=== PATIENT | male | born 1970 | race Caucasian/White ===

== ENCOUNTER 2022-07-03 14:36 | Outpatient (CLI) | payer OTHER, SELFPAY ==
[2022-07-03 17:42] LABS: Albumin* 4.4 g/dL (3.3-5.0)
[2022-07-03 17:45] LABS: Alanine Aminotransferase* 26 U/L (4-50); Alkaline Phosphatase* 97 U/L (40-150); Aspartate Amino Transferase* 29 U/L (12-35); Bilirubin Direct* 0.1 mg/dL (0.0-0.5); Bilirubin Total* 0.6 mg/dL (0.1-1.5); Total Protein* 7.4 g/dL (6.0-8.3)
== END 2022-07-03 14:37 | disposition home or self-care (01) ==
PROVIDERS: PCP Family Medicine; Visit Provider Family Medicine
DX: R10.9 Unspecified abdominal pain (principal); K92.1 Melena
CPT/HCPCS: 80076

== ENCOUNTER 2022-07-21 10:57 | Outpatient (CLI) | payer OTHER, SELFPAY ==
--- NOTE | 2022-07-21 12:22 | W.ANESCHARGE ---
Anesthesia Charges Start Date/Time Anesthesia Start Date: 07/21/22 Anesthesia Start Time: 11:43 Stop Date/Time Anesthesia Stop Date: 07/21/22 Anesthesia Stop Time: 12:15 Summary Emergency: No
--- NOTE | 2022-07-21 12:33 | W.ANESCHARGE ---
Anesthesia Charges Start Date/Time Anesthesia Start Date: 07/21/22 Anesthesia Start Time: 11:43 Stop Date/Time Anesthesia Stop Date: 07/21/22 Anesthesia Stop Time: 12:15 Summary Emergency: No
== END 2022-07-21 10:58 | disposition home or self-care (01) ==
LOC: OP CLINIC 11:02
PROVIDERS: PCP Family Medicine; Visit Provider Surgery
DX: Z12.11 Encounter for screening for malignant neoplasm of colon (principal); Z86.010 Personal history of colon polyps
CPT/HCPCS: 00811; 00812; 45378; J2704

== ENCOUNTER 2022-11-26 07:04 | Outpatient (CLI) | payer OTHER, SELFPAY ==
--- NOTE | 2022-11-26 07:15 | MR_ITS ---
[address] [address] Phone:?[phone] Fax:?[phone] Referring Physician Information: Tomás Pham M.D. [id number] [facility] [address] Phone:?[phone] Fax:?[phone] Patient:Josette Lockwood D.Savita.B:?1970 Sex:?Male Phone:?[phone] [facility] MRN:?[id number] Exam Date:?11/26/2022 ? EXAM: MRI EXAMINATION OF THE RIGHT SHOULDER CLINICAL INFORMATION: Right shoulder pain. No history of surgery to this area. Concern for possible rotator cuff tear. TECHNICAL INFORMATION: Coronal STIR as well as axial, sagittal and coronal PD and T2-weighted images acquired. There are no prior studies for comparison. INTERPRETATION: Bones: There is no Hill-Sachs impaction deformity. No other evidence for an occult fracture or osseous contusion. No other bone marrow edema pattern is identified. Rotator Cuff: Series 8 images 7 and 8 demonstrate an approximate 7 mm high-grade and apparent full-thickness tear of the far anterior supraspinatus tendon situated just proximal to the insertional footprint. Torn tendon fibers remain situated lateral to the mid humeral head level. There is no evidence for muscle belly atrophy. Series 4 image 9 as well as series 8 images 22 through 27 cm ovoid lobular 2.7 cm ganglion cyst anteroinferiorly towards the distal muscle belly. There is a mild appearance of infraspinatus tendinopathy. The teres minor tendon is intact. The subscapularis tendon is intact. No appreciable rotator cuff muscle belly atrophy. Coracoacromial arch: There is no discrete subacromial osseous spur. The bony acromiohumeral interval is measuring 8 to 9 mm. There is no thickening identified of the coracoacromial ligament. Acromioclavicular joint: There is a moderate appearance of AC joint DJD. No deformity of the underlying supraspinatus tendon. There is a moderate to marked appearance of fluid and edema signal within the subacromial/subdeltoid bursa areas. Biceps tendon: The long head biceps tendon is intact and nondisplaced from the bicipital groove. No evidence for a tendon tear or any appreciable changes of tendinopathy. There is a moderate appearance of tenosynovitis. Glenohumeral joint and labrum: No significant glenohumeral joint effusion. No discrete loose body within the joint. 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 No discrete SLAP tear. No other definite evidence for labral tear. No discrete paralabral cyst is identified. CONCLUSION: 1. There is a small, high-grade and apparent full-thickness tear involving the far anterior supraspinatus tendon just proximal to the tendon insertion. Torn tendon fibers remain situated lateral to the mid humeral head level. There is a 2.7 cm ganglion cyst within the muscle belly, without fatty atrophy. 2. Moderate AC joint DJD without abnormal narrowing of the acromiohumeral interval. 3. Moderate to marked fluid and edema signal within the subacromial/subdeltoid bursa area, may be related to the full-thickness rotator cuff tendon tear versus bursitis. 4. Unremarkable and intact long head biceps tendon, with moderate tenosynovitis. 5. 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 There is no glenohumeral joint effusion. KES Electronically signed on 11/26/2022 9:07:00 AM by Jorge Stewart M.D.
== END 2022-11-26 07:05 | disposition home or self-care (01) ==
LOC: MRI 07:06
PROVIDERS: PCP Family Medicine; Visit Provider Orthopaedic Surgery Sports Medicine
DX: M25.511 Pain in right shoulder (principal); M75.101 Unspecified rotator cuff tear or rupture of right shoulder, not specified as traumatic; M19.011 Primary osteoarthritis, right shoulder; M65.811 Other synovitis and tenosynovitis, right shoulder; M94.211 Chondromalacia, right shoulder
CPT/HCPCS: 73221

== ENCOUNTER 2022-12-28 07:06 | Day surgery (SDC) | payer OTHER, SELFPAY ==
[2022-12-28] VITALS (14 sets, daily range): BP systolic 110–131; BP diastolic 76–100; PULSE 55–62; RESP 16–20; TEMP 36.1–36.9; O2SAT 93–999; BMI 34.7
[2022-12-28] MEDS: LACTATED RINGERS 1000 ML 1,000 ML 100 ML IV (07:25)
[2022-12-28] MEDS: fentaNYL 100 MCG/2 ML inj IVP (08:04)
[2022-12-28] MEDS: MIDAZOLAM HCL 1 MG/ML inj IVP (08:05)
--- NOTE | 2022-12-28 08:29 | SUR.PREOP ---
TIME?OUT:?0804 PT/RN/MDA?VERIFICATION?OF?SURGICAL?SITE,?PROCEDURE,?AND?CONSENT OBTAINED?PRIOR?TO?INVASIVE?PROCEDURE.
--- NOTE | 2022-12-28 08:29 | W.PM.NB ---
Nerve Block Nerve Block Time Seen by Provider: 08:10 Date Seen: 12/28/22 Type of block requested by surgeon for post-operative analgesia: supraclavicular Side: right Time out performed: Yes Verification of patient name: Yes Verification of date of : Yes Site marking: site marked Name of person performing procedure: malini Continuous monitoring Was continuous monitoring of O2 sat, B/P, laboratory monitor, recorded every 15 minutes?: Yes Procedure Checklist: sterile prep and needles Ultrasound guided. Images saved: Yes Medications given in 5ml increments after negative aspiration: Ropivicaine %: 0.5 mL: 20 Needle gauge: 22 Decadron (mg): 10 Precedex (mcg): 25 Patient tolerated procedure well: Yes Block Charges Block Charge (with Pro Fee): Brachial Plexus Use of Ultrasound Machine for Block: Yes- US Guidance/pain block
[2022-12-28] MEDS: EPINEPHrine 1 MG in SODIUM CHLORIDE IRRIG SOLUTION 3,000 ML 9003 MG IRRIGATION ×3 (10:20)
--- NOTE | 2022-12-28 10:37 | P.ORPRC_ITS ---
Procedure Note Date of procedure: 12/28/22 Procedure: PREOPERATIVE DIAGNOSES: 1. Right shoulder rotator cuff tear. 2. Right shoulder AC degenerative joint disease, primary, moderate-severe 3. Right shoulder subacromial impingement syndrome. POSTOPERATIVE DIAGNOSES: 1. Right shoulder rotator cuff tear. 2. Right shoulder AC degenerative joint disease, primary, moderate-severe 3. Right shoulder subacromial impingement syndrome. NAME OF OPERATION: 1. Right shoulder arthroscopic rotator cuff repair. 2. Right shoulder arthroscopic distal clavicle excision 3. Right shoulder arthroscopic bursectomy, subacromial decompression/partial acromioplasty. SURGEON: Tomás Pham MD INSPECTOR WATCH TRAIN: Shadi LEYVA Of note, a skilled legal support assistant was critical for this case to aide in patient positioning, suture manipulation, arm positioning, instrument positioning, and closure. ANESTHESIA: General plus preoperative supraclavicular block. EBL: 50 mL IMPLANTS: Arthrex 2.6 mm FiberTak RC (x1); 5.5 mm BioComposite SwiveLock suture anchor (x1) COMPLICATIONS: None evident INDICATIONS: The patient is a pleasant, 52-year-old male who has experienced right shoulder pain that has been increasing in recent time. Physical exam and imaging were consistent with a rotator cuff tear. Given their findings, as well as the weakness and pain, and inadequate response to nonoperative management, recommendation was made for surgery. FINDINGS: Exam under anesthesia revealed stable shoulder with excellent range of motion. The diagnostic arthroscopy revealed relatively healthy chondral surfaces glenohumeral joint with some chondral wear superior humeral head. The Subscapularis tendon was intact and with a healthy attachment. The long head of the biceps tendon was intact. The superior rotator cuff tendon was found to be torn full thickness at the anterior margin measuring approximately 12 mm in greatest dimension with minimal retraction. The labrum was intact with minimal pathology. No loose bodies were identified within the pouch or subscapularis recess. PROCEDURE: Following a thorough discussion of risks, benefits, and alternatives, consent was obtained and the right shoulder was marked. The patient was brought to the operating room and placed supine on the operating table. Induction of anesthesia was completed after preoperative supraclavicular block was administered in preop holding. Appropriate time out was performed identifying proper patient, site, and procedure. 2 g IV Ancef was administered within 1 hour of incision preoperatively. The right upper extremity was prepped and draped in the appropriate sterile fashion using ChloraPrep prep. This was after the patient was positioned in the beach chair with their head in neutral alignment and all bony prominences well padded. The shoulder was insufflated with 20mL of normal saline via an 18g spinal needle from a posterior approach. An 11 blade skin incision allowed a blunt trochar to be inserted and diagnostic arthroscopy to be performed with the findings as noted above. An anterior portal was established with an outside in technique. This allowed the probe to be inserted and confirm the diagnostic arthroscopic findings. Following this, the upper border subscapularis was probed and found to be stable and intact. Thereafter, the subacromial space was entered. Here, a complete bursectomy and partial acromioplasty/subacromial decompression was performed with a combination of radiofrequency ablator, the shaver, and a 5.5 mm bur. Additionally, distal clavicle excision was performed with the bur. 8 mm of distal clavicle was resected based on the with of our bur. Further inspection of the supraspinatus and infraspinatus rotator cuff was performed. This identified the tear as noted above. The margins of the tear were debrided, and the greater tuberosity was debrided with a combination of the apollo cautery, shaver, and bur on reverse setting. After gentle decortication, and preparation of greater tuberosity, a 2.6 mm FiberTak RC was placed for medial row fixation. The 4 tails were passed independently and brought to a single 5.5 mm BioComposite SwiveLock suture anchor laterally. Excellent footprint compression was achieved. Prior to anchor industrial truck driver removal, the eyelet sutures were tugged on for each anchor and found that the anchor had excellent stability within the bone. The shoulder was placed through range of motion and found to be stable. The rotator cuff was re-probed and found to be stable. Instruments were removed. Excess fluid was drained, closure performed with 4-0 Monocryl and Steri-Strips. Dressings were applied. Sling was applied. The patient was awoken from anesthesia and transferred to the PACU in stable condition. A skilled legal support assistant was critical for this case to aid in patient positioning, limb positioning, skill to manipulate arthroscopic instruments and camera, suture management, patient safety, and closure. PLAN: 1. Elbow, forearm, wrist and digit range of motion as tolerated. 2. Encouraged ice. 3. Percocet for pain as needed. 4. Sling at all times except for ROM and showering. 5. Follow up with PA visit in 1-2 weeks for wound check. Initiate physical therapy following that visit for passive range of motion. Initiate active assisted range of motion at 3 weeks. May do pendulums now.
--- NOTE | 2022-12-28 10:41 | W.ANESCHARGE ---
Anesthesia Charges Start Date/Time Anesthesia Start Date: 12/28/22 Anesthesia Start Time: 08:49 Stop Date/Time Anesthesia Stop Date: 12/28/22 Anesthesia Stop Time: 10:38
--- NOTE | 2022-12-28 11:13 | SUR.PHASEI ---
patient met discharge criteria per anesthesia
[2022-12-28] MEDS: OXYCODONE 5 MG TABLET PO (11:28)
[2022-12-28] MEDS: OxyCODONE/APAP 5-325 TABLET PO (12:21)
[2022-12-28] MEDS: ACETAMINOPHEN 325 MG TABLET PO (12:22)
== END 2022-12-28 12:49 | disposition home or self-care (01) ==
PROVIDERS: PCP Family Medicine; Visit Provider Orthopaedic Surgery Sports Medicine
PROC: (CPT 29805; principal; 2022-12-28 08:30)
DX: M75.101 Unspecified rotator cuff tear or rupture of right shoulder, not specified as traumatic (principal); M75.41 Impingement syndrome of right shoulder; M19.011 Primary osteoarthritis, right shoulder
CPT/HCPCS: 29827; 29826; 29824; 1630; 64415; 76942; A9270; C1713; J0171; J0330; J1100; J2250; J2405; J2704; J2795; J3010; J7120; L3670

== ENCOUNTER 2023-05-04 08:15 | Outpatient (RCR) | payer OTHER, SELFPAY | END 2023-07-05 09:03 | disposition home or self-care (01) | PROVIDERS: PCP Family Medicine; Visit Provider Orthopaedic Surgery Sports Medicine | DX: M19.011 Primary osteoarthritis, right shoulder (principal); M75.111 Incomplete rotator cuff tear or rupture of right shoulder, not specified as traumatic; Z51.89 Encounter for other specified aftercare | CPT/HCPCS: 97110; 97140; 97162; 97530 ==

== ENCOUNTER 2023-05-13 11:34 | Outpatient (CLI) | payer OTHER, SELFPAY | END 2023-05-13 11:35 | disposition home or self-care (01) | PROVIDERS: PCP Family Medicine; Visit Provider Family Medicine | DX: R10.13 Epigastric pain (principal); E87.1 Hypo-osmolality and hyponatremia | CPT/HCPCS: 80053; 83690; 85651 ==

== ENCOUNTER 2023-05-31 10:55 | Outpatient (CLI) | payer OTHER, SELFPAY | END 2023-05-31 10:56 | disposition home or self-care (01) | LOC: NFLDREF 06-01 09:38 | PROVIDERS: PCP Family Medicine; Referring Provider Family Medicine; Visit Provider Physician Assistant | DX: R07.89 Other chest pain (principal); J40 Bronchitis, not specified as acute or chronic | CPT/HCPCS: 84484 ==

== ENCOUNTER 2023-07-20 09:51 | Outpatient (CLI) | payer OTHER, SELFPAY | END 2023-07-20 09:52 | disposition home or self-care (01) | PROVIDERS: PCP Family Medicine; Visit Provider Family Medicine | DX: R10.9 Unspecified abdominal pain (principal) | CPT/HCPCS: 80076; 83690 ==

== ENCOUNTER 2023-07-21 08:13 | Outpatient (CLI) | payer OTHER, SELFPAY ==
--- NOTE | 2023-07-21 08:00 | CRLHL7_ITS ---
For Patients: As a result of the Century Cures Act, medical imaging exams and procedure reports are released immediately into your electronic medical record. You may view this report before your referring provider. If you have questions, please contact your health care provider. INDICATION: Abdominal pain. History of pancreatitis COMPARISON: November 01, 2021 CT TECHNIQUE: CT examination of the abdomen and pelvis was performed following the uneventful intravenous administration of 121 cc of Isovue 370. Thin section axial images were obtained from the lung bases through the pubic symphysis. Oral contrast was not administered. Please note that all CT scans at this facility use dose modulation, iterative reconstruction, and/or weight-based dosing when appropriate to reduce radiation dose to as low as reasonably achievable. FINDINGS: LUNG BASES: The lung bases as visualized appear normal.The heart size is normal at the lung bases. LIVER/BILIARY SYSTEM:Hepatic steatosis. Mass in the posterior segment of the right lobe of the liver measuring about 2.5 centimeters. This has imaging features most consistent with a hemangioma and was present previously. No biliary ductal dilation. Surgically absent gallbladder ADRENALS: Normal KIDNEYS, URETERS and BLADDER:The kidneys appear normal. No visible mass, calculus or hydronephrosis. The ureters and bladder as visualized appear normal. SPLEEN:Normal appearance. PANCREAS: There are mild peripancreatic inflammatory changes at the inferior aspect of the head. This probably represents acute on chronic pancreatitis. Correlate with lipase level. There is atrophy of much of the body of the pancreas with pancreatic ductal dilation similar to the prior study. This usually due to chronic pancreatitis. There is no focal collection in there is no evidence of necrosis. RETROPERITONEUM and MESENTERY: There is no mass, adenopathy or aortic aneurysm. GASTROINTESTINAL SYSTEM: There is no evidence of diverticulitis, colitis, mechanical obstruction, or appendicitis. The small bowel as visualized appears normal. PELVIS: No mass, adenopathy or free fluid. OSSEOUS STRUCTURES and ABDOMINAL WALL: There is an age-appropriate appearance of the osseous structures.No significant abdominal wall defect. OTHER: No free fluid or free air. IMPRESSION: 1. There are findings of chronic pancreatitis. 2. Mild peripancreatic inflammatory change primarily at the inferior aspect of the pancreatic head near the uncinate process and the regional retroperitoneum. This probably represents acute on chronic pancreatitis. Correlate with lipase level. No collection and no evidence of pancreatic necrosis. 3. Hepatic steatosis. Benign-appearing right lobe hepatic mass probably hemangioma. Status post cholecystectomy. Please note that all CT scans at this facility use dose modulation, iterative reconstruction, and/or weight-based dosing when appropriate to reduce radiation dose to as low as reasonably achievable. Dictated by Jose Hernandez MD @ 07/21/2023 8:56:48 AM (Electronically Signed)
== END 2023-07-21 08:14 | disposition home or self-care (01) ==
PROVIDERS: PCP Family Medicine; Visit Provider Family Medicine
DX: R10.9 Unspecified abdominal pain (principal)
CPT/HCPCS: 74177; Q9967

== ENCOUNTER 2023-08-17 18:13 | Inpatient (IN) | payer OTHER, SELFPAY ==
[2023-08-17] VITALS (35 sets, daily range): BP systolic 119–175; BP diastolic 77–123; PULSE 104–140; RESP 22; TEMP 37–38.2; O2SAT 91–99; BMI 33.5; BMI 33.6
--- NOTE | 2023-08-17 18:36 | ED.GENADULT ---
HPI - General Adult General Chief complaint: Fever Stated complaint: [facility]oscopy-chills, reaction, hard to breath Time Seen by Provider: 08/17/23 18:27 History of Present Illness HPI narrative: This 53-year-old male comes in reporting generalized malaise and arrives here with a temperature of 100.7? F. an oral temperature was 98.6? however. His heart rate initially was 104 but this increased to around 130 beats per minute. He does not report any chest pain. He states that he has recurrent pancreatitis and had an upper GI scope this morning done at a different facility. Related Data Home Medications Medication Instructions Recorded Confirmed sucralfate 1 gram tablet 1 g PO BID PRN 12/22/22 06/09/23 Previous Rx's Medication Instructions Recorded omeprazole 20 mg capsule,delayed 20 mg PO BID #120 caps 04/13/22 release celecoxib 200 mg capsule 200 mg PO BID #42 caps 11/02/22 ondansetron 4 mg disintegrating 4 mg PO Q6-8H PRN nausea and 05/13/23 tablet vomiting #30 tabs oxycodone 5 mg tablet 5 mg PO QID PRN pain #42 tabs 08/09/23 Allergies Allergy/AdvReac Type Severity Reaction Status Date / Time No Known Drug Allergies Allergy Verified 08/17/23 20:35 Review of Systems Status of ROS: Reports: 10 or more systems reviewed and unremarkable except as noted in History and below Narrative: Constitutional: No weight gain or loss. Eyes: No discharge. No vision changes. HENT: No congestion, no sore throat, no ear pain. Cardiovascular: No chest pain, no palpitations. Respiratory: No shortness of breath, no wheezes, no cough. Gastrointestinal: Upper abdominal pain with some nausea. Genitourinary: No dysuria, no hematuria. Musculoskeletal: Normal range of motion. Skin: No rashes, no pruritis. Neurological: No dizziness, weakness, sensory change, speech change. Endo/Heme/Allergies: No bruising or bleeding. No polydipsia. Pysch: no suicidality, no anxiety, no insomnia. All other systems reviewed and are negative. [facility] Medical History (Updated 08/17/23 @ 21:29 by Salo Narvaez MD) Presence of pancreatic duct stent ?Z96.89 - Presence of other specified functional implants (ICD-10) History of biliary stent insertion ?Z98.890 - Other specified postprocedural states (ICD-10) Radiculopathy affecting upper extremity (10/28/10) ?M54.10 - Radiculopathy, site unspecified (ICD-10) Surgical History S/P arthroscopy of right shoulder (12/28/22) ?Z98.890 - Other specified postprocedural states (ICD-10) Status post laparoscopic cholecystectomy (12/22/16) ?Z90.49 - Acquired absence of other specified parts of digestive tract (ICD-10) History of colonoscopy ?Z98.890 - Other specified postprocedural states (ICD-10) Family History Other Colitis Social History Narrative: Social History: He is and lives with his and children. 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 Habits: He denies tobacco use. Denies recreational drug use. EtOH occassional - [place]/New Years was last EtOH. Drinks non alcoholic beer, last one was also over the holidays. Family History: Paternal grandfather of an acute myocardial infarction at age 50. His brother also had an acute myocardial infarction in his early 50s. A different brother had strokes in his 50s and 60s. Father had lung cancer with brain metastases despite being a nonsmoker. Smoking Status: Never smoker Little interest or pleasure in doing things: not at all Feeling down, depressed, or hopeless: not at all Exam Narrative: Exam Narrative: Constitutional: Well-developed, well-nourished. HEENT: Normocephalic, atraumatic. Neck: Normal range of motion. Nontender. Supple. Heart: Regular. No murmurs. Tachycardia. Intact distal pulses. Lungs: Clear to auscultation. No chest discomfort. No wheezes, rhonchi, or rales. Abdomen: Normal bowel sounds. Nontender. No rebound tenderness. Genitalia: Deferred. Back: No midline tenderness. Normal range of motion. Extremities: Normal range of motion. No injury. Skin: Intact. No rash. Warm. No erythema or pallor. Neurologic: No altered sensation. No weakness. Alert and oriented. Psychiatric: No suicidality. No anxiety or depression. No insomnia. Nursing notes and vitals signs are reviewed. Const: Vital Signs, click to edit/add: Vital Signs - 24 hr 08/17/23 18:19 08/17/23 18:30 08/17/23 18:34 Temperature 100.7 F H Pulse Rate 133 H Pulse Rate [Pulse Oximeter] 104 H Respiratory Rate 22 Blood Pressure 148/100 H Blood Pressure [Ri ght Upper Arm] 132/104 H Pulse Oximetry 99 95 Oxygen Delivery Me thod Room Air Oxygen Flow Rate 08/17/23 18:35 08/17/23 18:36 08/17/23 18:37 Temperature 98.6 F Pulse Rate 126 H 126 H Pulse Rate [Pulse Oximeter] Respiratory Rate Blood Pressure 150/113 H Blood Pressure [Ri ght Upper Arm] Pulse Oximetry 93 96 Oxygen Delivery Me thod Oxygen Flow Rate 08/17/23 18:45 08/17/23 18:47 08/17/23 19:00 Temperature Pulse Rate 122 H 124 H Pulse Rate [Pulse Oximeter] Respiratory Rate Blood Pressure 141/100 H Blood Pressure [Ri ght Upper Arm] Pulse Oximetry 94 96 Oxygen Delivery Me thod Oxygen Flow Rate 08/17/23 19:15 08/17/23 19:16 08/17/23 19:30 Temperature Pulse Rate 123 H 125 H 136 H Pulse Rate [Pulse Oximeter] Respiratory Rate Blood Pressure 143/91 H Blood Pressure [Ri ght Upper Arm] Pulse Oximetry 94 93 91 Oxygen Delivery Me thod Oxygen Flow Rate 08/17/23 19:32 08/17/23 19:45 08/17/23 19:47 Temperature Pulse Rate 130 H 139 H Pulse Rate [Pulse Oximeter] Respiratory Rate Blood Pressure 144/98 H 175/123 H Blood Pressure [Ri ght Upper Arm] Pulse Oximetry 91 96 Oxygen Delivery Me thod Oxygen Flow Rate 08/17/23 20:00 08/17/23 20:01 08/17/23 20:01 Temperature Pulse Rate 135 H Pulse Rate [Pulse Oximeter] Respiratory Rate Blood Pressure Blood Pressure [Ri ght Upper Arm] Pulse Oximetry 94 96 96 Oxygen Delivery Me thod Nasal Cannula Nasal Cannula Oxygen Flow Rate 2 2 08/17/23 20:01 08/17/23 20:15 08/17/23 20:16 Temperature Pulse Rate 135 H 124 H 127 H Pulse Rate [Pulse Oximeter] Respiratory Rate Blood Pressure 160/87 H 134/95 H Blood Pressure [Ri ght Upper Arm] Pulse Oximetry 96 96 96 Oxygen Delivery Me thod Oxygen Flow Rate 08/17/23 20:17 08/17/23 20:30 08/17/23 20:31 Temperature Pulse Rate 126 H 130 H 132 H Pulse Rate [Pulse Oximeter] Respiratory Rate Blood Pressure 148/92 H Blood Pressure [Ri t Upper Arm] Pulse Oximetry 95 97 95 Oxygen Delivery Me thod Oxygen Flow Rate 08/17/23 20:46 08/17/23 20:56 08/17/23 21:00 Temperature Pulse Rate 136 H 139 H Pulse Rate [Pulse Oximeter] Respiratory Rate Blood Pressure 119/88 Blood Pressure [Ri ght Upper Arm] Pulse Oximetry 97 95 Oxygen Delivery Me thod Oxygen Flow Rate 08/17/23 21:02 Temperature Pulse Rate 138 H Pulse Rate [Pulse Oximeter] Respiratory Rate Blood Pressure 150/85 H Blood Pressure [Ri t Upper Arm] Pulse Oximetry 95 Oxygen Delivery Me thod Oxygen Flow Rate Course Vital Signs Vital signs: Initial Vital Signs Temperature 100.7 F H 08/17/23 18:19 Temperature Source Temporal Artery Scan 08/17/23 18:19 Pulse Rate 104 H 08/17/23 18:19 Pulse Rhythm Regular 08/17/23 18:19 Respiratory Rate 08/17/23 18:19 Blood Pressure 132/104 H 08/17/23 18:19 Blood Pressure Mean 113 H 08/17/23 18:19 Blood Pressure Position Sitting 08/17/23 18:19 Pulse Oximetry 99 08/17/23 18:19 Oxygen Delivery Method Room Air 08/17/23 18:19 Vital Signs Temperature 100.7 F H 08/17/23 18:19 Pulse Rate 104 H 08/17/23 18:19 Respiratory Rate 22 08/17/23 18:19 Blood Pressure 132/104 H 08/17/23 18:19 Pulse Oximetry 99 08/17/23 18:19 Oxygen Delivery Method Room Air 08/17/23 18:19 Temperature 98.6 F 08/17/23 18:37 Pulse Rate 138 H 08/17/23 21:02 Respiratory Rate 22 08/17/23 18:19 Blood Pressure 150/85 H 08/17/23 21:02 Pulse Oximetry 95 08/17/23 21:02 Oxygen Delivery Method Nasal Cannula 08/17/23 20:01 Oxygen Flow Rate 2 08/17/23 20:01 Medications Administered Medications: Discontinued Medications Generic Name Dose Route Start Last Admin Trade Name Freq PRN Reason Stop Dose Admin Hydromorphone HCl 0.5 mg 08/17/23 18:49 08/17/23 18:55 Hydromorphone 0.5 Mg/0.5 Ml Inj IVP 08/17/23 18:50 0.5 mg ONCE ONE Administration Hydromorphone HCl 0.5 mg 08/17/23 19:16 08/17/23 19:35 Hydromorphone 0.5 Mg/0.5 Ml Inj IVP 08/17/23 19:17 0.5 mg ONCE ONE Administration Sodium Chloride 1,000 mls @ 1,000 mls/hr 08/17/23 18:45 08/17/23 19:05 0.9 % Sodium Chloride 1000 Ml IV 08/17/23 19:44 Infused .Q1H CRISTHIAN Infusion Sodium Chloride 1,000 mls @ 1,000 mls/hr 08/17/23 19:00 08/17/23 19:49 0.9 % Sodium Chloride 1000 Ml IV 08/17/23 19:59 Infused .Q1H CRISTHIAN Infusion Sodium Chloride 1,000 mls @ 1,000 mls/hr 08/17/23 19:00 08/17/23 19:49 0.9 % Sodium Chloride 1000 Ml IV 08/17/23 19:59 1,000 mls/hr .Q1H CRISTHIAN Administration Ondansetron HCl 4 mg 08/17/23 18:49 08/17/23 18:55 Ondansetron 2 Mg/Ml Inj IVP 08/17/23 18:50 4 mg ONCE ONE Administration Ondansetron HCl 4 mg 08/17/23 20:19 08/17/23 20:27 Ondansetron 2 Mg/Ml Inj IVP 08/17/23 20:20 4 mg ONCE ONE Administration Medical Decision Making MDM Narrative Medical decision making narrative: This patient comes in and severe pain and arrives with tachycardia. He had a ERCP type procedure (actually an EUS) done today at [facility] to evaluate his recurrent pancreatitis. An IV was established where he received total of 3 L of normal saline. His lactate returned at 5.5 so he received this amount of fluids however his temperature and blood pressure remained reassuring. He is not tripping more than [address] imaging of his abdomen and pelvis shows evidence of pancreatitis. Additionally his labs returned with a lipase of 2541. Other labs are reassuring. The patient did received 3 separate doses of Dilaudid 0.5 mg during his stay here. This brought sufficient relief to his pain. His tachycardia returned back to normal range. This patient has a postprocedure pancreatitis. I did speak with the GI specialist at [place], Dr. Feng who stated that he is okay to rehab Les[facility] here in [place] in the hospital for IV hydration and pain management. I did speak with Dr. Nova who agrees to his admission into the hospital here. Lab Data Labs: Lab Results 08/17/23 08/17/23 08/17/23 Range/Units 18:30 18:33 19:21 WBC 5.57 (4.50-11.00) K/uL RBC 4.96 (4.30-5.90) m/uL Hgb 15.4 (13.5-17.5) gm/dL Hct 44.6 (37.0-53.0) % MCV 90 (80-100) fL MCH 31 (26-34) pg MCHC 35 (32-36) gm/dL RDW Coeff of Amber 12.3 (11.5-15.5) % Plt Count 193 (140-440) K/uL Neut % (Auto) 90.4 H (42.0-72.0) % Lymph % (Auto) 7.5 L (20-44) % [place] % (Auto) 1.4 (0.0-11.0) % Eos % (Auto) 0.5 (0.0-7.0) % Baso % (Auto) 0.2 (0.0-3.0) % Neut # (Auto) 5.00 (1.7-7.0) K/uL Lymph # (Auto) 0.40 L (0.90-2.90) K/uL [place] # (Auto) 0.10 (0.00-0.90) K/UL Eos # (Auto) 0.03 (0.00-0.50) K/uL Baso # (Auto) 0.01 (0.00-0.30) K/uL Abs Immat Gran (auto) 0.00 (0.00-0.30) K/uL Imm/Tot Granulo (auto) 0.0 % Sodium 141 (135-149) mmol/L Potassium 4.1 (3.6-5.1) mmol/L Chloride 101 (96-114) mmol/L Carbon Dioxide 23 (20-32) mmol/L Anion Gap 17 H (7-15) mEq/L BUN 10 (7-30) mg/dL Creatinine 1.0 (0.5-1.5) mg/dL Estimated Creat Clear 88.90 Estimated GFR 89 ml/min Glucose 147 H (60-115) mg/dL Lactate 5.5 H* (0.5-1.9) mmol/L Calcium 9.5 (8.4-10.6) mg/dL Total Bilirubin 1.1 (0.1-1.5) mg/dL Direct Bilirubin 0.1 (0.0-0.5) mg/dL AST 33 (12-35) U/L ALT 33 (4-50) U/L Alkaline Phosphatase 105 (40-150) U/L C-Reactive Protein 1.6 H (0.5-1.0) mg/dL Total Protein 8.3 (6.0-8.3) g/dL Albumin 4.9 (3.3-5.0) g/dL Lipase 2541 H (23-300) U/L Urine Color Yellow (Yellow) Urine Appearance Clear (Clear) Urine pH 5.0 (5.0-8.5) Ur Specific [place] 1.010 (1.000-1.030) Urine Protein Negative (Negative) Urine Glucose (UA) Negative (Negative) Urine Ketones Negative (Negative) Urine Blood Negative (Negative) Urine Nitrite Negative (Negative) Urine Bilirubin Negative (Negative) Urine Urobilinogen 0.2 (0.2-1.0) Ur Leukocyte Esterase Negative (Negative) POC Troponin I 0.00 L (0.01-0.04) ng/ml Imaging Data CT scan - abdomen: Radiologist's impression: Mild peripancreatic inflammatory stranding which could suggest acute uncomplicated pancreatitis. No drainable fluid collections. Recommend correlation with lipase. Mild duodenal wall thickening, likely reactive. ECG Data Attestation: I personally reviewed and interpreted this ECG as follows: Interpretation: Sinus tachycardia, rate 135 beats per minute. Right bundle branch block. There are no ST or T-wave abnormalities. Discharge Plan Discharge Clinical Impression: Acute pancreatitis Patient Disposition: Admitted As Observation Prescriptions: No Action sucralfate 1 gram tablet 1 g PO BID PRN Rx Instructions: TAKE 1 TABLET BY MOUTH BEFORE MEALS AND AT BEDTIME ondansetron 4 mg tablet,disintegrating 4 mg PO Q6-8H PRN (Reason: nausea and vomiting) Qty: 30 0RF celecoxib 200 mg capsule 200 mg PO BID Qty: 42 2RF omeprazole 20 mg capsule,delayed release(DR/EC) 20 mg PO BID Qty: 120 5RF oxycodone 5 mg tablet 5 mg PO QID PRN (Reason: pain) Qty: 42 0RF Follow Up/Referrals: Salo Gomez MD [Primary Care Provider] - Stand Alone Forms: [facility] Info Instructions
[2023-08-17] MEDS: 0.9 % SODIUM CHLORIDE 1000 ml 1,000 ML IV ×3 (18:37→19:49)
--- NOTE | 2023-08-17 18:40 | ED.NURSE ---
Bowel sounds absent on auscultation, CEDRIC Pérez auscultated as well and confirmed bowel sounds absent. Pt's medial abdomen is firm and tender on palpation. MD notified.
[2023-08-17 18:42] LABS: Lactate* 5.5 mmol/L (0.5-1.9)
[2023-08-17 18:44] LABS: Basophils Absolute Auto 0.01 K/uL (0.00-0.30); Basophils Percent Auto 0.2 % (0.0-3.0); Eosinophils Absolute Auto 0.03 K/uL (0.00-0.50); Eosinophils Percent Auto 0.5 % (0.0-7.0); Hematocrit 44.6 % (37.0-53.0); Hemoglobin* 15.4 gm/dL (13.5-17.5); Lymphocytes Percent Auto 7.5 % (20-44); Mean Corpuscular HGB Conc 35 gm/dL (32-36); Mean Corpuscular Hemoglobin 31 pg (26-34); Mean Corpuscular Volume 90 fL (80-100); Monocytes Percent Auto 1.4 % (0.0-11.0); Neutrophils Percent Auto 90.4 % (42.0-72.0); Platelet Count* 193 K/uL (140-440); RDW Coefficient of Variation % 12.3 % (11.5-15.5); Red Blood Count 4.96 m/uL (4.30-5.90); White Blood Count* 5.57 K/uL (4.50-11.00)
[2023-08-17 18:48] LABS: Slide Review Reflex No
--- NOTE | 2023-08-17 18:49 | CRLHL7_ITS ---
For Patients: As a result of the Century Cures Act, medical imaging exams and procedure reports are released immediately into your electronic medical record. You may view this report before your referring provider. If you have questions, please contact your health care provider. INDICATION: Abdominal pain. TECHNIQUE: CT abdomen and pelvis acquired with 95 cc Isovue 370 IV contrast. COMPARISON: July 21, 2023. FINDINGS: Lower chest: Scattered atelectasis. Tiny hiatal hernia. Liver: Hepatic steatosis. No suspicious masses. Right hepatic lobe hemangioma. Gallbladder and bile ducts: Cholecystectomy. Pancreas: Mild peripancreatic inflammation. Pancreatic ductal dilation to the level of the ampulla. Spleen: Unremarkable. Normal in size. No masses. Adrenal glands: Unremarkable. No nodules. Kidneys: Tiny hypodensities in both kidneys, too small to characterize but. No suspicious masses, stones, or hydronephrosis. GI tract: Mild duodenal wall thickening. No bowel obstruction. Normal appendix. Vasculature: Abdominal aorta is normal in caliber. Mesenteric arteries are patent. Lymph nodes: No lymphadenopathy. Peritoneum/Abdominal Wall: Tiny fat containing umbilical hernia. No sign of mass or infiltration. No free air or significant free fluid. Pelvis: Prostatomegaly. Mildly distended bladder. Bones: Unremarkable for age. IMPRESSION: Mild peripancreatic inflammatory stranding which could suggest acute uncomplicated pancreatitis. No drainable fluid collections. Recommend correlation with lipase. Mild duodenal wall thickening, likely reactive. Please note that all CT scans at this facility use dose modulation, iterative reconstruction, and/or weight-based dosing when appropriate to reduce radiation dose to as low as reasonably achievable. Dictated by Arturo Downing MD @ 08/17/2023 7:40:13 PM (Electronically Signed)
--- OUTSIDE RECORDS SUMMARY | 2023-08-17 18:49 | XMS_ITS | Continuity of Care Document ---
Author Name Unknown Organization [facility] Address [address] [address] [place] [address] Phone Care Team Providers Care Database Security Administrator Name Role Phone No Information Unavailable Unavailable Advance Directives Directive Yes / No Effective Date File Name No Information Encounters Encounter Description Practice Location Reason(s) For Visit Diagnoses Date Provider Providers Copied on Encounter [facility], [address] [address], [place], [place], [id number], [place] tel:[phone] No Information No Information Family History Family Member Type Diagnosis Age At Onset No Information Payers Payer name Insurance type Covered democrat ID Authoriza tion(s) No Information Social History Type Description Quantity Date Captured Comments Sex Male Smoking Status No Information Chief Complaint And Reason For Visit No Information Reason For Referral Reason For Referral No Information History Of Present Illness Encounter Date Complaint History Of Prese nt Illness No Information Functional Status Date Functional Assessmen t No Information Instructions Date Instruction Additional Infor mation No Information Assessments Type Assessment Date No Information Patient Care Teams Name Effective Dates (start - stop) Status Members No Information
[2023-08-17] MEDS: HYDROmorphone 0.5 mg/0.5 ml inj IVP ×4 (18:55→23:08)
[2023-08-17] MEDS: ONDANSETRON 2 MG/ML inj 4 MG IVP ×2 (18:55→20:27)
[2023-08-17 19:02] LABS: Albumin* 4.9 g/dL (3.3-5.0); Chloride* 101 mmol/L (96-114); Sodium* 141 mmol/L (135-149)
[2023-08-17 19:03] LABS: Potassium* 4.1 mmol/L (3.6-5.1)
[2023-08-17 19:04] LABS: Estimated Glomerular Filt Rate 89 ml/min
[2023-08-17 19:05] LABS: Alkaline Phosphatase* 105 U/L (40-150); Anion Gap 17 mEq/L (7-15); Aspartate Amino Transferase* 33 U/L (12-35); Bilirubin Direct* 0.1 mg/dL (0.0-0.5); Bilirubin Total* 1.1 mg/dL (0.1-1.5); Carbon Dioxide* 23 mmol/L (20-32); Total Protein* 8.3 g/dL (6.0-8.3)
[2023-08-17 19:06] LABS: Alanine Aminotransferase* 33 U/L (4-50); Blood Urea Nitrogen* 10 mg/dL (7-30); Calcium* 9.5 mg/dL (8.4-10.6); Glucose* 147 mg/dL (60-115)
[2023-08-17 19:08] LABS: C Reactive Protein* 1.6 mg/dL (0.5-1.0)
[2023-08-17 19:22] LABS: Lipase* 2541 U/L (23-300)
[2023-08-17 19:30] LABS: Appearance Urine Clear (Clear); Bilirubin Urine Negative (Negative); Blood Urine Negative (Negative); Color Urine Yellow (Yellow); Glucose Urine Negative (Negative); Ketones Urine Negative (Negative); Leukocyte Esterase Urine Negative (Negative); Nitrite Urine Negative (Negative); Protein Urine Negative (Negative); Urobilinogen Urine 0.2 (0.2-1.0)
--- NOTE | 2023-08-17 21:57 | P.IMHP_ITS ---
Hospitalist- H&P: HPI History of Present Illness Date Seen: 08/17/23 Chief complaint: [facility] endoscopy-chills, reaction, hard to breath Narrative: ADMISSION HISTORY AND PHYSICAL - HOSPITALIST Chief Complaint: Recurrent pancreatitis HPI: Mr. Lockwood is a 53-year-old with a history of chronic recurrent pancreatitis. He has typically been seen and managed by the GI clinic at [facility]. Earlier on the day of presentation, 08/17/2023, he had an endoscopic ultrasound for biopsying of a new found pancreatic mass. Within a few hours of this uneventful procedure he began to have intense abdominal pain that did not respond to oxycodone and rest. He states it had been years since he had this type of pain. He was shaking and sweating with the pain. He has had 10 years of idiopathic recurrent bouts of acute pancreatitis. He has had his gallbladder out, stents trialed x 3. His most recent stent placed about 18 months ago was working well until the last 1-2 months when he started having bouts of pain again. He returned to GI and they imaged his pancreas by CT and the noted a new mass. EUS with biopsy was set up for today. While notes are not available via [facility] I do see some radiologic and procedure results. Essentially they biopsied the solid pancreatic mass seen previously this month by CT scan. The GI team feels this is pancreatic ductal adenocarcinoma (PDAC). He was last admitted to our care in 2017 for pancreatitis. ER COURSE: Fluids, imaging, pain and nausea meds CODE STATUS: FULL CODE EMERGENCY CONTACT PLAN: Maria Eugenia Lockwood? ?Rel to [facility]? [phone]?Cell Phone? I've updated the PFSH, medications and allergies in the Expanse tabs. INVESTIGATIONS: LABS/MICRO/ECG/IMAGING Afebrile Blood pressures are 150-120 systolic over 80s diastolic Tachycardic since arrival 100 to 140 O2 sat 95% on room air CBC is unremarkable Chemistries are essentially unremarkable. His glucose is 147. Normal renal function. LFTs are normal. CRP is only 1.6 His lactate is elevated at 5.5 Amylase is up at 2500 CT abdomen pelvis done in the ED IMPRESSION: Mild peripancreatic inflammatory stranding which could suggest acute uncomplicated pancreatitis. No drainable fluid collections. Recommend correlation with lipase. Mild duodenal wall thickening, likely reactive. [facility] - 08/17/2023 10:51 AM [employer]? Post-op Diagnoses: ? ? - One 30mm x 27mm solid pancreatic mass at the uncinate abutting SMV/SMA ? ? suspicious for PDAC in the background of moderate to severe chronic ? ? pancreatitis with atrophy at the body and tail. FNB x 3 performed. Stage ? ? T3N0M0 ? ? - Hepatic steatosis. ? ? - There was no sign of significant pathology in the common bile duct. 5mm ? ? - There was no sign of significant pathology in the ampulla. ? ? - Endosonographic images of the left adrenal gland were unremarkable. ? ? - The celiac trunk was endosonographically normal. ? ? - No ascites.? CT PANCREAS ANGIOGRAM TRIPLE PHASE AND PELVIS WITH IV CONTRAST 08/12/2023 3:06 PM [employer]? Pancreas: Focal masslike hypoenhancement in the pancreatic head and uncinate. This extends to contact the superior mesenteric artery and the superior mesenteric vein, with stricturing of SMV branches. The main pancreatic duct is obstructed and dilated upstream. This is indeterminate, and could be tumor versus a pseudomass from focal pancreatitis. Vascular contact: Present Metastasis: absent? MRCP FEBRUARY 2023 IMPRESSION: 1. Atrophic pancreas parenchyma. Interval removal of the stone in the?pancreas head with continued but decreased upstream pancreatic duct dilation. Not clearly visualized?pancreatic duct in the head, likely due to stricture. 2. Severe hepatic steatosis. OUTSIDE LABS NOTED CA 19-19 3 (normal is less than 35) Stress echo 03/14 Final Impressions: 1. Negative stress echo for ischemia. 2. Post stress, decreased left ventricular size, increased global systolic function. 3. Maximum stress test with 94.0% of age predicted maximum heart rate achieved. 4. Good exercise duration and workload. 5. During stress exam the patient developed no significant symptoms. 6. See separate report for EKG interpretation. REVIEW OF SYSTEMS: 12-point ROS completed with patient and negative unless otherwise stated in HPI or below. PHYSICAL EXAM: CONSTITUTIONAL: Conversive, good historian. A/O. Knows setting and context. VITAL SIGNS: see record. HEENT: Normocephalic, atraumatic. PERRL, EOMI, conjunctivae pink, no scleral icterus. Ears and nose externally normal. Pharynx normal. NECK: No JVD. No carotid bruit, no thyromegaly, no adenopathy. CHEST: Clear to auscultation bilaterally HEART: S1 and S2 normal. No harsh murmurs. Edema minimal. tachy without murmur tonight. ABDOMEN: obese. tender across the midepigastrum. MUSCULOSKELETAL: No gross joint deformity or swelling. NEURO: Cranial nerves intact. Grossly intact. No asymmetric findings. SKIN: No rashes, petechiae, concerning changes PSYCHIATRIC: Euthymic. ADMIT TO MEDSURG: FLOOR CARE DVT: Lovenox GI: PO intake (clears/PPI) Time spent: Today I spent 75 minutes seeing the patient, discussing the patient with ER staff, reviewing Expanse and EPIC notes/diagnostics, discussing the care plan with our care time that includes social work, PT/OT, pharmacy, RT, [place] [facility] and documenting my impressions and plan in the medical record. [facility] Medical History (Updated 08/17/23 @ 22:36 by Clarissa Nova MD) Hepatic steatosis ?K76.0 - Fatty (change of) liver, not elsewhere classified (ICD-10) Pancreatic mass ?K86.89 - Other specified diseases of pancreas (ICD-10) Cervical spinal stenosis ?M48.02 - Spinal stenosis, cervical region (ICD-10) Recurrent pancreatitis ?K85.90 - Acute pancreatitis without necrosis or infection, unspecified (ICD- 10) GERD (gastroesophageal reflux disease) ?K21.9 - Gastro-esophageal reflux disease without esophagitis (ICD-10) Diverticulosis ?K57.90 - Diverticulosis of intestine, part unspecified, without perforation or abscess without bleeding (ICD-10) Onychomycosis ?B35.1 - Tinea unguium (ICD-10) Radiculopathy affecting upper extremity (10/28/10) ?M54.10 - Radiculopathy, site unspecified (ICD-10) Surgical History (Updated 08/17/23 @ 22:07 by Clarissa Nova MD) History of biliary duct stent placement ?Z98.890 - Other specified postprocedural states (ICD-10) S/P arthroscopy of right shoulder (12/28/22) ?Z98.890 - Other specified postprocedural states (ICD-10) Status post laparoscopic cholecystectomy (12/22/16) ?Z90.49 - Acquired absence of other specified parts of digestive tract (ICD- 10) History of colonoscopy ?Z98.890 - Other specified postprocedural states (ICD-10) Family History Other Colitis Social History Narrative: Social History: He is and lives with his and children. 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 Habits: He denies tobacco use. Denies recreational drug use. EtOH occassional - Jerman/New Years was last EtOH. Drinks non alcoholic beer, last one was also over the holidays. Family History: Paternal grandfather of an acute myocardial infarction at age 50. His brother also had an acute myocardial infarction in his early 50s. A different brother had strokes in his 50s and 60s. Father had lung cancer with brain metastases despite being a nonsmoker. Smoking Status: Never smoker Do you use any of these nicotine containing products: None Second hand tobacco smoke exposure: No How often do you have a drink containing alcohol: never AUDIT-C Alcohol total score: 0 Non-prescribed substance use: denies use Little interest or pleasure in doing things: not at all Feeling down, depressed, or hopeless: not at all service: No Meds Home Medications and Allergies Home Medications Medication Instructions Recorded Confirmed Type sucralfate 1 gram tablet 1 g PO BID PRN 12/22/22 06/09/23 History Allergies Allergy/AdvReac Type Severity Reaction Status Date / Time No Known Drug Allergies Allergy Verified 08/17/23 20:35 Exam Const: Vital Signs, click to edit/add: Vital Signs - 24 hr 08/17/23 18:19 08/17/23 18:30 08/17/23 18:34 Temperature 100.7 F H Pulse Rate 133 H Pulse Rate [Pulse Oximeter] 104 H Respiratory Rate 22 Blood Pressure 148/100 H Blood Pressure [Ri ght Upper Arm] 132/104 H Pulse Oximetry 99 95 Oxygen Delivery Me thod Room Air Oxygen Flow Rate 08/17/23 18:35 08/17/23 18:36 08/17/23 18:37 Temperature 98.6 F Pulse Rate 126 H 126 H Pulse Rate [Pulse Oximeter] Respiratory Rate Blood Pressure 150/113 H Blood Pressure [Ri ght Upper Arm] Pulse Oximetry 93 96 Oxygen Delivery Me thod Oxygen Flow Rate 08/17/23 18:45 08/17/23 18:47 08/17/23 19:00 Temperature Pulse Rate 122 H 124 H Pulse Rate [Pulse Oximeter] Respiratory Rate Blood Pressure 141/100 H Blood Pressure [Ri ght Upper Arm] Pulse Oximetry 94 96 Oxygen Delivery Me thod Oxygen Flow Rate 08/17/23 19:15 08/17/23 19:16 08/17/23 19:30 Temperature Pulse Rate 123 H 125 H 136 H Pulse Rate [Pulse Oximeter] Respiratory Rate Blood Pressure 143/91 H Blood Pressure [Ri ght Upper Arm] Pulse Oximetry 94 93 91 Oxygen Delivery Me thod Oxygen Flow Rate 08/17/23 19:32 08/17/23 19:45 08/17/23 19:47 Temperature Pulse Rate 130 H 139 H Pulse Rate [Pulse Oximeter] Respiratory Rate Blood Pressure 144/98 H 175/123 H Blood Pressure [Ri ght Upper Arm] Pulse Oximetry 91 96 Oxygen Delivery Me thod Oxygen Flow Rate 08/17/23 20:00 08/17/23 20:01 08/17/23 20:01 Temperature Pulse Rate 135 H Pulse Rate [Pulse Oximeter] Respiratory Rate Blood Pressure Blood Pressure [Ri ght Upper Arm] Pulse Oximetry 94 96 96 Oxygen Delivery Me thod Nasal Cannula Nasal Cannula Oxygen Flow Rate 2 2 08/17/23 20:01 08/17/23 20:15 08/17/23 20:16 Temperature Pulse Rate 135 H 124 H 127 H Pulse Rate [Pulse Oximeter] Respiratory Rate Blood Pressure 160/87 H 134/95 H Blood Pressure [Ri ght Upper Arm] Pulse Oximetry 96 96 96 Oxygen Delivery Me thod Oxygen Flow Rate 08/17/23 20:17 08/17/23 20:30 08/17/23 20:31 Temperature Pulse Rate 126 H 130 H 132 H Pulse Rate [Pulse Oximeter] Respiratory Rate Blood Pressure 148/92 H Blood Pressure [Ri ght Upper Arm] Pulse Oximetry 95 97 95 Oxygen Delivery Me thod Oxygen Flow Rate 08/17/23 20:46 08/17/23 20:56 08/17/23 21:00 Temperature Pulse Rate 136 H 139 H Pulse Rate [Pulse Oximeter] Respiratory Rate Blood Pressure 119/88 Blood Pressure [Ri ght Upper Arm] Pulse Oximetry 97 95 Oxygen Delivery Me thod Oxygen Flow Rate 08/17/23 21:02 08/17/23 21:03 08/17/23 21:15 Temperature Pulse Rate 138 H 140 H 136 H Pulse Rate [Pulse Oximeter] Respiratory Rate Blood Pressure 150/85 H Blood Pressure [Ri ght Upper Arm] Pulse Oximetry 95 95 94 Oxygen Delivery Me thod Oxygen Flow Rate 08/17/23 21:17 08/17/23 21:30 08/17/23 21:31 Temperature Pulse Rate 132 H 133 H 133 H Pulse Rate [Pulse Oximeter] Respiratory Rate Blood Pressure 122/80 128/77 Blood Pressure [Ri ght Upper Arm] Pulse Oximetry 95 97 96 Oxygen Delivery Me thod Oxygen Flow Rate Hospitalist - H&P: Result Labs Labs: Short CBC 08/17/23 Range/Units 18:30 WBC 5.57 (4.50-11.00) K/uL Hgb 15.4 (13.5-17.5) gm/dL Hct 44.6 (37.0-53.0) % Plt Count 193 (140-440) K/uL BMP 08/17/23 18:30 Sodium 141 Potassium 4.1 Chloride 101 Carbon Dioxide 23 BUN 10 Creatinine 1.0 Glucose 147 H Calcium 9.5 Liver Function 08/17/23 Range/Units 18:30 Total Bilirubin 1.1 (0.1-1.5) mg/dL Direct Bilirubin 0.1 (0.0-0.5) mg/dL AST 33 (12-35) U/L ALT 33 (4-50) U/L Alkaline Phosphatase 105 (40-150) U/L Albumin 4.9 (3.3-5.0) g/dL Urine 08/17/23 Range/Units 19:21 Urine Color Yellow (Yellow) Urine Appearance Clear (Clear) Urine pH 5.0 (5.0-8.5) Ur Specific [place] 1.010 (1.000-1.030) Urine Protein Negative (Negative) Urine Glucose (UA) Negative (Negative) Assessment and Plan Assessment and plan (1) Acute pancreatitis: Problem comment: -IV fluids, pain and nausea control. Advanced diet as tolerated. Discussed with GI team at [facility]. -will trend heartrate, lactate and lipase Status: Acute (2) Tachycardia: Problem comment: -sinus tachycardia noted. -I am keeping the idea of a PE on the radar. However I do think this is compensatory pain finding. EKG and telemetry ordered. Status: Acute (3) Pancreatic mass: Problem comment: -noted in 08/19. Biopsies taken 08/17/2023 at [facility]. Status: Acute (4) Hepatic steatosis: Problem comment: Noted on imaging. LFTs normal. Minimal social alcohol. Central obesity. Status: Acute (5) Recurrent pancreatitis: Problem comment: -started about 10 years ago. Idiopathic -followed by [facility] -status post cholecystectomy and biliary stents Status: Acute (6) GERD (gastroesophageal reflux disease): Problem comment: -resume oral ppi in am of 08/18 -one dose of IV PPI at admission Status: Acute (7) History of biliary duct stent placement: Problem comment: Several pancreatic and biliary tree stents placed for chronic pancreatitis over the years Status: Acute
[2023-08-17] MEDS: PANTOPRAZOLE SODIUM 40 MG INJ IVP (22:22)
[2023-08-17] MEDS: SODIUM CHLORIDE 0.9 % (FLUSH) 10 ML SYRINGE 5 ML IVF (22:24)
[2023-08-17] MEDS: LACTATED RINGERS 1000 ML 1,000 ML 250 ML IV (22:28)
[2023-08-17 22:53] LABS: HCO3 VBG 26 mmol/L (21-28); PCO2 VBG 49 mmHG (40-50); PO2 VBG 22.8 mmHG (25-47); pH VBG 7.329 (7.32-7.43)
[2023-08-17] MEDS: SENNOSIDES 1 TAB TABLET 2 TAB PO (23:48)
[2023-08-18] VITALS (14 sets, daily range): BP systolic 92–170; BP diastolic 65–111; PULSE 65–163; RESP 16–28; TEMP 36.2–37.6; O2SAT 82–96
[2023-08-18] MEDS: HYDROmorphone 0.5 mg/0.5 ml inj IVP ×2 (01:16→04:23)
[2023-08-18] MEDS: SODIUM CHLORIDE 0.9 % (FLUSH) 10 ML SYRINGE 5 ML IVF ×5 (01:17→16:12)
[2023-08-18] MEDS: LACTATED RINGERS 1000 ML 1,000 ML 250 ML IV (02:20)
[2023-08-18] MEDS: ACETAMINOPHEN 325 MG TABLET PO (02:21)
[2023-08-18] MEDS: ONDANSETRON 2 MG/ML inj 4 MG IVP ×2 (02:21→16:09)
--- NOTE | 2023-08-18 03:06 | PC.NURSE ---
Addendum entered by Kailee Jarvis RN 08/18/23 07:29: Correction: PRN Dilaudid given at 0116 not 1316 Original Note: Pt was given PRN Dilaudid at 1316 for 8/10 abdominal pain and then used the bathroom. Upon returning from bathroom, pt was c/o chills and was visibly shaking. Entry Level Chemist checked vital signs: B/P 150/93, P 129, R 28, T 98.4, O2 sat 95% on RA. Pt denied chest pain when asked and stated he felt shortly short of breath though this complaint came after ambulating from bathroom to bed. Lung sounds noted to be clear to all lobes bilaterally. Pt reported that abdominal pain was decreasing after PRN Dilaudid and declined PRN Toradol when offered. At 0200 administrative underwriter called director of infection prevention [place] MD Ronaldo Spence to give update regarding pt c/o chills, tachycardia unrelieved with rest and visible shaking noted despite increasing room temp and providing warm blanket. MD Ronaldo Spence gave telephone order to decrease LR to 150 mL/hr, stating that 250 mL/hr may be too high of a rate for patient currently. Entry Level Chemist also provided MD with vital signs and confirmed that blood cultures had been previously ordered. advised to administer PRN Tylenol due to pt c/o chills though afebrile. Pt was given PRN Tylenol and PRN Zofran for c/o nausea. He requested to ambulate in hallway which staff assisted him with. Pt also requested glass of apple juice provided per [facility] diet. Pt noted to be sleeping at this time with no further complaints. R noted to be 20 at this time. Pt noted to have shallow respirations though this is unchanged since admission to ED per report received from ED RN. P noted to be 118 though pt has been tachycardic since arrival to ED. LR currently running at 150 mL/hr per latest order received. lumber bearer aware.
--- NOTE | 2023-08-18 04:09 | CRLHL7_ITS ---
For Patients: As a result of the Century Cures Act, medical imaging exams and procedure reports are released immediately into your electronic medical record. You may view this report before your referring provider. If you have questions, please contact your health care provider. INDICATION: Shortness of breath. TECHNIQUE: Chest 1 views. COMPARISON: May 31, 2023. FINDINGS: Cardiovasculature and mediastinum: Heart size and vasculature are normal in caliber and appearance. Lungs and pleural spaces: Lungs are clear. No sign of infiltrate or mass. No sign of pleural effusion. No pneumothorax. Bones and soft tissues: No significant findings. IMPRESSION: No acute findings and no significant changes from the prior exam. Dictated by Jose Fenton MD @ 08/18/2023 5:01:20 AM (Electronically Signed)
--- NOTE | 2023-08-18 04:26 | W.PM.TELEPRO ---
Progress Note: A&P Assessment and plan (1) Acute pancreatitis: Problem details: Initially on 250 ml/hr of IVFs, dec to 150 ml/hr at 0200, paused due to possible pulmonary edema. Pain control w/ IV pain medications Status: Acute (2) Pancreatic mass: Problem details: -noted in 08/19. Biopsies taken 08/17/2023 at [facility]. Status: Acute (3) Recurrent pancreatitis: Problem details: -started about 10 years ago. Idiopathic -followed by [facility] -status post cholecystectomy and biliary stents Status: Acute (4) Tachycardia: Problem details: Think this is compensatory due to pain and dyspnea. EKG and telemetry ordered. Repeat EKG a lot of artifact but still appears to be sinus tachycardia Status: Acute (5) Pulmonary edema: Problem details: CXR due to worsening dyspnea w/o hypoxia, CXR personally reviewed: pulmonary vascular congestion but also poor inspiratory effort, favor pulmonary edema given rales on exam Status: Acute Assessment and Plan: Pause IVFs, positive pressure ventilation with BiPAP. Hold off on lasix due to elevated lactate. If lactate worse may trial albumin, if improving will give lasix. Will order echo. In 2018, normal LVEF on stress. At risk for ARDS but no hypoxia. AT risk for pulmonary embolism, will get CTA of chest (6) Dyspnea: Status: Acute (7) Lactic acidosis: Problem details: Lactic acid 5.6 -> 6.7 Status: Acute Assessment and Plan: Recheck in 2 hrs, see above. Co2 down from 23 to 18, pH 7.35 Check procalcitonin, given continued chills start Zosyn. Follow blood cultures. WBC down, could be sepsis. Initial abdominal imaging reassuring Plan Initial labs w/ dec WBC, Hgb and platelets, recheck with repeat lactate, if still low concering for sepsis Time Spent With Patient Total time spent: Critical care time managing -lactic acidosis, dyspnea, possible sepsis, transfer to ICU care Repeat visit to reassess response to treatment- improved tachycardia and less dyspnea w/ BiPAP Telehealth Hospitalist-PN: Sub Subjective Interval History: Arturo Lockwood is seen as an Interactive Telehealth visit. Arturo Lockwood is a 53 year old male who is A past medical history notable for pancreatic mass endoscopic ultrasound with biopsy of the pancreatic head mass complicated by severe abdominal pain and diaphoresis. He reportedly had shaking chills. He was admitted for post procedure pancreatitis, labs were notable for lactic acidosis with a lactate of 5.5 and a lipase of 2541. CT of the abdomen showed evidence of mild pancreatitis. Initially, tachycardic in the 110 to 120s, heart rates increased to the 140s to 150s with fluid was decreased from 250 mL/h to 150 mL/h as the patient reported some increased dyspnea. Called to assess the patient for worsening tachycardia with heart rates in the 140s 160s, patient was hypertensive systolics in the 150s, tachycardic, tachypneic, uncomfortable. He reports abdominal pain 6 out of 10 in severity although reports this is actually somewhat better than earlier in the evening. He does report some dyspnea and anxiety. No chest pain. No fevers but has had some shaking chills. No known history of DVT/PE. No history of heart failure. Exam Narrative Exam Narrative: Physical Exam GENERAL: ?vital signs reviewed, well developed and nourished, anxious and uncomfortable HEART: Tachycardic rate and regular rhythm without any rubs, murmurs, or gallops. LUNGS: Tachypneic, R>L basilar rales, good air movement ABDOMEN: Observation from nurse assisted exam, abdomen appears soft, nontender, and nondistended with Positive bowel sounds noted. EXTREMITIES: Strength and sensation is observed to be grossly within normal limits in the upper and lower extremities.? No focal strength deficit is observed. SKIN:? Observed warm and dry with color normal Const Vital Signs, click to edit/add: Vital Signs - 24 hr 08/17/23 18:19 08/17/23 18:30 08/17/23 18:34 Temperature 100.7 F H Pulse Rate 133 H Pulse Rate [Left Radial] Pulse Rate [Pulse Oximeter] 104 H Respiratory Rate 22 Blood Pressure 148/100 H Blood Pressure [Right Arm] Blood Pressure [Right Upper Arm] 132/104 H Pulse Oximetry 99 95 Oxygen Delivery Method Room Air Oxygen Flow Rate 08/17/23 18:35 08/17/23 18:36 08/17/23 18:37 Temperature 98.6 F Pulse Rate 126 H 126 H Pulse Rate [Left Radial] Pulse Rate [Pulse Oximeter] Respiratory Rate Blood Pressure 150/113 H Blood Pressure [Right Arm] Blood Pressure [Right Upper Arm] Pulse Oximetry 93 96 Oxygen Delivery Method Oxygen Flow Rate 08/17/23 18:45 08/17/23 18:47 08/17/23 19:00 Temperature Pulse Rate 122 H 124 H Pulse Rate [Left Radial] Pulse Rate [Pulse Oximeter] Respiratory Rate Blood Pressure 141/100 H Blood Pressure [Right Arm] Blood Pressure [Right Upper Arm] Pulse Oximetry 94 96 Oxygen Delivery Method Oxygen Flow Rate 08/17/23 19:15 08/17/23 19:16 08/17/23 19:30 Temperature Pulse Rate 123 H 125 H 136 H Pulse Rate [Left Radial] Pulse Rate [Pulse Oximeter] Respiratory Rate Blood Pressure 143/91 H Blood Pressure [Right Arm] Blood Pressure [Right Upper Arm] Pulse Oximetry 94 93 91 Oxygen Delivery Method Oxygen Flow Rate 08/17/23 19:32 08/17/23 19:45 08/17/23 19:47 Temperature Pulse Rate 130 H 139 H Pulse Rate [Left Radial] Pulse Rate [Pulse Oximeter] Respiratory Rate Blood Pressure 144/98 H 175/123 H Blood Pressure [Right Arm] Blood Pressure [Right Upper Arm] Pulse Oximetry 91 96 Oxygen Delivery Method Oxygen Flow Rate 08/17/23 20:00 08/17/23 20:01 08/17/23 20:01 Temperature Pulse Rate 135 H Pulse Rate [Left Radial] Pulse Rate [Pulse Oximeter] Respiratory Rate Blood Pressure Blood Pressure [Right Arm] Blood Pressure [Right Upper Arm] Pulse Oximetry 94 96 96 Oxygen Delivery Method Nasal Cannula Nasal Cannula Oxygen Flow Rate 2 2 08/17/23 20:01 08/17/23 20:15 08/17/23 20:16 Temperature Pulse Rate 135 H 124 H 127 H Pulse Rate [Left Radial] Pulse Rate [Pulse Oximeter] Respiratory Rate Blood Pressure 160/87 H 134/95 H Blood Pressure [Right Arm] Blood Pressure [Right Upper Arm] Pulse Oximetry 96 96 96 Oxygen Delivery Method Oxygen Flow Rate 08/17/23 20:17 08/17/23 20:30 08/17/23 20:31 Temperature Pulse Rate 126 H 130 H 132 H Pulse Rate [Left Radial] Pulse Rate [Pulse Oximeter] Respiratory Rate Blood Pressure 148/92 H Blood Pressure [Right Arm] Blood Pressure [Right Upper Arm] Pulse Oximetry 95 97 95 Oxygen Delivery Method Oxygen Flow Rate 08/17/23 20:46 08/17/23 20:56 08/17/23 21:00 Temperature Pulse Rate 136 H 139 H Pulse Rate [Left Radial] Pulse Rate [Pulse Oximeter] Respiratory Rate Blood Pressure 119/88 Blood Pressure [Right Arm] Blood Pressure [Right Upper Arm] Pulse Oximetry 97 95 Oxygen Delivery Method Oxygen Flow Rate 08/17/23 21:02 08/17/23 21:03 08/17/23 21:15 Temperature Pulse Rate 138 H 140 H 136 H Pulse Rate [Left Radial] Pulse Rate [Pulse Oximeter] Respiratory Rate Blood Pressure 150/85 H Blood Pressure [Right Arm] Blood Pressure [Right Upper Arm] Pulse Oximetry 95 95 94 Oxygen Delivery Method Oxygen Flow Rate 08/17/23 21:17 08/17/23 21:30 08/17/23 21:31 Temperature Pulse Rate 132 H 133 H 133 H Pulse Rate [Left Radial] Pulse Rate [Pulse Oximeter] Respiratory Rate Blood Pressure 122/80 128/77 Blood Pressure [Right Arm] Blood Pressure [Right Upper Arm] Pulse Oximetry 95 97 96 Oxygen Delivery Method Oxygen Flow Rate 08/17/23 21:54 08/17/23 21:54 08/17/23 21:56 Temperature 98.6 F Pulse Rate Pulse Rate [Left Radial] 138 H Pulse Rate [Pulse Oximeter] Respiratory Rate 22 22 22 Blood Pressure Blood Pressure [Right Arm] 121/88 Blood Pressure [Right Upper Arm] Pulse Oximetry 95 95 95 Oxygen Delivery Method Room Air Room Air Room Air Oxygen Flow Rate 08/17/23 23:00 08/17/23 23:08 08/18/23 01:56 Temperature 98.4 F Pulse Rate 116 H Pulse Rate [Left Radial] 129 H Pulse Rate [Pulse Oximeter] Respiratory Rate 22 28 H Blood Pressure Blood Pressure [Right Arm] 150/93 H Blood Pressure [Right Upper Arm] Pulse Oximetry 95 Oxygen Delivery Method Room Air Oxygen Flow Rate Labs Labs: Laboratory Results - last 24 hr 08/17/23 08/17/23 08/17/23 18:30 18:33 19:21 WBC 5.57 RBC 4.96 Hgb 15.4 Hct 44.6 MCV 90 MCH 31 MCHC 35 RDW Coeff of Amber 12.3 Plt Count 193 Neut % (Auto) 90.4 H Lymph % (Auto) 7.5 L [place] % (Auto) 1.4 Eos % (Auto) 0.5 Baso % (Auto) 0.2 Neut # (Auto) 5.00 Lymph # (Auto) 0.40 L [place] # (Auto) 0.10 Eos # (Auto) 0.03 Baso # (Auto) 0.01 Abs Immat Gran (auto) 0.00 Imm/Tot Granulo (auto) 0.0 VBG pH 7.329 VBG pCO2 49 VBG pO2 22.8 L VBG HCO3 26 Sodium 141 Potassium 4.1 Chloride 101 Carbon Dioxide 23 Anion Gap 17 H BUN 10 Creatinine 1.0 Estimated Creat Clear 88.90 Estimated GFR 89 Glucose 147 H Lactate 5.5 H* Calcium 9.5 Total Bilirubin 1.1 Direct Bilirubin 0.1 AST 33 ALT 33 Alkaline Phosphatase 105 C-Reactive Protein 1.6 H Total Protein 8.3 Albumin 4.9 Lipase 2541 H Urine Color Yellow Urine Appearance Clear Urine pH 5.0 Ur Specific [place] 1.010 Urine Protein Negative Urine Glucose (UA) Negative Urine Ketones Negative Urine Blood Negative Urine Nitrite Negative Urine Bilirubin Negative Urine Urobilinogen 0.2 Ur Leukocyte Esterase Negative Lab Acknowledgement POC Troponin I 0.00 L 08/17/23 22:37 WBC RBC Hgb Hct MCV MCH MCHC RDW Coeff of Amber Plt Count Neut % (Auto) Lymph % (Auto) [place] % (Auto) Eos % (Auto) Baso % (Auto) Neut # (Auto) Lymph # (Auto) [place] # (Auto) Eos # (Auto) Baso # (Auto) Abs Immat Gran (auto) Imm/Tot Granulo (auto) VBG pH VBG pCO2 VBG pO2 VBG HCO3 Sodium Potassium Chloride Carbon Dioxide Anion Gap BUN Creatinine Estimated Creat Clear Estimated GFR Glucose Lactate Calcium Total Bilirubin Direct Bilirubin AST ALT Alkaline Phosphatase C-Reactive Protein Total Protein Albumin Lipase Urine Color Urine Appearance Urine pH Ur Specific [place] Urine Protein Urine Glucose (UA) Urine Ketones Urine Blood Urine Nitrite Urine Bilirubin Urine Urobilinogen Ur Leukocyte Esterase Lab Acknowledgement Test Added POC Troponin I Telehealth: Statement Statement Telehealth Visit: Today's History and Physical is provided via interactive telehealth by Ronaldo Spence MD.? Patient is located at [facility].? Provider is located at [facility].? Nursing staff assisted with the patient's exam. The visit being done today meets criteria for a telehealth visit and the patient or patient?s parent/guardian is aware the visit is a telehealth visit. Camera Start Time: 04:09 Camera End Time: 04:24
[2023-08-18 04:27] LABS: HCO3 VBG 19 mmol/L (21-28); PCO2 VBG 35 mmHG (40-50); PO2 VBG 47.6 mmHG (25-47); pH VBG 7.352 (7.32-7.43)
[2023-08-18 04:32] LABS: Lactate* 6.7 mmol/L (0.5-1.9)
[2023-08-18 04:41] LABS: Hematocrit 38.7 % (37.0-53.0); Hemoglobin* 13.3 gm/dL (13.5-17.5); Lymphocytes Percent Auto 10.4 % (20-44); Mean Corpuscular HGB Conc 34 gm/dL (32-36); Mean Corpuscular Hemoglobin 31 pg (26-34); Mean Corpuscular Volume 90 fL (80-100); Monocytes Percent Auto 1.1 % (0.0-11.0); Platelet Count* 121 K/uL (140-440); RDW Coefficient of Variation % 12.5 % (11.5-15.5); Red Blood Count 4.28 m/uL (4.30-5.90)
[2023-08-18 04:42] LABS: Immature Granulocytes Pct Auto 0.5 %
[2023-08-18 04:45] LABS: Albumin* 4.1 g/dL (3.3-5.0); Chloride* 104 mmol/L (96-114)
[2023-08-18 04:46] LABS: Potassium* 4.2 mmol/L (3.6-5.1); Sodium* 138 mmol/L (135-149)
[2023-08-18 04:47] LABS: White Blood Count* 1.82 K/uL (4.50-11.00)
[2023-08-18 04:48] LABS: Amylase* 392 U/L (18-89); Creatinine* 0.8 mg/dL (0.5-1.5); Est. Creatinine Clearance* 111.12; Estimated Glomerular Filt Rate 105 ml/min; Slide Review Reflex Yes
[2023-08-18 04:49] LABS: Alkaline Phosphatase* 97 U/L (40-150); Anion Gap 16 mEq/L (7-15); Aspartate Amino Transferase* 47 U/L (12-35); Bilirubin Total* 2.2 mg/dL (0.1-1.5); Blood Urea Nitrogen* 10 mg/dL (7-30); Calcium* 8.4 mg/dL (8.4-10.6); Carbon Dioxide* 18 mmol/L (20-32); Gamma Glutamyl Transpeptidase* 95 U/L (8-55); Glucose* 110 mg/dL (60-115); Magnesium* 1.1 mg/dL (1.5-2.6); Total Protein* 7.1 g/dL (6.0-8.3)
[2023-08-18 04:50] LABS: INR 1.02 (0.91-1.10); Prothrombin Time 14.1 Seconds; Slide Review Acceptable Review (Acceptable)
[2023-08-18 04:51] LABS: C Reactive Protein* 6.4 mg/dL (0.5-1.0)
[2023-08-18] MEDS: LORazepam 2 MG/ML inj 0.5 MG IVP (04:52)
[2023-08-18 04:54] LABS: Alanine Aminotransferase* 73 U/L (4-50)
[2023-08-18 05:00] LABS: Troponin I* 0.02 ng/mL (0.01-0.04)
[2023-08-18 05:01] LABS: Lipase* 3383 U/L (23-300)
[2023-08-18] MEDS: PIPERACILLIN/TAZOBACTAM 4.5 GM in 0.9 % SODIUM CHLORIDE Mini-bag 100 ML IVPB ×4 (05:01→22:44)
--- NOTE | 2023-08-18 05:08 | CRLHL7_ITS ---
For Patients: As a result of the Century Cures Act, medical imaging exams and procedure reports are released immediately into your electronic medical record. You may view this report before your referring provider. If you have questions, please contact your health care provider. INDICATION: Dyspnea and hypoxia. TECHNIQUE: CT chest PE was acquired with 95 cc Isovue 370 IV contrast. COMPARISON: None. FINDINGS: Heart and vasculature: Contrast opacification of the pulmonary arterial tree is adequate. No sign of pulmonary embolism. Heart size is normal. Thoracic aorta and pulmonary artery are normal in caliber. Lungs and pleura: No suspicious nodules or infiltrates. No pleural effusions, pleural thickening, or pneumothorax. Lymph nodes/mediastinum: No mediastinal, hilar, or axillary adenopathy. Chest wall: No masses. Upper abdomen: No acute or significant findings. Bones: Unremarkable for age. IMPRESSION: Unremarkable CT of the chest. No pulmonary embolism and the lungs are clear. Please note that all CT scans at this facility use dose modulation, iterative reconstruction, and/or weight-based dosing when appropriate to reduce radiation dose to as low as reasonably achievable. Dictated by Jose Fenton MD @ 08/18/2023 6:11:00 AM (Electronically Signed)
[2023-08-18] MEDS: ENOXAPARIN 40 MG/0.4 ML INJ SUBCUT (06:08)
[2023-08-18] MEDS: HYDROmorphone 0.5 mg/0.5 ml inj 1 MG IVP ×5 (06:09→21:14)
[2023-08-18 06:26] LABS: HCO3 VBG 23 mmol/L (21-28); Lactate* 2.5 mmol/L (0.5-1.9); PCO2 VBG 35 mmHG (40-50); pH VBG 7.436 (7.32-7.43)
[2023-08-18 06:30] LABS: Eosinophils Absolute Auto 0.01 K/uL (0.00-0.50); Eosinophils Percent Auto 0.1 % (0.0-7.0); Hematocrit 35.4 % (37.0-53.0); Hemoglobin* 12.2 gm/dL (13.5-17.5); Immature Granulocytes Abs Auto 0.03 K/uL (0.00-0.30); Immature Granulocytes Pct Auto 0.4 %; Lymphocytes Percent Auto 2.1 % (20-44); Mean Corpuscular HGB Conc 35 gm/dL (32-36); Mean Corpuscular Hemoglobin 31 pg (26-34); Mean Corpuscular Volume 90 fL (80-100); Monocytes Percent Auto 1.6 % (0.0-11.0); Neutrophils Percent Auto 95.8 % (42.0-72.0); Platelet Count* 119 K/uL (140-440); RDW Coefficient of Variation % 12.5 % (11.5-15.5); Red Blood Count 3.95 m/uL (4.30-5.90); White Blood Count* 8.12 K/uL (4.50-11.00)
[2023-08-18 06:36] LABS: Slide Review Reflex No
[2023-08-18] MEDS: LACTATED RINGERS 1000 ML 1,000 ML 125 ML IV ×3 (06:50→22:45)
[2023-08-18] MEDS: MAGNESIUM IV 2 GM/50 ML PIGGYBACK IVPB (06:50)
--- NOTE | 2023-08-18 06:57 | PC.NURSE ---
Pt arrived to med/surg unit at 2150 last evening. Pt admitted for pancreatitis following endoscopy procedure performed at [place] earlier yesterday. He is alert & oriented x 4, able to make needs known and up independently in room. Abdominal pain has been controlled with PRN Dilaudid. Pt noted to have shallow respirations which was also noted by the ED though lung sounds noted to be clear to all lobes bilaterally until 0400 this morning when pt noted to have shortness of breath unrelieved by rest. Pt noted to be tachycardic in ED and upon arrival with pulse of 138 though pulse is noted to be regular rhythm. Bowel sounds active x 4 with last BM of 08/17 per pt report. Pt is continent of bladder, prefers to use urinal in bathroom. [facility] MD Ronaldo Spence contacted twice this shift due to pt?s tachycardia with chills and visible shaking. Pt moved to CCU before 0500 and started on BiPap per MD. He has also been started on IV ABX and was given dose of Lovenox this morning per MD order. Pt started on oxygen at approximately 0400 due to O2 sat of 82% on RA when at rest and crackles noted to left lung base.
--- NOTE | 2023-08-18 07:28 | PC.NURSE ---
[id number]: Patient with HR 140-150, rigors, chills, and O2 sats 85%. Len SUNG at bedside via Telehealth to assess. See orders. Patient transitioned to CCU status. 99.7 temp and with excessive diaphoresis. BiPAP, CXR, Labs, CT, EKG, and medications ordered and administered. After interventions patient HR 100-115. Patient requested to remove BiPAP and verbally approved by Dr. Spence. O2 sats 88% RA so 2Lt O2 NC administered. Pain controlled with PRN Dilaudid. Tolerating clears and voiding. SBA.
[2023-08-18] MEDS: KETOROLAC 30 MG/ML inj IVP ×2 (08:01→18:51)
--- NOTE | 2023-08-18 09:12 | PM.IMPN1 ---
Progress Note: A&P Assessment and plan (1) Bacteremia: Problem details: - GNR noted on blood culture collected 08/17/23 - Zosyn (08/17/23) - associated with elevated lactate, hypotension (asymptomatic). Currently in sinus rhythm and afebrile - continue IVFs, repeat BCx, follow BP closely, trend inflammatory markers Status: Acute (2) Acute pancreatitis: Problem details: - acute on chronic - flare began 08/17/23 Status: Acute (3) Lactic acidosis: Problem details: - lactic acid 5.6 --> 6.7 --> 2.5 Status: Acute (4) Pulmonary edema: Problem details: - clinically had rales on exam 08/18 am, chest CTA did not exhibit significant pulmonary edema Status: Acute (5) Tachycardia: Problem details: - noted 08/18 am, resolved; likely compensatory 2/2 pain, anxiety, dyspnea - sinus tachycardia on EKG - TTE ordered for 08/18 Status: Acute (6) GERD (gastroesophageal reflux disease): Problem details: - on PPI Status: Acute (7) Recurrent pancreatitis: Problem details: - started about 10 years ago, Idiopathic - followed by [facility] - status post cholecystectomy and biliary stents Status: Acute (8) Pancreatic mass: Problem details: - noted 08/19; biopsies taken 08/17/2023 at [facility] during EUS Status: Acute Plan - per above - Lovenox and PPI for prophylaxis - continue clears, slowly advance diet - daughter updated at bedside, questions answered Subjective Date Seen: 08/18/23 Interval history: Pratik was admitted last night for recurrent pancreatitis, following endoscopic ultrasound with biopsies performed 08/17 at [facility]. Overnight, he had an acute episode of hypertension, chills, tachycardia, hypoxia. CTA of chest was performed and reassuring, EKG revealed sinus tachycardia. Blood cultures noted to be positive for GNR. On Zosyn. He was placed on BiPAP and tolerated this well. This morning, he has transitioned off of BiPAP to room air and while he still has abdominal pain, he is feeling better. Tmax overnight of 99.7. LFTs elevated this morning, WBC improved (leukopenia on admission). Tolerating clears, has not yet passed flatus. + UOP and ambulating without assistance. Exam Narrative: Exam Narrative: GEN: Alert and laying comfortably in bed HEENT: Normal external ears, EOMIs bilaterally, no scleral icterus CV: Sinus rhythm, rate 80-90s during my exam, no concerning murmurs R: LCTA bilaterally without concerning wheezing, rales, or rhonchi Ab: Mild distention, hypoactive bowel sounds, + ttp Ext: wwp, no concerning edema Skin: No concerning skin lesions or rashes on exposed skin Neuro: Nonfocal Psych: Appropriate Const: Vital Signs, click to edit/add: Vital Signs - 24 hr 08/17/23 18:19 08/17/23 18:30 08/17/23 18:34 Temperature 100.7 F H Pulse Rate 133 H Pulse Rate [Left R adial] Pulse Rate [Pulse Oximeter] 104 H Respiratory Rate 22 Blood Pressure 148/100 H Blood Pressure [Ri ght Arm] Blood Pressure [Ri ght Upper Arm] 132/104 H Pulse Oximetry 99 95 Oxygen Delivery Me thod Room Air Oxygen Flow Rate 08/17/23 18:35 08/17/23 18:36 08/17/23 18:37 Temperature 98.6 F Pulse Rate 126 H 126 H Pulse Rate [Left R adial] Pulse Rate [Pulse Oximeter] Respiratory Rate Blood Pressure 150/113 H Blood Pressure [Ri ght Arm] Blood Pressure [Ri ght Upper Arm] Pulse Oximetry 93 96 Oxygen Delivery Me thod Oxygen Flow Rate 08/17/23 18:45 08/17/23 18:47 08/17/23 19:00 Temperature Pulse Rate 122 H 124 H Pulse Rate [Left R adial] Pulse Rate [Pulse Oximeter] Respiratory Rate Blood Pressure 141/100 H Blood Pressure [Ri ght Arm] Blood Pressure [Ri ght Upper Arm] Pulse Oximetry 94 96 Oxygen Delivery Me thod Oxygen Flow Rate 08/17/23 19:15 08/17/23 19:16 08/17/23 19:30 Temperature Pulse Rate 123 H 125 H 136 H Pulse Rate [Left R adial] Pulse Rate [Pulse Oximeter] Respiratory Rate Blood Pressure 143/91 H Blood Pressure [Ri ght Arm] Blood Pressure [Ri ght Upper Arm] Pulse Oximetry 94 93 91 Oxygen Delivery Me thod Oxygen Flow Rate 08/17/23 19:32 08/17/23 19:45 08/17/23 19:47 Temperature Pulse Rate 130 H 139 H Pulse Rate [Left R adial] Pulse Rate [Pulse Oximeter] Respiratory Rate Blood Pressure 144/98 H 175/123 H Blood Pressure [Ri ght Arm] Blood Pressure [Ri ght Upper Arm] Pulse Oximetry 91 96 Oxygen Delivery Me thod Oxygen Flow Rate 08/17/23 20:00 08/17/23 20:01 08/17/23 20:01 Temperature Pulse Rate 135 H Pulse Rate [Left R adial] Pulse Rate [Pulse Oximeter] Respiratory Rate Blood Pressure Blood Pressure [Ri ght Arm] Blood Pressure [Ri ght Upper Arm] Pulse Oximetry 94 96 96 Oxygen Delivery Me thod Nasal Cannula Nasal Cannula Oxygen Flow Rate 2 2 08/17/23 20:01 08/17/23 20:15 08/17/23 20:16 Temperature Pulse Rate 135 H 124 H 127 H Pulse Rate [Left R adial] Pulse Rate [Pulse Oximeter] Respiratory Rate Blood Pressure 160/87 H 134/95 H Blood Pressure [Ri ght Arm] Blood Pressure [Ri ght Upper Arm] Pulse Oximetry 96 96 96 Oxygen Delivery Me thod Oxygen Flow Rate 08/17/23 20:17 08/17/23 20:30 08/17/23 20:31 Temperature Pulse Rate 126 H 130 H 132 H Pulse Rate [Left R adial] Pulse Rate [Pulse Oximeter] Respiratory Rate Blood Pressure 148/92 H Blood Pressure [Ri ght Arm] Blood Pressure [Ri ght Upper Arm] Pulse Oximetry 95 97 95 Oxygen Delivery Me thod Oxygen Flow Rate 08/17/23 20:46 08/17/23 20:56 08/17/23 21:00 Temperature Pulse Rate 136 H 139 H Pulse Rate [Left R adial] Pulse Rate [Pulse Oximeter] Respiratory Rate Blood Pressure 119/88 Blood Pressure [Ri ght Arm] Blood Pressure [Ri ght Upper Arm] Pulse Oximetry 97 95 Oxygen Delivery Me thod Oxygen Flow Rate 08/17/23 21:02 08/17/23 21:03 08/17/23 21:15 Temperature Pulse Rate 138 H 140 H 136 H Pulse Rate [Left R adial] Pulse Rate [Pulse Oximeter] Respiratory Rate Blood Pressure 150/85 H Blood Pressure [Ri ght Arm] Blood Pressure [Ri ght Upper Arm] Pulse Oximetry 95 95 94 Oxygen Delivery Me thod Oxygen Flow Rate 08/17/23 21:17 08/17/23 21:30 08/17/23 21:31 Temperature Pulse Rate 132 H 133 H 133 H Pulse Rate [Left R adial] Pulse Rate [Pulse Oximeter] Respiratory Rate Blood Pressure 122/80 128/77 Blood Pressure [Ri ght Arm] Blood Pressure [Ri ght Upper Arm] Pulse Oximetry 95 97 96 Oxygen Delivery Me thod Oxygen Flow Rate 08/17/23 21:54 08/17/23 21:54 08/17/23 21:56 Temperature 98.6 F Pulse Rate Pulse Rate [Left R adial] 138 H Pulse Rate [Pulse Oximeter] Respiratory Rate 22 22 22 Blood Pressure Blood Pressure [Ri ght Arm] 121/88 Blood Pressure [Ri ght Upper Arm] Pulse Oximetry 95 95 95 Oxygen Delivery Me thod Room Air Room Air Room Air Oxygen Flow Rate 08/17/23 23:00 08/17/23 23:08 08/18/23 01:56 Temperature 98.4 F Pulse Rate 116 H Pulse Rate [Left R adial] 129 H Pulse Rate [Pulse Oximeter] Respiratory Rate 22 28 H Blood Pressure Blood Pressure [Ri ght Arm] 150/93 H Blood Pressure [Ri ght Upper Arm] Pulse Oximetry 95 Oxygen Delivery Ms thod Room Air Oxygen Flow Rate 08/18/23 03:00 08/18/23 04:00 08/18/23 05:30 Temperature 97.7 F 97.7 F Pulse Rate 114 H Pulse Rate [Left R adial] 118 H 163 H Pulse Rate [Pulse Oximeter] Respiratory Rate 20 28 H Blood Pressure Blood Pressure [Ri ght Arm] 170/111 H Blood Pressure [Ri ght Upper Arm] Pulse Oximetry 92 82 L Oxygen Delivery Ms thod Room Air Room Air Oxygen Flow Rate 08/18/23 06:00 08/18/23 06:00 08/18/23 07:00 Temperature 99.7 F H Pulse Rate 109 H Pulse Rate [Left R adial] 113 H 113 H Pulse Rate [Pulse Oximeter] Respiratory Rate 24 24 Blood Pressure Blood Pressure [Ri ght Arm] 108/75 Blood Pressure [Ri ght Upper Arm] Pulse Oximetry 93 Oxygen Delivery Me thod Room Air Oxygen Flow Rate 08/18/23 07:00 08/18/23 07:52 Temperature 98.5 F Pulse Rate Pulse Rate [Left R adial] 98 Pulse Rate [Pulse Oximeter] Respiratory Rate 18 Blood Pressure Blood Pressure [Ri ght Arm] 97/68 Blood Pressure [[facility] Upper Arm] Pulse Oximetry 93 96 Oxygen Delivery Me thod Room Air Room Air Oxygen Flow Rate Labs Labs: Laboratory Results - last 24 hr 08/17/23 08/17/23 08/17/23 18:30 18:33 19:21 WBC 5.57 RBC 4.96 Hgb 15.4 Hct 44.6 MCV 90 MCH 31 MCHC 35 RDW Coeff of Amber 12.3 Plt Count 193 Neut % (Auto) 90.4 H Lymph % (Auto) 7.5 L [place] % (Auto) 1.4 Eos % (Auto) 0.5 Baso % (Auto) 0.2 Neut # (Auto) 5.00 Lymph # (Auto) 0.40 L [place] # (Auto) 0.10 Eos # (Auto) 0.03 Baso # (Auto) 0.01 Abs Immat Gran (auto) 0.00 Imm/Tot Granulo (auto) 0.0 Diff Slide Review INR VBG pH 7.329 VBG pCO2 49 VBG pO2 22.8 L VBG HCO3 26 Sodium 141 Potassium 4.1 Chloride 101 Carbon Dioxide 23 Anion Gap 17 H BUN 10 Creatinine 1.0 Estimated Creat Clear 88.90 Estimated GFR 89 Glucose 147 H Lactate 5.5 H* Calcium 9.5 Magnesium Total Bilirubin 1.1 Direct Bilirubin 0.1 GGT AST 33 ALT 33 Alkaline Phosphatase 105 Troponin I C-Reactive Protein 1.6 H Total Protein 8.3 Albumin 4.9 Amylase Lipase 2541 H Procalcitonin Urine Color Yellow Urine Appearance Clear Urine pH 5.0 Ur Specific [place] 1.010 Urine Protein Negative Urine Glucose (UA) Negative Urine Ketones Negative Urine Blood Negative Urine Nitrite Negative Urine Bilirubin Negative Urine Urobilinogen 0.2 Ur Leukocyte Esterase Negative Lab Acknowledgement POC Troponin I 0.00 L 08/17/23 08/18/23 08/18/23 22:37 04:20 06:05 WBC 1.82 L* 8.12 RBC 4.28 L 3.95 L Hgb 13.3 L 12.2 L Hct 38.7 35.4 L MCV 90 90 MCH 31 31 MCHC 34 35 RDW Coeff of Amber 12.5 12.5 Plt Count 121 L 119 L Neut % (Auto) 88.0 H 95.8 H Lymph % (Auto) 10.4 L 2.1 L [place] % (Auto) 1.1 1.6 Eos % (Auto) 0.0 0.1 Baso % (Auto) 0.0 0.0 Neut # (Auto) 1.60 L 7.80 H Lymph # (Auto) 0.20 L 0.20 L [place] # (Auto) 0.00 0.10 Eos # (Auto) 0.00 0.01 Baso # (Auto) 0.00 0.00 Abs Immat Gran (auto) 0.00 0.03 Imm/Tot Granulo (auto) 0.5 0.4 Diff Slide Review Acceptable Review INR 1.02 VBG pH 7.352 7.436 H VBG pCO2 35 L 35 L VBG pO2 47.6 H 66.0 H VBG HCO3 19 L 23 Sodium 138 Potassium 4.2 Chloride 104 Carbon Dioxide 18 L Anion Gap 16 H BUN 10 Creatinine 0.8 Estimated Creat Clear 111.12 Estimated GFR 105 Glucose 110 Lactate 6.7 H* 2.5 H Calcium 8.4 Magnesium 1.1 L Total Bilirubin 2.2 H Direct Bilirubin GGT 95 H AST 47 H ALT 73 H Alkaline Phosphatase 97 Troponin I 0.02 C-Reactive Protein 6.4 H Total Protein 7.1 Albumin 4.1 Amylase 392 H Lipase 3383 H Procalcitonin 15.90 H Urine Color Urine Appearance Urine pH Ur Specific [place] Urine Protein Urine Glucose (UA) Urine Ketones Urine Blood Urine Nitrite Urine Bilirubin Urine Urobilinogen Ur Leukocyte Esterase Lab Acknowledgement Test Added POC Troponin I
[2023-08-18] MEDS: SENNOSIDES 1 TAB TABLET 2 TAB PO ×2 (09:32→21:13)
[2023-08-18] MEDS: LACTATED RINGERS 1000 ML 1,000 ML 500 ML IV (10:41)
--- NOTE | 2023-08-18 12:43 | REH.PT ---
I spoke with Pratik and he reports that he has been getting up on his own to use the bathroom, pushing the IV pole with him. He does not feel he needs a PT evaluation. He will walk later today when there aren't as many people walking around the halls. Skilled PT not needed.
--- NOTE | 2023-08-18 13:34 | PC.NURSE ---
End of Shift Note: Patient has been alert and orientated throughout shift. No complaints of SOB or CP and has been on room air thru out this shift. Has received medication for pain see MAR had a dose of toradol and x2 of dilaudid which pain level is down to a 4-5/10. Did try jello and chicken broth for lunch but did not take in much. Is currently getting an ECHO. He did receive a fluid bolus early in this shift and was a little concern that he had not voided in the urinal. Come to find out he voided once in the toilet and did use the urinal the 2nd time he voided. See intake and output for documentation. Will continue to monitor.
[2023-08-18] MEDS: PERFLUTREN LIPID MICROSPHERES 2 ML VIAL IV (14:06)
[2023-08-18 14:37] LABS: HCO3 VBG 26 mmol/L (21-28); PCO2 VBG 40 mmHG (40-50); PO2 VBG 64.8 mmHG (25-47); pH VBG 7.415 (7.32-7.43)
[2023-08-18 14:39] LABS: Lactate* 1.2 mmol/L (0.5-1.9)
[2023-08-18 15:01] LABS: Magnesium* 2.2 mg/dL (1.5-2.6)
--- NOTE | 2023-08-18 15:07 | REH.OT ---
OT: Order received, chart reviewed, spoke with RN and met with patient who is declining need for OT eval. Patient is up moving around room and completing ADLs independently without AD. Patient declines any need for additional services for DME in home. RN reports no therapy concerns with this patient. Will inform MD as well. If new questions/concerns arise during hospitalization, patient and nsg are aware OT can be consulted.
--- NOTE | 2023-08-18 15:15 | PC.NURSE ---
Assumed care of this patient from Nikki Price RN at 1330pm. IV LR maintenance fluid infusing @ 125cc/hr, new bag hung. Fresh water provided. Pt calm and cooperative, declined offer of pain medication for his pancreatitis. Report will be given to Karena Ferrari RN for evening shift by Nikki Price RN.
[2023-08-18] MEDS: PANTOPRAZOLE SODIUM 40 MG INJ IVP (21:13)
--- NOTE | 2023-08-18 23:59 | PC.NURSE ---
End of shift nursing note: Pt alert and oriented, pleasant and cooperative. Vitals stable, on RA. PRN Toradol admin x1 and PRN IV Dilaudid admin x2 for abd pain as high as 8/10. Pt c/o slight nausea, PRN Zofran admin and effective. Pt able to then tolerate drinking fluids, broth, jello and juice, no emesis. LR con't at 125ml/hr. IV abx admin x2 this shift. Pt hoping to take shower later tonight before bed, wasn't ready earlier in shift, had visitor, supplies placed in room. Pt voiding, denying issues. Pt uses call light appropriately, has within reach.
[2023-08-19] MEDS: HYDROmorphone 0.5 mg/0.5 ml inj 1 MG IVP ×4 (00:48→23:22)
[2023-08-19] MEDS: ONDANSETRON 2 MG/ML inj 4 MG IVP ×4 (00:53→23:27)
[2023-08-19 02:42] VITALS: BP 101/67; PULSE 77; RESP 16; TEMP 37.3; O2SAT 93
[2023-08-19] MEDS: PIPERACILLIN/TAZOBACTAM 4.5 GM in 0.9 % SODIUM CHLORIDE Mini-bag 100 ML IVPB (04:29)
--- NOTE | 2023-08-19 05:49 | PC.NURSE ---
Shift note: Pt continue to complain of pain rated between 5 and 9. PRN pain medication given 2x tonight. Ambulated independently in room. Pt tolerated clear liquid diet well. Alert and oriented and able to make needs known. Vitally stable.
[2023-08-19] MEDS: ENOXAPARIN 40 MG/0.4 ML INJ SUBCUT (06:19)
[2023-08-19 06:54] LABS: HCO3 VBG 27 mmol/L (21-28); Lactate* 0.9 mmol/L (0.5-1.9); PCO2 VBG 42 mmHG (40-50); PO2 VBG 56.8 mmHG (25-47); pH VBG 7.413 (7.32-7.43)
[2023-08-19 07:00] VITALS: BP 117/81; PULSE 66; PULSE 78; RESP 16; TEMP 37.2; O2SAT 94
[2023-08-19 07:00] LABS: Basophils Absolute Auto 0.02 K/uL (0.00-0.30); Basophils Percent Auto 0.3 % (0.0-3.0); Eosinophils Absolute Auto 0.27 K/uL (0.00-0.50); Eosinophils Percent Auto 4.3 % (0.0-7.0); Hematocrit 30.3 % (37.0-53.0); Hemoglobin* 10.3 gm/dL (13.5-17.5); Immature Granulocytes Abs Auto 0.01 K/uL (0.00-0.30); Immature Granulocytes Pct Auto 0.2 %; Lymphocytes Percent Auto 5.7 % (20-44); Mean Corpuscular HGB Conc 34 gm/dL (32-36); Mean Corpuscular Hemoglobin 31 pg (26-34); Mean Corpuscular Volume 91 fL (80-100); Monocytes Percent Auto 6.4 % (0.0-11.0); Neutrophils Percent Auto 83.1 % (42.0-72.0); Platelet Count* 92 K/uL (140-440); RDW Coefficient of Variation % 12.4 % (11.5-15.5); Red Blood Count 3.33 m/uL (4.30-5.90); White Blood Count* 6.28 K/uL (4.50-11.00)
[2023-08-19 07:02] LABS: Slide Review Reflex No
[2023-08-19 07:29] LABS: Albumin* 3.2 g/dL (3.3-5.0); Chloride* 104 mmol/L (96-114)
[2023-08-19 07:30] LABS: Potassium* 3.5 mmol/L (3.6-5.1); Sodium* 135 mmol/L (135-149)
[2023-08-19 07:32] LABS: Alkaline Phosphatase* 69 U/L (40-150); Anion Gap 5 mEq/L (7-15); Aspartate Amino Transferase* 52 U/L (12-35); Bilirubin Direct* 0.4 mg/dL (0.0-0.5); Bilirubin Total* 1.5 mg/dL (0.1-1.5); Blood Urea Nitrogen* 14 mg/dL (7-30); Calcium* 7.8 mg/dL (8.4-10.6); Carbon Dioxide* 26 mmol/L (20-32); Creatinine* 0.8 mg/dL (0.5-1.5); Est. Creatinine Clearance* 111.12; Estimated Glomerular Filt Rate 105 ml/min; Gamma Glutamyl Transpeptidase* 103 U/L (8-55); Glucose* 144 mg/dL (60-115); Lipase* 442 U/L (23-300)
[2023-08-19 07:33] LABS: Alanine Aminotransferase* 44 U/L (4-50); Magnesium* 2.1 mg/dL (1.5-2.6)
[2023-08-19] MEDS: KETOROLAC 30 MG/ML inj IVP ×2 (07:46→13:36)
[2023-08-19] MEDS: LACTATED RINGERS 1000 ML 1,000 ML 125 ML IV ×3 (07:50→22:45)
[2023-08-19] MEDS: SODIUM CHLORIDE 0.9 % (FLUSH) 10 ML SYRINGE 5 ML IVF ×2 (09:45→23:23)
[2023-08-19] MEDS: SENNOSIDES 1 TAB TABLET 2 TAB PO ×2 (09:45→20:28)
--- NOTE | 2023-08-19 10:15 | P.IMPN_ITS ---
Progress Note: A&P Assessment and plan (1) Bacteremia: Problem details: - Pansensitive E Coli - Zosyn (08/17/23), narrowed to Ceftriaxone (08/19/23) - associated with elevated lactate, hypotension, leukopenia (all resolved) - no further growth on repeat BCx Status: Acute (2) Acute pancreatitis: Problem details: - acute on chronic - flare began 08/17/23 - Slowly advancing diet Status: Acute (3) Lactic acidosis: Problem details: - resolved 08/18/23 Status: Acute (4) Tachycardia: Problem details: - noted 08/18 am, resolved 08/18 late morning; likely compensatory 2/2 pain, anxiety, dyspnea - sinus tachycardia on EKG, resolved by 08/18 am - TTE performed with results below Final Impressions: 1. Normal LV size, normal wall thickness, normal function with an estimated EF of 55 - 60%. 2. Right ventricular cavity size is normal, global systolic RV function is normal. 3. No significant valve disease detected. Tri-leaflet aortic valve. 4. The aortic sinus is mildly dilated with a maximal diameter of 4.2 cm. Status: Acute (5) GERD (gastroesophageal reflux disease): Problem details: - on PPI Status: Acute (6) Recurrent pancreatitis: Problem details: - started about 10 years ago, Idiopathic - followed by [facility] - status post cholecystectomy and biliary stents Status: Acute (7) Pancreatic mass: Problem details: - noted 07/2023; biopsies taken 08/17/2023 at [facility] during EUS Status: Acute Plan - per above - Lovenox and PPI for prophylaxis - likely home with family in 1-2 days, pending clinical course Subjective Date Seen: 08/19/23 Interval history: Pratik was admitted on the evening of 08/17 for recurrent pancreatitis following endoscopic ultrasound with biopsies (performed 08/17) at [facility]. He was also found to have a + blood culture for GNR, Zosyn initiated. This morning, BCx + for pansensitive E Coli. Vital signs and labs are stable and he is feeling better, stable on RA. Still has abdominal pain, but feels like he could advance diet slowly today. + flatus, + UOP. Exam Narrative: Exam Narrative: GEN: Alert and oriented, nontoxic HEENT: EOMIs bilaterally, no scleral icterus CV: RRR, No concerning murmurs R: LCTA bilaterally without concerning wheezing, air movement is adequate Abdomen: Mild distention, + bowel sounds throughout, +ttp Ext: wwp, no concerning edema Skin: No concerning skin lesions or rashes on exposed skin Neuro: Nonfocal Psych: Appropriate Const: Vital Signs, click to edit/add: Vital Signs - 24 hr 08/18/23 11:00 08/18/23 11:12 08/18/23 12:36 Temperature 98.5 F Pulse Rate 69 Pulse Rate [Left R adial] 84 65 Respiratory Rate 18 18 Blood Pressure [Ri ght Arm] 98/65 93/67 Pulse Oximetry 92 91 Oxygen Delivery Me thod Room Air Room Air 08/18/23 15:30 08/18/23 15:30 08/18/23 15:30 Temperature Pulse Rate 76 Pulse Rate [Left R adial] 76 Respiratory Rate 18 Blood Pressure [Ri ght Arm] Pulse Oximetry 96 Oxygen Delivery Me thod Room Air 08/18/23 15:30 08/18/23 19:00 08/18/23 23:00 Temperature 97.2 F L 97.4 F L Pulse Rate 76 Pulse Rate [Left R adial] 80 79 Respiratory Rate 16 16 Blood Pressure [Ri ght Arm] 114/82 100/69 Pulse Oximetry 96 96 Oxygen Delivery Me thod Room Air Room Air 08/18/23 23:00 08/18/23 23:00 08/18/23 23:00 Temperature 98.5 F Pulse Rate Pulse Rate [Left R adial] 71 71 Respiratory Rate 16 16 16 Blood Pressure [Ri ght Arm] 107/69 Pulse Oximetry 94 94 Oxygen Delivery Me thod Room Air Room Air 08/19/23 02:42 08/19/23 07:00 08/19/23 07:00 Temperature 99.2 F Pulse Rate Pulse Rate [Left R adial] 77 78 Respiratory Rate 16 16 16 Blood Pressure [Ri ght Arm] 101/67 Pulse Oximetry 93 94 Oxygen Delivery Me thod Room Air Room Air 08/19/23 07:00 08/19/23 07:00 Temperature 98.9 F Pulse Rate 66 Pulse Rate [Left R adial] 78 Respiratory Rate 16 Blood Pressure [Ri ght Arm] 117/81 Pulse Oximetry 94 Oxygen Delivery Me thod Room Air Labs Labs: Laboratory Results - last 24 hr 08/18/23 08/19/23 14:30 06:37 WBC 6.28 RBC 3.33 L Hgb 10.3 L Hct 30.3 L MCV 91 MCH 31 MCHC 34 RDW Coeff of Amber 12.4 Plt Count 92 L Neut % (Auto) 83.1 H Lymph % (Auto) 5.7 L [place] % (Auto) 6.4 Eos % (Auto) 4.3 Baso % (Auto) 0.3 Neut # (Auto) 5.20 Lymph # (Auto) 0.40 L [place] # (Auto) 0.40 Eos # (Auto) 0.27 Baso # (Auto) 0.02 Abs Immat Gran (auto) 0.01 Imm/Tot Granulo (auto) 0.2 VBG pH 7.415 7.413 VBG pCO2 40 42 VBG pO2 64.8 H 56.8 H VBG HCO3 26 27 Sodium 135 Potassium 3.5 L Chloride 104 Carbon Dioxide 26 Anion Gap 5 L BUN 14 Creatinine 0.8 Estimated Creat Clear 111.12 Estimated GFR 105 Glucose 144 H Lactate 1.2 0.9 Calcium 7.8 L Magnesium 2.2 2.1 Total Bilirubin 1.5 Direct Bilirubin 0.4 GGT 103 H AST 52 H ALT 44 Alkaline Phosphatase 69 Total Protein 6.0 Albumin 3.2 L Lipase 442 H Procalcitonin 16.10 H
[2023-08-19] MEDS: cefTRIAXone 1 GM in 0.9 % SODIUM CHLORIDE Mini-bag 100 ML IVPB (10:36)
[2023-08-19 11:00] VITALS: BP 114/83; PULSE 72; RESP 16; TEMP 36.6; O2SAT 94
--- NOTE | 2023-08-19 15:02 | PC.NURSE ---
End of Shift: patient up independently in room, BR and hallway. IV toradol and Dilauded used for pain control. Patient advanced to full liquids and tolerating well, he stated he would like to try the oral oxy and tylenol.
[2023-08-19] MEDS: OXYCODONE 5 MG TABLET PO ×3 (15:12→20:28)
[2023-08-19] MEDS: ACETAMINOPHEN 325 MG TABLET PO (15:12)
[2023-08-19 15:15] VITALS: BP 124/82; PULSE 62; RESP 18; TEMP 36.6; O2SAT 97
[2023-08-19 19:00] VITALS: BP 148/83; PULSE 60; RESP 18; TEMP 36.7; O2SAT 99
--- NOTE | 2023-08-19 19:04 | PC.NURSE ---
Shift [id number]- Patient rates pain 3-5/10 this afternoon/evening. Pain controlled with PRN pain medications- see eMAR. He is up independently and walks the halls. Appears to be tolerating full liquids without issue.
[2023-08-19] MEDS: PANTOPRAZOLE SODIUM 40 MG INJ IVP (20:29)
--- NOTE | 2023-08-19 22:48 | PC.NURSE ---
[id number].. Alert and orientated.. up ad yanely as tolerated. Tolerating full liquid diet well with no nausea. Reported mild 6/10 pain in his middle abdomen. Oxy given 1x @1999. Reported adequate relief with rating of 3/10 pain. Eating some pudding before he goes to bed. LR running @ 125. Calls appropriately. JONO STEELE BSN
[2023-08-19 23:00] VITALS: BP 125/80; PULSE 66; RESP 18; TEMP 36.6; O2SAT 95
[2023-08-20] MEDS: OXYCODONE 5 MG TABLET PO ×3 (02:39→08:29)
[2023-08-20 03:00] VITALS: BP 136/90; PULSE 60; RESP 18; TEMP 36.6; O2SAT 96
--- NOTE | 2023-08-20 04:48 | PC.NURSE ---
Shift note: Patient is doing well. No fever, diarrhea but continue to rate pain level between 5 and 8. Deluded and Oxycodone given 1x each tonight. Independent in room. Alert and oriented.Vitally stable. Tolerating full liquid diet well.
[2023-08-20] MEDS: ENOXAPARIN 40 MG/0.4 ML INJ SUBCUT (05:42)
[2023-08-20] MEDS: ONDANSETRON ODT 4 MG TAB PO (06:34)
[2023-08-20] MEDS: LACTATED RINGERS 1000 ML 1,000 ML 125 ML IV (06:36)
[2023-08-20 06:55] LABS: Basophils Absolute Auto 0.01 K/uL (0.00-0.30); Basophils Percent Auto 0.2 % (0.0-3.0); Eosinophils Absolute Auto 0.31 K/uL (0.00-0.50); Eosinophils Percent Auto 6.2 % (0.0-7.0); Hemoglobin* 10.8 gm/dL (13.5-17.5); Immature Granulocytes Abs Auto 0.05 K/uL (0.00-0.30); Lymphocytes Percent Auto 11.2 % (20-44); Mean Corpuscular HGB Conc 34 gm/dL (32-36); Mean Corpuscular Hemoglobin 31 pg (26-34); Mean Corpuscular Volume 91 fL (80-100); Monocytes Percent Auto 12.2 % (0.0-11.0); Neutrophils Absolute Auto 3.48 K/uL (1.7-7.0); Neutrophils Percent Auto 69.2 % (42.0-72.0); Platelet Count* 110 K/uL (140-440); RDW Coefficient of Variation % 12.4 % (11.5-15.5); White Blood Count* 5.02 K/uL (4.50-11.00)
[2023-08-20 06:58] LABS: Slide Review Reflex No
[2023-08-20 07:30] VITALS: BP 147/88; PULSE 65; RESP 20; TEMP 36.8; O2SAT 95
[2023-08-20 07:31] LABS: Albumin* 3.2 g/dL (3.3-5.0); Chloride* 103 mmol/L (96-114); Sodium* 137 mmol/L (135-149)
[2023-08-20 07:32] LABS: Potassium* 3.7 mmol/L (3.6-5.1)
[2023-08-20 07:34] LABS: Alkaline Phosphatase* 89 U/L (40-150); Anion Gap 8 mEq/L (7-15); Aspartate Amino Transferase* 51 U/L (12-35); Bilirubin Total* 0.8 mg/dL (0.1-1.5); Blood Urea Nitrogen* 11 mg/dL (7-30); Carbon Dioxide* 26 mmol/L (20-32); Creatinine* 0.8 mg/dL (0.5-1.5); Est. Creatinine Clearance* 111.12; Estimated Glomerular Filt Rate 105 ml/min; Glucose* 119 mg/dL (60-115); Total Protein* 6.1 g/dL (6.0-8.3)
[2023-08-20 07:35] LABS: Alanine Aminotransferase* 48 U/L (4-50); Calcium* 8.2 mg/dL (8.4-10.6)
[2023-08-20 07:50] LABS: Procalcitonin* 9.98 ng/mL (<0.50)
[2023-08-20] MEDS: ACETAMINOPHEN 325 MG TABLET PO (08:30)
[2023-08-20] MEDS: KETOROLAC 30 MG/ML inj IVP (08:33)
--- NOTE | 2023-08-20 10:09 | NUTR.NU ---
MICHAN with diet education related to recurrent pancreatitis. Patient admitted for recurrent pancreatitis, found to have pancreatic mass; biopsies taken 08/17/2023 at [place] during EUS. RDN visited with patient whom reports having diet education in the past related to pancreatitis. He declined diet education at this time. Plan is for patient to discharge home today. RDN encouraged patient to let staff know if he has any concerns or questions at discharge.
--- NOTE | 2023-08-20 10:40 | P.DS_ITS ---
DS: Providers Provider Date Seen: 08/20/23 Date of admission: 08/18/23 05:03 Primary care physician: Salo Gomez MD Admitting Clinician: Clarissa Nova MD Attending Physician on discharge: Deanna Orta MD Date of Discharge: 08/20/23 DS: Diagnosis Discharge Diagnosis (1) Bacteremia: Status: Acute Problem details: - Pansensitive E Coli, presumably relate to EUS + biopsy performed 08/17 - Zosyn (08/17/23), narrowed to Ceftriaxone (08/19/23), will discharge home on Augmentin - associated with elevated lactate, hypotension, leukopenia on admission, all resolved during stay - Tmax 99.7 - no further growth on repeat Blood Cultures during stay (2) Acute pancreatitis: Status: Acute Problem details: - acute on chronic - flare began 08/17/23 - Slowly advanced diet and transitioned to oral pain medications during stay (3) Lactic acidosis: Status: Acute Problem details: - resolved 08/18/23 (4) Tachycardia: Status: Acute Problem details: - noted 08/18 am, resolved 08/18 late morning; likely compensatory 2/2 pain, anxiety, dyspnea - sinus tachycardia on EKG, resolved by 08/18 am - TTE performed with results below Final Impressions: 1. Normal LV size, normal wall thickness, normal function with an estimated EF of 55 - 60%. 2. Right ventricular cavity size is normal, global systolic RV function is normal. 3. No significant valve disease detected. Tri-leaflet aortic valve. 4. The aortic sinus is mildly dilated with a maximal diameter of 4.2 cm. (5) GERD (gastroesophageal reflux disease): Status: Acute Problem details: - continue PPI (6) Recurrent pancreatitis: Status: Acute Problem details: - started about 10 years ago, Idiopathic - followed by [facility] - status post cholecystectomy and biliary stents (7) Pancreatic mass: Status: Acute Problem details: - noted 07/2023; biopsies taken 08/17/2023 at [facility] during EUS DS: Summary Hospital Course Hospital Course: Pratik was admitted to the hospital for acute on chronic pancreatitis. Flare began 08/17/2023, shortly after having an EUS with biopsy performed at [facility]. During stay, he was found to have a positive blood culture for pansensitive E coli. Zosyn initiated upon admission, narrowed to ceftriaxone, will be discharged on Augmentin with close PCP follow-up. Patient was able to slowly advance diet and transition to oral pain medications, felt comfortable discharging home on 08/20. Other notable findings during stay above. Status at Discharge Functional status at discharge: independent ambulation Overall status at discharge: patient is progressing back to baseline Time Spent with Patient Time attestation: Total time spent providing and/or coordinating discharge services: Time spent: Less than 30 minutes Exam Narrative: Exam Narrative: GEN: Alert and oriented, sitting comfortably in bed HEENT: EOMIs bilaterally, no scleral icterus Ab: Mild distension, +ttp but improved Ext: wwp, no concerning edema Skin: No concerning skin lesions or rashes on exposed skin Neuro: Nonfocal Psych: Appropriate Const: Vital Signs, click to edit/add: Vital Signs - 24 hr 08/19/23 11:00 08/19/23 15:15 08/19/23 15:15 Temperature 97.8 F 97.8 F Pulse Rate [Left A pical] Pulse Rate [Left R adial] 72 62 Respiratory Rate 16 18 Blood Pressure [Ri ght Arm] 114/83 124/82 Pulse Oximetry 94 97 97 Oxygen Delivery Me thod Room Air Room Air Room Air 08/19/23 19:00 08/19/23 23:00 08/19/23 23:00 Temperature 98.0 F 97.9 F Pulse Rate [Left A pical] Pulse Rate [Left R adial] 60 66 Respiratory Rate 18 18 18 Blood Pressure [Ri ght Arm] 148/83 H 125/80 Pulse Oximetry 99 95 95 Oxygen Delivery Me thod Room Air Room Air Room Air 08/20/23 03:00 08/20/23 07:30 08/20/23 07:30 Temperature 97.9 F 98.3 F Pulse Rate [Left A pical] 65 Pulse Rate [Left R adial] 60 65 Respiratory Rate 18 20 20 Blood Pressure [Ri ght Arm] 136/90 H 147/88 H Pulse Oximetry 96 95 95 Oxygen Delivery Me thod Room Air Room Air Room Air DS: Data Data Completed and Pending Labs on day of discharge: Labs from last 24 hours 08/20/23 06:35 WBC 5.02 RBC 3.50 L Hgb 10.8 L Hct 32.0 L MCV 91 MCH 31 MCHC 34 RDW Coeff of Amber 12.4 Plt Count 110 L Neut % (Auto) 69.2 Lymph % (Auto) 11.2 L [place] % (Auto) 12.2 H Eos % (Auto) 6.2 Baso % (Auto) 0.2 Neut # (Auto) 3.48 Lymph # (Auto) 0.60 L [place] # (Auto) 0.60 Eos # (Auto) 0.31 Baso # (Auto) 0.01 Abs Immat Gran (auto) 0.05 Imm/Tot Granulo (auto) 1.0 Sodium 137 Potassium 3.7 Chloride 103 Carbon Dioxide 26 Anion Gap 8 BUN 11 Creatinine 0.8 Estimated Creat Clear 111.12 Estimated GFR 105 Glucose 119 H Calcium 8.2 L Total Bilirubin 0.8 AST 51 H ALT 48 Alkaline Phosphatase 89 Total Protein 6.1 Albumin 3.2 L Procalcitonin 9.98 H Preliminary micro results at discharge 08/19/23 06:37 Blood Culture - Preliminary Blood NO GROWTH AFTER 24 HOURS 08/17/23 18:54 Blood Culture - Preliminary Blood NO GROWTH AFTER 48 HOURS 08/18/23 14:30 Blood Culture - Preliminary Blood NO GROWTH AFTER 24 HOURS Discharge Plan Discharge Disposition: Home, Self-Care Date of Admission: 08/18/23 05:03 Attending Provider on Discharge: Deanna Orta Primary Care Provider: Salo Gomez Condition: Improved Anticipated Discharge Date/Time: 08/20/23 09:11 Discharge Medications: New acetaminophen 325 mg Tablet 650 mg PO Q6H PRNQty: 20 0RF oxycodone 5 mg Tablet 5 - 10 mg PO Q4H PRN (Reason: Pain) Qty: 30 0RF amoxicillin-pot clavulanate 875-125 mg tablet 1 tab PO BID 14 Days Qty: 28 0RF Continued ondansetron 4 mg tablet,disintegrating 4 mg PO Q6-8H PRN (Reason: nausea and vomiting) Qty: 30 0RF omeprazole 20 mg capsule,delayed release(DR/EC) 20 mg PO BID Qty: 120 5RF oxycodone 5 mg tablet 5 mg PO QID PRN (Reason: pain) Qty: 42 0RF Held ibuprofen [Advil] 200 mg tablet 400 mg PO Q6H PRN Hold Instructions: Resume on 08/20/23. hold until current pancreatitis flare ends Discharge Orders: Discharge Order (Routine); Ordered 08/20/23 Ordered By: Deanna Orta Patient Education: Acetaminophen (By mouth), Amoxicillin/Clavulanate Potassium (By mouth), Oxycodone, Rapid Release (By mouth), Pancreatitis (DC) Additional Instructions: See Jason as scheduled for a checkup towards the end of antibiotic regimen to see if you need to continue on them. Antibiotics and pain meds at [facility]. Make sure you are taking probiotics while on antibiotics (yogurt is easiest). Routine [facility] f/u. Activity Level: Activity as Tolerated Diet Detail: slowly advance as tolerated Follow Up Appointments: Salo Gomez MD [Primary Care Provider] - 08/27/23 8:15 am ([facility] for follow-up (pancreatitis and bacteremia).) Forms: [employer] Info Instructions
--- NOTE | 2023-08-20 12:54 | PC.NURSE ---
Please see eMar for medications provided this am for pain management. Senna held d/to medium loose stool. Urine remains clear & dark mayo, 450cc out. Encouraged po fluids. Eval by Dr. Orta. IV discontinued. Pt verbalized understanding of d/c diagnosis, new prescriptions, f/up appt and sx to report urgently secondary to his pancreatitis. Ambulatory d/c with personal belongings at 1236 w/family as transport.
== END 2023-08-20 12:36 | disposition home or self-care (01) | DRG 282 ==
LOC: ED 21:29 → MEDSURG 21:46
PROVIDERS: Family Medicine; Admitting Provider Family Medicine; Emergency Provider Emergency Medicine Emergency Medical Services; PCP Family Medicine; Visit Provider Internal Medicine
DX: K85.00 Idiopathic acute pancreatitis without necrosis or infection (principal); R78.81 Bacteremia; K21.9 Gastro-esophageal reflux disease without esophagitis; K86.1 Other chronic pancreatitis; R00.0 Tachycardia, unspecified; Z96.89 Presence of other specified functional implants; K86.89 Other specified diseases of pancreas; K76.0 Fatty (change of) liver, not elsewhere classified; K57.90 Diverticulosis of intestine, part unspecified, without perforation or abscess without bleeding; E87.21 Acute metabolic acidosis; B96.20 Unspecified Escherichia coli [E. coli] as the cause of diseases classified elsewhere
CPT/HCPCS: 36415; 71045; 71275; 74177; 80048; 80053; 80076; 81003; 82150; 82803; 82977; 83605; 83690; 83735; 84145; 84484; 85025; 85610; 86140; 87040; 87186; 93005; 93306; 94660; 99284; 99285; G0378; A9270; C9113; J0696; J1170; J1650; J1885; J2060; J2405; J2543; J3475; J7030; J7120; Q9957; Q9967

== ENCOUNTER 2023-09-07 08:11 | Outpatient (CLI) | payer OTHER, SELFPAY ==
[2023-09-07 10:17] VITALS: BP 132/84; PULSE 99; RESP 18
--- NOTE | 2023-09-07 13:43 | W.PM.STED ---
Stress Test Note Date Date of test: 09/07/23 Providers Primary care provider: Salo Gomez Stress test physician: Bubba Thompson Stress Test Note Stress test ordered: Stress Myoview Indication for test: Pulmonary edema Results discussion: Patient is a very nice 53-year-old gentleman who presents here for the above test after discussion the risks benefits and side effects he would like to proceed cardiac stress test medical history form is reviewed entirely. Pretest EKG shows some diffuse ST wave changes, laterally inferiorly. And slightly rightward axis. Standard Nithin protocol is employed over a time course of 10 minutes 20 seconds, patient achieved a metabolic equivalent of 11.9 Mets. With a maximum heart rate of 152, which is 108% of the max. Test is deemed to be valid, is exercise conditioning was felt to be good. During this test there is no appreciable ST wave changes suggestive of ischemia. Conditioning was felt to be good Impression: Negative electrographic portion of stress Myoview Follow up suggested: Await nuclear images these will be jointly read by nuclear Medicine. And Cardiology, patient left this testing facility back to baseline, there were no complications.
== END 2023-09-07 08:12 | disposition home or self-care (01) ==
LOC: STRESS 08:11
PROVIDERS: PCP Family Medicine; Visit Provider Family Medicine
DX: J81.1 Chronic pulmonary edema (principal); R94.31 Abnormal electrocardiogram [ECG] [EKG]
CPT/HCPCS: 78452; 93016; 93017; A9500

== ENCOUNTER 2023-11-01 20:44 | Inpatient (IN) | payer OTHER, SELFPAY ==
[2023-11-01] VITALS (15 sets, daily range): BP systolic 172–193; BP diastolic 91–100; PULSE 44–51; RESP 18; TEMP 36.3; O2SAT 93–99; BMI 33.5
--- NOTE | 2023-11-01 21:20 | ED_ITS ---
HPI - General Adult General Chief complaint: Chest Pain Stated complaint: Pancreatitis flare up Time Seen by Provider: 11/01/23 21:13 History of Present Illness HPI narrative: This 53-year-old male comes in with upper epigastric pain and lower chest pain that began several hours ago. Prior to this he had a ERCP because of recurrent pancreatitis. He had similar symptoms a couple months ago after a ERCP that was done then. He was admitted to the hospital with post procedural pancreatitis. He states that symptoms are similar again today. He reports that he did take oxycodone twice this afternoon without much relief and after the 2nd dose he had nausea symptoms. Related Data Previous Rx's Medication Instructions Recorded acetaminophen 325 mg tablet 650 mg (2 x 325 mg) PO Q6H PRN #20 08/20/23 tabs omeprazole 20 mg capsule,delayed 20 mg PO BID #120 caps 09/10/23 release ondansetron 4 mg disintegrating 4 mg PO Q6-8H PRN nausea and 10/07/23 tablet vomiting #30 tabs oxycodone 5 mg tablet 5 - 10 mg (1 - 2 x 5 mg) PO Q4H 10/07/23 PRN Pain #30 tabs Allergies Allergy/AdvReac Type Severity Reaction Status Date / Time No Known Drug Allergies Allergy Verified 11/01/23 20:56 Review of Systems Status of ROS: Reports: 10 or more systems reviewed and unremarkable except as noted in History and below Narrative: Constitutional: No fevers, no weight gain or loss. Eyes: No discharge. No vision changes. HENT: No congestion, no sore throat, no ear pain. Cardiovascular: No palpitations. Respiratory: No shortness of breath, no wheezes, no cough. Gastrointestinal: No vomiting, no diarrhea. Upper epigastric abdominal pain. Genitourinary: No dysuria, no hematuria. Musculoskeletal: Normal range of motion. Skin: No rashes, no pruritis. Neurological: No dizziness, weakness, sensory change, speech change. Endo/Heme/Allergies: No bruising or bleeding. No polydipsia. Pysch: no suicidality, no anxiety, no insomnia. All other systems reviewed and are negative. [facility] Medical History Hepatic steatosis ?K76.0 - Fatty (change of) liver, not elsewhere classified (ICD-10) Onychomycosis ?B35.1 - Tinea unguium (ICD-10) Surgical History History of biliary duct stent placement ?Z98.890 - Other specified postprocedural states (ICD-10) S/P arthroscopy of right shoulder (12/28/22) ?Z98.890 - Other specified postprocedural states (ICD-10) Status post laparoscopic cholecystectomy (12/22/16) ?Z90.49 - Acquired absence of other specified parts of digestive tract (ICD- 10) History of colonoscopy ?Z98.890 - Other specified postprocedural states (ICD-10) Family History Other Colitis Social History Narrative: Social History: He is and lives with his and children. 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 Habits: He denies tobacco use. Denies recreational drug use. EtOH occassional - [place]/New Years was last EtOH. Drinks non alcoholic beer, last one was also over the holidays. Family History: Paternal grandfather of an acute myocardial infarction at age 50. His brother also had an acute myocardial infarction in his early 50s. A different brother had strokes in his 50s and 60s. Father had lung cancer with brain metastases despite being a nonsmoker. What is your current living situation?: I presently have a place to live Problems where you live: no known problems Problems where you live details: N/A In the past 12 months, utilities in danger of being shut off: no In past 12 months, lack of transportation kept you from medical appts, meetings, work, or getting things needed for daily living: no In the past 12 mos, have been you worried that your food would run out before you had money to buy more?: never true In the past 12 mos, the food you bought just didn't last and you didn't have money to buy more?: never true Highest level of school completed/degree received: high school graduate Smoking Status: Never smoker Do you use any of these nicotine containing products: None Second hand tobacco smoke exposure: No How often do you have a drink containing alcohol: never AUDIT-C Alcohol total score: 0 Non-prescribed substance use: denies use Caffeine: Yes How often does anyone, including family, friends and others, physically hurt you : never How often does anyone, including family, friends and others, insult or talk down to you: never How often does anyone, including family, friends and others, threaten you with harm: never How often does anyone, including family, friends and others, scream or curse at you: never Little interest or pleasure in doing things: not at all Feeling down, depressed, or hopeless: not at all service: No Exam Narrative: Exam Narrative: Constitutional: Well-developed, well-nourished, no acute distress. HEENT: Normocephalic, atraumatic. Neck: Normal range of motion. Nontender. Supple. Heart: Regular. No murmurs. Normal rate. Intact distal pulses. Lungs: Clear to auscultation. No chest discomfort. No wheezes, rhonchi, or rales. Abdomen: Normal bowel sounds. Diffuse upper epigastric tenderness. Genitalia: Deferred. Back: No midline tenderness. Normal range of motion. Extremities: Normal range of motion. No injury. Skin: Intact. No rash. Warm. No erythema or pallor. Neurologic: No altered sensation. No weakness. Alert and oriented. Psychiatric: No suicidality. No anxiety or depression. No insomnia. Nursing notes and vitals signs are reviewed. Const: Vital Signs, click to edit/add: Vital Signs - 24 hr 11/01/23 20:52 11/01/23 21:57 11/01/23 21:59 Temperature 97.4 F L Pulse Rate 49 L 44 L Pulse Rate [Pulse Oximeter] 50 L Respiratory Rate 18 Blood Pressure 187/100 H Blood Pressure [Ri ght Upper Arm] 186/97 H Pulse Oximetry 99 99 96 Oxygen Delivery Me thod Room Air 11/01/23 22:00 11/01/23 22:00 11/01/23 22:02 Temperature Pulse Rate 48 L 44 L Pulse Rate [Pulse Oximeter] Respiratory Rate 18 Blood Pressure 193/98 H Blood Pressure [Ri ght Upper Arm] Pulse Oximetry 95 97 Oxygen Delivery Me thod 11/01/23 22:15 11/01/23 22:30 11/01/23 22:33 Temperature Pulse Rate 44 L 48 L 51 L Pulse Rate [Pulse Oximeter] Respiratory Rate Blood Pressure 176/91 H Blood Pressure [Ri ght Upper Arm] Pulse Oximetry 99 98 95 Oxygen Delivery Me thod 11/01/23 22:45 Temperature Pulse Rate 45 L Pulse Rate [Pulse Oximeter] Respiratory Rate Blood Pressure Blood Pressure [Ri ght Upper Arm] Pulse Oximetry 93 Oxygen Delivery Me thod Course Vital Signs Vital signs: Initial Vital Signs Temperature 97.4 F L 11/01/23 20:52 Temperature Source Temporal Artery Scan 11/01/23 20:52 Pulse Rate 50 L 11/01/23 20:52 Respiratory Rate 18 11/01/23 20:52 Blood Pressure 186/97 H 11/01/23 20:52 Blood Pressure Mean 126 H 11/01/23 20:52 Blood Pressure Position Sitting 11/01/23 20:52 Pulse Oximetry 99 11/01/23 20:52 Oxygen Delivery Method Room Air 11/01/23 20:52 Vital Signs Temperature 97.4 F L 11/01/23 20:52 Pulse Rate 50 L 11/01/23 20:52 Respiratory Rate 18 11/01/23 20:52 Blood Pressure 186/97 H 11/01/23 20:52 Pulse Oximetry 99 11/01/23 20:52 Oxygen Delivery Method Room Air 11/01/23 20:52 Temperature 97.4 F L 11/01/23 20:52 Pulse Rate 45 L 11/01/23 22:45 Respiratory Rate 18 11/01/23 22:00 Blood Pressure 176/91 H 11/01/23 22:33 Pulse Oximetry 93 11/01/23 22:45 Oxygen Delivery Method Room Air 11/01/23 20:52 Medications Administered Medications: Discontinued Medications Generic Name Dose Route Start Last Admin Trade Name Freq PRN Reason Stop Dose Admin Hydromorphone HCl 0.5 mg 11/01/23 21:19 11/01/23 21:36 Hydromorphone 0.5 Mg/0.5 Ml Inj IVP 11/01/23 21:20 0.5 mg ONCE ONE Administration Hydromorphone HCl 0.5 mg 11/01/23 22:15 11/01/23 22:23 Hydromorphone 0.5 Mg/0.5 Ml Inj IVP 11/01/23 22:16 0.5 mg ONCE ONE Administration Hydromorphone HCl 0.5 mg 11/01/23 23:39 11/01/23 23:52 Hydromorphone 0.5 Mg/0.5 Ml Inj IVP 11/01/23 23:40 0.5 mg ONCE ONE Administration Sodium Chloride 1,000 mls @ 1,000 mls/hr 11/01/23 21:30 11/01/23 22:35 0.9 % Sodium Chloride 1000 Ml IV 11/01/23 22:29 Infused .Q1H CRISTHIAN Infusion Ondansetron HCl 4 mg 11/01/23 21:19 11/01/23 21:34 Ondansetron 2 Mg/Ml Inj IVP 11/01/23 21:20 4 mg ONCE ONE Administration Ondansetron HCl 4 mg 11/01/23 22:31 11/01/23 22:35 Ondansetron 2 Mg/Ml Inj IVP 11/01/23 22:32 4 mg ONCE ONE Administration Medical Decision Making MDM Narrative Medical decision making narrative: This patient comes in with significant discomfort in his upper epigastric and lower chest region. An IV was established where he received a L of normal saline and Dilaudid 0.5 mg with Zofran 4 mg. Lab results returned with reassuring findings but there is evidence of postprocedural pancreatitis with elevated lipase level approaching 700. It seems that it is more likely that this lipase level is on the increase given his recent procedure. The patient is maintaining normal vital signs. He continues to have pain and had received a total of 3 doses of Dilaudid 0.5 mg. He also received an extra dose of Zofran 4 mg. I spoke with the overnight hospitalist, Dr. Rodas , who will arrange for his admission. Lab Data Labs: Lab Results 11/01/23 11/01/23 11/01/23 Range/Units 21:36 21:36 21:36 WBC 10.88 (4.50-11.00) K/uL RBC 4.53 (4.30-5.90) m/uL Hgb 13.7 (13.5-17.5) gm/dL Hct 40.0 (37.0-53.0) % MCV 88 (80-100) fL MCH 30 (26-34) pg MCHC 34 (32-36) gm/dL RDW Coeff of Amber 12.2 (11.5-15.5) % Plt Count 172 (140-440) K/uL Neut % (Auto) 87.1 H (42.0-72.0) % Lymph % (Auto) 6.8 L (20-44) % [place] % (Auto) 5.4 (0.0-11.0) % Eos % (Auto) 0.4 (0.0-7.0) % Baso % (Auto) 0.1 (0.0-3.0) % Neut # (Auto) 9.50 H (1.7-7.0) K/uL Lymph # (Auto) 0.70 L (0.90-2.90) K/uL [place] # (Auto) 0.60 (0.00-0.90) K/UL Eos # (Auto) 0.04 (0.00-0.50) K/uL Baso # (Auto) 0.01 (0.00-0.30) K/uL Abs Immat Gran (auto) 0.02 (0.00-0.30) K/uL Imm/Tot Granulo (auto) 0.2 % Sodium 136 (135-149) mmol/L Potassium 4.6 (3.6-5.1) mmol/L Chloride 102 (96-114) mmol/L Carbon Dioxide 26 (20-32) mmol/L Anion Gap 8 (7-15) mEq/L BUN 13 (7-30) mg/dL Creatinine 0.7 (0.5-1.5) mg/dL Estimated Creat Clear 126.99 Estimated GFR 109 ml/min Glucose 151 H (60-115) mg/dL Calcium 9.1 (8.4-10.6) mg/dL Total Bilirubin 0.8 Cancelled (0.1-1.5) mg/dL Direct Bilirubin 0.2 Cancelled (0.0-0.5) mg/dL AST 34 (12-35) U/L ALT (4-50) U/L Alkaline Phosphatase (40-150) U/L Total Protein (6.0-8.3) g/dL Albumin (3.3-5.0) g/dL Lipase (23-300) U/L 11/01/23 11/01/23 11/01/23 Range/Units 21:36 21:36 21:36 WBC (4.50-11.00) K/uL RBC (4.30-5.90) m/uL Hgb (13.5-17.5) gm/dL Hct (37.0-53.0) % MCV (80-100) fL MCH (26-34) pg MCHC (32-36) gm/dL RDW Coeff of [place] (11.5-15.5) % Plt Count (140-440) K/uL Neut % (Auto) (42.0-72.0) % Lymph % (Auto) (20-44) % [place] % (Auto) (0.0-11.0) % Eos % (Auto) (0.0-7.0) % Baso % (Auto) (0.0-3.0) % Neut # (Auto) (1.7-7.0) K/uL Lymph # (Auto) (0.90-2.90) K/uL [place] # (Auto) (0.00-0.90) K/UL Eos # (Auto) (0.00-0.50) K/uL Baso # (Auto) (0.00-0.30) K/uL Abs Immat Gran (auto) (0.00-0.30) K/uL Imm/Tot Granulo (auto) % Sodium (135-149) mmol/L Potassium (3.6-5.1) mmol/L Chloride (96-114) mmol/L Carbon Dioxide (20-32) mmol/L Anion Gap (7-15) mEq/L BUN (7-30) mg/dL Creatinine (0.5-1.5) mg/dL Estimated Creat Clear Estimated GFR ml/min Glucose (60-115) mg/dL Calcium (8.4-10.6) mg/dL Total Bilirubin (0.1-1.5) mg/dL Direct Bilirubin (0.0-0.5) mg/dL AST Cancelled (12-35) U/L ALT 32 Cancelled (4-50) U/L Alkaline Phosphatase 91 Cancelled (40-150) U/L Total Protein 7.6 (6.0-8.3) g/dL Albumin (3.3-5.0) g/dL Lipase (23-300) U/L 11/01/23 11/01/23 Range/Units 21:36 21:36 WBC (4.50-11.00) K/uL RBC (4.30-5.90) m/uL Hgb (13.5-17.5) gm/dL Hct (37.0-53.0) % MCV (80-100) fL MCH (26-34) pg MCHC (32-36) gm/dL RDW Coeff of [place] (11.5-15.5) % Plt Count (140-440) K/uL Neut % (Auto) (42.0-72.0) % Lymph % (Auto) (20-44) % [place] % (Auto) (0.0-11.0) % Eos % (Auto) (0.0-7.0) % Baso % (Auto) (0.0-3.0) % Neut # (Auto) (1.7-7.0) K/uL Lymph # (Auto) (0.90-2.90) K/uL [place] # (Auto) (0.00-0.90) K/UL Eos # (Auto) (0.00-0.50) K/uL Baso # (Auto) (0.00-0.30) K/uL Abs Immat Gran (auto) (0.00-0.30) K/uL Imm/Tot Granulo (auto) % Sodium (135-149) mmol/L Potassium (3.6-5.1) mmol/L Chloride (96-114) mmol/L Carbon Dioxide (20-32) mmol/L Anion Gap (7-15) mEq/L BUN (7-30) mg/dL Creatinine (0.5-1.5) mg/dL Estimated Creat Clear Estimated GFR ml/min Glucose (60-115) mg/dL Calcium (8.4-10.6) mg/dL Total Bilirubin (0.1-1.5) mg/dL Direct Bilirubin (0.0-0.5) mg/dL AST (12-35) U/L ALT (4-50) U/L Alkaline Phosphatase (40-150) U/L Total Protein Cancelled (6.0-8.3) g/dL Albumin 4.5 Cancelled (3.3-5.0) g/dL Lipase 670 H (23-300) U/L ECG Data Attestation: I personally reviewed and interpreted this ECG as follows: Interpretation: Sinus bradycardia. Rate is 49 beats per minute. There are no specific ST or T- wave abnormalities. Discharge Plan Discharge Clinical Impression: Acute pancreatitis Patient Disposition: Admitted As Inpatient Condition: Unchanged
--- OUTSIDE RECORDS SUMMARY | 2023-11-01 21:29 | XMS_ITS | Encounter Summary ---
Author Name Unknown Organization [facility] Address [address] [place] [address] Care Team Providers Care Apparel Pattern Maker Name Role Phone Elsewhere, Pcp Primary Care Provider Unavailabl e Encounter Details Date Type Department Care Team (Latest Contact Info) Description 11/01/2023 11:10 AM WORKERS COMPENSATION ADMINISTRATOR Ancillary Procedure Department of Gastroenterology Arrived Social History Tobacco Use Types Packs/Day Years Used Date Smoking Tobacco: Never Smokeless Tobacco: Never Alcohol Use Standard Drinks/Week Comments Yes 4 (1 standard drink = 0.6 oz pur e alcohol) socially Humiliation, Afraid, Rape, and Kick questionnair e Answer Date Recorded Within the last year, have y ou been afraid of your partner or ex-partner? No 03/04/2023 Within the last year, have y ou been humiliated or emotionally abused in other ways by your partner or ex-partner? No Within the last year, have y ou been kicked, hit, slapped, or otherwise physically hurt by your partner or ex-partner? No 03/04/2023 Within the last year, have y ou been raped or forced to have any kind of sexual activity by your partner or ex-partner? No 03/04/2023 Overall Financial Resource Strain (CARDIA) Answe r Date Recorded How hard is it for you to pa y for the very basics like food, housing, medical care, and heating? Not very hard 03/04/2023 Exercise Vital Sign Answer Date Recorde d On average, how many days pe r week do you engage in moderate to strenuous exercise (like a brisk walk)? 5 days 03/04/2023 On average, how many minutes do you engage in exercise at this level? 20 min 03/04/2023 Hunger Vital Sign Answer Date Recorded Within the past 12 months, y ou worried that your food would run out before you got the money to buy more. Never true 03/04/20 23 Within the past 12 months, t he food you bought just didn't last and you didn't have money to get more. Never true 03/04/2023 Nutrition Answer Date Recorded Nutrition: EVOO Fat Source Unknown 03/04 On average, how many serving s of fruits and vegetables do you eat per day (serving size is equal to 1 cup or approximately the size of a tennis ball)? 0-2 03/04/2023 Dental Answer Date Recorded Dental: Regular Dentist Yes 03/04/20 Employment Answer Date Recorded Employment status Employed and actively working without restrictions 03/04/2023 Sex and Gender Information Value Date Recorded Sex Assigned at Male 03/10/2022 6:46 PM CDT Gender Identity Male 03/10/2022 6:46 PM CDT Sexual Orientation Not on file documented as of this encounter Plan of Treatment Upcoming Encounters Date Type Department Care Team (Late st Contact Info) Description 11/04/2023 2:40 PM WORKERS COMPENSATION ADMINISTRATOR Telemedicine Division of Gastroenterology in [place], [place] [address] [place] [address] Aimee Johnson M.D. [address] [place] [address] documented as of this encounter Procedures Procedure Name Priority Date/Time Associated Diagnosis Comments GASTROENTEROLOGY IMAGE EXAM Routine 11/01/2023 11:10 AM WORKERS COMPENSATION ADMINISTRATOR documented in this encounter Results * Upper EUS-Gastroenterology Image Exam (11/01/2023 11:10 AM WORKERS COMPENSATION ADMINISTRATOR) Narrative IIMS - 11/01/2023 5:49 PM WORKERS COMPENSATION ADMINISTRATOR This order has been created and auto-finalized to support the import of images acquired without order. The clinical documentation to support these images can be found on the encounter that produced images. Provider Not In System IMG NON RAD IMAGI NG PROCEDURES IIMS NA documented in this encounter Visit Diagnoses Not on filedocumented in this encounter Care Teams Apparel Pattern Maker Relationship Specialty Start Date End Date Elsewhere, Pcp PCP - General Internal Medicine 03/05/23 documented as of this encounter
--- OUTSIDE RECORDS SUMMARY | 2023-11-01 21:29 | XMS_ITS ---
Author Name Unknown Organization [facility] Address [address] [place] [address] Care Team Providers Care [employer] Communications Sergeant Name Role Phone Unavailable Unavailable Unavailable Surgery Details Not on file Complications Check Surgery Details section. Procedure Estimated Blood Loss Check Surgery Details section. Procedure Findings Check Surgery Details section. Procedure Specimens Taken Check Surgery Details section.
--- OUTSIDE RECORDS SUMMARY | 2023-11-01 21:29 | XMS_ITS | Encounter Summary ---
Author Name Unknown Organization [facility] Address [address] [place] [id number] Care Team Providers Care Hand Buffing Wheel Former Name Role Phone Elsewhere, Pcp Primary Care Provider Unavailabl e Reason for Referral * Outpatient (Routine) - Closed Specialty Diagnoses / Procedures Referred By Contac t Referred To Contact Diagnoses Pancreatitis Chronic (HCC) Mass Pancreas Procedures FL Fluoro Less Than 1 Hour Aimee Johnson M.D. [address] [place] [address] [facility] Referral ID Status Reason Start Date Expiration Date Visits Re quested Visits Authorized [id number] Closed 11/01/2023 10/31/2024 1 1 CAL CLAIMS REPRESENTATIVE Reason for Visit * Outpatient (Routine) - Closed Specialty Diagnoses / Procedures Referred By Contmau t Referred To Contact Diagnoses Pancreatitis Chronic (HCC) Mass Pancreas Procedures FL Fluoro Less Than 1 Hour Aimee Johnson M.D. [address] [place] [address] [facility] Referral ID Status Reason Start Date Expiration Date Visits Re quested Visits Authorized [id number] Closed 11/01/2023 10/31/2024 1 1 Encounter Details Date Type Department Care Team (Latest Contact Info) Description 11/01/2023 11:06 AM [facility] Hospital Encounter Department of Radiology, [facility], in [place], [place] [address] [place] [address] Aimee Johnson M.D. [address] [place] [address] Pancreatitis Chronic (HCC); Mass Pancreas Social History Tobacco Use Types Packs/Day Years [...] st Contact Info) Description 11/04/2023 2:40 PM MEDICAL CLAIMS REPRESENTATIVE Telemedicine Division of Gastroenterology in [place], [place] [address] [place] [address] Aimee Johnson M.D. [address] [place] [address] documented as of this encounter Procedures Procedure Name Priority Date/Time Associated Diagnosis Comments FL FLUORO LESS THAN 1 HOUR RAD - Routine (most inpatients and all outpatients) 11/01/2023 12:09 PM MEDICAL CLAIMS REPRESENTATIVE Pancreatitis Chronic (HCC) Mass Pancreas documented in this encounter Results * FL Fluoro Less Than 1 Hour (11/01/2023 12:09 PM MEDICAL CLAIMS REPRESENTATIVE) Narrative ERCP LOS RST - 11/01/2023 12:12 PM MEDICAL CLAIMS REPRESENTATIVE This exam does not require a radiologist review or interpretation. Please refer to the patient's medical record on this date for clinical details. Aimee Johnson M.D. IMG FLUOROSCOPY PRO CEDURES ERCP LOS RST documented in this encounter Visit Diagnoses Diagnosis Pancreatitis Chronic (HCC) Mass Pancreas documented in this encounter Care Teams Hand Buffing Wheel Former Relationship Specialty Start Date End Date Elsewhere, Pcp PCP - General Internal Medicine 03/05/23 documented as of this encounter
--- OUTSIDE RECORDS SUMMARY | 2023-11-01 21:29 | XMS_ITS | Referral Summary ---
Author Name Unknown Organization [facility] Address [address] [place] [id number] Care Team Providers Care Cnc Mechanic Name Role Phone Elsewhere, Pcp Primary Care Provider Unavailabl e Source Comments Patient records contain information from all sites at [facility]. For routine questions regarding patient records, call [phone] during business hours, M-F 8:00 AM - 5:00 PM Central Time. Record requests for emergency care only can be directed to [phone] at any time.[facility] Encounters Date Type Department Care Team Description 11/01/2023 11:10 AM OIL WELL SERVICE OPERATOR Ancillary Procedure Department of Gastroenterology Arrived 11/01/2023 11:05 AM OIL WELL SERVICE OPERATOR Ancillary Procedure Department of Gastroenterology Arrived 11/01/2023 11:06 AM OIL WELL SERVICE OPERATOR Hospital Encounter Department of Radiology, [facility], in [place], [place] [address] [place] [phone] Aimee Johnson M.D. Pancreatitis Chronic (HCC); Mass Pancreas 11/01/2023 9:53 AM OIL WELL SERVICE OPERATOR Hospital Encounter Division of Gastroenterology in [place], [place] [address] [place] [address] Aimee Johnson M.D. Law, Ryan J, D.O. Ballenger, Erin R, PROSTHETIC AIDE, CASTER INVESTMENT CASTING, DNAP Pancreatitis Chronic (HCC); Mass Pancreas Discharge Disposition: Home or Self Care 11/01/2023 11:16 AM OIL WELL SERVICE OPERATOR Anesthesia Event Division of Gastroenterology in [place], [place] [address] [place] [phone] Kaci Fang APRN, CAMILO, Keysha Au M.D. 10/08/2023 Clinical Communication Division of Gastroenterology in [place], [place] [address] [place] [phone] Aimee Johnson M.D. 10/07/2023 4:20 PM OIL WELL SERVICE OPERATOR Telemedicine Division of Gastroenterology in [place], [place] [address] [place] [phone] Aimee Johnson M.D. Pancreatitis Chronic (HCC) (Primary Dx); Mass Pancreas 10/04/2023 7:30 AM OIL WELL SERVICE OPERATOR Clinical Communication Virtual Review in [place], [place] 200 [place] [address] Pre-visit Intake 09/22/2023 7:02 PM OIL WELL SERVICE OPERATOR - 09/22/2023 11:59 PM OIL WELL SERVICE OPERATOR Hospital Encounter Department of Radiology, [facility], in [place], [place] [address] [place] [phone] Aimee Johnson M.D. Mass Pancreas Discharge Disposition: Home or Self Care 08/25/2023 Documentation Division of Gastroenterology in [place], [place] [address] [place] [phone] Aimee Johnson M.D. 08/17/2023 Intake [facility] 08/17/2023 Documentation Division of Gastroenterology in [place], [place] [address] [place] [phone] Aimee Johnson M.D. 08/17/2023 Clinical Communication Division of Gastroenterology in [address] [phone] Aimee Johnson M.D. Symptom Assessment 08/17/2023 9:05 AM OIL WELL SERVICE OPERATOR Ancillary Procedure Department of Gastroenterology 08/17/2023 9:35 AM OIL WELL SERVICE OPERATOR Anesthesia Event Division of Gastroenterology in [place], [place] [address] [place] [phone] Gallito Mullen APRN, CRNA Wilson, Jack L, M.D. 08/17/2023 8:03 AM OIL WELL SERVICE OPERATOR - 08/17/2023 11:59 PM OIL WELL SERVICE OPERATOR Hospital Encounter Division of Gastroenterology in [place], [place] [address] [place] [phone] Aimee Johnson M.D. Law, Ryan J, D.O. Mass Pancreas Discharge Disposition: Home or Self Care 08/13/2023 Orders Only Division of Gastroenterology in [place], [place] [address] [place] [phone] Aimee Johnson M.D. Mass Pancreas (Primary Dx) 08/12/2023 10:26 AM OIL WELL SERVICE OPERATOR - 08/12/2023 12:02 PM OIL WELL SERVICE OPERATOR Hospital Encounter Department of Laboratory Medicine and Pathology, [facility] in [place], [place] [address] [place] [phone] Aimee Johnson M.D. Pancreatitis Chronic (HCC) Discharge Disposition: Home or Self Care 08/12/2023 12:03 PM OIL WELL SERVICE OPERATOR - 08/12/2023 11:59 PM OIL WELL SERVICE OPERATOR Hospital Encounter [facility] [place], [place] [address] [place] [phone] Aimee Johnson M.D. Pancreatitis Chronic (HCC) Discharge Disposition: Home or Self Care 08/09/2023 Orders Only Division of Gastroenterology in [address] [phone] Aimee Johnson M.D. Pancreatitis Chronic (HCC) (Primary Dx) 08/06/2023 8:50 AM OIL WELL SERVICE OPERATOR Ancillary Procedure Department of Radiology in [address] [phone] Aimee Johnson M.D. Pancreatitis Chronic (HCC) from Last 3 Months Allergies No known active allergies Medications Medication Sig Dispensed Refills Start Date End Date Status sennosides-docusat e sodium (SENOKOT-S) 8.6-50 mg per tablet Take 2 tablets by mouth 2 (two) times a day. As needed 0 12/26/2014 Active oxyCODONE (ROXICODONE) 5 mg immediate release tablet Take 1 tablet by mouth every 4 (four) hours as needed. 0 12/26/2014 Active omeprazole (PriLOSEC) [address] capsule Take 20 mg by mouth 2 (two) times a day. 0 03/19/2022 Active sucralfate (CARAFATE) 1 gram tablet TAKE 1 TABLET BY MOUTH BEFORE MEALS AND AT BEDTIME 0 01/14/2022 11/01/2023 Discontinued( Therapy completed) Active Problems Problem Noted Date Diagnosed Date Gastroesophageal Reflux Disease NOS Pancreatitis Acute Stenosis Spinal Cervical Social History Tobacco Use Types Packs/Day Years Used Date Smoking Tobacco: Never Smokeless Tobacco: Never Tobacco Cessation:Counseling Given: Not Answered Alcohol Use Standard Drinks/Week Comments Yes 4 [...] PM CDT Sexual Orientation Not on file Last Filed Vital Signs Vital Sign Reading Time Taken Comments Blood Pressure 133/84 11/01/2023 1:45 PM OIL WELL SERVICE OPERATOR Pulse 53 11/01/2023 2:00 PM OIL WELL SERVICE OPERATOR Temperature 36.6 ??C (97.9 ??F) 11/01/2023 2:00 PM CS T Respiratory Rate 15 11/01/2023 2:00 PM OIL WELL SERVICE OPERATOR Oxygen Saturation 98% 11/01/2023 2:00 PM OIL WELL SERVICE OPERATOR Inhaled Oxygen Concentration - - Weight 109 kg (240 lb 15.4 oz) 11/01/2023 10:11 AM OIL WELL SERVICE OPERATOR Height 180.3 cm (5' 11) 09/22/2023 7:27 PM OIL WELL SERVICE OPERATOR Body Mass Index 33.61 09/22/2023 7:27 PM OIL WELL SERVICE OPERATOR Plan of Treatment Upcoming Encounters Date Type Department Care Team (Late st Contact Info) Description 11/04/2023 2:40 PM OIL WELL SERVICE OPERATOR Telemedicine Division of Gastroenterology in [place], [place] [address] [place] [phone] Aimee Johnson M.D. [address] [place] [phone] Medical Devices Implanted Type Area Ad Terminal Makeup Operator Device Identifier Shelf Expiration Date Model / Serial / Lot Stent Intro Fusion [place] 10 Fr - [id number] [id number] Implanted:Qty: 1 on 12/25/2014 Biliary Stent [employer] Description:Device Manufactu rer - [employer]. Device Status Text - [id number]. [facility] Wdg 10fx22 - [id number] Implanted:Qty: 1 on 11/01/2023 by Cristopher Angelo D.O. at [facility] Pancreatic Stent [employer] 09/06/2026 [id number] / / [id number] Description:10x12 Explanted Type Area Ad Terminal Makeup Operator Device Identifier Shelf Expiration Date Model / Serial / Lot [facility] Wdg 8.5fx22 - [id number] Explanted:Qty: 1 on 06/08/2022 by Jimbo Vásquez M.D. at [facility] Biliary Stent [employer] 04/22/2025 [id number] / / [id number] Description:[facility].5x10.5 [facility] [id number] Implanted:Qty: 1 on 06/08/2022 by Jimbo Vásquez M.D. at [facility] Explanted:Qty: 1 on 08/10/2022 by Mallory Champion M.D., M.P.H. at [facility] Biliary Stent [employer] 04/29/2025 [id number] / / [id number] Description:10x13.5 Stent Pancreatic 5 X 5 Single [employer] - [id number] [id number] Implanted:Qty: 1 on 12/25/2014 Explanted:Qty: 1 on 06/08/2022 by Jimbo Vásquez M.D. at [facility] Pancreatic Stent [employer] Description:Device Manufactu [facility] Trac[employer]. Device Status Text - [id number]. Procedures Procedure Name Priority Date/Time Associated Diagnosis Comments FL FLUORO LESS THAN 1 HOUR RAD - Routine (most inpatients and all outpatients) 11/01/2023 12:09 PM OIL WELL SERVICE OPERATOR Pancreatitis Chronic (HCC) Mass Pancreas LDA ANE ENDOTRACHEAL AIRWAY Routine 11/01/2023 11:24 AM OIL WELL SERVICE OPERATOR GASTROENTEROLOGY IMAGE EXAM Routine 11/01/2023 11:10 AM OIL WELL SERVICE OPERATOR ERCP Routine 11/01/2023 11:05 AM OIL WELL SERVICE OPERATOR Pancreatitis Chronic (HCC) Mass Pancreas ERCP Routine 11/01/2023 11:05 AM OIL WELL SERVICE OPERATOR Pancreatitis Chronic (HCC) Mass Pancreas GASTROENTEROLOGY IMAGE EXAM Routine 11/01/2023 11:05 AM OIL WELL SERVICE OPERATOR UPPER EUS Routine 11/01/2023 11:04 AM OIL WELL SERVICE OPERATOR Pancreatitis Chronic (HCC) Mass Pancreas ENDOSCOPIC ULTRASOUND (EUS) Routine 11/01/2023 11:04 AM OIL WELL SERVICE OPERATOR Pancreatitis Chronic (HCC) Mass Pancreas MR ABDOMEN MRCP WITHOUT AND WITH IV CONTRAST RAD - Routine (most inpatients and all outpatients) 09/22/2023 8:53 PM OIL WELL SERVICE OPERATOR Mass Pancreas OUTSIDE CT BODY Routine 08/17/2023 7:05 PM OIL WELL SERVICE OPERATOR SURGICAL PATHOLOGY Routine 08/17/2023 9: 54 AM OIL WELL SERVICE OPERATOR GASTROENTEROLOGY IMAGE EXAM Routine 08/17/2023 9:05 AM OIL WELL SERVICE OPERATOR UPPER EUS Routine 08/17/2023 9:03 AM OIL WELL SERVICE OPERATOR Mass Pancreas ENDOSCOPIC ULTRASOUND (EUS) Routine 08/17/2023 9:03 AM OIL WELL SERVICE OPERATOR Mass Pancreas CT PANCREAS ANGIOGRAM TRIPLE PHASE AND PELVIS WITH IV CONTRAST RAD - Routine (most inpatients and all outpatients) 08/12/2023 1:18 PM OIL WELL SERVICE OPERATOR Pancreatitis Chronic (HCC) IGG4, IG SUBCLASSES Routine 08/12/2023 10:37 AM OIL WELL SERVICE OPERATOR Pancreatitis Chronic (HCC) CARBOHYDRATE AG 19-9 (CA 19-9), S Routine 08/12/2023 10:37 AM OIL WELL SERVICE OPERATOR Pancreatitis Chronic (HCC) CREATININE WITH EGFR, S/P Routine 08/12/2023 10:37 AM OIL WELL SERVICE OPERATOR Pancreatitis Chronic (HCC) INTERPRETATION OF OUTSIDE CT ABDOMEN AND OR PELVIS RAD - Routine (most inpatients and all outpatients) 08/06/2023 9:34 AM OIL WELL SERVICE OPERATOR Pancreatitis Chronic (HCC) from Last 3 Months Results * FL Fluoro Less Than 1 Hour (11/01/2023 12:09 PM OIL WELL SERVICE OPERATOR) Narrative ERCP LOS RST - 11/01/2023 12:12 PM OIL WELL SERVICE OPERATOR This exam does not require a radiologist review or interpretation. Please refer to the patient's medical record on this date for clinical details. Aimee Johnson M.D. IMGagandeep FLUOROSCOPY PRO CEDURES ERCP LOS RST * LDA ANE ENDOTRACHEAL AIRWAY (11/01/2023 11:24 AM OIL WELL SERVICE OPERATOR) Narrative Kaci Fang APRN, CRNA, MNA - 11/01/2023 11:24 AM OIL WELL SERVICE OPERATOR Kaci Fang APRN, CRNA, MNA ? 11/01/2023 11:33 AM Airway Date/Time: 11/01/2023 11:24 AM Performed by: Kaci Fang APRN, CRNA, MNA Authorized by: Kaci Fang APRN, CRNA, MNA ?? Patient location during procedure: OR / Procedure Area PROCEDURE DETAILS: Mask difficulty assessment: easy mask Final airway type: video laryngoscope Laryngeal Manipulation: no ?? Final best view of glottic structures - Cormack/Lehane Score: grade 1 ETT location: oral VL device: glide scope Dunlo scope blade size: 3 Tube size: 7.5 ETT distance at teeth/gum: 21 Oral tube type: standard ETT Cuffed: yes Leak Test Performed: no ?? Number of attempt to successful placement: 1 Airway confirmation: bilateral breath sounds, positive ETCO2 and bilateral chest rise Other previous techniques attempted: none PRE PROCEDURE DETAILS: Pre evaluation for airway management: procedure Urgency: elective Preop assessment of probable difficulty: no difficulty anticipated Preoxygenation: bag valve mask SEDATION / ANESTHESIA Anesthesia method: anesthesia POST PROCEDURE DETAILS: ? Procedure outcome: successful ?? Notable Events: no complications Kaci Fang APRN, CRNA, MNA ANESTH ESIA ORDERABLES * Upper EUS-Gastroenterology Image Exam (11/01/2023 11:10 AM OIL WELL SERVICE OPERATOR) Only the most recent of3 resultswithin the time period is included. Narrative [facility] - 11/01/2023 5:49 PM OIL WELL SERVICE OPERATOR This order has been created and auto-finalized to support the import of images acquired without order. The clinical documentation to support these images can be found on the encounter that produced images. Provider Not In System IMG NON RAD IMAGI NG PROCEDURES [facility] NA * ERCP (11/01/2023 11:05 AM OIL WELL SERVICE OPERATOR) 11/01/2023 11:0 5 AM OIL WELL SERVICE OPERATOR Impressions [facility] - 11/01/2023 2:38 PM OIL WELL SERVICE OPERATOR Post-op Diagnoses: ? - Prior biliary sphincterotomy appeared open. ? - Prior pancreatic sphincterotomy appeared open. ? - A pancreatic duct stricture was found in the neck and head of the ? pancreas. ? - A filling defect was seen on the pancreatogram consistent with stone ? debris. ? - Pancreatic stones were found. Complete removal was accomplished by ? balloon extraction with an 8 mm balloon. ? - Mild non flow limiting distal biliary stricture. Good contrast ? drainage after cholangiogram. ? - One 10 Luxembourger by 12 cm pancreatic stent was placed into the ventral ? pancreatic duct. Narrative [facility] - 11/01/2023 2:38 PM OIL WELL SERVICE OPERATOR [facility] 2 GI Patient Name: Arturo Lockwood Date of : 1970 Age: 53 Procedure Date: 11/01/2023 Procedure: ? ERCP Providers: ? Cristopher Angelo, Referring Provider: ?Aimee Johnson Pre-op Diagnoses: ?Suspected acute recurrent pancreatitis, Suspected ? chronic pancreatitis, Abdominal pain of suspected ? pancreatic origin, Stenting biliary / pancreatic ? ducts, Suspected pancreatic duct stricture in the ? setting of known chronic pancreatitis Recommendation: ? - Observe patient's clinical course. ? - Repeat ERCP in 3 months to exchange stent. The patient should have 1 ? year of uninterrupted stenting with a 10 Luxembourger stent with a goal of ? remodeling the pancreatic neck stenosis. ? - Watch for pancreatitis, bleeding, perforation, and cholangitis. ? - The findings and recommendations were discussed with the patient. ? - The findings and recommendations were discussed with the referring ? physician. Findings: ? A boat and plant utility supervisor film of the abdomen was obtained. Surgical clips, consistent ? with a previous cholecystectomy, were seen in the area of the right ? upper quadrant of the abdomen. The esophagus was successfully intubated ? under direct vision. The scope was advanced from the mouth to the ? duodenum. The pharynx, larynx and associated structures, as well as the ? upper GI tract, were normal. Inspection of the major papilla revealed ? that biliary and pancreatic sphincterotomies had been performed ? previously. The biliary sphincterotomy appeared open. The pancreatic ? sphincterotomy appeared open. A 0.025 inch x 270 cm angled Visiglide ? wire was passed into the ventral pancreatic duct. The ventral pancreatic ? duct was then deeply cannulated with the 8.5 mm balloon. Contrast was ? injected. I personally interpreted the pancreatic duct images. Ductal ? flow of contrast was adequate. Image quality was excellent. Contrast ? extended to the pancreatic duct. The pancreatic duct in the genu of the ? pancreas contained a moderate stenosis five mm in length. The ventral ? pancreatic duct in the head of the pancreas and pancreatic duct in the ? genu of the pancreas contained filling defect(s) thought to be Stone ? debris. To remove the object(s) the ventral pancreatic duct was swept ? with an 8.5 mm balloon starting at the pancreatic duct in the tail of ? the pancreas. A few stones were removed. No stones remained. One 10 Fr ? by 12 cm pancreatic stent with no external flaps and no internal flaps ? was placed into the ventral pancreatic duct. Pancreatic stone debris ? flowed through the stent. The stent was in good position. A 0.025 inch x ? 270 cm angled Visiglide wire was passed into the biliary tree. The 11.5 ? mm balloon was passed over the guidewire and the bile duct was then ? deeply cannulated. Contrast was injected. The main bile duct was normal. ? Minimal stenosis was noted at the distal common bile duct; however, ? contrast drained without difficulty. No stent was placed given this ? finding. The endoscope was withdrawn from the patient. The patient was ? given high-volume lactated Ringer solution as well as 100 mg of rectal ? diclofenac for the prevention of post ERCP pancreatitis. Procedural Details: ? The patient was seen, evaluated, history reviewed, airway and heart-lung ? exams were performed by licensed provider and were satisfactory for ? planned level of sedation care. ? The risks, benefits and alternatives for the procedure and sedation were ? discussed and informed consent was obtained. A procedural pause was ? conducted in the presence of assisting personnel to verify the correct ? patient identity and procedure to be performed. Throughout the ? procedure, the patient's blood pressure, pulse, and oxygen saturations ? were monitored continuously. The Duodenoscope was introduced through the ? mouth, and advanced to the duodenum and used to inject contrast into the ? bile duct and ventral pancreatic duct. The ERCP was accomplished without ? difficulty. The patient tolerated the procedure well. Complications: ? No immediate complications. Estimated Blood Loss: ?Estimated blood loss was minimal. Attending Participation: I personally performed the entire procedure. Cristopher Angelo DO 11/01/2023 2:38:18 PM This report has been signed electronically. Number of Addenda: 0 Note Initiated On: 11/01/2023 11:05 AM Aimee Johnson M.D. GI PROCEDURE ORDERA NATASHA [facility] NA * Upper EUS (11/01/2023 11:04 AM OIL WELL SERVICE OPERATOR) 11/01/2023 11:0 4 AM OIL WELL SERVICE OPERATOR [facility]ressions [facility] 11/01/2023 5:47 PM OIL WELL SERVICE OPERATOR Post-op Diagnoses: ? - Endosonographic imaging of the pancreas showed sonographic changes ? consistent with moderate-severe chronic pancreatitis. Filling defects ? suspected to be pancreatic stone debris throughout the pancreatic duct. ? Suspected pancreatic duct stricture in the head/neck of the pancreas ? with abrupt caliber change from 3 mm to 11 mm. Notable 15 mm hypoechoic ? area which has been seen previously and sampled and found to be negative ? for malignancy was again noted. ? - There was dilation in the common bile duct which measured up to 10 mm. ? - Evidence of a cholecystectomy. ? - There was no sign of significant pathology in the ampulla. ? - There was no evidence of significant pathology in the visualized ? portion of the liver. ? - Endosonographic images of the left kidney were unremarkable. ? - Endosonographic images of the spleen were unremarkable. ? - No specimens collected. Narrative [facility] - 11/01/2023 5:47 PM OIL WELL SERVICE OPERATOR G[facility] 2 GI Patient Name: Arturo Lockwood Date of : 1970 Age: 53 Procedure Date: 11/01/2023 Procedure: ? Upper EUS Providers: ? Cristopher Angelo, DO Referring Provider: ?Aimee Johnson Pre-op Diagnoses: ?Chronic pancreatitis Recommendation: ? - Observe patient's clinical course. ? - The findings and recommendations were discussed with the referring ? physician. ? - Proceed with ERCP. Findings: ? ENDOSONOGRAPHIC FINDING: : ? Endosonographic imaging of the pancreas showed sonographic changes ? indicative of moderate-severe chronic pancreatitis in the entire ? pancreas. The parenchyma had hyperechoic foci without shadowing, ? lobularity without honeycombing, cysts and hyperechoic strands. The ? pancreatic duct had irregularity of contour. The pancreatic duct ? measured up to 11 mm in diameter. There was abrupt caliber change ? between the neck and body of the pancreas. The duct changes from 3 mm to ? 11 mm. No obvious mass in this area. Based on this EUS exam this was ? felt to represent a pancreatic duct stricture. There is a 15 mm ? hypoechoic area in the head of the pancreas which has been previously ? biopsied without evidence of malignancy complicated by postprocedure ? pancreatitis. Debris was noted throughout the pancreatic duct. ? There was dilation in the common bile duct which measured up to 10 mm. ? Evidence of a previous cholecystectomy was identified ? endosonographically. ? There was no sign of significant endosonographic abnormality in the ? ampulla. No pathologic lymphadenopathy was identified. ? There was no sign of significant endosonographic abnormality in the ? visualized portion of the liver. ? There was no sign of significant endosonographic abnormality in the ? visualized portion of the left kidney. ? There was no sign of significant endosonographic abnormality in the ? visualized portion of the spleen. Procedural Details: ? The patient was seen, evaluated, history reviewed, airway and heart-lung ? exams were performed by licensed provider and were satisfactory for ? planned level of sedation care. ? The risks, benefits and alternatives for the procedure and sedation were ? discussed and informed consent was obtained. A procedural pause was ? conducted in the presence of assisting personnel to verify the correct ? patient identity and procedure to be performed. Throughout the ? procedure, the patient's blood pressure, pulse, and oxygen saturations ? were monitored continuously. The Endosonoscope was introduced through ? the mouth, and advanced to the second part of duodenum. The upper EUS ? was accomplished without difficulty. The patient tolerated the procedure ? well. Complications: ? No immediate complications. Estimated Blood Loss: ?Estimated blood loss: none. Attending Participation: I personally performed the entire procedure. Cristopher Angelo DO 11/01/2023 5:47:15 PM This report has been signed electronically. Number of Addenda: 0 Note Initiated On: 11/01/2023 11:04 AM Aimee Johnson M.D. GI PROCEDURE ORDERA NATASHA [facility] NA * MR Abdomen MRCP without and with IV Contrast (09/22/2023 8:53 PM OIL WELL SERVICE OPERATOR) Anatomical Region Laterality Modality Abdomen, Abdominal RST LOS, Abdominal ARZ LOS, Abdominal FLA LOS N/A Magnetic Resonance Impressions 09/23/2023 11:03 AM OIL WELL SERVICE OPERATOR 1. Mild peripancreatic fat stranding, consistent with the patient's known post ERCP pancreatitis, which appears slightly improved since the outside CT. 2. Increased main pancreatic ductal dilatation since the previous MRI dated 03/02/2023, with again seen tapered narrowing at the upper pancreatic head. 3. The previously seen hypoattenuating masslike lesion in the uncinated process is again seen but better delineated on the prior CT. Narrative 09/23/2023 11:03 AM OIL WELL SERVICE OPERATOR EXAM: ??MR ABDOMEN MRCP WITHOUT AND WITH IV CONTRAST. 3D maximum intensity projections/volume renderings were created on an independent workstation with or without AI assistance as ordered by the treating provider and reviewed by the radiologist for biliary and pancreatic duct visualization. COMPARISON: ??[facility] CTA dated 08/12/2023, outside CT dated 08/17/2023, and [facility] MRI dated 03/02/2023. FINDINGS: ??Again demonstrated is peripancreatic fat stranding around the head and in lesser degree around the body and tail, consistent with the history of post-ERCP pancreatitis. Allowing for the difference in technique, this has slightly improved since the previous CT. No peripancreatic fluid collection. Again the pancreatic body and tail are atrophied with moderate dilatation of the pancreatic duct in the head and proximal body, measuring 1.2 cm in maximal diameter compared to 8 mm on the MRI dated 03/02/2023. Again the dilated pancreatic duct tapers in the upper pancreatic head and the more distal pancreatic duct in the lower pancreatic head is of normal caliber with mildly dilated sidebranches (series 9 image 5; series 5 image 32). A few dilated sidebranches in the pancreatic tail (series 5 image 35). The parenchymal T1 hyperintensity is relatively preserved, particularly in the body and tail. The previously seen low attenuation lesion in the uncinate process is again seen (series 14 image 88; series 16 image 51) but better delineated on the previous CT. Diffuse hepatic steatosis (proton density fat fraction: 16%). Stable hepatic hemangiomas. Upper normal caliber extrahepatic duct, measuring 9 mm in maximal diameter. The common bile duct tapers without evidence of obstructing stone or mass. Tiny hiatal hernia. Cholecystectomy. The spleen and adrenal glands are unremarkable. Small bilateral renal cysts including a tiny hyperintense cyst in the lower pole left kidney. No suspicious lymphadenopathy. Normal caliber visualized small and large bowel. Mild degenerative changes of the spine. Procedure Note Shakir Calabrese M.D., Ph.D. - 09/23/2023 EXAM: MR ABDOMEN MRCP WITHOUT AND WITH IV CONTRAST. 3D maximum intensity projections/volume renderings were created on [email or web address] workstation with or without AI assistance as ordered by thetreating provider and reviewed by the radiologist for biliary andpancreatic duct visualization. COMPARISON: [facility] CTA dated 08/12/2023, outside CT dated 08/17/2023, andR MRI dated 03/02/2023. FINDINGS: Again demonstrated is peripancreatic fat stranding around thehead and in lesser degree around the body and tail, consistent with thehistory of post-ERCP pancreatitis. Allowing for the difference intechnique, this has slightly improved since the previous CT. No peripancreatic fluid collection. Again the pancreatic body and tail are atrophied with moderate dilatationof the pancreatic duct in the head and proximal body, measuring 1.2 cm inmaximal diameter compared to 8 mm on the MRI dated 03/02/2023. Again the dilated pancreatic duct tapers in the upper pancreatic head andthe more distal pancreatic duct in the lower pancreatic head is of normalcaliber with mildly dilated sidebranches (series 9 image 5; series 5 image32). A few dilated sidebranches in the pancreatic tail (series 5 image 35). The parenchymal T1 hyperintensity is relatively preserved, particularly inthe body and tail. The previously seen low attenuation lesion in theuncinate process is again seen (series 14 image 88; series 16 image 51)but better delineated on the previous CT. Diffuse hepatic steatosis (proton density fat fraction: 16%). Stablehepatic hemangiomas. Upper normal caliber extrahepatic duct, measuring 9mm in maximal diameter. The common bile duct tapers without evidence ofobstructing stone or mass. Tiny hiatal hernia. Cholecystectomy. The spleen and adrenal glands areunremarkable. Small bilateral renal cysts including a tiny hyperintensecyst in the lower pole left kidney. No suspicious lymphadenopathy. Normalcaliber visualized small and large bowel. Mild degenerative changes of the spine. IMPRESSION: 1. Mild peripancreatic fat stranding, consistent with the patient's knownpost ERCP pancreatitis, which appears slightly improved since the outsideCT. 2. Increased main pancreatic ductal dilatation since the previous MRIdated 03/02/2023, with again seen tapered narrowing at the upper pancreatichead. 3. The previously seen hypoattenuating masslike lesion in the uncinatedprocess is again seen but better delineated on the prior CT. Aimee Johnson M.D. IM MRI PROCEDURES * CT ABDOMEN PELVIS W CON-Outside CT Body (08/17/2023 7:05 PM OIL WELL SERVICE OPERATOR) 08/17/2023 7:05 PM OIL WELL SERVICE OPERATOR Narrative [facility] - 08/17/2023 8:15 PM OIL WELL SERVICE OPERATOR This order has been created and auto-finalized to support the import of outside images. If available, original interpretation can be found on the Media Tab in Chart Review, in Document Viewer, or as an image in QREADS. If a re-interpretation or overread is required please follow defined workflow. ?? Provider Not In System IMG CT PROCEDURES IIDE NA * Surgical Pathology (08/17/2023 9:54 AM OIL WELL SERVICE OPERATOR) 08/23/2023 1:48 PM OIL WELL SERVICE OPERATOR DTL Report electronically signed by Kash Crockett M.D. I verify that I have examined all relevant slides/materi als for the specimen(s) and rendered or confirmed the diagnosis. 08/23/2023 1:48 PM OIL WELL SERVICE OPERATOR DTL Gross Description Received in formalin labeled with the patient's name, medical record number, and pancreas, core-biopsy, uncinate are multiple minutepale [id number] soft tissue cores and fragments, 2.0 x 0.6 x 0.2 cm in aggregate. Due to the scant nature of the tissue fragments, someor all may not survive processing. ??Specimens are submitted en toto in cassette A1. ??Grossed by AJG. 08/23/2023 1:48 PM OIL WELL SERVICE OPERATOR DTL Interpretation FINAL DIAGNOSIS A. Pancreas, uncinate, core biopsy: ??Rare atypical glands, favor acinar atrophy with tubular metaplasia. ??See comment. COMMENT: The sample includes a mix of normal pancreas and fibrosis. In the fibrotic areas, pancreatic acini are undergoing atrophy and tubular metaplasia. ??I cut multiple deeper levels. ??In the deepest of these there are a few glands with angulated contours, ??but they retain an organoid configuration . ??I believe these changes are reactive rather than neoplastic. Diagnosis was made via digital imaging. 08/23/2023 1:48 PM OIL WELL SERVICE OPERATOR DTL Biopsy (Pancreas) 08/17/2023 9:54 AM OIL WELL SERVICE OPERATOR Ronaldo Salmon M.D., M.S. LAB SURG PATH ORDERABLES [facility] [address] [place] [address], [place] DTL [address] [place] [address] * Upper EUS (08/17/2023 9:03 AM OIL WELL SERVICE OPERATOR) 08/17/2023 9:03 AM OIL WELL SERVICE OPERATOR Impressions [facility] - 08/17/2023 10:51 AM OIL WELL SERVICE OPERATOR Post-op Diagnoses: ? - One 30mm x 27mm solid pancreatic mass at the uncinate abutting SMV/SMA ? suspicious for PDAC in the background of moderate to severe chronic ? pancreatitis with atrophy at the body and tail. FNB x 3 performed. Stage ? T3N0M0 ? - Hepatic steatosis. ? - There was no sign of significant pathology in the common bile duct. 5mm ? - There was no sign of significant pathology in the ampulla. ? - Endosonographic images of the left adrenal gland were unremarkable. ? - The celiac trunk was endosonographically normal. ? - No ascites. Narrative [employer] - 08/17/2023 10:51 AM OIL WELL SERVICE OPERATOR [facility] GI Patient Name: Arturo Lockwood Date of : 1970 Age: 53 Procedure Date: 08/17/2023 Procedure: ? Upper EUS Providers: ? Ronaldo Salmon MD Referring Provider: ?Aimee Johnson Comorbidities: ? Normal CA19-9 Pre-op Diagnoses: ?Suspected mass in pancreas on CT scan, Chronic ? pancreatitis Recommendation: ? - The patient will be observed post-procedure, until all discharge ? criteria are met. ? - Clear liquid diet for 4 hours. ? - Await path results. Repeat imaging and EUS in 2-3 months if results ? non-diagnostic ? - Return to referring physician as previously scheduled. Findings: ? ENDOSONOGRAPHIC FINDING: : ? An irregular mass was identified in the uncinate process of the ? pancreas. The mass was hypoechoic and solid. The mass measured 30 mm by ? 27 mm in maximal cross-sectional diameter. The endosonographic borders ? were poorly-defined. There was sonographic evidence suggesting invasion ? into the superior mesenteric vein and SMA (manifested by no vessel ? visualization). The remainder of the pancreas was examined. The ? endosonographic appearance of parenchyma and the upstream pancreatic ? duct indicated duct dilation, a maximum duct diameter of 6.7 mm, ? parenchymal atrophy, ductal calcifications and parenchymal ? calcifications consistent with known chronic calcific pancreatitis. Fine ? needle biopsy was performed. Color Doppler imaging was utilized prior to ? needle puncture to confirm a lack of significant vascular structures ? within the needle path. Three passes were made with the 22 gauge ? [employer] biopsy needle using a transduodenal approach. A visible core ? of tissue was obtained. Final results are pending. 100 mg [place] diclofenac ? given post procedure. ? There was abnormal echogenicity in the visualized portion of the liver. ? This area was hyperechoic. ? There was no sign of significant endosonographic abnormality in the ? common bile duct. The maximum diameter of the duct was 5 mm. No stones ? and no biliary sludge were identified. ? There was no sign of significant endosonographic abnormality in the ? ampulla. No wall thickening was identified. ? There was no sign of significant endosonographic abnormality in the ? entire examined left adrenal gland. No abnormal echogenicity was ? identified. ? There was no sign of significant endosonographic abnormality involving ? the celiac trunk. Procedural Details: ? The patient was seen, evaluated, history reviewed, airway and heart-lung ? exams were performed by licensed provider and were satisfactory for ? planned level of sedation care. ? The risks, benefits and alternatives for the procedure and sedation were ? discussed and informed consent was obtained. A procedural pause was ? conducted in the presence of assisting personnel to verify the correct ? patient identity and procedure to be performed. Throughout the ? procedure, the patient's blood pressure, pulse, and oxygen saturations ? were monitored continuously. The Endosonoscope was introduced through ? the mouth, and advanced to the duodenum for ultrasound examination from ? the esophagus, stomach and duodenum. The upper EUS was accomplished ? without difficulty. The patient tolerated the procedure fairly well. Complications: ? No immediate complications. Estimated Blood Loss: ?Estimated blood loss: none. Attending Participation: I personally performed the entire procedure. Ronaldo Salmon MD 08/17/2023 10:51:21 AM This report has been signed electronically. Number of Addenda: 0 Note Initiated On: 08/17/2023 9:03 AM Aimee Johnson M.D. GI PROCEDURE ORDERA NATASHA [employer] NA * CT Pancreas Angiogram Triple Phase and Pelvis with IV Contrast (08/12/2023 1:18 PM OIL WELL SERVICE OPERATOR) Anatomical Region Laterality Modality Abdomen, Pelvis, Abdominal R ST LOS, Abdominal ARZ LOS, Vascular Interventional ARZ LOS, Vascular Interventional FLA LOS, Abdominal FLA LOS N/A Computed Tomography, Compute d Tomography 08/12/2023 1:13 PM OIL WELL SERVICE OPERATOR Impressions 08/12/2023 3:06 PM OIL WELL SERVICE OPERATOR Pancreas: Focal masslike hypoenhancement in the pancreatic head and uncinate. This extends to contact the superior mesenteric artery and the superior mesenteric vein, with stricturing of SMV branches. The main pancreatic duct is obstructed and dilated upstream. This is indeterminate, and could be tumor versus a pseudomass from focal pancreatitis. Vascular contact: Present Metastasis: absent Narrative 08/12/2023 3:06 PM OIL WELL SERVICE OPERATOR EXAM: ??CT PANCREAS ANGIOGRAM TRIPLE PHASE AND PELVIS WITH IV CONTRAST Including 3D image post-processing. COMPARISON: ??Outside CTs 07/21/2023 and 11/01/2021. [facility] MRIs 03/02/2023 and 02/11/2022. FINDINGS: Pancreatic Mass Morphologic Evaluation Appearance of mass: Hypoenhancing in the pancreatic parenchymal phase. Size: 3.4 x 3.1 cm. (Series 15 image 93; series 6 image 162) Location: Uncinate-posterior to SMV/PV. Pancreatic duct: Cutoff approximately 1 cm upstream of the ampulla, with upstream dilation to 9 mm Obstructive atrophy of body/tail: Present Bile duct: Negative Arterial Evaluation SMA: Tumor Contact: Present Degree of increased hazy attenuation/stranding contact: less than or equal to 180 degrees Focal vessel narrowing or contour irregularity: Absent Extension of first SMA branch: Absent, but there is contact at the level of the 2nd and 3rd branches Ostial stenosis: Absent Celiac Artery: Tumor Contact: Absent DIEGO: Tumor Contact: Absent Arterial Variant: Present Variant anatomy: Replaced right hepatic artery. Variant vessel contact: Absent Venous Evaluation Main Portal Vein: Tumor Contact: Absent SMV: Tumor Contact: Present Patency: Patent Degree of solid soft-tissue contact: less than or equal to 180 degrees Degree of increased hazy attenuation/stranding contact: less than or equal to 180 degrees Focal vessel narrowing or contour irregularity: Present. Extension of first draining vein: Present, with stenosis of a draining vein posteriorly (series 9 images 149-164). Splenic Vein: Tumor Contact: Absent Venous Drainage Anatomy: IMV drainage: Splenic vein Coronary vein drainage: Portal vein Extrapancreatic Findings: Liver: Hepatic hemangiomas. Peritoneum/Omentum: Negative Ascites: None Suspicious lymph nodes: None. Other: Small left renal cyst. Cholecystectomy. Procedure Note Ariel Ayala M.D. - 08/12/2023 EXAM: CT PANCREAS ANGIOGRAM TRIPLE PHASE AND PELVIS WITH IV CONTRAST Including 3D image post-processing. COMPARISON: Outside CTs 07/21/2023 and 11/01/2021. [facility] MRI03/02/2023 and 02/11/2022. FINDINGS: Pancreatic Mass Morphologic Evaluation Appearance of mass: Hypoenhancing in the pancreatic parenchymal phase. Size: 3.4 x 3.1 cm. (Series 15 image 93; series 6 image 162) Location: Uncinate-posterior to SMV/PV. Pancreatic duct: Cutoff approximately 1 cm upstream of the ampulla, withupstream dilation to 9 mm Obstructive atrophy of body/tail: Present Bile duct: Negative Arterial Evaluation SMA: Tumor Contact: Present Degree of increased hazy attenuation/stranding contact: less than or equalto 180 degrees Focal vessel narrowing or contour irregularity: Absent Extension of first SMA branch: Absent, but there is contact at the levelof the 2nd and 3rd branches Ostial stenosis: Absent Celiac Artery: Tumor Contact: Absent DIEGO: Tumor Contact: Absent Arterial Variant: Present Variant anatomy: Replaced right hepatic artery. Variant vessel contact: Absent Venous Evaluation Main Portal Vein: Tumor Contact: Absent SMV: Tumor Contact: Present Patency: Patent Degree of solid soft-tissue contact: less than or equal to 180 degrees Degree of increased hazy attenuation/stranding contact: less than or equalto 180 degrees Focal vessel narrowing or contour irregularity: Present. Extension of first draining vein: Present, with stenosis of a drainingvein posteriorly (series 9 images 149-164). Splenic Vein: Tumor Contact: Absent Venous Drainage Anatomy: IMV drainage: Splenic vein Coronary vein drainage: Portal vein Extrapancreatic Findings: Liver: Hepatic hemangiomas. Peritoneum/Omentum: Negative Ascites: None Suspicious lymph nodes: None. Other: Small left renal cyst. Cholecystectomy. IMPRESSION: Pancreas: Focal masslike hypoenhancement in the pancreatic head anduncinate. This extends to contact the superior mesenteric artery and thesuperior mesenteric vein, with stricturing of SMV branches. The mainpancreatic duct is obstructed and dilated upstream. This is indeterminate, and could be tumor versus a pseudomassfrom focal pancreatitis. Vascular contact: Present Metastasis: absent Aimee Johnson M.D. IMG CT PROCEDURES * Carbohydrate Antigen 19-9 (CA 19-9) (08/12/2023 10:37 AM OIL WELL SERVICE OPERATOR) Carbohydrate Ag 19-9, S 3 <35 U/mL 08/12/2023 7:00 PM OIL WELL SERVICE OPERATOR [facility] Comment: ----ADDITIONAL INFORMATION---- The testing method is an immunoenzymatic assay manufactured by [email or web address] and performed on the [employer] DxI 800. ? Values obtained with different assay methods or kits may be different and cannot be used interchangeably. ? Test results cannot be interpreted as absolute evidence for the presence or absence of malignant disease. Blood (Blood, Venous) 08/12/2023 10:37 AM OIL WELL SERVICE OPERATOR 08/12/2023 6:11 PM OIL WELL SERVICE OPERATOR Aimee Johnson M.D. LAB BLOOD ADD-ON [facility] [address] [place] [address] [facility] [address] [place] [address] * IgG4, Immunoglobulin Subclasses (08/12/2023 10:37 AM OIL WELL SERVICE OPERATOR) IgG4, Ig Subclasses 41.4 2.4 - 121.0 mg/dL 08/12/2023 3:42 PM OIL WELL SERVICE OPERATOR [facility] Blood (Blood, Venous) 08/12/2023 10:37 AM OIL WELL SERVICE OPERATOR 08/12/2023 2:02 PM OIL WELL SERVICE OPERATOR Aimee Johnson M.D. LAB BLOOD ADD-ON Performing Organization Address City/[facility]/ZIP Co de Phone Number [facility] [address] [place] [address] [facility] [address] [place] [address] * Creatinine with Estimated GFR (08/12/2023 10:37 AM OIL WELL SERVICE OPERATOR) Pathologist [facility] Creatinine 0.98 0.74 - 1.35 mg/dL 08/12/2023 11:36 AM OIL WELL SERVICE OPERATOR DTL Estimated GFR (eGFR) >90 >=60 mL/min/BSA 08/12/2023 11:36 AM OIL WELL SERVICE OPERATOR DTL Comment: Estimated GFR calculated using the 2020 CKD_EPI creatinine equation. Blood (Blood, Venous) 08/12/2023 10:37 AM OIL WELL SERVICE OPERATOR 08/12/2023 11:13 AM OIL WELL SERVICE OPERATOR Aimee Johnson M.D. LAB BLOOD ADD-ON [facility] [address] [place] [address], [place] DTL [facility] [address] [place] [address] * Interpretation of Outside CT Abdomen and or Pelvis (08/06/2023 9:34 AM OIL WELL SERVICE OPERATOR) Anatomical Region Laterality Modality Abdomen, Pelvis, Abdominal R ST LOS, Abdominal ARZ LOS, Abdominal FLA LOS, Other N/A Computed Tomography 08/09/2023 6:11 AM OIL WELL SERVICE OPERATOR Impressions 08/09/2023 6:54 AM OIL WELL SERVICE OPERATOR Near the level of the chronic main pancreatic duct stricture/cut off, there is a new, somewhat ill-defined focal area of hypoenhancement and peripancreatic stranding versus soft tissue thickening protruding outward from the anterior aspect of the pancreatic head/uncinate process into the peripancreatic fat where it measures approximately 1.2 x 1.9 cm (series 2 image 58). This is indeterminate and while focal pancreatitis could have this appearance, pancreatic adenocarcinoma is also possible and needs to be excluded with follow-up imaging. The chronic main pancreatic ductal dilatation upstream from this area remains stable compared to recent MRCP 03/02/2023 and improved compared to pre-ERCP CT 11/01/2021 (ERCP with main pancreatic duct stone extraction was performed 08/10/2022). As this outside CT exam was done several weeks ago, recommend repeat CT abdomen/pelvis with pancreatic protocol for further evaluation of the pancreatic head/uncinate process to distinguish focal pancreatitis from potential pancreatic adenocarcinoma. Narrative 08/09/2023 6:54 AM OIL WELL SERVICE OPERATOR EXAM: ??INTERPRETATION OF OUTSIDE CT ABDOMEN AND OR PELVIS interpretation of outside CT abdomen/pelvis with intravenous contrast performed 07/21/2023. COMPARISON: ??MRI/MRCP 03/02/2023, 02/11/2022, outside CT abdomen/pelvis 11/01/2021, 03/09/2021, 11/06/2019. FINDINGS: ?? History of ERCP performed 08/10/2022 with removal of pancreatic duct stones. Subsequent MRI/MRCP is 03/02/2023 noted stone removal with continued but decreased/improved upstream main pancreatic ductal dilatation. On the current outside CT exam from 07/21/2023 the pancreatic ductal dilatation remains similar to MRCP 02/27/2023 and improved compared to pre-ERCP outside CT 11/01/2021. On series 2 image 58 there is a new, somewhat ill-defined area of pancreatic hypoenhancement and peripancreatic stranding versus soft tissue density measuring approximately 1.2 x 1.9 cm which extends outward from the anterior aspect of the pancreatic head/uncinate process near the level of the main pancreatic duct stricture which was not present on CT 11/01/2021 and is indeterminate although concerning for potential pancreatic adenocarcinoma (screen capture image provided). Diffuse atrophy of the pancreatic neck, body and tail are unchanged. No radiopaque main pancreatic duct stones. No biliary ductal dilatation. Status post cholecystectomy. Marked hepatic steatosis. Posterior right hepatic lobe hemangiomas (series 2 images 16 and 38), unchanged. Left renal cyst. Right kidney and adrenal glands appear normal. No adenopathy. Enlarged prostate. Small fat- containing left inguinal hernia, unchanged. Normal caliber small bowel. Colonic diverticula. Normal appendix. Degenerative changes lumbar spine. No concerning bone lesions. Lung bases are clear. Procedure Note Keshawn De La Torre M.D. - 08/09/2023 EXAM: INTERPRETATION OF OUTSIDE CT ABDOMEN AND OR PELVIS interpretationof outside CT abdomen/pelvis with intravenous contrast uqalfjekz02/25/2023. COMPARISON: MRI/MRCP 03/02/2023, 02/11/2022, outside CT abdomen/[id number]/01/2021, 03/09/2021, 11/06/2019. FINDINGS: History of ERCP performed 08/10/2022 with removal of pancreatic ductstones. Subsequent MRI/MRCP is 03/02/2023 noted stone removal withcontinued but decreased/improved upstream main pancreatic ductaldilatation. On the current outside CT exam from 07/21/2023 the pancreatic ductal dilatation remains similar to MRCP02/27/2023 and improved compared to pre-ERCP outside CT 11/01/2021. On series 2 image 58 there is a new, somewhat ill-defined area ofpancreatic hypoenhancement and peripancreatic stranding versus soft tissuedensity measuring approximately 1.2 x 1.9 cm which extends outward fromthe anterior aspect of the pancreatic head/uncinate process near the level of the main pancreatic duct stricturewhich was not present on CT 11/01/2021 and is indeterminate althoughconcerning for potential pancreatic adenocarcinoma (screen capture imageprovided). Diffuse atrophy of the pancreatic neck, body and tail are unchanged. No radiopaque mainpancreatic duct stones. No biliary ductal dilatation. Status post cholecystectomy. Marked hepatic steatosis. Posterior righthepatic lobe hemangiomas (series 2 images 16 and 38), unchanged. Leftrenal cyst. Right kidney and adrenal glands appear normal. No adenopathy.Enlarged prostate. Small fat- containing left inguinal hernia, unchanged. Normal caliber small bowel. Colonicdiverticula. Normal appendix. Degenerative changes lumbar spine. No concerning bone lesions. Lung basesare clear. IMPRESSION: Near the level of the chronic main pancreatic duct stricture/cut off,there is a new, somewhat ill-defined focal area of hypoenhancement andperipancreatic stranding versus soft tissue thickening protruding outwardfrom the anterior aspect of the pancreatic head/uncinate process into the peripancreatic fat whereit measures approximately 1.2 x 1.9 cm (series 2 image 58). This isindeterminate and while focal pancreatitis could have this appearance,pancreatic adenocarcinoma is also possible and needs to be excluded with follow-up imaging. The chronic mainpancreatic ductal dilatation upstream from this area remains stablecompared to recent MRCP 03/02/2023 and improved compared to pre-ERCP CT11/01/2021 (ERCP with main pancreatic duct stone extraction was performed 08/10/2022). As this outside CT examwas done several weeks ago, recommend repeat CT abdomen/pelvis withpancreatic protocol for further evaluation of the pancreatic head/uncinateprocess to distinguish focal pancreatitis from potential pancreatic adenocarcinoma. Aimee Johnson M.D. IMG CT PROCEDURES from Last 3 Months Care Teams [employer] Relationship Specialty Start Date End Date Elsewhere, Pcp PCP - General Internal Medicine 03/05/23
--- OUTSIDE RECORDS SUMMARY | 2023-11-01 21:29 | XMS_ITS | Encounter Summary ---
Author Name Unknown Organization [facility] Address [address] [place] [address] Care Team Providers Care Building Analyst/Supervisor Name Role Phone Elsewhere, Pcp Primary Care Provider Unavailabl e Reason for Referral * Outpatient (Routine) - Closed Specialty Diagnoses / Procedures Referred By Lionel bartlett Referred To Contact Diagnoses Pancreatitis Chronic (HCC) Mass Pancreas Procedures ERCP Aimee Johnson M.D. [address] [place] [phone] [facility] Referral ID Status Reason Start Date Expiration Date Visits Re quested Visits Authorized [id number] Closed 10/07/2023 10/06/2024 1 1 EAR WEAPONS CUSTODIAN * Outpatient (Routine) - Closed Specialty Diagnoses / Procedures Referred By Lionel bartlett Referred To Contact Diagnoses Pancreatitis Chronic (HCC) Mass Pancreas Procedures Endoscopic ultrasound (EUS) Aimee Johnson M.D. [address] [place] [address] [facility] Referral ID Status Reason Start Date Expiration Date Visits Re quested Visits Authorized [id number] Closed 10/07/2023 10/06/2024 1 1 EAR WEAPONS CUSTODIAN Reason for Visit * Outpatient (Routine) - Closed Specialty Diagnoses / Procedures Referred By Lionel bartlett Referred To Contact Diagnoses Pancreatitis Chronic (HCC) Mass Pancreas Procedures ERCP Aimee Johnson M.D. [address] [place] [phone] [facility] Referral ID Status Reason Start Date Expiration Date Visits Re quested Visits Authorized [id number] Closed 10/07/2023 10/06/2024 1 1 Encounter Details Date Type Department Care Team (Latest Contact Info) Description 11/01/2023 9:53 AM NUCLEAR WEAPONS CUSTODIAN Hospital Encounter Division of Gastroenterology in [place], [place] [address] [place] [phone] Aimee Johnson M.D. [address] [place] [phone] Cristopher Angelo D.O. [address] [place] [phone] Christine Casey, WEAVING TEACHER, TEACHER OF THE HANDICAPPED, [employer] [address] [place] [phone] Pancreatitis Chronic (HCC); Mass Pancreas Discharge Disposition: Home or Self Care Social History Tobacco Use Types Packs/Day Years [...] money to buy more. Never true 03/04/20 Within the past 12 months, t he [...] on file documented as of this encounter Last Filed Vital Signs Vital Sign Reading Time Taken Comments Blood Pressure 133/84 11/01/2023 1:45 PM NUCLEAR WEAPONS CUSTODIAN Pulse 53 11/01/2023 2:00 PM NUCLEAR WEAPONS CUSTODIAN Temperature 36.6 ??C (97.9 ??F) 11/01/2023 2:00 PM CS T Respiratory Rate 15 11/01/2023 2:00 PM NUCLEAR WEAPONS CUSTODIAN Oxygen Saturation 98% 11/01/2023 2:00 PM NUCLEAR WEAPONS CUSTODIAN Inhaled Oxygen Concentration - - Weight 109 kg (240 lb 15.4 oz) 11/01/2023 10:11 AM NUCLEAR WEAPONS CUSTODIAN Height - - Body Mass Index 33.61 09/22/2023 7:27 PM NUCLEAR WEAPONS CUSTODIAN documented in this encounter Plan of Treatment Upcoming Encounters Date Type Department Care Team (Late st Contact Info) Description 11/04/2023 2:40 PM NUCLEAR WEAPONS CUSTODIAN Telemedicine Division of Gastroenterology in [place], [place] 200 [place] [phone] Aimee Johnson M.D. [address] [place] [phone] Scheduled Orders Name Type Priority Associated Diagnoses Orde r Schedule Adult Oxygen Therapy PRN Respiratory Care Routine Pancreatitis Chronic (HCC) Mass Pancreas As needed until discontinued starting 11/01/2023 Adult Oxygen Therapy PRN Respiratory Care Routine Pancreatitis Chronic (HCC) Mass Pancreas As needed until discontinued starting 11/01/2023 documented as of this encounter Procedures Procedure Name Priority Date/Time Associated Diagnosis Comments ERCP Routine 11/01/2023 11:05 AM NUCLEAR WEAPONS CUSTODIAN Pancreatitis Chronic (HCC) Mass Pancreas ERCP Routine 11/01/2023 11:05 AM NUCLEAR WEAPONS CUSTODIAN Pancreatitis Chronic (HCC) Mass Pancreas UPPER EUS Routine 11/01/2023 11:04 AM NUCLEAR WEAPONS CUSTODIAN Pancreatitis Chronic (HCC) Mass Pancreas ENDOSCOPIC ULTRASOUND (EUS) Routine 11/01/2023 11:04 AM NUCLEAR WEAPONS CUSTODIAN Pancreatitis Chronic (HCC) Mass Pancreas documented in this encounter Results * ERCP (11/01/2023 11:05 AM NUCLEAR WEAPONS CUSTODIAN) 11/01/2023 11:0 5 AM NUCLEAR WEAPONS CUSTODIAN Impressions [facility] - 11/01/2023 2:38 PM NUCLEAR WEAPONS CUSTODIAN Post-op Diagnoses: ? - Prior biliary sphincterotomy [...] drainage after cholangiogram. ? - One 10 Bhutanese by 12 cm pancreatic stent was placed into the ventral ? pancreatic duct. Narrative [facility] - 11/01/2023 2:38 PM NUCLEAR WEAPONS CUSTODIAN [facility] Patient Name: Arturo Lockwood [...] year of uninterrupted stenting with a 10 Bhutanese stent with a goal of ? remodeling the pancreatic neck stenosis. ? - Watch for pancreatitis, bleeding, perforation, and cholangitis. ? - The findings and recommendations were discussed with the patient. ? - The findings and recommendations were discussed with the referring ? physician. Findings: ? A no experience film of the abdomen was obtained. Surgical [...] 11:05 AM Aimee Johnson M.D. GI PROCEDURE [facility] NA * Upper EUS (11/01/2023 11:04 AM NUCLEAR WEAPONS CUSTODIAN) 11/01/2023 11:0 4 AM NUCLEAR WEAPONS CUSTODIAN Impressions [facility] - 11/01/2023 5:47 PM NUCLEAR WEAPONS CUSTODIAN Post-op Diagnoses: ? - Endosonographic imaging of [...] unremarkable. ? - No specimens collected. Narrative [facility] [employer] - 11/01/2023 5:47 PM NUCLEAR WEAPONS CUSTODIAN [facility] Patient Name: Arturo Lockwood Date of : 1970 Age: 53 Procedure Date: 11/01/2023 Procedure: ? Upper EUS Providers: ? Cristopher Angelo, Referring Provider: ?Aimee Johnson Pre-op Diagnoses: ?Chronic [...] Aimee Johnson M.D. GI PROCEDURE ORDERA [facility] Organization Address City/State/[facility] Phone Number [facility] documented in this encounter Visit Diagnoses Diagnosis Pancreatitis Chronic (HCC) Mass Pancreas documented in this encounter Administered Medications Active Administered Medications - up to 3 most recent administrations Medication Order MAR Action Action Date Dose Rate Site fentaNYL injection 25 mcg (SUBLIMAZE) 25 mcg, intravenous, Every 2 min PRN, moderate pain or score 4-6 of 10, severe pain or score 7-10 of 10, Starting on Wed11/01/23 at 1251, PACU (only), Up to maximum total dose of 200 mcg Given 11/01/2023 1:09 PM NUCLEAR WEAPONS CUSTODIAN 25 mcg Given 11/01/2023 1:06 PM NUCLEAR WEAPONS CUSTODIAN 25 mcg Given 11/01/2023 1:00 PM NUCLEAR WEAPONS CUSTODIAN 25 mcg Lactated Ringer's 125 mL/hr, intravenous, Continuous, Starting on Wed11/01/23 at 1230, PACU & Post-Op New Bag 11/01/2023 12:34 PM NUCLEAR WEAPONS CUSTODIAN 125 mL/hr 125 mL/hr Continued from OR 11/01/2023 12:30 PM NUCLEAR WEAPONS CUSTODIAN 125 mL/hr 125 m L/hr Inactive Administered Medications - up to 3 most recent administrations Medication Order MAR Action Action Date Dose Rate Site acetaminophen injection 1,000 mg 1,000 mg, intravenous, at 400 mL/hr, Administer over 15 Minutes, Once as needed, other, If patient has not received in previous 6 hours, Starting on Wed11/01/23 at 1251, For 1 dose, PACU (only), Oral unless RASS less than -1 or nausea/vomiting. Do not use if given in last 6 hours, Restriction Criteria (Pharmacy will review and approve if criteria met): Unable to take or tolerate medications administered via the enteral route or orally (not just NPO) New Bag 11/01/2023 12:58 PM NUCLEAR WEAPONS CUSTODIAN 1,000 mg 400 mL/hr diclofenac suppository As needed, Starting on Wed11/01/23 at 1130, Intra-Op Given 11/01/2023 11:30 AM NUCLEAR WEAPONS CUSTODIAN 100 mg Rectum granisetron (PF) injection 1 mg (KYTRIL) 1 mg, intravenous, Once as needed, nausea, vomiting, Starting on Wed11/01/23 at 1251, For 1 dose, PACU (only), If patient does not respond to ondansetron or haloperidol. (order of antiemetic administration - ondansetron then haloperidol then granisetron) Given 11/01/2023 12:58 PM NUCLEAR WEAPONS CUSTODIAN 1 mg ketorolac injection 15 mg (TORADOL) 15 mg, intravenous, Once, On Wed11/01/23 at 1400, For 1 dose, PACU (only), Adult IV push rate: Over 15 seconds. Peds IV push rate: Over 1 minute. Doses > 15 mg IV/IM are discouraged due to lack of additional analgesic benefit. Given 11/01/2023 1:31 PM NUCLEAR WEAPONS CUSTODIAN 15 mg oxyCODONE IR tablet 5 mg (ROXICODONE) 5 mg, oral, Once as needed, For pain 4 or greater, Starting on Wed11/01/23 at 1251, For 1 dose, PACU (only) Given 11/01/2023 1:03 PM NUCLEAR WEAPONS CUSTODIAN 5 mg documented in this encounter Care Teams Building Analyst/Supervisor Relationship Specialty Start Date End Date Elsewhere, Pcp PCP - General Internal Medicine 03/05/23 documented as of this encounter
--- OUTSIDE RECORDS SUMMARY | 2023-11-01 21:29 | XMS_ITS | Encounter Summary ---
Author Name Unknown Organization [facility] Address [address] [place] [address] Care Team Providers Care Plastic Extruding Machine Operator Name Role Phone Elsewhere, Pcp Primary Care Provider Unavailabl e Encounter Details Date Type Department Care Team (Latest Contact Info) Description 11/01/2023 11:05 AM PLASTIC EXTRUDING MACHINE OPERATOR Ancillary Procedure Department of Gastroenterology Arrived Social [...] st Contact Info) Description 11/04/2023 2:40 PM PLASTIC EXTRUDING MACHINE OPERATOR Telemedicine Division of Gastroenterology in [place], [place] [address] [place] [address] Aimee Johnson M.D. [address] [place] [phone] documented as of this encounter Procedures Procedure Name Priority Date/Time Associated Diagnosis Comments GASTROENTEROLOGY IMAGE EXAM Routine 11/01/2023 11:05 AM PLASTIC EXTRUDING MACHINE OPERATOR documented in this encounter Results * ERCP-Gastroenterology Image Exam (11/01/2023 11:05 AM PLASTIC EXTRUDING MACHINE OPERATOR) 11/01/2023 11:0 5 AM PLASTIC EXTRUDING MACHINE OPERATOR Narrative [facility] - 11/01/2023 2:49 PM PLASTIC EXTRUDING MACHINE OPERATOR This order has been created and auto-finalized to support the import of images acquired without order. The clinical documentation to support these images can be found on the encounter that produced images. Provider Not In System IMG NON RAD IMAGI NG PROCEDURES [facility] NA documented in this encounter Visit Diagnoses Not on filedocumented in this encounter Care Teams Plastic Extruding Machine Operator Relationship Specialty Start Date End Date Elsewhere, Pcp PCP - General Internal Medicine 03/05/23 documented as of this encounter
--- OUTSIDE RECORDS SUMMARY | 2023-11-01 21:29 | XMS_ITS | Clinical Summary ---
Author Name Unknown Organization [facility] Address [address] [place] [address] Care Team Providers Care Sleeve Bottom Feller Name Role Phone Elsewhere, Pcp Primary Care Provider Unavailabl e Source Comments Patient records contain information from all sites at [facility]. For routine questions regarding patient records, call [phone] during business hours, M-F 8:00 AM - 5:00 PM Central Time. Record requests for emergency care only can be directed to [phone] at any time.[facility] Allergies No known active allergies Medications Medication [...] Disease NOS Pancreatitis Acute Stenosis Spinal Cervical Encounters Date Type Department Care Team Description 11/01/2023 11:16 AM SVP BUSINESS DEVELOPMENT Anesthesia Event Division of Gastroenterology in [place], [place] [address] [place] [phone] Kaci Fang APRN, FRANTZ PAGE Mary E, M.D. 11/01/2023 11:10 AM SVP BUSINESS DEVELOPMENT Ancillary Procedure Department of Gastroenterology Arrived 11/01/2023 11:06 AM SVP BUSINESS DEVELOPMENT Hospital Encounter Department of Radiology, [facility], in [place], [place] [address] [place] [phone] Aimee Johnson M.D. Pancreatitis Chronic (HCC); Mass Pancreas 11/01/2023 11:05 AM [employer]P BUSINESS DEVELOPMENT Ancillary Procedure Department of Gastroenterology Arrived 11/01/2023 9:53 AM [employer]P BUSINESS DEVELOPMENT Hospital Encounter Division of Gastroenterology in [address] [phone] Aimee Johnson M.D. Law, Ryan J, D.O. Ballenger, Erin R, CAMILO RUBIO, FÁTIMA Pancreatitis Chronic (HCC); Mass Pancreas Discharge Disposition: Home or Self Care 10/08/2023 Clinical Communication Division of Gastroenterology in [address] [phone] Aimee Johnson M.D. 10/07/2023 4:20 PM SVP BUSINESS DEVELOPMENT Telemedicine Division of Gastroenterology in [address] [phone] Aimee Johnson M.D. Pancreatitis Chronic (HCC) (Primary Dx); Mass Pancreas 10/04/2023 7:30 AM SVP BUSINESS DEVELOPMENT Clinical Communication Virtual Review in [place], [place] 200 [place] [address] Pre-visit Intake 09/22/2023 7:02 PM [employer]P BUSINESS DEVELOPMENT - 09/22/2023 11:59 PM [employer]P BUSINESS DEVELOPMENT Hospital Encounter Department of Radiology, [facility], in [place], [place] [address] [place] [phone] Aimee Johnson M.D. Mass Pancreas Discharge Disposition: Home or Self Care 08/25/2023 Documentation Division of Gastroenterology in [place], [place] [address] [place] [address] Aimee Johnson M.D. 08/17/2023 9:35 AM SVP BUSINESS DEVELOPMENT Anesthesia Event Division of Gastroenterology in [place], [place] [address] [place] [phone] Gallito Bermudez APRN, CRNA Wilson, Jack L, M.D. 08/17/2023 9:05 AM SVP BUSINESS DEVELOPMENT Ancillary Procedure Department of Gastroenterology 08/17/2023 8:03 AM SVP BUSINESS DEVELOPMENT - 08/17/2023 11:59 PM SVP BUSINESS DEVELOPMENT Hospital Encounter Division of Gastroenterology in [place], [place] [address] [place] [phone] Aimee Johnson M.D. Law, Ryan J, D.O. Mass Pancreas Discharge Disposition: Home or Self Care 08/17/2023 Intake [facility] 08/17/2023 Documentation Division of Gastroenterology in [place], [place] [address] [place] [phone] Aimee Johnson M.D. 08/17/2023 Clinical Communication Division of Gastroenterology in [place], [place] [address] [place] [phone] Aimee Johnson M.D. Symptom Assessment 08/13/2023 Orders Only Division of Gastroenterology in [place], [place] [address] [place] [phone] Aimee Johnson M.D. Mass Pancreas (Primary Dx) 08/12/2023 12:03 PM [employer]P BUSINESS DEVELOPMENT - 08/12/2023 11:59 PM [employer]P BUSINESS DEVELOPMENT Hospital Encounter Department of Radiology, [facility], in [place], [place] [address] [place] [phone] Aimee Johnson M.D. Pancreatitis Chronic (HCC) Discharge Disposition: Home or Self Care 08/12/2023 10:26 AM SVP BUSINESS DEVELOPMENT - 08/12/2023 12:02 PM SVP BUSINESS DEVELOPMENT Hospital Encounter Department of Laboratory Medicine and Pathology, [facility], in [place], [place] [address] [place] [address] Aimee Johnson M.D. Pancreatitis Chronic (HCC) Discharge Disposition: Home or Self Care 08/09/2023 Orders Only Division of Gastroenterology in [place], [place] [address] [place] [address] Aimee Johnson M.D. Pancreatitis Chronic (HCC) (Primary Dx) 08/06/2023 8:50 AM SVP BUSINESS DEVELOPMENT Ancillary Procedure Department of Radiology in [place], [place] [address] [place] [address] Aimee Johnson M.D. Pancreatitis Chronic (HCC) from Last 3 Months Family History Medical History Relation Name Comments Skin cancer Brother 1 michael Coronary artery disease Brother 2 Faizan Transient ischemic attack Brother 3 Nba Relation Name Status Comments Brother 1 michael Brother 2 Faizan Brother 3 Nba Social History Tobacco Use Types Packs/Day Years [...] Comments Blood Pressure 133/84 11/01/2023 1:45 PM SVP BUSINESS DEVELOPMENT Pulse 53 11/01/2023 2:00 PM SVP BUSINESS DEVELOPMENT Temperature 36.6 ??C (97.9 ??F) 11/01/2023 2:00 PM CS T Respiratory Rate 15 11/01/2023 2:00 PM SVP BUSINESS DEVELOPMENT Oxygen Saturation 98% 11/01/2023 2:00 PM SVP BUSINESS DEVELOPMENT Inhaled Oxygen Concentration - - Weight 109 kg (240 lb 15.4 oz) 11/01/2023 10:11 AM SVP BUSINESS DEVELOPMENT Height 180.3 cm (5' 11) 09/22/2023 7:27 PM SVP BUSINESS DEVELOPMENT Body Mass Index 33.61 09/22/2023 7:27 PM [employer]P BUSINESS DEVELOPMENT Plan of Treatment Upcoming Encounters Date Type Department Care Team (Late st Contact Info) Description 11/04/2023 2:40 PM SVP BUSINESS DEVELOPMENT Telemedicine Division of Gastroenterology in [place], [place] [address] [place] [phone] Aimee Johnson M.D. 200 [place] [address] Health Maintenance Due Date Last Done Comments CT Colonography 1968 Cologuard 1968 Colonoscopy 1968 Colorectal Cancer Screening 1968 FIT 1968 Hepatitis B Vaccines (1 of 3 - 3-dose series) 1968 Zoster Vaccines (1 of 2) 2018 Depression Screening (Annual PHQ-2) 09/27/2023 Fasting Glucose for Diabetes Screening 02/10/2025 02/10/2022, 02/10/2022, 12/26/2014, Additional history exists Lipid (Cholesterol) Screening 02/10/2027 02/10/2022, 12/25/2014 DTaP,Tdap,and Td Vaccines (3 - Td or Tdap) 03/24/2031 03/24/2021, 04/21/2011 HIV Screening Completed 12/25/2014 COVID-19 Vaccine Completed 06/29/2023, , 05/21/2022, Additional history exists Influenza Vaccine Completed 06/29/2023, , 07/03/2022, Additional history exists Pneumococcal vaccine (0-64 years) Aged Out No longer eligible based on patient's age to complete this topic Medical Devices Implanted Type Area Carpet Or Rug Layer Helper Device Identifier Shelf Expiration Date Model / Serial / Lot Stent Intro Fusion Heflin 10 Fr - [id number] [id number] Implanted:Qty: 1 on 12/25/2014 Biliary Stent [employer] Description:Device Manufactu [facility] [employer]. Device Status Text - [id number]. [facility] 10fx22 - [id number] Implanted:Qty: 1 on 11/01/2023 by Cristopher Angelo D.O. at [facility] Pancreatic Stent [employer] 09/06/2026 [id number] / / [id number] Description:10x12 Explanted Type Area Carpet Or Rug Layer Helper Device Identifier Shelf Expiration Date Model / Serial / Lot [facility] Wdg 8.5fx22 - [id number] Explanted:Qty: 1 on 06/08/2022 by Jimbo Vásquez M.D. at [facility] Biliary Stent [employer] 04/22/2025 [id number] / / [id number] Description:8.5x10.5 [facility] 10fx22 - [id number] Implanted:Qty: 1 on 06/08/2022 by Jimbo Vásquez M.D. at [facility] Explanted:Qty: 1 on 08/10/2022 by Mallory Champion M.D., M.P.H. at [facility] Biliary Stent [employer] 04/29/2025 [id number] / / [id number] Description:10x13.5 Stent Pancreatic 5 X 5 Single [employer] - Valentin [id number] Implanted:Qty: 1 on 12/25/2014 Explanted:Qty: 1 on 06/08/2022 by Jimbo Vásquez M.D. at [facility] Pancreatic Stent [employer] Description:Device Manufactu [facility] - [employer]. Device Status Text - [id number]. Procedures Procedure Name Priority Date/Time Associated Diagnosis Comments FL FLUORO LESS THAN 1 HOUR RAD - Routine (most inpatients and all outpatients) 11/01/2023 12:09 PM SVP BUSINESS DEVELOPMENT Pancreatitis Chronic (HCC) Mass Pancreas LDA ANE ENDOTRACHEAL AIRWAY Routine 11/01/2023 11:24 AM SVP BUSINESS DEVELOPMENT GASTROENTEROLOGY IMAGE EXAM Routine 11/01/2023 11:10 AM SVP BUSINESS DEVELOPMENT ERCP Routine 11/01/2023 11:05 AM SVP BUSINESS DEVELOPMENT Pancreatitis Chronic (HCC) Mass Pancreas ERCP Routine 11/01/2023 11:05 AM SVP BUSINESS DEVELOPMENT Pancreatitis Chronic (HCC) Mass Pancreas GASTROENTEROLOGY IMAGE EXAM Routine 11/01/2023 11:05 AM SVP BUSINESS DEVELOPMENT UPPER EUS Routine 11/01/2023 11:04 AM SVP BUSINESS DEVELOPMENT Pancreatitis Chronic (HCC) Mass Pancreas ENDOSCOPIC ULTRASOUND (EUS) Routine 11/01/2023 11:04 AM SVP BUSINESS DEVELOPMENT Pancreatitis Chronic (HCC) Mass Pancreas MR ABDOMEN MRCP WITHOUT AND WITH IV CONTRAST RAD - Routine (most inpatients and all outpatients) 09/22/2023 8:53 PM SVP BUSINESS DEVELOPMENT Mass Pancreas OUTSIDE CT BODY Routine 08/17/2023 7:05 PM SVP BUSINESS DEVELOPMENT SURGICAL PATHOLOGY Routine 08/17/2023 9: 54 AM SVP BUSINESS DEVELOPMENT GASTROENTEROLOGY IMAGE EXAM Routine 08/17/2023 9:05 AM SVP BUSINESS DEVELOPMENT UPPER EUS Routine 08/17/2023 9:03 AM SVP BUSINESS DEVELOPMENT Mass Pancreas ENDOSCOPIC ULTRASOUND (EUS) Routine 08/17/2023 9:03 AM SVP BUSINESS DEVELOPMENT Mass Pancreas CT PANCREAS ANGIOGRAM TRIPLE PHASE AND PELVIS WITH IV CONTRAST RAD - Routine (most inpatients and all outpatients) 08/12/2023 1:18 PM SVP BUSINESS DEVELOPMENT Pancreatitis Chronic (HCC) IGG4, IG SUBCLASSES Routine 08/12/2023 10:37 AM SVP BUSINESS DEVELOPMENT Pancreatitis Chronic (HCC) CARBOHYDRATE AG 19-9 (CA 19-9), S Routine 08/12/2023 10:37 AM SVP BUSINESS DEVELOPMENT Pancreatitis Chronic (HCC) CREATININE WITH EGFR, S/P Routine 08/12/2023 10:37 AM SVP BUSINESS DEVELOPMENT Pancreatitis Chronic (HCC) INTERPRETATION OF OUTSIDE CT ABDOMEN AND OR PELVIS RAD - Routine (most inpatients and all outpatients) 08/06/2023 9:34 AM SVP BUSINESS DEVELOPMENT Pancreatitis Chronic (HCC) from Last 3 Months Results * FL Fluoro Less Than 1 Hour (11/01/2023 12:09 PM SVP BUSINESS DEVELOPMENT) Narrative ERCP LOS RST - 11/01/2023 12:12 PM SVP BUSINESS DEVELOPMENT This exam does not require a radiologist review or interpretation. Please refer to the patient's medical record on this date for clinical details. Aimee GUERRERO FLUOROSCOPY PRO CEDURES ERCP LOS RST * LDA ANE ENDOTRACHEAL AIRWAY (11/01/2023 11:24 AM SVP BUSINESS DEVELOPMENT) Narrative Kaci Fang APRN, CAMILO, MNA - 11/01/2023 11:24 AM SVP BUSINESS DEVELOPMENT FjerstaKaci lopez APRN, CRNA, MNA ? 11/01/2023 11:33 AM [...] ETT location: oral VL device: glide scope [place] scope blade size: 3 Tube size: 7.5 [...] Upper EUS-Gastroenterology Image Exam (11/01/2023 11:10 AM SVP BUSINESS DEVELOPMENT) Only the most recent of3 resultswithin the time period is included. Narrative IIMS - 11/01/2023 5:49 PM SVP BUSINESS DEVELOPMENT This order has been created and auto-finalized to support the import of images acquired without order. The clinical documentation to support these images can be found on the encounter that produced images. Provider Not In System IMG NON RAD IMAGI NG PROCEDURES IINM NA * ERCP (11/01/2023 11:05 AM SVP BUSINESS DEVELOPMENT) 11/01/2023 11:0 5 AM SVP BUSINESS DEVELOPMENT Impressions [employer] - 11/01/2023 2:38 PM SVP BUSINESS DEVELOPMENT Post-op Diagnoses: ? - Prior biliary sphincterotomy [...] drainage after cholangiogram. ? - One 10 Mongolian by 12 cm pancreatic stent was placed into the ventral ? pancreatic duct. Narrative [employer] - 11/01/2023 2:38 PM SVP BUSINESS DEVELOPMENT [facility] Patient Name: Arturo Lockwood [...] year of uninterrupted stenting with a 10 Mongolian stent with a goal of ? remodeling the pancreatic neck stenosis. ? - Watch for pancreatitis, bleeding, perforation, and cholangitis. ? - The findings and recommendations were discussed with the patient. ? - The findings and recommendations were discussed with the referring ? physician. Findings: ? A head of maintenance film of the abdomen was obtained. Surgical [...] I personally performed the entire procedure. Cristopher Angelo, 11/01/2023 2:38:18 PM This report has been signed electronically. Number of Addenda: 0 Note Initiated On: 11/01/2023 11:05 AM Aimee Johnson M.D. GI PROCEDURE MIGUELA NATASHA Performing Organization Address City/State/[facility] Co md Phone Number [facility] EM[facility] NA * Upper EUS (11/01/2023 11:04 AM SVP BUSINESS DEVELOPMENT) 11/01/2023 11:0 4 AM SVP BUSINESS DEVELOPMENT Impressions SJ BUCKLEY - 11/01/2023 5:47 PM SVP BUSINESS DEVELOPMENT Post-op Diagnoses: ? - Endosonographic imaging of [...] unremarkable. ? - No specimens collected. Narrative [employer] - 11/01/2023 5:47 PM SVP BUSINESS DEVELOPMENT [facility] Patient Name: Arturo Lockwood [...] and with IV Contrast (09/22/2023 8:53 PM SVP BUSINESS DEVELOPMENT) Anatomical Region Laterality Modality Abdomen, Abdominal RST LOS, Abdominal ARZ LOS, Abdominal FLA LOS N/A Magnetic Resonance Impressions 09/23/2023 11:03 AM SVP BUSINESS DEVELOPMENT 1. Mild peripancreatic fat stranding, consistent with [...] the prior CT. Narrative 09/23/2023 11:03 AM SVP BUSINESS DEVELOPMENT EXAM: ??MR ABDOMEN MRCP WITHOUT AND WITH IV CONTRAST. 3D maximum intensity projections/volume renderings were created on an independent workstation with or without AI assistance as ordered by the treating provider and reviewed by the radiologist for biliary and pancreatic duct visualization. COMPARISON: ??MCR CTA dated 08/12/2023, outside CT dated 08/17/2023, and MCR MRI dated 03/02/2023. FINDINGS: ??Again demonstrated is [...] maximum intensity projections/volume renderings were created on anAutomileepFertilityAuthority workstation with or without AI assistance as ordered by thetreating provider and reviewed by the radiologist for biliary andpancreatic duct visualization. COMPARISON: [facility] CTA dated 08/12/2023, outside CT dated 08/17/2023, [...] on the prior CT. Aimee Johnson M.D. [facility] MRI PROCEDURES * CT ABDOMEN PELVIS W CON-Outside CT Body (08/17/2023 7:05 PM SVP BUSINESS DEVELOPMENT) 08/17/2023 7:05 PM SVP BUSINESS DEVELOPMENT Narrative IIMS - 08/17/2023 8:15 PM SVP BUSINESS DEVELOPMENT This order has been created and auto-finalized to support the import of outside images. If available, original interpretation can be found on the Media Tab in Chart Review, in Document Viewer, or as an image in QREADS. If a re-interpretation or overread is required please follow defined workflow. ?? Provider Not In System IMG CT PROCEDURES IIMS NA * Surgical Pathology (08/17/2023 9:54 AM SVP BUSINESS DEVELOPMENT) 08/23/2023 1:48 PM SVP BUSINESS DEVELOPMENT DTL Report electronically signed by Kash Crockett M.D. I verify that I have examined all relevant slides/materi als for the specimen(s) and rendered or confirmed the diagnosis. 08/23/2023 1:48 PM SVP BUSINESS DEVELOPMENT DTL Gross Description Received in formalin labeled with the patient's name, medical record number, and pancreas, core-biopsy, uncinate are multiple minutepale rwj-ygad-mci soft tissue cores and fragments, 2.0 x 0.6 x 0.2 cm in aggregate. Due to the scant nature of the tissue fragments, someor all may not survive processing. ??Specimens are submitted en toto in cassette A1. ??Grossed by AJG. 08/23/2023 1:48 PM SVP BUSINESS DEVELOPMENT DTL Interpretation FINAL DIAGNOSIS A. Pancreas, uncinate, [...] made via digital imaging. 08/23/2023 1:48 PM SVP BUSINESS DEVELOPMENT DTL Biopsy (Pancreas) 08/17/2023 9:54 AM SVP BUSINESS DEVELOPMENT Ronaldo Salmon M.D., M.S. LAB SURG PATH ORDERABLES Performing Organization Address City/State/[facility] Co de Phone Number [facility] [address] [place] [address], [facility] DTL [address] [place] [address] * Upper EUS (08/17/2023 9:03 AM SVP BUSINESS DEVELOPMENT) 08/17/2023 9:03 AM SVP BUSINESS DEVELOPMENT Impressions [facility] - 08/17/2023 10:51 AM SVP BUSINESS DEVELOPMENT Post-op Diagnoses: ? - One 30mm x [...] endosonographically normal. ? - No ascites. Narrative [facility] - 08/17/2023 10:51 AM SVP BUSINESS DEVELOPMENT [facility] 2 GI Patient Name: Arturo Lockwood [...] were made with the 22 gauge ? SharkCore biopsy needle using a transduodenal approach. A visible core ? of tissue was obtained. Final results are pending. 100 mg MA diclofenac ? given post procedure. ? There [...] Aimee Johnson M.D. GI PROCEDURE ORDERA NATASHA Performing Organization Address City/State/ZIP Co md Phone Number [facility] [employer] NA * CT Pancreas Angiogram Triple Phase and Pelvis with IV Contrast (08/12/2023 1:18 PM SVP BUSINESS DEVELOPMENT) Anatomical Region Laterality Modality Abdomen, Pelvis, Abdominal R ST LOS, Abdominal ARZ LOS, Vascular Interventional ARZ LOS, Vascular Interventional FLA LOS, Abdominal FLA LOS N/A Computed Tomography, Compute d Tomography 08/12/2023 1:13 PM [employer]P BUSINESS DEVELOPMENT Impressions 08/12/2023 3:06 PM SVP BUSINESS DEVELOPMENT Pancreas: Focal masslike hypoenhancement in the pancreatic head and uncinate. This extends to contact the superior mesenteric artery and the superior mesenteric vein, with stricturing of SMV branches. The main pancreatic duct is obstructed and dilated upstream. This is indeterminate, and could be tumor versus a pseudomass from focal pancreatitis. Vascular contact: Present Metastasis: absent Narrative 08/12/2023 3:06 PM SVP BUSINESS DEVELOPMENT EXAM: ??CT PANCREAS ANGIOGRAM TRIPLE PHASE AND PELVIS WITH IV CONTRAST Including 3D image post-processing. COMPARISON: ??Outside CTs 07/21/2023 and 11/01/2021. [facility] MRIs 03/02/2023 and 02/11/2022. FINDINGS: Pancreatic [...] post-processing. COMPARISON: Outside CTs 07/21/2023 and 11/01/2021. [facility] MRI03/02/2023 and 02/11/2022. FINDINGS: Pancreatic Mass [...] Antigen 19-9 (CA 19-9) (08/12/2023 10:37 AM SVP BUSINESS DEVELOPMENT) Pathologist [facility] Carbohydrate Ag 19-9, S 3 <35 U/mL 08/12/2023 7:00 PM SVP BUSINESS DEVELOPMENT [facility] Comment: ----ADDITIONAL INFORMATION---- The testing method is an immunoenzymatic assay manufactured by [employer] ([employer]). and performed on the Graffle DxI 800. ? Values obtained with different assay methods or kits may be different and cannot be used interchangeably. ? Test results cannot be interpreted as absolute evidence for the presence or absence of malignant disease. Blood (Blood, Venous) 08/12/2023 10:37 AM SVP BUSINESS DEVELOPMENT 08/12/2023 6:11 PM SVP BUSINESS DEVELOPMENT Aimee Johnson M.D. LAB BLOOD ADD-ON [facility] [address] [place] [address] [facility] [address] [place] [address] * IgG4, Immunoglobulin Subclasses (08/12/2023 10:37 AM SVP BUSINESS DEVELOPMENT) Pathologist [facility] IgG4, Ig Subclasses 41.4 2.4 - 121.0 mg/dL 08/12/2023 3:42 PM SVP BUSINESS DEVELOPMENT [facility] Blood (Blood, Venous) 08/12/2023 10:37 AM SVP BUSINESS DEVELOPMENT 08/12/2023 2:02 PM SVP BUSINESS DEVELOPMENT Aimee Johnson M.D. LAB BLOOD ADD-ON [facility] [address] [place] [address] [facility] [address] [place] [address] * Creatinine with Estimated GFR (08/12/2023 10:37 AM SVP BUSINESS DEVELOPMENT) Creatinine 0.98 0.74 - 1.35 mg/dL 08/12/2023 11:36 AM SVP BUSINESS DEVELOPMENT DTL Estimated GFR (eGFR) >90 >=60 mL/min/BSA 08/12/2023 11:36 AM SVP BUSINESS DEVELOPMENT DTL Comment: Estimated GFR calculated using the 2020 CKD_EPI creatinine equation. Blood (Blood, Venous) 08/12/2023 10:37 AM SVP BUSINESS DEVELOPMENT 08/12/2023 11:13 AM SVP BUSINESS DEVELOPMENT Aimee Johnson M.D. LAB BLOOD ADD-ON Performing Organization Address City/State/[facility] Co de Phone Number [facility] [address] [place] [address], [facility] [address] [place] [address] * Interpretation of Outside CT Abdomen and or Pelvis (08/06/2023 9:34 AM SVP BUSINESS DEVELOPMENT) Anatomical Region Laterality Modality Abdomen, Pelvis, Abdominal R ST LOS, Abdominal ARZ LOS, Abdominal FLA LOS, Other N/A Computed Tomography 08/09/2023 6:11 AM SVP BUSINESS DEVELOPMENT Impressions 08/09/2023 6:54 AM SVP BUSINESS DEVELOPMENT Near the level of the chronic main [...] potential pancreatic adenocarcinoma. Narrative 08/09/2023 6:54 AM SVP BUSINESS DEVELOPMENT EXAM: ??INTERPRETATION OF OUTSIDE CT ABDOMEN AND [...] interpretationof outside CT abdomen/pelvis with intravenous contrast ormdlapxe51/25/2023. COMPARISON: MRI/MRCP 03/02/2023, 02/11/2022, outside CT abdomen/pniisb2811/01/2021, 03/09/2021, 11/06/2019. FINDINGS: History of ERCP performed [...] PROCEDURES from Last 3 Months Care Teams Sleeve Bottom Feller Relationship Specialty Start Date End Date Elsewhere, Pcp PCP - General Internal Medicine 03/05/23
[2023-11-01] MEDS: 0.9 % SODIUM CHLORIDE 1000 ml 1,000 ML IV (21:30)
--- OUTSIDE RECORDS SUMMARY | 2023-11-01 21:30 | XMS_ITS | Encounter Summary ---
Author Name Unknown Organization [facility] Address [address] [place] [address] Care Team Providers Care [employer] Hand Finisher Name Role Phone Elsewhere, Pcp Primary Care Provider Unavailabl e Reason for Visit * Reason Onset Date Comments Pre-visit Intake 10/04/2023 Encounter Details Date Type Department Care Team (Latest Contact Info) Description 10/04/2023 7:30 AM SENIOR FRONT END ENGINEER Clinical Communication Virtual Review in [address] [phone] Pre-visit Intake Social History Tobacco Use Types Packs/Day Years [...] st Contact Info) Description 11/04/2023 2:40 PM SENIOR FRONT END ENGINEER Telemedicine Division of Gastroenterology in [place], [place] [address] [place] [address] Aimee Johnson M.D. [address] [place] [address] documented as of this encounter Visit Diagnoses Not on filedocumented in this encounter Care Teams [employer] Hand Finisher Relationship Specialty Start Date End Date Elsewhere, Pcp PCP - General Internal Medicine 03/05/23 documented as of this encounter
--- OUTSIDE RECORDS SUMMARY | 2023-11-01 21:30 | XMS_ITS | Encounter Summary ---
Author Name Unknown Organization [facility] Address [address] [place] [address] Care Team Providers Care Telecommunication Tower Technician Name Role Phone Elsewhere, Pcp Primary Care Provider Unavailabl e Reason for Referral * MRI/CAT/PET Scan (Routine) - Closed Specialty Diagnoses / Procedures Referred By Loinel bartlett Referred To Contact Radiology Diagnoses Mass Pancreas Procedures MR Abdomen MRCP without and with IV Contrast Aimee Johnson M.D. [address] [place] [address] [facility] Referral ID Status Reason Start Date Expiration Date Visits Re quested Visits Authorized [id number] Closed 08/25/2023 08/24/2024 1 1 GER BRANCH Reason for Visit * MRI/CAT/PET Scan (Routine) - Closed Specialty Diagnoses / Procedures Referred By Lionel bartlett Referred To Contact Radiology Diagnoses Mass Pancreas Procedures MR Abdomen MRCP without and with IV Contrast Aimee Johnson M.D. [address] [place] [address] [facility] Referral ID Status Reason Start Date Expiration Date Visits Re quested Visits Authorized [id number] Closed 08/25/2023 08/24/2024 1 1 Encounter Details Date Type Department Care Team (Latest Contact Info) Description 09/22/2023 7:02 PM MANAGER BRANCH - 09/22/2023 11:59 PM MANAGER BRANCH Hospital Encounter Department of Radiology, [facility], in [place], [place] [address] [place] [address] Aimee Johnson M.D. [address] [place] [address] Mass Pancreas Discharge Disposition: Home or Self Care Social History Tobacco Use Types Packs/Day Years Used Date Smoking Tobacco: Never Smokeless Tobacco: Never Alcohol Use Standard Drinks/Week Comments Yes 0 (1 standard drink = 0.6 oz pur [...] Sign Reading Time Taken Comments Blood Pressure - - Pulse - - Temperature - - Respiratory Rate - - Oxygen Saturation - - Inhaled Oxygen Concentration - - Weight - - Height 180.3 cm (5' 11) 09/22/2023 7:27 PM MANAGER BRANCH Body Mass Index - - documented in this encounter Medications at Time of Discharge Medication Sig Dispensed Refills Start Date End Date omeprazole (PriLOSEC) [address] capsule Take 20 mg by mouth 2 (two) times a day. 0 03/19/2022 oxyCODONE (ROXICODONE) 5 mg immediate release tablet Take 1 tablet by mouth every 4 (four) hours as needed. 0 12/26/2014 sennosides-docusate sodium (SENOKOT-S) 8.6-50 mg per tablet Take 2 tablets by mouth 2 (two) times a day. As needed 0 12/26/2014 sucralfate (CARAFATE) 1 gram tablet TAKE 1 TABLET BY MOUTH BEFORE MEALS AND AT BEDTIME 0 01/14/2022 11/01/2023 documented as of this encounter Plan of Treatment Upcoming Encounters Date Type Department Care Team (Late st Contact Info) Description 11/04/2023 2:40 PM MANAGER BRANCH Telemedicine Division of Gastroenterology in [place], [place] [address] [place] [phone] Aimee Johnson M.D. [address] [place] [phone] documented as of this encounter Procedures Procedure Name Priority Date/Time Associated Diagnosis Comments MR ABDOMEN MRCP WITHOUT AND WITH IV CONTRAST RAD - Routine (most inpatients and all outpatients) 09/22/2023 8:53 PM MANAGER BRANCH Mass Pancreas documented in this encounter Results * MR Abdomen MRCP without and with IV Contrast (09/22/2023 8:53 PM MANAGER BRANCH) Anatomical Region Laterality Modality Abdomen, Abdominal RST LOS, Abdominal ARZ LOS, Abdominal FLA LOS N/A Magnetic Resonance Impressions 09/23/2023 11:03 AM MANAGER BRANCH 1. Mild peripancreatic fat stranding, consistent with [...] the prior CT. Narrative 09/23/2023 11:03 AM MANAGER BRANCH EXAM: ??MR ABDOMEN MRCP WITHOUT AND WITH [...] maximum intensity projections/volume renderings were created on anindepSun Number workstation with or without AI assistance as ordered by thetreating provider and reviewed by the radiologist for biliary andpancreatic duct visualization. COMPARISON: [facility] CTA dated 08/12/2023, outside CT dated 08/17/2023, [facility]. FINDINGS: Again demonstrated is [...] better delineated on the prior CT. Aimee GUERRERO MRI PROCEDURES documented in this encounter Visit Diagnoses Diagnosis Mass Pancreas documented in this encounter Administered Medications Inactive Administered Medications - up to 3 most recent administrations Medication Order MAR Action Action Date Dose Rate Site gadobutrol injection 0.01-30 mL (GADAVIST) 0.01-30 mL, intravenous, Once in imaging, contrast, Starting on Wed09/22/23 at 1925, For 1 dose, Imaging Protocol Orders, Dose per Radiant Medication Guidelines Intrathecal doses greater than 0.25 mL not recommended. Given 09/22/2023 8:48 PM MANAGER BRANCH 11 mL sodium chloride (PF) 0.9 % injection 1-100 mL 1-100 mL, intravenous, Once, On Wed09/22/23 at 1945, For 1 dose, Imaging Protocol Orders Given 09/22/2023 8:48 PM MANAGER BRANCH 50 mL documented in this encounter Care Teams Telecommunication Tower Technician Relationship Specialty Start Date End Date Elsewhere, Pcp PCP - General Internal Medicine 03/05/23 documented as of this encounter
--- OUTSIDE RECORDS SUMMARY | 2023-11-01 21:30 | XMS_ITS | Encounter Summary ---
Author Name Unknown Organization [facility] Address [address] [place] [address] Care Team Providers Care Hand Brim Ironer Name Role Phone Elsewhere, Pcp Primary Care Provider Unavailabl e Encounter Details Date Type Department Care Team (Latest Contact Info) Description 10/08/2023 Clinical Communication Division of Gastroenterology in [place], [place] [address] [place] [address] Aimee Johnson M.D. [address] [place] [address] Social History Tobacco Use Types Packs/Day Years [...] st Contact Info) Description 11/04/2023 2:40 PM CATTLE SORTER Telemedicine Division of Gastroenterology in [place], [place] [address] [place] [phone] Aimee Johnson M.D. 200 [place] [phone] documented as of this encounter Visit Diagnoses Not on filedocumented in this encounter Care Teams Hand Brim Ironer Relationship Specialty Start Date End Date Elsewhere, Pcp PCP - General Internal Medicine 03/05/23 documented as of this encounter
--- OUTSIDE RECORDS SUMMARY | 2023-11-01 21:30 | XMS_ITS | Encounter Summary ---
Author Name Unknown Organization [facility] Address [address] [place] [address] Care Team Providers Care Flexo Press Operator Name Role Phone Elsewhere, Pcp Primary Care Provider Unavailabl e Reason for Referral * MRI/CAT/PET Scan (Routine) - Closed Specialty Diagnoses / Procedures Referred By Contmau t Referred To Contact Radiology Diagnoses Mass Pancreas Procedures MR Abdomen MRCP without and with IV Contrast Aimee Johnson M.D. [address] [place] [phone] [facility] Referral ID Status Reason Start Date Expiration Date Visits Re quested Visits Authorized [id number] Closed 08/25/2023 08/24/2024 1 1 SUPERVISOR Encounter Details Date Type Department Care Team (Late st Contact Info) Description 08/25/2023 Documentation Division of Gastroenterology in [place], [place] [address] [place] [phone] Aimee Johnson M.D. [address] [place] [phone] Social History Tobacco Use Types Packs/Day Years [...] on file documented as of this encounter Progress Notes * Aimee Johnson M.D. - 08/25/2023 11:06 AM CST GASTROENTEROLOGY MISCELLANEOUS NOTE I called Mr. Lockwood this morning to review pathology results that returned from his recent EUS procedure last week. Unfortunately later in the day following his EUS exam on 08/17/23, he developed worsening abdominal pain and was admitted locally for post-procedural pancreatitis. We do not have formal records available for review, but per verbal report he was treated with IV fluids and pain medication s. He also notes that there was some concern for a bloodstream infection which required IV antibiotics initially. He is currently on oral antibiotics for the next 2 weeks or so. He was hospitalized for a total of 4 days, discharged on 08/20/23. With each day, he is continuing to feel improved and has been able to consume solid foods over the past 24-48 hours. No fever/chills, nausea or vomiting, or abdominal pain. We reviewed EUS and pathology results together. EUS showed a 30 mm x 27 mm mass at the uncinate process abutting the SMV/SMA suspicious for PDAC. FNB showed only rare, atypical glands without findings of neoplasia. I am still concerned about the possibility of neoplasia and after review if multiplecolleagues, we will proceed with cross-sectional imaging in the form of MR/MRCP in approximately 1 month with a tentative plan to pursue repeat EUS in 2-3 months pending findings. In the meantime, I have asked Mr. Lockwood to notify us with any change in or recurrence of symptoms that would warrant a more expedited evaluation. Mr. Lockwood expressed understanding and agreement with the above plan. All of his questions were answered to the best of my ability. Aimee Johnson M.D. Gastroenterology Fellow SUPERVISOR documented in this encounter Plan of Treatment Upcoming Encounters Date Type Department Care Team (Late st Contact Info) Description 11/04/2023 2:40 PM RIG SUPERVISOR Telemedicine Division of Gastroenterology in [place], [place] [address] [place] [address] [place] [address] documented as of this encounter Results * MR Abdomen MRCP without and with IV Contrast (09/22/2023 8:53 PM RIG SUPERVISOR) Anatomical Region Laterality Modality Abdomen, Abdominal RST LOS, Abdominal ARZ LOS, Abdominal FLA LOS N/A Magnetic Resonance Impressions 09/23/2023 11:03 AM RIG SUPERVISOR 1. Mild peripancreatic fat stranding, consistent with [...] the prior CT. Narrative 09/23/2023 11:03 AM RIG SUPERVISOR EXAM: ??MR ABDOMEN MRCP WITHOUT AND WITH [...] maximum intensity projections/volume renderings were created on anindepAryaka Networks workstation with or without AI assistance as ordered by thetreating provider and reviewed by the radiologist for biliary andpancreatic duct visualization. COMPARISON: [facility] CTA dated 08/12/2023, outside CT dated 08/17/2023, and[facility] MRI dated 03/02/2023. FINDINGS: Again demonstrated is [...] in this encounter Visit Diagnoses Diagnosis Mass Pancreas- Primary Mass Pancreas documented in this encounter Care Teams Flexo Press Operator Relationship Specialty Start Date End Date Elsewhere, Pcp PCP - General Internal Medicine 03/05/23 documented as of this encounter
--- OUTSIDE RECORDS SUMMARY | 2023-11-01 21:30 | XMS_ITS | Encounter Summary ---
Author Name Unknown Organization [facility] Address [address] [place] [address] Care Team Providers Care Supervisor Commissary Production Name Role Phone Elsewhere, Pcp Primary Care Provider Unavailabl e Reason for Referral * Outpatient (Routine) - Closed Specialty Diagnoses / Procedures Referred By Lionel bartlett Referred To Contact Diagnoses Mass Pancreas Procedures Endoscopic ultrasound (EUS) Aimee Johnson M.D. [address] [place] [address] [facility] Referral ID Status Reason Start Date Expiration Date Visits Re quested Visits Authorized [id number] Closed 08/13/2023 08/12/2024 1 1 WARE DEVELOPMENT INTERN Reason for Visit * Outpatient (Routine) - Closed Specialty Diagnoses / Procedures Referred By Lionel bartlett Referred To Contact Diagnoses Mass Pancreas Procedures Endoscopic ultrasound (EUS) Aimee Johnson M.D. [address] [place] [phone] [facility] Referral ID Status Reason Start Date Expiration Date Visits Re quested Visits Authorized [id number] Closed 08/13/2023 08/12/2024 1 1 Encounter Details Date Type Department Care Team (Latest Contact Info) Description 08/17/2023 8:03 AM SOFTWARE DEVELOPMENT INTERN - 08/17/2023 11:59 PM SOFTWARE DEVELOPMENT INTERN Hospital Encounter Division of Gastroenterology in [place], [place] [address] [place] [phone] Aimee Johnson M.D. [address] [place] [phone] Cristopher Angelo D.O. [address] [place] [phone] Mass Pancreas Discharge Disposition: Home or Self [...] the money to buy more. Never true 06/08/20 23 Within the past 12 months, t [...] Sign Reading Time Taken Comments Blood Pressure 137/104 08/17/2023 11:44 AM SOFTWARE DEVELOPMENT INTERN Pulse 59 08/17/2023 11:49 AM SOFTWARE DEVELOPMENT INTERN Temperature 36.8 ??C (98.2 ??F) 08/17/2023 11:[address] Respiratory Rate 20 08/17/2023 11:49 AM SOFTWARE DEVELOPMENT INTERN Oxygen Saturation 96% 08/17/2023 11:49 AM SOFTWARE DEVELOPMENT INTERN Inhaled Oxygen Concentration - - Weight 111 kg (244 lb 14.9 oz) 08/17/2023 8:24 A M SOFTWARE DEVELOPMENT INTERN Height - - Body Mass Index 34.02 03/09/2023 3:23 PM CDT documented in this encounter Discharge Instructions * Discharge Instructions* Angelica Lazaro RDirk. - 08/17/2023 10:41 AM SOFTWARE DEVELOPMENT INTERN Call [phone] for any questions or concerns following your procedure. WARE DEVELOPMENT INTERN * Attachments The following attachments cannot be sent through Care Everywhere. * About Your Endoscopic Ultrasound (Algerian) * Types of Diets (Algerian) documented in this encounter Medications at Time [...] st Contact Info) Description 11/04/2023 2:40 PM SOFTWARE DEVELOPMENT INTERN Telemedicine Division of Gastroenterology in [place], [place] [address] [place] [address] Aimee Johnson M.D. [address] [place] [address] Scheduled Orders Name Type Priority Associated Diagnoses Orde r Schedule Glucose, POCT Point of Care Testing-Docked Device Routine Mass Pancreas Routine lab collection (next collection) for 1 Occurrences starting 08/17/2023 until 08/17/2023 documented as of this encounter Procedures Procedure Name Priority Date/Time Associated Diagnosis Comments SURGICAL PATHOLOGY Routine 08/17/2023 9: 54 AM SOFTWARE DEVELOPMENT INTERN UPPER EUS Routine 08/17/2023 9:03 AM SOFTWARE DEVELOPMENT INTERN Mass Pancreas ENDOSCOPIC ULTRASOUND (EUS) Routine 08/17/2023 9:03 AM SOFTWARE DEVELOPMENT INTERN Mass Pancreas documented in this encounter Results * Surgical Pathology (08/17/2023 9:54 AM SOFTWARE DEVELOPMENT INTERN) 08/23/2023 1:48 PM SOFTWARE DEVELOPMENT INTERN DTL Report electronically signed by Kash Crockett M.D. I verify that I have examined all relevant slides/materi als for the specimen(s) and rendered or confirmed the diagnosis. 08/23/2023 1:48 PM SOFTWARE DEVELOPMENT INTERN DTL Gross Description Received in formalin labeled with the patient's name, medical record number, and pancreas, core-biopsy, uncinate are multiple minutepale [id number] soft tissue cores and fragments, 2.0 x 0.6 x 0.2 cm in aggregate. Due to the scant nature of the tissue fragments, someor all may not survive processing. ??Specimens are submitted en toto in cassette A1. ??Grossed by SONDRA. 08/23/2023 1:48 PM SOFTWARE DEVELOPMENT INTERN DTL Interpretation FINAL DIAGNOSIS A. Pancreas, uncinate, [...] made via digital imaging. 08/23/2023 1:48 PM SOFTWARE DEVELOPMENT INTERN DTL Biopsy (Pancreas) 08/17/2023 9:54 AM SOFTWARE DEVELOPMENT INTERN Ronaldo Salmon M.D., M.S. LAB SURG PATH ORDERABLES [facility] [address] [place] [address], [facility] [[email or web address]] DT [address] [facility] [address] [place] [address] * Upper EUS (08/17/2023 9:03 AM SOFTWARE DEVELOPMENT INTERN) 08/17/2023 9:03 AM SOFTWARE DEVELOPMENT INTERN Impressions [facility] - 08/17/2023 10:51 AM SOFTWARE DEVELOPMENT INTERN Post-op Diagnoses: ? - One 30mm x [...] endosonographically normal. ? - No ascites. Narrative [facility] - 08/17/2023 10:51 AM SOFTWARE DEVELOPMENT INTERN [facility] Patient Name: Arturo Lockwood Date [...] obtained. Final results are pending. 100 mg RI diclofenac ? given post procedure. ? There [...] Aimee Johnson M.D. GI PROCEDURE ORDERA NATASHA [facility] NA documented in this encounter Visit Diagnoses Diagnosis Mass Pancreas documented in this encounter Administered Medications Inactive Administered Medications - up to 3 most recent administrations Medication Order MAR Action Action Date Dose Rate Site diclofenac suppository As needed, Starting on Wed08/17/23 at 1024, Intra-Op Given 08/17/2023 10:24 AM SOFTWARE DEVELOPMENT INTERN 100 mg Rectum documented in this encounter Care Teams Supervisor Commissary Production Relationship Specialty Start Date End Date Elsewhere, Pcp PCP - General Internal Medicine 03/05/23 documented as of this encounter
--- OUTSIDE RECORDS SUMMARY | 2023-11-01 21:30 | XMS_ITS | Encounter Summary ---
Author Name Unknown Organization [facility] Address [address] [place] [address] Care Team Providers Care Veterinary Medicine Doctor Name Role Phone Elsewhere, Pcp Primary Care Provider Unavailabl e Reason for Visit * Reason Onset Date Comments Symptom Assessment 08/17/2023 Encounter Details Date Type Department Care Team (Latest Contact Info) Description 08/17/2023 Clinical Communication Division of Gastroenterology in [place], [place] [address] [place] [address] Aimee Johnson M.D. [address] [place] [address] Symptom Assessment Social History Tobacco Use Types Packs/Day Years [...] st Contact Info) Description 11/04/2023 2:40 PM ASSISTANT PROPERTY MANAGER Telemedicine Division of Gastroenterology in [place], [place] [address] [place] [phone] Aimee Johnson M.D. 200 [place] [address] documented as of this encounter Visit Diagnoses Not on filedocumented in this encounter Care Teams Veterinary Medicine Doctor Relationship Specialty Start Date End Date Elsewhere, Pcp PCP - General Internal Medicine 03/05/23 documented as of this encounter
--- OUTSIDE RECORDS SUMMARY | 2023-11-01 21:30 | XMS_ITS | Encounter Summary ---
Author Name Unknown Organization [facility] Address [address] [place] [address] Care Team Providers Care Glazier Metal Furniture Name Role Phone Elsewhere, Pcp Primary Care Provider Unavailabl e Reason for Referral * MRI/CAT/PET Scan (Routine) - Closed Specialty Diagnoses / Procedures Referred By Lionel bartlett Referred To Contact Radiology Diagnoses Pancreatitis Chronic (HCC) Procedures CT Pancreas Angiogram Triple Phase and Pelvis with IV Contrast Aimee Johnson M.D. [address] [place] [address] [facility] Referral ID Status Reason Start Date Expiration Date Visits Re quested Visits Authorized [id number] Closed 08/09/2023 08/08/2024 1 1 TRIMMER Reason for Visit * MRI/CAT/PET Scan (Routine) - Closed Specialty Diagnoses / Procedures Referred By Lionel bartlett Referred To Contact Radiology Diagnoses Pancreatitis Chronic (HCC) Procedures CT Pancreas Angiogram Triple Phase and Pelvis with IV Contrast Aimee Johnson M.D. [address] [place] [address] [facility] Referral ID Status Reason Start Date Expiration Date Visits Re quested Visits Authorized [id number] Closed 08/09/2023 08/08/2024 1 1 Encounter Details Date Type Department Care Team (Latest Contact Info) Description 08/12/2023 12:03 PM HAND TRIMMER - 08/12/2023 11:59 PM HAND TRIMMER Hospital Encounter Department of Radiology, [facility], in [place], [place] [address] [place] [address] Aimee Johnson M.D. [address] [place] [address] Pancreatitis Chronic (HCC) Discharge Disposition: Home or Self Care Social History Tobacco Use Types Packs/Day Years Used Date Smoking Tobacco: Never Smokeless Tobacco: Never Humiliation, Afraid, Rape, and Kick questionnair e [...] on file documented as of this encounter Medications at Time of Discharge [...] times a day. As needed 0 12/26/2014 celecoxib (CeleBREX) 200 mg capsule Take 200 mg by mouth 2 (two) times a day. 0 01/19/2023 08/17/2023 sucralfate (CARAFATE) 1 gram tablet TAKE 1 TABLET BY MOUTH BEFORE MEALS AND AT BEDTIME 0 01/14/2022 11/01/2023 documented as of this encounter Plan of Treatment Upcoming Encounters Date Type Department Care Team (Late st Contact Info) Description 11/04/2023 2:40 PM HAND TRIMMER Telemedicine Division of Gastroenterology in [place], [place] [address] [place] [phone] Aimee Johnson M.D. [address] [place] [phone] documented as of this encounter Procedures Procedure Name Priority Date/Time Associated Diagnosis Comments CT PANCREAS ANGIOGRAM TRIPLE PHASE AND PELVIS WITH IV CONTRAST RAD - Routine (most inpatients and all outpatients) 08/12/2023 1:18 PM HAND TRIMMER Pancreatitis Chronic (HCC) documented in this encounter Results * CT Pancreas Angiogram Triple Phase and Pelvis with IV Contrast (08/12/2023 1:18 PM HAND TRIMMER) Anatomical Region Laterality Modality Abdomen, Pelvis, Abdominal R ST LOS, Abdominal ARZ LOS, Vascular Interventional ARZ LOS, Vascular Interventional FLA LOS, Abdominal FLA LOS N/A Computed Tomography, Compute d Tomography 08/12/2023 1:13 PM HAND TRIMMER Impressions 08/12/2023 3:06 PM HAND TRIMMER Pancreas: Focal masslike hypoenhancement in the pancreatic head and uncinate. This extends to contact the superior mesenteric artery and the superior mesenteric vein, with stricturing of SMV branches. The main pancreatic duct is obstructed and dilated upstream. This is indeterminate, and could be tumor versus a pseudomass from focal pancreatitis. Vascular contact: Present Metastasis: absent Narrative 08/12/2023 3:06 PM HAND TRIMMER EXAM: ??CT PANCREAS ANGIOGRAM TRIPLE PHASE AND PELVIS WITH IV CONTRAST Including 3D image post-processing. COMPARISON: ??Outside CTs 07/21/2023 and 11/01/2021. [facility] MRIs 03/02/2023 and 02/11/2022. FINDINGS: Pancreatic Mass [...] post-processing. COMPARISON: Outside CTs 07/21/2023 and 11/01/2021. [facility] MRI03/02/2023 and 02/11/2022. FINDINGS: Pancreatic Mass Morphologic [...] pancreatitis. Vascular contact: Present Metastasis: absent Aimee GUERRERO CT PROCEDURES documented in this encounter Visit Diagnoses Diagnosis Pancreatitis Chronic (HCC) documented in this encounter Administered Medications Inactive Administered Medications - up to 3 most recent administrations Medication Order MAR Action Action Date Dose Rate Site iohexoL 350 mg iodine/mL solution 1-200 mL (OMNIPAQUE) 1-200 mL, intravenous, Once in imaging, contrast, Starting on Kassi 08/12/23 at 1226, For 1 dose, Imaging Protocol Orders, Dose per Radiant Medication Guidelines Given 08/12/2023 1:16 PM HAND TRIMMER 140 mL sodium chloride (PF) 0.9 % injection 1-100 mL 1-100 mL, intravenous, Once, On Kassi 08/12/23 at 1245, For 1 dose, Imaging Protocol Orders Given 08/12/2023 1:16 PM HAND TRIMMER 50 mL documented in this encounter Care Teams Glazier Metal Furniture Relationship Specialty Start Date End Date Elsewhere, Pcp PCP - General Internal Medicine 03/05/23 documented as of this encounter
--- OUTSIDE RECORDS SUMMARY | 2023-11-01 21:30 | XMS_ITS | Encounter Summary ---
Author Name Unknown Organization [facility] Address [address] [place] [address] Care Team Providers Care Kosher Dietary Service Manager Name Role Phone Elsewhere, Pcp Primary Care Provider Unavailabl e Encounter Details Date Type Department Care Team (Latest Contact Info) Description 08/17/2023 9:05 AM COSMETIC ACCOUNT COORDINATOR Ancillary Procedure Department of Gastroenterology Social History Tobacco Use Types Packs/Day Years [...] st Contact Info) Description 11/04/2023 2:40 PM COSMETIC ACCOUNT COORDINATOR Telemedicine Division of Gastroenterology in [place], [place] [address] [place] [address] Aimee Johnson M.D. [address] [place] [address] documented as of this encounter Procedures Procedure Name Priority Date/Time Associated Diagnosis Comments GASTROENTEROLOGY IMAGE EXAM Routine 08/17/2023 9:05 AM COSMETIC ACCOUNT COORDINATOR documented in this encounter Results * Upper EUS-Gastroenterology Image Exam (08/17/2023 9:05 AM COSMETIC ACCOUNT COORDINATOR) 08/17/2023 9:03 AM COSMETIC ACCOUNT COORDINATOR Narrative IIMS - 08/17/2023 11:00 AM COSMETIC ACCOUNT COORDINATOR This order has been created and auto-finalized to support the import of images acquired without order. The clinical documentation to support these images can be found on the encounter that produced images. Provider Not In System IMG NON RAD IMAGI NG PROCEDURES IIMS NA documented in this encounter Visit Diagnoses Not on filedocumented in this encounter Care Teams Kosher Dietary Service Manager Relationship Specialty Start Date End Date Elsewhere, Pcp PCP - General Internal Medicine 03/05/23 documented as of this encounter
--- OUTSIDE RECORDS SUMMARY | 2023-11-01 21:30 | XMS_ITS | Encounter Summary ---
Author Name Unknown Organization [facility] Address [address] [place] [id number] Care Team Providers Care Vpk Teacher Name Role Phone Elsewhere, Pcp Primary Care Provider Unavailabl e Encounter Details Date Type Department Care Team (Latest Contact Info) Description 08/17/2023 9:35 AM MANAGER MULTIMEDIA Anesthesia Event Division of Gastroenterology in [place], [place] [address] [place] [address] Gallito Bermudez APRN, TUNNEL HEADING SUPERVISOR [address] [place] [phone] Cj Rodriguez M.D. [address] [place] [address] Anesthesia Record Procedure Summary Procedure Name Responsible Anesthesiologist Anesthesia Start Time Anesthesia Stop Time ENDOSCOPIC ULTRASOUND (EUS) Gallito Bermudez APRN, TUNNEL HEADING SUPERVISOR 08/17/23 0935 08/17/23 1035 Events Date Time Event Comment 08/17/2023 0826 0935 An Start Machine/Equipme nt Checked Infection Precautions Followed Procedure/Site Verified NPO Status Verified Supine Standard ASA Monitors Applied 0944 Turnover to Proceduralist 0947 Proc Start 1030 Proc Fin 1031 Turnover to ANE Staff 1033 an stop data 1035 An End I completed my handoff to the receiving staff during which we 1. Identified the patient 2. Identified the responsible provider 3. Reviewed the pertinent medical history 4. Discussed the surgical course 5. Reviewed intra-op anesthesia management and issues during anesthesia 6. Set expectations for post-procedure period 7. Allowed opportunity for questions and acknowledgement of understanding. Meds Name Total fentanyl injection 50 mcg/mL 100 mcg lidocaine 2% (mg) injection 40 mg propofol 10 mg/mL injection 80 mg propofol 10 mg/mL infusion 983.24 mg Lactated Ringers Free Drip 325 mL * Agents No agents on file. * Blood No blood administrations on file. Lines, Drains, and Airways Type Details Placement Removal Peripheral IV Placement Date: 07/29 10/19; Placement Time: 0837; Catheter Size: 22 G; Orientation: Anterior, Lower, Proximal, Right; Location: Forearm; Site Prep: Chlorhexidine (Preferred); Inserted by: RN; Insertion Attempts: 2; Removal Date: 08/17/23; Removal Time: 1154 08/17/23 0837 by Angelica Lazaro, R.N. 08/17/23 1154 by Angelica Lazaro, R.Blaire. documented in this encounter Social History Tobacco Use Types Packs/Day Years [...] on file documented as of this encounter OR Notes * Anesthesia Postprocedure Evaluation - Gallito Bermudez APRN, CRNA - 08/17/2023 10:39 AM CST Patient: Arturo Lockwood Procedure Summary Date: 08/17/23 Room / Location: Division of Gastroenterology in [place], [place] Anesthesia Start: 934 Anesthesia Stop: 1034 Procedure: ENDOSCOPIC ULTRASOUND (EUS) Diagnosis: Mass Pancreas Scheduled Providers: Cristopher Angelo D.O. Responsible Provider: Gallito Bermudez APRN, CRNA Anesthesia Type: MAC ASA Status: 2 Anesthesia Type: MAC Last vitals Vitals Value Taken Time BP 133/95 08/17/23 1038 Temp 36.6 ??C 08/17/23 1038 Pulse 78 08/17/23 1039 Resp 22 08/17/23 1039 SpO2 96 % 08/17/23 1039 Vitals shown include unfiled device data. Please reference Vitals flowsheet for most recent vital signs. Anesthesia Post Evaluation Patient Disposition: dismissal Cardiovascular status: hemodynamics (HR & BP) acceptable Respiratory status: patent airway with spontaneous effort Temperature: normothermic Oxygen requirements: room air Level of consciousness: awake Pain score: pain adequately controlled and/or at baseline Post Op nausea/vomiting: none Hydration status: euvolemic GER MULTIMEDIA * Anesthesia Preprocedure Evaluation - Cj Rodriguez M.D. - 08/17/2023 8:25 AM CST Preprocedure Anesthesia & H&P Assessment Procedure Summary Date/Time: 08/17/23 0900 Scheduled providers: Cristopher Angelo D.O. Procedure: ENDOSCOPIC ULTRASOUND (EUS) Diagnosis: Mass Pancreas [K86.89] Location: Division of Gastroenterology in [place], [place] Pertinent components of the patient's history including current problem list, medical history, surgical history, family history, social history, medications and allergies were reviewed. Present illness and pre-op diagnosis were confirmed. The planned surgery / procedure was verified with the patient / legal guardian. The patient's general health condition remains unchanged RELEVANT COMORBID CONDITIONS GI (+) Gastroesophageal Reflux Disease NOS OBJECTIVE PHYSICAL EXAMINATION Airway (HEENT) Mallampati: I TM Distance: >3 FB Neck ROM: Full Mouth Opening: >3 cm Cardiovascular Rhythm: Regular Rate: Normal Cardiovascular Assessment: cardiovascular normal Functional Capacity: >4 METS Pulmonary Pulmonary Assessment: Clear General / Constitutional Constitutional Assessment: Normal General State of Health:: healthy appearing and calm Neurological Neurologic Assessment: alert and alert and oriented x 3 Dental Dental Assessment: dentition intact ASSESSMENT / PLAN ANESTHESIA PLAN ASA: 2 Anesthesia Plan: MAC Patient seen and allergies reviewed, anesthesia plan and risks discussed directly with patient /legal guardian or through an spanish medical interpreter. The use of blood products not discussed Approval to Proceed: approved for anesthesia GER MULTIMEDIA documented in this encounter Plan of Treatment Upcoming Encounters Date Type Department Care Team (Late st Contact Info) Description 11/04/2023 2:40 PM MANAGER MULTIMEDIA Telemedicine Division of Gastroenterology in [place], [place] [address] [place] [address] Aimee Johnson M.D. [address] [place] [address] documented as of this encounter Visit Diagnoses Not on filedocumented in this encounter Administered Medications Inactive Administered Medications - up to 3 most recent administrations Medication Order MAR Action Action Date Dose Rate Site fentaNYL injection (SUBLIMAZE) intravenous, As needed, Starting on Wed08/17/23 at 0940, Anesthesia Intra-op Given 08/17/2023 9:43 AM MANAGER MULTIMEDIA 50 mcg Given 08/17/2023 9:40 AM MANAGER MULTIMEDIA 50 mcg Lactated Ringer's intravenous, Continuous Infusion: Per Instructions PRN, Starting on Wed08/17/23 at 0939, Anesthesia Intra-op New Bag 08/17/2023 9:39 AM MANAGER MULTIMEDIA lidocaine (PF) (cardiac) injection intravenous, As needed, Starting on Wed08/17/23 at 0940, Anesthesia Intra-op Given 08/17/2023 9:40 AM MANAGER MULTIMEDIA 40 mg propofol 10 mg/mL infusion (DIPRIVAN) intravenous, Continuous Infusion: Per Instructions PRN, Starting on Wed08/17/23 at 0940, Anesthesia Intra-op Rate/Dose Change 08/17/2023 10:25 AM MANAGER MULTIMEDIA 50 mcg/kg/min 33.33 mL/hr Rate/Dose Change 08/17/2023 9:45 AM MANAGER MULTIMEDIA 200 mcg/kg/min 133 .32 mL/hr New Bag 08/17/2023 9:40 AM MANAGER MULTIMEDIA 150 mcg/kg/min 99.99 mL/ hr propofoL injection (DIPRIVAN) intravenous, As needed, Starting on Wed08/17/23 at 0941, Anesthesia Intra-op Given 08/17/2023 9:45 AM MANAGER MULTIMEDIA 30 mg Given 08/17/2023 9:41 AM MANAGER MULTIMEDIA 50 mg documented in this encounter Care Teams Vpk Teacher Relationship Specialty Start Date End Date Elsewhere, Pcp PCP - General Internal Medicine 03/05/23 documented as of this encounter
--- OUTSIDE RECORDS SUMMARY | 2023-11-01 21:30 | XMS_ITS | Encounter Summary ---
Author Name Unknown Organization [facility] Address [address] [place] [address] Care Team Providers Care Sql Database Administrator Name Role Phone Elsewhere, Pcp Primary Care Provider Unavailabl e Reason for Referral * Outpatient (Routine) - Closed Specialty Diagnoses / Procedures Referred By Lionel bartlett Referred To Contact Diagnoses Pancreatitis Chronic (HCC) Mass Pancreas Procedures ERCP Aimee Johnson M.D. [address] [place] [address] [facility] Referral ID Status Reason Start Date Expiration Date Visits Re quested Visits Authorized [id number] Closed 10/07/2023 10/06/2024 1 1 EQUIPMENT OPERATOR * Outpatient (Routine) - Closed Specialty Diagnoses / Procedures Referred By Lionel bartlett Referred To Contact Diagnoses Pancreatitis Chronic (HCC) Mass Pancreas Procedures Endoscopic ultrasound (EUS) Aimee Johnson M.D. [address] [place] [address] [facility] Referral ID Status Reason Start Date Expiration Date Visits Re quested Visits Authorized [id number] Closed 10/07/2023 10/06/2024 1 1 EQUIPMENT OPERATOR * Outpatient (Routine) - Authorized Specialty Diagnoses / Procedures Referred By Contact Referred To Contact Gastroenterology and Hepatology Diagnoses Pancreatitis Chronic (HCC) Mass Pancreas Aimee Johnson M.D. [address] [place] [phone] [facility] Referral ID Status Reason Start Date Expiration Date V isits Requested Visits Authorized [id number] Authorized 10/07/2023 10/06/2026 1 1 EQUIPMENT OPERATOR Reason for Visit * Outpatient (Routine) - Closed Specialty Diagnoses / Procedures Referred By Contact Referred To Contact Gastroenterology and Hepatology Diagnoses Pancreatitis Chronic (HCC) Aimee Johnson M.D. [address] [place] [address] [facility] Referral ID Status Reason Start Date Expiration Date Visits Re quested Visits Authorized [id number] Closed 03/10/2023 03/09/2026 1 1 Encounter Details Date Type Department Care Team (Latest Contact Info) Description 10/07/2023 4:20 PM FARM EQUIPMENT OPERATOR Telemedicine Division of Gastroenterology in [place], [place] [address] [place] [address] Aimee Johnson M.D. [address] [place] [phone] Pancreatitis Chronic (HCC) (Primary Dx); Mass Pancreas Social History Tobacco Use Types [...] Progress Notes * Aimee Johnson M.D. - 10/07/2023 4:20 PM CST Gastroenterology and Hepatology Virtual Visit SUBJECTIVE DATE OF VISIT: 10/07/2023 This patient was virtually interviewed via real time video in the patient's home by Aimee Johnson M.D. at [facility]. The history and findings below are based on review of available medical records and a virtual conversation with the patient. REASON FOR VISIT Follow-up recurrent acute on chronic pancreatitis. HISTORY OF PRESENT ILLNESS Mr. Arturo Lockwood is a 53-year-old gentleman with medical comorbidities including recurrent pancreatitis with evidence of atrophic pancreas, chronic pancreatitis, and hypoattenuating masslike lesion in the uncinate process (since July 2023), hepatic steatosis, gastroesophageal reflux, diver ticulosis, cervical stenosis with radiculopathy managed with opioid analgesics, aplastic anemia secondary to pancreatitis, obesity (BMI 34.1), and s/p cholecystectomy (2018) who presents for follow-up for evaluation of recurrent pancreatitis. In brief, I initially saw Mr. Lockwood (supervising loss prevention consultant Dr. Bartlett) on 02/10/22 for consultation in pancreas clinic for evaluation of recurrent pancreatitis. Please see my initial consult note from that date for additional details regarding clinical history. I last saw Mr. Lockwood for an office visit on 03/09/23. At that time, he was doing well clinically without significant symptoms since endoscopic removal of pancreatic duct stent in July 2022. In April 2023, Mr. Lockwood developed recurrent, typical symptoms consistent with prior episodes of pancreatitis which were initially quite mild. He was evaluated by his local primary care provider in June [address] imaging was performed (reviewed here at [facility]) which demonstrated an ill-defined focal area of hypoenhancement in peripancreatic stranding versus soft tissue thickening protruding outward from the anterior aspect of the pancreatic head/uncinate process into the peripancreatic fat near the level of the main pancreatic duct stricture/cutoff, measuring 1.2 x 1.9 cm. This wasindeterminate, perhaps phlebotomy services representative of focal pancreatitis versus malignancy. The chronic main pancreatic ductal dilatation upstream from this area remained stable in comparison to MRI imaging from February 2023 in improved compared to pre-ERCP CT imaging in October 2021. We then proceeded with our own CT pancreas angiogram triple phase study on 08/12/23 which confirmeda focal masslike hypoenhancement in the pancreatic head and uncinate process extending to contact the SMA/SMV with stricturing of the SMV branches, obstruction of the main pancreatic duct and dilation upstream. This was indeterminate, possible tumor versus pseudomass from focal pancreatitis. This was then followed by EUS on 08/17/23 which confirmed an irregular mass in the uncinate processof the pancreas that was hypoechoic and solid measuring 30 mm x 27 mm. There was sonographic evidence suggesting invasion into the SMV and SMA. The remainder of the pancreas demonstrated findings consistent with known chronic calcific pancreatitis. Fine-needle biopsy x3 was performed. Pathology results showed rare, atypical glands, favor acinar atrophy with tubular metaplasia (reactive rather than neoplastic). Unfortunately, within the same day following EUS, he developed worsening abdominal pain and was admitted locally for post-procedural pancreatitis. We do not have formal records available for review, but per verbal report he was treated with IV fluids and pain medications. He also notes that there was some concern for a bloodstream infection which required IV antibiotics initially followed by transition to oral antibiotics on discharge. He was hospitalized for a total of 4 days, discharged on 08/20/23. MR/MRCP on 09/22/23 demonstrated the following findings: 1. Mild peripancreatic fat stranding, consistent with the patient's known post ERCP pancreatitis, which appears slightly improved since the outside CT. 2. Increased main pancreatic ductal dilatation since the previous MRI dated 03/02/2023, with again seen tapered narrowing at the upper pancreatic head. Pancreatic duct in head and proximal body measuring 1.2 cm in maximal diameter. 3. The previously seen hypoattenuating masslike lesion in the uncinate process is again seen but better delineated on the prior CT. Unfortunately, he was hospitalized while on vacation in [place] from 09/28/23- 09/30/23 with abdominalpain reminiscent of prior episodes of pancreatitis. Lipase was 2426. No imaging obtained. He was treated with IV fluids and analgesia with improvement. Since this recent hospitalization, Mr. Lockwood has noted slow improvement. Today is the first day he was able to eat solid food consisting of eggs and a piece of toast. He does note that with this recentepisode that he did not have any ???warning?? that he was developing recurrent pancreatitis. In the past, he has had mild symptoms consisting of inability to tolerate oral intake and abdominal discomfort that he can typically manage at home with alterations in his diet to a more liquid-based diet with resolution of symptoms. He has had very mild weight loss, but not significant per verbal report. No other accompanying symptoms. REVIEW OF SYSTEMS All other systems reviewed and negative unless mentioned in the history of present illness, patientprovided information or problem list. HISTORY REVIEW: The following portions of the patient's history were reviewed and updated as appropriate: allergies, current medications, family history, medical history, social history, surgical history and problemlist. OBJECTIVE VITAL SIGNS Not performed. PHYSICAL EXAMINATION Not performed. ASSESSMENT / PLAN # Recurrent pancreatitis, likely secondary to prior alcohol use versus stricture versus prior pancreatic duct calcifications versus hypoattenuating masslike lesion involving uncinate process (most recent MR/MRCP 09/22/23) # Hepatic steatosis (mean fat fraction 16% on MR/MRCP 09/22/23) # Current alcohol use (1-2 times per week with 1-2 beverages per sitting on average) # Status post cholecystectomy in 2018 # Obesity (BMI 34.1) Mr. Arturo Lockwood is a 53-year-old gentleman with medical comorbidities including recurrent pancreatitis with evidence of atrophic pancreas, chronic pancreatitis, and hypoattenuating masslike lesion in the uncinate process (since July 2023), hepatic steatosis, gastroesophageal reflux, diver ticulosis, cervical stenosis with radiculopathy managed with opioid analgesics, aplastic anemia secondary to pancreatitis, obesity (BMI 34.1), and s/p cholecystectomy (2018) who presents for follow-up for evaluation of recurrent pancreatitis. Mr. Lockwood developed recurrent, typical symptoms of prior episodes of pancreatitis in April 2023 which were mild at that time. This is after being relatively asymptomatic for almost 1 year after removal of pancreatic duct stent in July 2022. He underwent cross-sectional imaging locally in June2023 which demonstrated an ill-defined focal area of hypoenhancement in the pancreatic head/uncinate process, indeterminate. Chronic main pancreatic ductal dilation upstream from this area was stablein comparison to imaging from February 2023 and improved in comparison to pre-ERCP imaging in October 2021. We then obtained a CT pancreas angiogram which confirmed a focal masslike hypoenhancement in the pancreatic head and uncinate process extending to contact the SMA/SMV with obstruction of the main pancreatic duct and dilation upstream. This finding is indeterminate, possibly suggestive of a tumor versus pseudo mass from focal pancreatitis. He then underwent endoscopic ultrasound in July 2023. Fine-needle biopsy was performed and pathology demonstrated findings of reactive changes rather than neoplastic changes. Unfortunately, within the same day following endoscopic ultrasound, developed post-procedural pancreatitis that was complicated by a bloodstream infection, requiring a course of antibiotics. Most recently, MR/MRCP imaging in August 2023 demonstrated improved changes from post-procedural pancreatitis, but otherwise relatively unchanged main pancreatic ductal dilation and hypoattenuatingmasslike lesion involving the uncinate process. We reviewed the sequence of events and information we have thus far to date together today. We havenot completely ruled out underlying malignancy involving the pancreas, although reassuring that there has not been significant change across the several imaging studies that he has had since June 2023. The possibility still exists of underlying pancreatic malignancy, although the hypoattenuatingmasslike lesion may also be phlebotomy services representative of sequelae related to pancreatitis. IgG4 and CA 19-9 testing (most recently completed in July 2023) have been negative. Regardless, this may be contributing to pancreatic duct obstruction resulting in recurrent acute on chronic pancreatitis that has been increasing in frequency over the past few months. I have reviewed these findings with one of our advanced endoscopists (Dr. Angelo). In further discussion, we will plan to proceed with repeat endoscopic ultrasound for the purposes of obtaining a tissuesample from the hypoattenuating masslike lesion involving the uncinate process of the pancreas along with ERCP to assess for feasibility of pancreatic duct stent placement as Mr. Lockwood did well with this in the past. We will plan to schedule these procedures first available, followed by a return visit thereafter to review findings and biopsy results. Mr. Lockwood expressed understanding and agreement with the above plan. All of his questions were answered to the best of my ability. RECOMMENDATIONS: - EUS/ERCP for the purposes of obtaining a tissue sample from the hypoattenuating masslike lesion involving the uncinate process of the pancreas along with ERCP to assess for feasibility of pancreatic duct stent placement to be scheduled first available with Dr. Angelo. - Return visit after EUS/ERCP completed to review findings and biopsy results. Advised patient to look at the documentation on the patient portal. BILLIN minutes spent in a combination of the following activities: visit with the patient; reviewing records; interpreting test results; discussing plans with the patient and/or family; discussing and coordinating care with other team members and communicating / reviewing care plan with local provider(s). Aimee Johnson M.D. 10/07/2023 This patient was reviewed and discussed with advanced endoscopist, Dr. Angelo. EQUIPMENT OPERATOR documented in this encounter Plan of Treatment Upcoming Encounters Date Type Department Care Team (Late st Contact Info) Description 11/04/2023 2:40 PM FARM EQUIPMENT OPERATOR Telemedicine Division of Gastroenterology in [place], [place] [address] [place] [address] Aimee Johnson M.D. [address] [place] [address] Scheduled Referrals Name Type Priority Associated Diagnoses Order Schedule Gastroenterology and Hepatology office visit (clinic) Outpatient Referral Routine Pancreatitis Chronic (HCC) Mass Pancreas 1 Occurrences starting 10/07/2023 until 01/05/2025 documented as of this encounter Visit Diagnoses Diagnosis Pancreatitis Chronic (HCC)- Primary Mass Pancreas documented in this encounter Care Teams Sql Database Administrator Relationship Specialty Start Date End Date Elsewhere, Pcp PCP - General Internal Medicine 03/05/23 documented as of this encounter
--- OUTSIDE RECORDS SUMMARY | 2023-11-01 21:30 | XMS_ITS | Encounter Summary ---
Author Name Unknown Organization [facility] Address [address] [place] [address] Care Team Providers Care Diaphragm Builder Name Role Phone Elsewhere, Pcp Primary Care Provider Unavailabl e Reason for Referral * MRI/CAT/PET Scan (Routine) - Closed Specialty Diagnoses / Procedures Referred By Contac t Referred To Contact Radiology Diagnoses Pancreatitis Chronic (HCC) Procedures CT Pancreas Angiogram Triple Phase and Pelvis with IV Contrast Aimee Johnson M.D. 200 [place] [address] [facility] Referral ID Status Reason Start Date Expiration Date Visits Re quested Visits Authorized [id number] Closed 08/09/2023 08/08/2024 1 1 GE DOOR OPENER INSTALLER Encounter Details Date Type Department Care Team (Latest Contact Info) Description 08/09/2023 Orders Only Division of Gastroenterology in [place], [place] [address] [place] [phone] Aimee Johnson M.D. [address] [place] [phone] Pancreatitis Chronic (HCC) (Primary Dx) Social History Tobacco Use Types Packs/Day Years [...] st Contact Info) Description 11/04/2023 2:40 PM GARAGE DOOR OPENER INSTALLER Telemedicine Division of Gastroenterology in [place], [place] [address] [place] [phone] Aimee Johnson M.D. [address] [place] [address] documented as of this encounter Results * CT Pancreas Angiogram Triple Phase and Pelvis with IV Contrast (08/12/2023 1:18 PM GARAGE DOOR OPENER INSTALLER) Anatomical Region Laterality Modality Abdomen, Pelvis, Abdominal R ST LOS, Abdominal ARZ LOS, Vascular Interventional ARZ LOS, Vascular Interventional FLA LOS, Abdominal FLA LOS N/A Computed Tomography, Compute d Tomography 08/12/2023 1:13 PM GARAGE DOOR OPENER INSTALLER Impressions 08/12/2023 3:06 PM GARAGE DOOR OPENER INSTALLER Pancreas: Focal masslike hypoenhancement in the pancreatic head and uncinate. This extends to contact the superior mesenteric artery and the superior mesenteric vein, with stricturing of SMV branches. The main pancreatic duct is obstructed and dilated upstream. This is indeterminate, and could be tumor versus a pseudomass from focal pancreatitis. Vascular contact: Present Metastasis: absent Narrative 08/12/2023 3:06 PM GARAGE DOOR OPENER INSTALLER EXAM: ??CT PANCREAS ANGIOGRAM TRIPLE PHASE AND PELVIS WITH IV CONTRAST Including 3D image post-processing. COMPARISON: ??Outside CTs 07/21/2023 and 11/01/2021. [facility] MRIs 03/02/2023 and 02/11/2022. FINDINGS: [...] post-processing. COMPARISON: Outside CTs 07/21/2023 and 11/01/2021. [facility] MRI03/02/2023 and 02/11/2022. FINDINGS: Pancreatic [...] Aimee Johnson M.D. IMG CT PROCEDURES * IgG4, Immunoglobulin Subclasses (08/12/2023 10:37 AM GARAGE DOOR OPENER INSTALLER) [facility] IgG4, Ig Subclasses 41.4 2.4 - 121.0 mg/dL 08/12/2023 3:42 PM GARAGE DOOR OPENER INSTALLER [facility] Blood (Blood, Venous) 08/12/2023 10:37 AM GARAGE DOOR OPENER INSTALLER 08/12/2023 2:02 PM GARAGE DOOR OPENER INSTALLER Aimee Johnson M.D. LAB BLOOD ADD-ON [facility] [address] [place] [address] [facility] [address] [place] [address] * Carbohydrate Antigen 19-9 (CA 19-9) (08/12/2023 10:37 AM GARAGE DOOR OPENER INSTALLER) Pathologist [facility] Carbohydrate Ag 19-9, S 3 <35 U/mL 08/12/2023 7:00 PM GARAGE DOOR OPENER INSTALLER [facility] Comment: ----ADDITIONAL INFORMATION---- The testing method is an immunoenzymatic assay manufactured by [employer]. and performed on the MindQuiltI 800. ? Values obtained with different assay methods or kits may be different and cannot be used interchangeably. ? Test results cannot be interpreted as absolute evidence for the presence or absence of malignant disease. Blood (Blood, Venous) 08/12/2023 10:37 AM GARAGE DOOR OPENER INSTALLER 08/12/2023 6:11 PM GARAGE DOOR OPENER INSTALLER Aimee Johnson M.D. LAB BLOOD ADD-ON [facility] [address] [place] [address] [facility] [address] [place] [address] * Creatinine with Estimated GFR (08/12/2023 10:37 AM GARAGE DOOR OPENER INSTALLER) Creatinine 0.98 0.74 - 1.35 mg/dL 08/12/2023 11:36 AM GARAGE DOOR OPENER INSTALLER DTL Estimated GFR (eGFR) >90 >=60 mL/min/BSA 08/12/2023 11:36 AM GARAGE DOOR OPENER INSTALLER DTL Comment: Estimated GFR calculated using the 2020 CKD_EPI creatinine equation. Blood (Blood, Venous) 08/12/2023 10:37 AM GARAGE DOOR OPENER INSTALLER 08/12/2023 11:13 AM GARAGE DOOR OPENER INSTALLER Aimee Johnson M.D. LAB BLOOD ADD-ON Performing Organization Address City/[facility]/ZIP Co de Phone Number [facility] [place] [address] [place] [address], [facility] DTL [facility] [address] [place] [address] documented in this encounter Visit Diagnoses Diagnosis Pancreatitis Chronic (HCC)- Primary Pancreatitis Chronic (HCC) documented in this encounter Care Teams Diaphragm Builder Relationship Specialty Start Date End Date Elsewhere, Pcp PCP - General Internal Medicine 03/05/23 documented as of this encounter
--- OUTSIDE RECORDS SUMMARY | 2023-11-01 21:30 | XMS_ITS | Encounter Summary ---
Author Name Unknown Organization [facility] Address [address] [place] [address] Care Team Providers Care Highway Patrol Pilot Name Role Phone Elsewhere, Pcp Primary Care Provider Unavailabl e Encounter Details Date Type Department Care Team (Latest Contact Info) Description 08/12/2023 10:26 AM TAXICAB COORDINATOR - 08/12/2023 12:02 PM [facility] Hospital Encounter Department of Laboratory Medicine and Pathology, [facility], in [place], [place] [address] [place] [phone] Aimee Johnson M.D. [address] [place] [address] Pancreatitis Chronic (HCC) Discharge Disposition: Home or [...] st Contact Info) Description 11/04/2023 2:40 PM TAXICAB COORDINATOR Telemedicine Division of Gastroenterology in [place], [place] [address] [place] [phone] Aimee Johnson M.D. [address] [place] [phone] documented as of this encounter Procedures Procedure Name Priority Date/Time Associated Diagnosis Comments CARBOHYDRATE AG 19-9 (CA 19-9), S Routine 08/12/2023 10:37 AM TAXICAB COORDINATOR Pancreatitis Chronic (HCC) IGG4, IG SUBCLASSES Routine 08/12/2023 1 0:37 AM TAXICAB COORDINATOR Pancreatitis Chronic (HCC) CREATININE WITH EGFR, S/P Routine 08/12/2023 10:37 AM TAXICAB COORDINATOR Pancreatitis Chronic (HCC) documented in this encounter Results * IgG4, Immunoglobulin Subclasses (08/12/2023 10:37 AM TAXICAB COORDINATOR) IgG4, Ig Subclasses 41.4 2.4 - 121.0 mg/dL 08/12/2023 3:42 PM TAXICAB COORDINATOR [facility] Blood (Blood, Venous) 08/12/2023 10:37 AM TAXICAB COORDINATOR 08/12/2023 2:02 PM TAXICAB COORDINATOR Aimee Johnson M.D. LAB BLOOD ADD-ON [facility] [address] [place] [address] [facility] [address] [place] [address] * Carbohydrate Antigen 19-9 (CA 19-9) (08/12/2023 10:37 AM TAXICAB COORDINATOR) Carbohydrate Ag 19-9, S 3 <35 U/mL 08/12/2023 7:00 PM TAXICAB COORDINATOR [facility] Comment: ----ADDITIONAL INFORMATION---- The testing method is an immunoenzymatic assay manufactured by [employer]. and performed on the Programeter DxI 800. ? Values obtained with different assay methods or kits may be different and cannot be used interchangeably. ? Test results cannot be interpreted as absolute evidence for the presence or absence of malignant disease. Blood (Blood, Venous) 08/12/2023 10:37 AM TAXICAB COORDINATOR 08/12/2023 6:11 PM TAXICAB COORDINATOR Aimee Johnson M.D. LAB BLOOD ADD-ON [facility] [address] [place] [address] [facility] [address] [place] [address] * Creatinine with Estimated GFR (08/12/2023 10:37 AM TAXICAB COORDINATOR) Creatinine 0.98 0.74 - 1.35 mg/dL 08/12/2023 11:36 AM TAXICAB COORDINATOR DTL Estimated GFR (eGFR) >90 >=60 mL/min/BSA 08/12/2023 11:36 AM TAXICAB COORDINATOR DTL Comment: Estimated GFR calculated using the 2020 CKD_EPI creatinine equation. Blood (Blood, Venous) 08/12/2023 10:37 AM TAXICAB COORDINATOR 08/12/2023 11:13 AM TAXICAB COORDINATOR Aimee Johnson M.D. LAB BLOOD ADD-ON [facility] [address] [place] [address], [place] DTL [facility] [address] [place] [address] documented in this encounter Visit Diagnoses Diagnosis Pancreatitis Chronic (HCC) documented in this encounter Care Teams Highway Patrol Pilot Relationship Specialty Start Date End Date Elsewhere, Pcp PCP - General Internal Medicine 03/05/23 documented as of this encounter
--- OUTSIDE RECORDS SUMMARY | 2023-11-01 21:30 | XMS_ITS | Encounter Summary ---
Author Name Unknown Organization [facility] Address [address] [place] [address] Care Team Providers Care Forestry Extension Specialist Name Role Phone Elsewhere, Pcp Primary Care Provider Unavailabl e Encounter Details Date Type Department Care Team (Late st Contact Info) Description 08/17/2023 Documentation Division of Gastroenterology in [place], [place] [address] [place] [phone] Aimee Johnson M.D. [address] [place] [phone] Social History Tobacco Use Types Packs/Day Years [...] Progress Notes * Aimee Johnson M.D. - 08/17/2023 4:22 PM CST GASTROENTEROLOGY MISCELLANEOUS NOTE This is a note to document my correspondence with Mr. Arturo [place]. He is a 53-year-old gentleman with medical comorbidities including recurrent pancreatitis with evidence of chronic pancreatitis and hepatic steatosis. Please see my prior notes from 02/10/22, 03/09/22, and 03/09/23 for additional details regarding clinical history and prior investigations. Mr. Lock[place] developed recurrent, typical symptoms of prior episodes of pancreatitis in April 2023 which were quite mild at that time. I advised that he be seen by his local primary care provider for an evaluation at that time. He underwent CT imaging at the end of June 2023 locally which I had reviewed here that demonstrated an ill defined focal area of hypoenhancement in peripancreatic strandingversus soft tissue thickening protruding outward from the anterior aspect of the pancreatic head/uncinate process into the peripancreatic fat near the level of the main pancreatic duct stricture/cutoff, measuring 1.2 x 1.9 cm. This was indeterminate, perhaps fraud representative of focal pancreatitis versus malignancy. The chronic main pancreatic ductal dilatation upstream from this area remained stable in comparison to MRI imaging from February 2023 in improved compared to pre-ERCP CT imaging in October 2021. We then proceeded with our own CT pancreas angiogram triple phase study which confirmed a focal masslike hypoenhancement in the pancreatic head and uncinate process extending to contact the SMA/SMV with stricturing of the SMV branches, obstruction of the main pancreatic duct and dilation upstream. This was indeterminate, possible tumor versus pseudomass from focal pancreatitis. I reviewed these findings with Dr. Angelo and we agreed to proceed with EUS which took place earlier today. This confirmed an irregular mass in the uncinate process of the pancreas that was hypoechoic and solid measuring 30 mm x 27 mm. There was sonographic evidence suggesting invasion into the SMV and SMA. The remainder of the pancreas demonstrated findings consistent with known chronic calcific pancreatitis. Fine-needle biopsy x3 was performed. Pathology results are pending. Since returning home today, Mr. Lockwood has developed progressively worsening epigastric abdominal discomfort which is the typical location in which he has experienced pain in the past in the setting of pancreatitis. He has tried having a bowel movement and taking sips of soda pop, in addition to use of two tablets of 5 mg oxycodone without relief. No significant nausea or vomiting. No fever or chills. I shared with him my concern for post-procedural pancreatitis given FNB was performed and recommended he present to his local emergency department for further evaluation. Once biopsy results are available, I will notify him of results and next steps. Mr. [place] was in agreement and expressed understanding of the above plan. All of his questions were answered to the best of my ability. Aimee Johnson M.D. Gastroenterology Fellow ACQUISITION TECHNICIAN documented in this encounter Plan of Treatment Upcoming Encounters Date Type Department Care Team (Late st Contact Info) Description 11/04/2023 2:40 PM DATA ACQUISITION TECHNICIAN Telemedicine Division of Gastroenterology in [place], [place] [address] [place] [phone] Aimee Johnson M.D. [address] [place] [phone] documented as of this encounter Visit Diagnoses Not on filedocumented in this encounter Care Teams Forestry Extension Specialist Relationship Specialty Start Date End Date Elsewhere, Pcp PCP - General Internal Medicine 03/05/23 documented as of this encounter
--- OUTSIDE RECORDS SUMMARY | 2023-11-01 21:30 | XMS_ITS | Encounter Summary ---
Author Name Unknown Organization [facility] Address [address] [place] [address] Care Team Providers Care Clinical Care Manager Name Role Phone Elsewhere, Pcp Primary Care Provider Unavailabl e Encounter Details Date Type Department Care Team (Latest Contact Info) Description 08/17/2023 Intake [facility] Social History Tobacco Use Types Packs/Day Years [...] st Contact Info) Description 11/04/2023 2:40 PM TORPEDO SHOOTER Telemedicine Division of Gastroenterology in [place], [place] 200 [place] [phone] Aimee Johnson M.D. [address] [place] [phone] documented as of this encounter Visit Diagnoses Not on filedocumented in this encounter Care Teams Clinical Care Manager Relationship Specialty Start Date End Date Elsewhere, Pcp PCP - General Internal Medicine 03/05/23 documented as of this encounter
--- OUTSIDE RECORDS SUMMARY | 2023-11-01 21:30 | XMS_ITS | Encounter Summary ---
Author Name Unknown Organization [facility] Address [address] [place] [address] Care Team Providers Care Tool Trouble Shooter Name Role Phone Elsewhere, Pcp Primary Care Provider Unavailabl e Encounter Details Date Type Department Care Team (Latest Contact Info) Description 11/01/2023 11:16 AM HOGSHEAD FILLER Anesthesia Event Division of Gastroenterology in [place], [place] [address] [place] [phone] Kaci Fang APRN, CRNA, MNA [address] [place] [phone] Keysha Morris M.D. [address] [place] [address] Anesthesia Record Procedure Summary Procedure Name Responsible Anesthesiologist Anesthesia Start Time Anesthesia Stop Time ENDOSCOPIC ULTRASOUND (EUS) Kaci Fang APRN, CRNA, MNA 11/01/23 1116 11/01/23 1227 Events Date Time Event Comment 11/01/2023 1050 1116 An Start Machine/Equipme nt Checked Infection Precautions Followed Procedure/Site Verified NPO Status Verified Supine Standard ASA Monitors Applied 1120 An Induction 1124 An Intubation 1126 Turnover to Proceduralist 1131 Proc Start 1205 Turnover to ANE Staff 1208 Proc Fin 1221 Airway Removal Criteria Met 1221 Extubation/Airway Removed 1223 an stop data 1227 An End I completed my handoff to [...] mcg/mL 100 mcg lidocaine 2% (mg) injection 60 mg succinylcholine 20 mg/mL injection 100 m g propofol 10 mg/mL infusion 704.99 mg propofol 10 mg/mL injection 225 mg Lactated Ringers Free Drip 800 mL * Agents No agents on file. * Blood No blood administrations on file. Lines, Drains, and Airways Type Details Placement Removal Peripheral IV Placement Date: 02/17; Placement Time: 1029; Catheter Size: 20 G; Orientation: Anterior, Lower, Proximal, Right; Location: Forearm; Removal Date: 11/01/23; Removal Time: 1403; Removal Reason: Per protocol 11/01/23 1029 by Eula Hendricks, R.N. 11/01/23 1403 by Eula Hendricks, RKinjalN. ETT Placement Date: 02/17; Placement Time: 1124 (created via procedure documentation); Mask Ventilation: Easy mask; Technique: Video laryngoscopy; Type: Standard ETT; Single Lumen Tube Size: 7.5 mm; Cuffed: Yes; Location: Oral; Grade View: Grade 1; Insertion Attempts: 1; Placement Verification: Bilateral breath sounds, Positive ETCO2, Symmetrical chest wall movement; Removal Date: 11/01/23; Removal Time: 1221 11/01/23 1124 by Kaci Fang APRN, CRNA, MNA 11/01/23 1221 by Kaci Fang APRN, CRNA, FRANTZ documented in this encounter Social History Tobacco [...] OR Notes * Anesthesia Postprocedure Evaluation - Kaci Fang, KNUCKLER, SKEIN BANDER, MNA - 11/01/2023 12:27 PM CST Patient: Arturo [place] Procedure Summary Date: 11/01/23 Room / Location: Division of Gastroenterology in [place], [place] Anesthesia Start: 1116 Anesthesia Stop: 1227 Procedures: ENDOSCOPIC ULTRASOUND (EUS) ERCP Diagnosis: Pancreatitis Chronic (HCC) Mass Pancreas Scheduled Providers: Cristopher Angelo D.O.; Kaci Fang APRN, CRNA, MNA Responsible Provider: Kaci Fang APRN, CRNA, MNA Anesthesia Type: general ASA Status: 3 Anesthesia Type: general Last vitals Vitals Value Taken Time BP 128/86 11/01/23 1226 Temp Pulse 65 11/01/23 1227 Resp 10 11/01/23 1227 SpO2 92 % 11/01/23 1227 Vitals shown include unfiled device data. Please reference Vitals flowsheet for most recent vital signs. Anesthesia Post Evaluation Patient Disposition: dismissal Cardiovascular status: hemodynamics (HR & BP) acceptable Respiratory status: patent airway with spontaneous effort Temperature: normothermic Oxygen requirements: room air Level of consciousness: sedated but awakens easily Pain score: pain adequately controlled and/or at baseline Post Op nausea/vomiting: none Hydration status: euvolemic HEAD FILLER * Anesthesia Procedure Notes - Kaci Fang APRN, CRNA, MNA - 11/01/2023 11:33 AM CSTAssociated Order(s): Airway Airway Date/Time: 11/01/2023 11:24 AM Performed by: Kaci Fang APRN, CRNA, MNA Authorized by: Kaic Fang APRN, CRNA, MNA Patient location during procedure: OR / Procedure Area PROCEDURE DETAILS: Mask difficulty assessment: easy mask Final airway type: video laryngoscope Laryngeal Manipulation: no Final best view of glottic structures - Cormack/Lehane Score: grade 1 ETT location: oral VL device: glide scope [place] scope blade size: 3 Tube size: 7.5 ETT distance at teeth/gum: 21 Oral tube type: standard ETT Cuffed: yes Leak Test Performed: no Number of attempt to successful placement: 1 Airway confirmation: bilateral breath sounds, positive ETCO2 and bilateral chest rise Other previous techniques attempted: none PRE PROCEDURE DETAILS: Pre evaluation for airway management: procedure Urgency: elective Preop assessment of probable difficulty: no difficulty anticipated Preoxygenation: bag valve mask SEDATION / ANESTHESIA Anesthesia method: anesthesia POST PROCEDURE DETAILS: Procedure outcome: successful Notable Events: no complications HEAD FILLER * Anesthesia Preprocedure Evaluation - Keysha Morris M.D. - 11/01/2023 10:47 AM CST Preprocedure Anesthesia & H&P Assessment Procedure Summary Date/Time: 11/01/23 1100 Scheduled providers: Cristopher Angelo D.O.; Kaci Fang APRN, CRNA, MNA Procedures: ENDOSCOPIC ULTRASOUND (EUS) ERCP Diagnosis: Pancreatitis Chronic (HCC) [K86.1] Mass Pancreas [K86.89] Location: Division of Gastroenterology in [place], [place] Pertinent components of the patient's history [...] NOS OBJECTIVE PHYSICAL EXAMINATION Airway (HEENT) Mallampati: II TM Distance: >3 FB Neck ROM: Full Mouth Opening: >3 cm Upper Lip Bite Test Class: I Cardiovascular Rhythm: Regular Rate: Normal Cardiovascular Assessment: cardiovascular normal Functional Capacity: >4 METS Pulmonary Pulmonary Assessment: Clear General / Constitutional Constitutional Assessment: Normal General State of Health:: healthy appearing and calm Neurological Neurologic Assessment: alert Dental Normal ASSESSMENT / PLAN ANESTHESIA PLAN ASA: 3 Anesthesia Plan: general Patient seen and allergies reviewed, anesthesia plan and risks discussed directly with patient /legal guardian or through an certified court/medical interpreter. The use of blood products not discussed Approval to Proceed: approved for anesthesia My GO 2 note from 08/10/2022: Pleasant man from [place], [place]; BMI 32; Chronic pancreatitis with pancreatic duct stricture; cervical spine stenosis. ERCP 03/2022 and 05/2022 under GETA. DL both 03/2022 and 05/2022. GETA. MP 2. here for EUS/ERCP; Plan GETA HEAD FILLER documented in this encounter Plan of Treatment Upcoming Encounters Date Type Department Care Team (Late st Contact Info) Description 11/04/2023 2:40 PM HOGSHEAD FILLER Telemedicine Division of Gastroenterology in [place], [place] [address] [place] [phone] Aimee Johnson M.D. [address] [place] [address] documented as of this encounter Procedures Procedure Name Priority Date/Time Associated Diagnosis Comments LDA ANE ENDOTRACHEAL AIRWAY Routine 11/01/2023 11:24 AM HOGSHEAD FILLER documented in this encounter Results * LDA ANE ENDOTRACHEAL AIRWAY (11/01/2023 11:24 AM HOGSHEAD FILLER) Narrative Kaci Fang APRN, CRNA, MNA - 11/01/2023 11:24 AM HOGSHEAD FILLER Kaci Fang APRN, CRNA, MNA ? 11/01/2023 [...] ETT location: oral VL device: glide scope [place] scope blade size: 3 Tube size: 7.5 [...] ?? Notable Events: no complications Kaci Fang KNUCKLER, SKEIN BANDER, MNA ANESTH ESIA ORDERABLES documented in this encounter Visit Diagnoses Not on filedocumented in this encounter Administered Medications Inactive Administered Medications - up to 3 most recent administrations Medication Order MAR Action Action Date Dose Rate Site fentaNYL injection (SUBLIMAZE) intravenous, As needed, Starting on Wed11/01/23 at 1120, Anesthesia Intra-op Given 11/01/2023 11:20 AM HOGSHEAD FILLER 100 mcg Lactated Ringer's intravenous, Continuous Infusion: Per Instructions PRN, Starting on Wed11/01/23 at 1117, Anesthesia Intra-op New Bag 11/01/2023 11:17 AM HOGSHEAD FILLER lidocaine (PF) (cardiac) injection intravenous, As needed, Starting on Wed11/01/23 at 1120, Anesthesia Intra-op Given 11/01/2023 11:20 AM HOGSHEAD FILLER 60 mg propofol 10 mg/mL infusion (DIPRIVAN) intravenous, Continuous Infusion: Per Instructions PRN, Starting on Wed11/01/23 at 1122, Anesthesia Intra-op New Bag 11/01/2023 11:22 AM HOGSHEAD FILLER 150 mcg/kg/min 98.37 mL/hr propofoL injection (DIPRIVAN) intravenous, As needed, Starting on Wed11/01/23 at 1121, Anesthesia Intra-op Given 11/01/2023 11:32 AM HOGSHEAD FILLER 25 mg Given 11/01/2023 11:21 AM HOGSHEAD FILLER 200 mg succinylcholine (PF) injection (ANECTINE) intravenous, As needed, Starting on Wed11/01/23 at 1122, Anesthesia Intra-op Given 11/01/2023 11:22 AM HOGSHEAD FILLER 100 mg documented in this encounter Care Teams Tool Trouble Shooter Relationship Specialty Start Date End Date Elsewhere, Pcp PCP - General Internal Medicine 03/05/23 documented as of this encounter
--- OUTSIDE RECORDS SUMMARY | 2023-11-01 21:30 | XMS_ITS | Encounter Summary ---
Author Name Unknown Organization [facility] Address [address] [place] [address] Care Team Providers Care Religious Educator Name Role Phone Elsewhere, Pcp Primary Care Provider Unavailabl e Reason for Referral * Outpatient (Routine) - Closed Specialty Diagnoses / Procedures Referred By Lionel bartlett Referred To Contact Diagnoses Mass Pancreas Procedures Endoscopic ultrasound (EUS) Aimee Johnson M.D. [address] [place] [address] [facility] Referral ID Status Reason Start Date Expiration Date Visits Re quested Visits Authorized [id number] Closed 08/13/2023 08/12/2024 1 1 IFIED RETINAL ANGIOGRAPHER Encounter Details Date Type Department Care Team (Latest Contact Info) Description 08/13/2023 Orders Only Division of Gastroenterology in [place], [place] [address] [place] [phone] Aimee Johnson M.D. [address] [place] [phone] Mass Pancreas (Primary Dx) Social History Tobacco Use Types [...] st Contact Info) Description 11/04/2023 2:40 PM CERTIFIED RETINAL ANGIOGRAPHER Telemedicine Division of Gastroenterology in [place], [place] [address] [place] [address] Aimee Johnson M.D. [address] [place] [address] documented as of this encounter Visit Diagnoses Diagnosis Mass Pancreas- Primary documented in this encounter Care Teams Religious Educator Relationship Specialty Start Date End Date Elsewhere, Pcp PCP - General Internal Medicine 03/05/23 documented as of this encounter
--- OUTSIDE RECORDS SUMMARY | 2023-11-01 21:31 | XMS_ITS | Encounter Summary ---
Author Name Unknown Organization [facility] Address [address] [place] [address] Care Team Providers Care Instrumental Teacher Name Role Phone Elsewhere, Pcp Primary Care Provider Unavailabl e Encounter Details Date Type Department Care Team (Latest Contact Info) Description 08/06/2023 8:50 AM ADMISSIONS CONSULTANT Ancillary Procedure Department of Radiology in [place], [place] [address] [place] [address] Aimee Johnson M.D. [address] [place] [address] Pancreatitis Chronic (HCC) Social History Tobacco Use Types Packs/Day Years [...] st Contact Info) Description 11/04/2023 2:40 PM ADMISSIONS CONSULTANT Telemedicine Division of Gastroenterology in [place], [place] [address] [place] [address] Aimee Johnson M.D. [address] [place] [address] documented as of this encounter Procedures Procedure Name Priority Date/Time Associated Diagnosis Comments INTERPRETATION OF OUTSIDE CT ABDOMEN AND OR PELVIS RAD - Routine (most inpatients and all outpatients) 08/06/2023 9:34 AM ADMISSIONS CONSULTANT Pancreatitis Chronic (HCC) documented in this encounter Results * Interpretation of Outside CT Abdomen and or Pelvis (08/06/2023 9:34 AM ADMISSIONS CONSULTANT) Anatomical Region Laterality Modality Abdomen, Pelvis, Abdominal R ST LOS, Abdominal ARZ LOS, Abdominal FLA LOS, Other N/A Computed Tomography 08/09/2023 6:11 AM ADMISSIONS CONSULTANT Impressions 08/09/2023 6:54 AM ADMISSIONS CONSULTANT Near the level of the chronic main [...] potential pancreatic adenocarcinoma. Narrative 08/09/2023 6:54 AM ADMISSIONS CONSULTANT EXAM: ??INTERPRETATION OF OUTSIDE CT ABDOMEN AND [...] interpretationof outside CT abdomen/pelvis with intravenous contrast [id number]. COMPARISON: MRI/MRCP 03/02/2023, 02/11/2022, outside CT abdomen/[id number]/2021, 03/09/2021, 11/06/2019. FINDINGS: History of ERCP performed [...] focal pancreatitis from potential pancreatic adenocarcinoma. Aimee GUERRERO CT PROCEDURES documented in this encounter Visit Diagnoses Diagnosis Pancreatitis Chronic (HCC) documented in this encounter Care Teams Instrumental Teacher Relationship Specialty Start Date End Date Elsewhere, Pcp PCP - General Internal Medicine 03/05/23 documented as of this encounter
--- OUTSIDE RECORDS SUMMARY | 2023-11-01 21:31 | XMS_ITS | Encounter Summary ---
Author Name Unknown Organization [facility] Address [address] [place] [address] Care Team Providers Care Gynecological Assistant Name Role Phone Unavailable Primary Care Provider Unavailabl e Reason for Referral * MRI/CAT/PET Scan (Routine) - Closed Specialty Diagnoses / Procedures Referred By Lionel bartlett Referred To Contact Radiology Diagnoses Pancreatitis Chronic (HCC) Procedures MR Abdomen MRCP without and with IV Contrast Aimee Johnson M.D. [address] [place] [address] [facility] Referral ID Status Reason Start Date Expiration Date Visits Re quested Visits Authorized [id number] Closed 08/14/2022 08/14/2023 1 1 Reason for Visit * MRI/CAT/PET Scan (Routine) - Closed Specialty Diagnoses / Procedures Referred By Lionel bartlett Referred To Contact Radiology Diagnoses Pancreatitis Chronic (HCC) Procedures MR Abdomen MRCP without and with IV Contrast Aimee Johnson M.D. [address] [place] [address] [facility] Referral ID Status Reason Start Date Expiration Date Visits Re quested Visits Authorized [id number] Closed 08/14/2022 08/14/2023 1 1 Encounter Details Date Type Department Care Team (Latest Contact Info) Description 03/02/2023 6:20 AM CDT - 03/02/2023 11:59 PM CDT Hospital Encounter Department of Radiology, [facility], in [place], [place] [address] [place] [address] Aimee Johnson M.D. [address] [place] [address] Pancreatitis Chronic (HCC) Discharge Disposition: Home or Self Care Social History Tobacco Use Types Packs/Day Years Used Date Smoking Tobacco: Never Smokeless Tobacco: Never Nutrition Answer Date Recorded Nutrition: EVOO Fat Source Unknown 11/06 Nutrition: Servings of Fruits/Vegetables per Day Not on file 11/06/2021 Dental Answer Date Recorded Dental: Regular Dentist Unknown 11/06/19 Sex and Gender Information Value Date Recorded [...] (two) times a day. 0 01/19/2023 08/17/2023 polyethylene glycol (MIRALAX) 17 gram powder packet Take 1 Package by mouth daily. 0 12/26/2014 03/05/2023 sucralfate (CARAFATE) 1 gram tablet TAKE 1 TABLET BY MOUTH BEFORE MEALS AND AT BEDTIME 0 01/14/2022 11/01/2023 documented as of this encounter Plan of Treatment Upcoming Encounters Date Type Department Care Team (Late st Contact Info) Description 11/04/2023 2:40 PM HEAD OF SALES Telemedicine Division of Gastroenterology in [place], [place] [address] [place] [address] Aimee Johnson M.D. [address] [place] [address] documented as of this encounter Procedures Procedure Name Priority Date/Time Associated Diagnosis Comments MR ABDOMEN MRCP WITHOUT AND WITH IV CONTRAST RAD - Routine (most inpatients and all outpatients) 03/02/2023 7:49 AM CDT Pancreatitis Chronic (HCC) documented in this encounter Results * MR Abdomen MRCP without and with IV Contrast (03/02/2023 7:49 AM CDT) Anatomical Region Laterality Modality Abdomen, Abdominal RST LOS, Abdominal ARZ LOS, Abdominal FLA LOS N/A Magnetic Resonance 03/02/2023 8:30 AM CDT Impressions 03/02/2023 8:55 AM CDT 1. Atrophic pancreas parenchyma. Interval removal of the stone in the pancreas head with continued but decreased upstream pancreatic duct dilation. Not clearly visualized pancreatic duct in the head, likely due to stricture. 2. Severe hepatic steatosis. Narrative 03/02/2023 8:55 AM CDT EXAM: ??MR ABDOMEN MRCP WITHOUT AND WITH IV CONTRAST 3D maximum intensity projections/volume renderings were created on an independent workstation as ordered by the treating provider and reviewed by the radiologist for biliary and pancreatic duct visualization. COMPARISON: ??02/11/2022 FINDINGS: Atrophy of the pancreas tail as seen on the prior. Diffusely atrophic pancreas parenchyma. Pancreatic duct dilation with pancreatic duct measuring about 9 mm in the pancreas proximal body, previously about 12 mm. Pancreatic duct in the pancreas head is not clearly visualized noting status post removal of the previously seen filling defect/stone within the pancreatic duct in the head.. No discrete pancreatic mass identified. No localized collections. Redemonstrated hemangiomas in the liver. Diffuse hepatic steatosis with mean fat fraction 20% (normal < 5%). No worrisome hepatic lesions. No suspicious lymphadenopathy. Spleen and adrenals are unremarkable. Cysts in the left kidney. Postcholecystectomy. Procedure Note cR Noble M.D. - 03/02/2023 EXAM: MR ABDOMEN MRCP WITHOUT AND WITH IV CONTRAST 3D maximum intensity projections/volume renderings were created on anindependent workstation as ordered by the treating provider and reviewed by the radiologist forbiliary and pancreatic duct visualization. COMPARISON: 02/11/2022 FINDINGS: Atrophy of the pancreas tail as seen on the prior. Diffusely atrophicpancreas parenchyma. Pancreatic duct dilation with pancreatic duct measuring about 9 mm in thepancreas proximal body, previously about 12 mm. Pancreatic duct in the pancreas head is notclearly visualized noting status post removal of the previously seen filling defect/stone within thepancreatic duct in the head.. No discrete pancreatic mass identified. No localized collections. Redemonstrated hemangiomas in the liver. Diffuse hepatic steatosis withmean fat fraction 20% (normal < 5%). No worrisome hepatic lesions. No suspiciouslymphadenopathy. Spleen and adrenals are unremarkable. Cysts in the left kidney. Postcholecystectomy. IMPRESSION: 1. Atrophic pancreas parenchyma. Interval removal of the stone in thepancreas head with continued but decreased upstream pancreatic duct dilation. Not clearly visualizedpancreatic duct in the head, likely due to stricture. 2. Severe hepatic steatosis. Aimee GUERRERO MRI PROCEDURES documented in this encounter Visit Diagnoses Diagnosis Pancreatitis Chronic (HCC) documented in this encounter Administered Medications Inactive Administered Medications - up to 3 most recent administrations Medication Order MAR Action Action Date Dose Rate Site gadobutrol injection 0.01-30 mL (GADAVIST) 0.01-30 mL, intravenous, Once in imaging, contrast, Starting on e 03/02/23 at 0624, For 1 dose, Imaging Protocol Orders, Dose per Radiant Medication Guidelines Intrathecal doses greater than 0.25 mL not recommended. Given 03/02/2023 7:34 AM CDT 11 mL sodium chloride (PF) 0.9 % injection 1-100 mL 1-100 mL, intravenous, Once, On Wed03/02/23 at 0645, For 1 dose, Imaging Protocol Orders Given 03/02/2023 7:34 AM CDT 40 mL documented in this encounter
--- OUTSIDE RECORDS SUMMARY | 2023-11-01 21:31 | XMS_ITS | Encounter Summary ---
Author Name Unknown Organization [facility] Address [address] [place] [address] Care Team Providers Care Package Wrapper Name Role Phone Elsewhere, Pcp Primary Care Provider Unavailabl e Reason for Referral * Outpatient (Routine) - Closed Specialty Diagnoses / Procedures Referred By Contact Referred To Contact Gastroenterology and Hepatology Diagnoses Pancreatitis Chronic (HCC) Paula Flowers M.D. [address] [place] [address] [facility] Referral ID Status Reason Start Date Expiration Date Visits Re quested Visits Authorized [id number] Closed 03/10/2023 03/09/2026 1 1 Reason for Visit * Outpatient (Routine) - Closed Specialty Diagnoses / Procedures Referred By Contact Referred To Contact Gastroenterology and Hepatology Diagnoses Pancreatitis Chronic (HCC) Paula Flowers M.D. [address] [place] [address] [facility] Referral ID Status Reason Start Date Expiration Date Visits Re quested Visits Authorized [id number] Closed 08/14/2022 08/13/2025 1 1 Encounter Details Date Type Department Care Team (Latest Contact Info) Description 03/09/2023 3:00 PM CDT Office Visit Division of Gastroenterology in [place], [place] [address] [place] [address] Paula Flowers M.D. [address] [place] [address] Pancreatitis Chronic (HCC) (Primary Dx); Fatty Liver; Obesity Body Mass Index 30-39.9 Adult Social History Tobacco Use Types Packs/Day Years [...] - Inhaled Oxygen Concentration - - Weight 112 kg (247 lb 11 oz) 03/09/2023 3:23 PM CDT Height 180.7 cm (5' 11.14) 03/09/2023 3:23 PM C DT Body Mass Index 34.41 03/09/2023 3:23 PM CDT documented in this encounter Progress Notes * Paula Flowers M.D. - 03/09/2023 3:00 PM CDT GASTROENTEROLOGY & HEPATOBILIARY FOLLOW-UP Date/Time: 03/08/2023 7:53 AM CDT Patient Name: Arturo Lockwood : 1970 Reason for visit: Follow-up chronic pancreatitis. Subjective: Interval History: Mr. 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 In brief, I initially saw Mr. Lockwood (supervising mental health consultant Dr. Bartlett) on 02/10/22 for consultation in pancreas clinic for evaluation of recurrent pancreatitis. Please see my initial consult note from that date for additional details regarding clinical history. I last saw Mr. Lockwood on 03/09/22. At that time, we completed EUS/ERCP to further evaluate for changes of chronic pancreatitis and/or evidence of obstruction particularly given prior abrupt cut off of the pancreatic duct and prior speculation of a biliary stricture. This was completed on 04/09/22 which showed endosonographic imaging consistent with chronic pancreatitis and 5 mm stone within the pancreatic duct within the head of the pancreas. Two pancreas stones were found and completely removed viasphincterotomy and ERCP followed by placement of a plastic stent. He had the plastic stent upsized on 06/08/22 followed by removal on 08/10/22 in addition to removal of soft pancreatic stones. We completed a follow-up MRCP on 03/02/23 which demonstrated atrophy of the pancreas tail with diffusely atrophic pancreas parenchyma, pancreatic duct dilation with pancreatic duct measuring about 9 mmin the pancreas body (previously 12 mm). The pancreatic duct in the pancreas head was not clearly vi sualized. No discrete pancreatic mass or fluid collections. Hemangiomas noted in the liver with diffuse hepatic steatosis (mean fat fraction 20%, normal <5%) without worrisome hepatic lesions. Mr. Lockwood was unaccompanied during our visit today. From a gastrointestinal standpoint, he is doing well clinically. No fever/chills, night sweats, nausea or vomiting, abdominal pain or bloating, or changes in bowel habits. Since his last endoscopic procedure in July 2022, he has been doing well.He notes that his appetite is more robust and as a result has gained some weight over this time. Hewalks 15-20 minutes 4-5 days per week. 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 He consumes alcohol 1-2 times per week with 1-2 beverages per sitting on average. He did undergo colonoscopy within the past year and believes he may have had a polyp or two, but is unsure. He also underwent rotator cuff surgery approximately 8 weeks ago. ROS: Other than the pertinent positives and negatives listed in the HPI, a full review of systems including constitutional, HEENT, respiratory, cardiovascular, abdominal, musculoskeletal, genitourinary, neurological, psychiatric, endocrinologic, hematologic, and dermatologic complaints was negative. Objective: Vital Signs: There were no vitals filed for this visit. Physical Exam: General: Sitting comfortably in chair, in no acute distress. Appears well nourished and well-kempt.Affect and mood appropriate. Eyes: Clear conjunctiva without injection or icterus. ENT: Moist mucous membranes. Lung: Breathing comfortably on room air. Clear to auscultation in all sheriff; no crackles, rhonchi,or wheezes. CV: Normal rate and regular rhythm. S1, S2 auscultated with no murmurs, rubs, gallops. Abdomen: Soft, non-distended, non-tender to palpation. Normoactive bowel sounds. No masses palpated. Extremities: Warm and well-perfused. No lower extremity edema. Neuro: AAO x 3. Skin: No rash. MR abdomen/MRCP 03/02/23: FINDINGS: Atrophy of the pancreas tail as seen on the prior. Diffusely atrophic pancreas parenchyma. Pancreatic duct dilation with pancreatic duct measuring about 9 mm in the pancreas proximal body, previouslyabout 12 mm. Pancreatic duct in the pancreas head is not clearly visualized noting status post removal of the previously seen filling defect/stone within the pancreatic duct in the head. No discrete pancreatic mass identified. No localized [...] Not clearly visualized pancreatic duct in the head,likely due to stricture. 2. Severe hepatic steatosis. Assessment and Plan: # Recurrent pancreatitis, likely secondary to prior alcohol use versus biliary stricture versus calcification noted on MR/MRCP 02/11/22 # Hepatic steatosis (mean fat fraction 20% on MR/MRCP 03/02/23) # Current alcohol use (1-2 times per week with 1-2 beverages per sitting on average) # Status post cholecystectomy in 2018 # Obesity (BMI 34.4) Mr. 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 In brief, I initially saw Mr. Lockwood (supervising mental health consultant Dr. Bartlett) on 02/10/22 for consultation in pancreas clinic for evaluation of recurrent pancreatitis. Please see my initial consult note from that date for additional details regarding clinical history. Overall, Mr. Lockwood continues to do quite well from a gastrointestinal standpoint. He has not had recurrence of, nor required hospitalization for recurrent pancreatitis since approximately 1 year ago. MRCP was completed on 03/02/23 to evaluate for any interval changes involving the pancreatic parenchymaduct. This demonstrated evidence of atrophic pancreatic parenchyma as well as persistent upstream pancreatic duct dilation measuring 9 mm, although decreased in comparison to prior studies (previously 12 mm). The pancreatic duct in the pancreas head was not clearly visualized, however no discrete pancreatic masses or localized collections were identified. Given he is asymptomatic at this time, I am hesitant to proceed with further endoscopic interventions such as EUS/ERCP. Mr. Lockwood expressed concern about the possibility of recurrent pancreatitis. We reviewed the complications that can arise from frequent instrumentation and stent placement as well as the importance of conservative strategies with which to mitigate the risk of recurrent pancreatitis. I shared with him that I would reach out to our advanced endoscopy colleagues to determine next steps, particularly when would be the most appropriate time to consider repeat imaging with MRCP and whether or not EUS/ERCP would be indicated at a specific interval as he is currently asymptomatic. Once I receive some additional information, I will reach out to Mr. Lockwood to discuss recommendations. We otherwise discussed the importance of conservative measures for general pancreas health including periodic monitoring of blood glucose or hemoglobin A1c, fat-soluble vitamins including vitamin-A, D, and E, vitamin B12, prealbumin, and INR on an annual basis. He should also receive a baseline DEXA scan. We discussed performing these investigations here at [facility] versus locally with primarycare. For ease, we will plan to send these recommendations to his local primary care physician (Dr.Greg Gomez in [place]). In addition to laboratory monitoring, we reviewed the importance of consuming low-fat foods, antioxidants, and weight management. Also of note on his MR/MRCP was the presence of hepatic steatosis with mean fat fraction of 20%. This is likely in part related to fatty liver disease. We reviewed the natural history of NAFLD and that weight loss of >10% BMI is the best management strategy for this. We also discussed the importance of dietary modifications and regular aerobic physical activity for 30 minutes at least 5 times per week). We also discussed the importance of minimizing alcohol use if at all possible, [id number] including hepatitis A and B, as well as monitoring for and managing any cardiovascular risk factors including diabetes and hyperlipidemia. Based on most recent laboratory investigationsfrom January 2022, his FIB-4 score is 1.19 effectively excluding advanced fibrosis. We would recommend annual monitoring of CBC, creatinine, and liver tests with primary care. A fibrosis assessment couldbe considered in the form of FibroScan or MR elastography if liver tests were to precipitously increase, platelet count were to decrease, or other evidence of portal hypertension were seen such as spl enomegaly, lower extremity swelling, and/or ascites. If any of these signs/symptoms were to become apparent, we would be more than happy to partner with his local primary care physician to coordinateappropriate testing in the form of a fibrosis assessment. If in fact he is determined to have significant liver fibrosis, we would proceed with a baseline upper endoscopy to screen for varices and manage as we otherwise would a patient with cirrhosis with HCC surveillance in routine lab monitoring every 6 months. Once I receive additional information from our advanced endoscopy colleagues, I will reach out to Mr. Lockwood to discuss recommendations. He may otherwise continue to undergo routine laboratory monitoring with primary care as outlined above. We are more than happy to collaborate with his local primary care physician if any questions or concerns arise. RECOMMENDATIONS: - I will reach out to our advanced endoscopy colleagues to determine next steps in regards to MR/MRCP pancreas findings, particularly when would be the most appropriate time to consider repeat imaging with MRCP and whether or not EUS/ERCP would be indicated at a specific interval as he is currently asymptomatic. Once I receive some additional information, I will reach out to Mr. Lockwood to discuss recommendations. - For general pancreas health, discussed conservative measures including periodic monitoring of blood glucose or hemoglobin A1c, fat-soluble vitamins including vitamin-A, D, and E, vitamin B12, prealbumin, and INR on an annual basis. He should also receive a baseline DEXA scan. We discussed performing these investigations here at [facility] versus locally with primary care. For ease, we will plan to send these recommendations to his local primary care physician (Dr. Mesfin Gomez in [place]). In addition to laboratory monitoring, we reviewed the importance of consuming low-fat foods, antioxidants, and weight management. - For hepatic steatosis, discussed importance of dietary modifications and regular aerobic physicalactivity, minimizing alcohol use of at all possible, up-to-date immunizations including hepatitis Aand B, as well as monitoring for in managing any cardiovascular risk factors including diabetes and hyperlipidemia. Based on most recent laboratory investigations from January 2022, his FIB-4 score is 1.19 effectively excluding advanced fibrosis. - Annual monitoring of CBC, creatinine, and liver tests with primary care in the setting of hepaticsteatosis. A fibrosis assessment could be considered in the form of FibroScan or MR elastography ifliver tests were to precipitously increase, platelet count were to decrease, or other evidence of portal hypertension were seen such as splenomegaly, lower extremity swelling, and/or ascites. If any of these signs/symptoms were to become apparent, we would be more than happy to partner with his local primary care physician to coordinate appropriate testing in the form of a fibrosis assessment. Ifin fact he is determined to have significant liver fibrosis at that time, we would proceed with a baseline upper endoscopy to screen for varices and manage as we otherwise would a patient with cirrhosis with HCC surveillance in routine lab monitoring every 6 months. - Follow-up to be determined pending review with advanced endoscopy colleagues. ADDENDUM 03/10/2023 7:43 AM CDT: I spoke with Dr. Cristopher Angelo (advanced endoscopist) via email who performed Mr. Lockwood's initial EUS/ERCPin March 2022. He agrees with proceeding with MRCP in 6 months. As Mr. Lockwood is doing well and feelingimproved, these are good signs. As pancreatic duct dilation is improved and there is no radiographic evidence of obstruction, ERCP would not be appropriate in this setting at this time. EUS is unlikely to be helpful as his pancreas may be difficult to scan secondary to atrophy. I will send a portalmessage to Mr. Lockwood with these recommendations and we will plan to repeat a MRCP along with a follow-up visit in 6 months. PATIENT EDUCATION: Ready to learn, no apparent learning barriers were identified; learning preferences include listening. Explained diagnosis and treatment plan; patient expressed understanding of the content. Paula Flowers M.D. Gastroenterology Fellow Pager: [phone] This patient will be reviewed and discussed with Dr. Bartlett with an addendum made to this note withany changes as clinically indicated. documented in this encounter Miscellaneous Notes * Addendum Note - Paula Flowers M.D. - 03/09/2023 3:00 PM CDTAddended by: PAULA FLOWERS on: 03/10/2023 07:52 AM Modules accepted: Orders documented in this encounter Plan of Treatment Upcoming Encounters Date Type Department Care Team (Late st Contact Info) Description 11/04/2023 2:40 PM STEAM CONDITIONER OPERATOR Telemedicine Division of Gastroenterology in [place], [place] [address] [place] [address] Paula Flowers M.D. [address] [place] [address] Scheduled Referrals Name Type Priority Associated Diagnoses Order Schedule Gastroenterology and Hepatology office visit (clinic) Outpatient Referral Routine Pancreatitis Chronic (HCC) Expected: 09/27/2023, Expires: 06/10/2024 documented as of this encounter Visit Diagnoses Diagnosis Pancreatitis Chronic (HCC)- Primary Fatty Liver Obesity Body Mass Index 30-39.9 Adult documented in this encounter Care Teams Package Wrapper Relationship Specialty Start Date End Date Elsewhere, Pcp PCP - General Internal Medicine 03/05/23 documented as of this encounter
--- OUTSIDE RECORDS SUMMARY | 2023-11-01 21:31 | XMS_ITS | Encounter Summary ---
Author Name Unknown Organization [facility] Address [address] [place] [address] Care Team Providers Care Supervisor Erection Shop Name Role Phone Elsewhere, Pcp Primary Care Provider Unavailabl e Encounter Details Date Type Department Care Team (Latest Contact Info) Description 03/10/2023 Clinical Communication Division of Gastroenterology in [place], [place] [address] [place] [address] Aimee Johnson M.D. [address] [place] [address] Social History Tobacco Use Types Packs/Day Years [...] st Contact Info) Description 11/04/2023 2:40 PM INDEPENDENT AGENT MUSIC EDUCATION Telemedicine Division of Gastroenterology in [place], [place] [address] [place] [address] Aimee Johnson M.D. [address] [place] [address] documented as of this encounter Visit Diagnoses Not on filedocumented in this encounter Care Teams Supervisor Erection Shop Relationship Specialty Start Date End Date Elsewhere, Pcp PCP - General Internal Medicine 03/05/23 documented as of this encounter
--- OUTSIDE RECORDS SUMMARY | 2023-11-01 21:31 | XMS_ITS | Encounter Summary ---
Author Name Unknown Organization [facility] Address [address] [place] [address] Care Team Providers Care Watch Repair Technician Name Role Phone Elsewhere, Pcp Primary Care Provider Unavailabl e Reason for Visit * Reason Onset Date Comments Pre-visit Intake 03/05/2023 Encounter Details Date Type Department Care Team (Latest Contact Info) Description 03/05/2023 10:30 AM CDT Clinical Communication Virtual Review in [address] [id number] Pre-visit Intake Social History Tobacco Use Types [...] Contact Info) Description 11/04/2023 2:40 PM MANAGER CHEMISTRY Telemedicine Division of Gastroenterology in [place], [place] [address] [place] [address] Aimee Johnson M.D. [address] [place] [address] documented as of this encounter Visit Diagnoses Not on filedocumented in this encounter Care Teams Watch Repair Technician Relationship Specialty Start Date End Date Elsewhere, Pcp PCP - General Internal Medicine 03/05/23 documented as of this encounter
[2023-11-01] MEDS: ONDANSETRON 2 MG/ML inj 4 MG IVP ×2 (21:34→22:35)
[2023-11-01] MEDS: HYDROmorphone 0.5 mg/0.5 ml inj IVP ×3 (21:36→23:52)
[2023-11-01 21:59] LABS: Basophils Absolute Auto 0.01 K/uL (0.00-0.30); Basophils Percent Auto 0.1 % (0.0-3.0); Eosinophils Absolute Auto 0.04 K/uL (0.00-0.50); Eosinophils Percent Auto 0.4 % (0.0-7.0); Hemoglobin* 13.7 gm/dL (13.5-17.5); Immature Granulocytes Abs Auto 0.02 K/uL (0.00-0.30); Immature Granulocytes Pct Auto 0.2 %; Lymphocytes Percent Auto 6.8 % (20-44); Mean Corpuscular HGB Conc 34 gm/dL (32-36); Mean Corpuscular Hemoglobin 30 pg (26-34); Mean Corpuscular Volume 88 fL (80-100); Monocytes Percent Auto 5.4 % (0.0-11.0); Neutrophils Percent Auto 87.1 % (42.0-72.0); Platelet Count* 172 K/uL (140-440); RDW Coefficient of Variation % 12.2 % (11.5-15.5); Red Blood Count 4.53 m/uL (4.30-5.90); White Blood Count* 10.88 K/uL (4.50-11.00)
[2023-11-01 22:02] LABS: Albumin* 4.5 g/dL (3.3-5.0); Chloride* 102 mmol/L (96-114); Slide Review Reflex No
[2023-11-01 22:03] LABS: Potassium* 4.6 mmol/L (3.6-5.1); Sodium* 136 mmol/L (135-149)
[2023-11-01 22:05] LABS: Anion Gap 8 mEq/L (7-15); Aspartate Amino Transferase* 34 U/L (12-35); Bilirubin Direct* 0.2 mg/dL (0.0-0.5); Bilirubin Total* 0.8 mg/dL (0.1-1.5); Blood Urea Nitrogen* 13 mg/dL (7-30); Carbon Dioxide* 26 mmol/L (20-32); Creatinine* 0.7 mg/dL (0.5-1.5); Est. Creatinine Clearance* 126.99; Estimated Glomerular Filt Rate 109 ml/min; Glucose* 151 mg/dL (60-115); Total Protein* 7.6 g/dL (6.0-8.3)
[2023-11-01 22:06] LABS: Alanine Aminotransferase* 32 U/L (4-50); Alkaline Phosphatase* 91 U/L (40-150); Calcium* 9.1 mg/dL (8.4-10.6); Lipase* 670 U/L (23-300)
--- NOTE | 2023-11-01 23:03 | ED.NURSE ---
pt report given to oncana RN
[2023-11-02] VITALS (13 sets, daily range): BP systolic 134–201; BP diastolic 82–115; PULSE 47–82; RESP 14–20; TEMP 36.4–36.7; O2SAT 93–98; BMI 34.0
--- NOTE | 2023-11-02 01:11 | ED.NURSE ---
Patient report given to umu STEELE. Patient going to 262
[2023-11-02] MEDS: PANTOPRAZOLE SODIUM 40 MG INJ IVP (02:30)
[2023-11-02] MEDS: ONDANSETRON 2 MG/ML inj 4 MG IVP ×3 (02:30→18:46)
[2023-11-02] MEDS: HYDROmorphone 0.5 mg/0.5 ml inj IVP ×10 (02:31→22:58)
--- NOTE | 2023-11-02 04:59 | W.PM.TELEH&P ---
Telehealth- H&P: HPI History of Present Illness Date Seen: 11/02/23 Chief complaint: Pancreatitis flare up Narrative: Arturo Lockwood is seen as an Interactive Telehealth visit. Arturo Lockwood is a 53 year old male with history of recurrent pancreatitis and associated benign mass who underwent ERCP on 11/01 around 11 AM at [facility] with biliary stent placement due to narrowing and increasingly frequent abdominal symptoms. He returned home and took pain medication without much relief, developed increasing nausea and epigastric area pain with dry heaves around 4 PM, prompting ER assessment. He had a stent placed over a year ago with fairly long-term relief of symptoms. He describes a biopsy last fall around [facility] with postprocedural pancreatitis at that time. He estimates a lifetime total of at least 10 episodes of acute pancreatitis. Denies fevers, chills, headache, dizziness, chest pain, heartburn, shortness of breath, bruising or skin changes, peripheral edema. ER assessment: Vital signs stable, afebrile, liver enzymes and bilirubin are stable, lipase 670. Treatment included 1 L IV fluids, 3 doses of Dilaudid 0.5 mg and 2 doses of Zofran. Review of Systems Status of ROS: Reports: 10 or more systems reviewed and unremarkable except as noted in History and below [facility] Medical History Hepatic steatosis ?K76.0 - Fatty (change of) liver, not elsewhere classified (ICD-10) Onychomycosis ?B35.1 - Tinea unguium (ICD-10) Surgical History History of biliary duct stent placement ?Z98.890 - Other specified postprocedural states (ICD-10) S/P arthroscopy of right shoulder (12/28/22) ?Z98.890 - Other specified postprocedural states (ICD-10) Status post laparoscopic cholecystectomy (12/22/16) ?Z90.49 - Acquired absence of other specified parts of digestive tract (ICD-10) History of colonoscopy ?Z98.890 - Other specified postprocedural states (ICD-10) Family History Other Colitis Social History (Reviewed 11/02/23 @ 05:22 by MICHELLE Rosenberg Narrative: Social History: He is and lives with his and children. 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 Habits: He denies tobacco use. Denies recreational drug use. EtOH occassional - Jerman/New Years was last EtOH. Drinks non alcoholic beer, last one was also over the holidays. Family History: Paternal grandfather of an acute myocardial infarction at age 50. His brother also had an acute myocardial infarction in his early 50s. A different brother had strokes in his 50s and 60s. Father had lung cancer with brain metastases despite being a nonsmoker. What is your current living situation?: I presently have a place to live Problems where you live: no known problems Problems where you live details: N/A In the past 12 months, utilities in danger of being shut off: no In past 12 months, lack of transportation kept you from medical appts, meetings, work, or getting things needed for daily living: no In the past 12 mos, have been you worried that your food would run out before you had money to buy more?: never true In the past 12 mos, the food you bought just didn't last and you didn't have money to buy more?: never true Highest level of school completed/degree received: some college, no degree Smoking Status: Never smoker Do you use any of these nicotine containing products: None Second hand tobacco smoke exposure: No How often do you have a drink containing alcohol: never AUDIT-C Alcohol total score: 0 Non-prescribed substance use: denies use Caffeine: Yes How often does anyone, including family, friends and others, physically hurt you: never How often does anyone, including family, friends and others, insult or talk down to you: never How often does anyone, including family, friends and others, threaten you with harm: never How often does anyone, including family, friends and others, scream or curse at you: never Little interest or pleasure in doing things: not at all Feeling down, depressed, or hopeless: not at all service: No Meds Home Medications and Allergies Allergies Allergy/AdvReac Type Severity Reaction Status Date / Time No Known Drug Allergies Allergy Verified 11/01/23 20:56 Exam Narrative Exam Narrative: Physical Exam GENERAL: ?vital signs reviewed, well developed and nourished, in no distress HEENT: pupils are equal round and reactive to light, extraocular movements are grossly within normal limits and oral mucosa is moist. NECK: Supple without lymphadenopathy or thyromegaly according to nursing staff examination observation HEART: Regular rate and rhythm without any rubs, murmurs, or gallops. LUNGS: Clear to auscultation bilaterally with good air movement throughout ABDOMEN: Observation from nurse assisted exam, abdomen appears soft, tenderness is elicited with palpation of the central/epigastric regions without guarding or rebound, active bowel sounds EXTREMITIES: Strength and sensation is observed to be grossly within normal limits in the upper and lower extremities.? No focal strength deficit is observed. SKIN:? Observed warm and dry with color normal Const Vital Signs, click to edit/add: Vital Signs - 24 hr 11/01/23 20:52 11/01/23 21:57 11/01/23 21:59 Temperature 97.4 F L Pulse Rate 49 L 44 L Pulse Rate [Pulse Oximeter] 50 L Respiratory Rate 18 Blood Pressure 187/100 H Blood Pressure [Right Arm] Blood Pressure [Right Upper Arm] 186/97 H Pulse Oximetry 99 99 96 Oxygen Delivery Method Room Air 11/01/23 22:00 11/01/23 22:00 11/01/23 22:02 Temperature Pulse Rate 48 L 44 L Pulse Rate [Pulse Oximeter] Respiratory Rate 18 Blood Pressure 193/98 H Blood Pressure [Right Arm] Blood Pressure [Right Upper Arm] Pulse Oximetry 95 97 Oxygen Delivery Method 11/01/23 22:15 11/01/23 22:30 11/01/23 22:33 Temperature Pulse Rate 44 L 48 L 51 L Pulse Rate [Pulse Oximeter] Respiratory Rate Blood Pressure 176/91 H Blood Pressure [Right Arm] Blood Pressure [Right Upper Arm] Pulse Oximetry 99 98 95 Oxygen Delivery Method 11/01/23 22:45 11/01/23 23:00 11/01/23 23:03 Temperature Pulse Rate 45 L 45 L 45 L Pulse Rate [Pulse Oximeter] Respiratory Rate Blood Pressure 172/98 H Blood Pressure [Right Arm] Blood Pressure [Right Upper Arm] Pulse Oximetry 93 93 94 Oxygen Delivery Method 11/01/23 23:26 11/01/23 23:30 11/01/23 23:36 Temperature Pulse Rate 44 L 44 L 45 L Pulse Rate [Pulse Oximeter] Respiratory Rate Blood Pressure Blood Pressure [Right Arm] Blood Pressure [Right Upper Arm] Pulse Oximetry 98 98 97 Oxygen Delivery Method 11/01/23 23:45 11/02/23 00:00 11/02/23 00:05 Temperature Pulse Rate 46 L 48 L 49 L Pulse Rate [Pulse Oximeter] Respiratory Rate Blood Pressure Blood Pressure [Right Arm] Blood Pressure [Right Upper Arm] Pulse Oximetry 98 94 98 Oxygen Delivery Method 11/02/23 00:15 11/02/23 00:30 11/02/23 00:35 Temperature Pulse Rate 47 L 55 L 48 L Pulse Rate [Pulse Oximeter] Respiratory Rate Blood Pressure Blood Pressure [Right Arm] Blood Pressure [Right Upper Arm] Pulse Oximetry 94 94 94 Oxygen Delivery Method 11/02/23 00:35 11/02/23 00:35 11/02/23 00:35 Temperature Pulse Rate 48 L 48 L 48 L Pulse Rate [Pulse Oximeter] Respiratory Rate Blood Pressure Blood Pressure [Right Arm] Blood Pressure [Right Upper Arm] Pulse Oximetry 94 94 94 Oxygen Delivery Method 11/02/23 00:45 11/02/23 01:30 11/02/23 01:37 Temperature 97.5 F L Pulse Rate 60 Pulse Rate [Pulse Oximeter] Respiratory Rate 18 18 Blood Pressure Blood Pressure [Right Arm] 201/115 H Blood Pressure [Right Upper Arm] Pulse Oximetry 98 98 Oxygen Delivery Method Room Air Room Air Hospitalist - H&P: Result Labs Labs: Short CBC 11/01/23 Range/Units 21:36 WBC 10.88 (4.50-11.00) K/uL Hgb 13.7 (13.5-17.5) gm/dL Hct 40.0 (37.0-53.0) % Plt Count 172 (140-440) K/uL BMP 11/01/23 21:36 Sodium 136 Potassium 4.6 Chloride 102 Carbon Dioxide 26 BUN 13 Creatinine 0.7 Glucose 151 H Calcium 9.1 Liver Function 11/01/23 11/01/23 11/01/23 Range/Units 21:36 21:36 21:36 Total Bilirubin 0.8 Cancelled (0.1-1.5) mg/dL Direct Bilirubin 0.2 Cancelled (0.0-0.5) mg/dL AST 34 (12-35) U/L ALT (4-50) U/L Alkaline Phosphatase (40-150) U/L Albumin (3.3-5.0) g/dL 11/01/23 11/01/23 11/01/23 Range/Units 21:36 21:36 21:36 Total Bilirubin (0.1-1.5) mg/dL Direct Bilirubin (0.0-0.5) mg/dL AST Cancelled (12-35) U/L ALT 32 Cancelled (4-50) U/L Alkaline Phosphatase 91 Cancelled (40-150) U/L Albumin 4.5 (3.3-5.0) g/dL 11/01/23 Range/Units 21:36 Total Bilirubin (0.1-1.5) mg/dL Direct Bilirubin (0.0-0.5) mg/dL AST (12-35) U/L ALT (4-50) U/L Alkaline Phosphatase (40-150) U/L Albumin Cancelled (3.3-5.0) g/dL Assessment and Plan Assessment and plan (1) Acute pancreatitis: Status: Acute (2) Recurrent pancreatitis: Problem comment: - started about 10 years ago, Idiopathic - followed by [facility] - status post cholecystectomy and biliary stents Status: Acute (3) Pancreatic mass: Problem comment: - noted 07/2023; biopsies taken 08/17/2023 at [place] during EUS Status: Acute (4) GERD (gastroesophageal reflux disease): Problem comment: - continue PPI Status: Acute Plan Post ERCP pancreatitis Recurrent pancreatitis Pancreatic mass -Supportive care, IV fluids, n.p.o. except ice chips and sips with meds -Dilaudid for pain management, Zofran as needed -Patient requests bowel regimen due to history of significant opiate related constipation -Repeat CBC, CMP and lipase with morning labs on 2/ -Surgical consltation if poor response to above therapies GERD -1 dose of IV Protonix for now, resume omeprazole when possible DVT prophylaxis: SCDs while in bed, encourage ambulation Telehealth: Statement Statement Telehealth Visit: Today's History and Physical is provided via interactive telehealth by Shadi Rodas DO.? Patient is located at [facility].? Provider is located at [facility].? Nursing staff assisted with the patient's exam. The visit being done today meets criteria for a telehealth visit and the patient or patient?s parent/guardian is aware the visit is a telehealth visit. Camera Start Time: 01:52 Camera End Time: 02:04
[2023-11-02] MEDS: LACTATED RINGERS 1000 ML 1,000 ML 200 ML IV ×4 (05:35→20:36)
--- NOTE | 2023-11-02 06:30 | PC.NURSE ---
pleasant and cooperative. indep. Rates pain 8-10/10 in abd, see eMAR. c/o nausea, prn zofran given- offered relief. ?
[2023-11-02] MEDS: SODIUM CHLORIDE 0.9 % (FLUSH) 10 ML SYRINGE 5 ML IVF ×4 (06:47→22:59)
[2023-11-02] MEDS: SENNOSIDES/DOCUSATE TABLET 1 TAB PO (08:02)
--- NOTE | 2023-11-02 13:06 | P.IMPN_ITS ---
Progress Note: A&P Assessment and plan (1) Acute pancreatitis: Problem details: - likely 2nd to ERCP done 11/01/2023 at 11:00 a.m. at [facility] with biliary stent placement due to narrowing in increased frequent abdominal symptoms - ongoing symptoms with slight improvement overnight. Continue generous IV fluids, IV pain medication as needed, and advance to clears. Anticipate he will need at least another night possibly 2. Status: Acute (2) Recurrent pancreatitis: Problem details: - started about 10 years ago, Idiopathic - followed by [facility] - status post cholecystectomy and biliary stents Status: Chronic (3) Pancreatic mass: Problem details: - noted 07/2023; biopsies taken 08/17/2023 at [place] during EUS, recently determined to be benign. Status: Chronic Plan He is not moving much out of the bed, will start low-dose enoxaparin and SCDs for VTE prophylaxis. Subjective Time Seen by Provider: 09:35 Date Seen: 11/02/23 Interval history: Pratik states his pain is a little bit better, but he doesn't feel ready for more than just ice chips and water. He thinks he might want to try clears this afternoon. Exam Narrative: Exam Narrative: General: No acute distress. Awake, alert, oriented. No pallor. No jaundice. Oropharynx: Clear. Mucous membranes moist. Cardiovascular: Regular rate and rhythm. No murmurs, gallops, or rubs. Respiratory: Clear to auscultation bilaterally. No wheezes or crackles. Abdomen: Bowel sounds present. Soft, nondistended, tender in the epigastrium, no rebound tenderness or guarding. Extremities: No pedal edema. Const: Vital Signs, click to edit/add: Vital Signs - 24 hr 11/01/23 20:52 11/01/23 21:57 11/01/23 21:59 Temperature 97.4 F L Pulse Rate 49 L 44 L Pulse Rate [Pulse Oximeter] 50 L Respiratory Rate 18 Blood Pressure 187/100 H Blood Pressure [Ri ght Arm] Blood Pressure [Ri ght Upper Arm] 186/97 H Pulse Oximetry 99 99 96 Oxygen Delivery Me thod Room Air 11/01/23 22:00 11/01/23 22:00 11/01/23 22:02 Temperature Pulse Rate 48 L 44 L Pulse Rate [Pulse Oximeter] Respiratory Rate 18 Blood Pressure 193/98 H Blood Pressure [Ri ght Arm] Blood Pressure [Ri ght Upper Arm] Pulse Oximetry 95 97 Oxygen Delivery Me thod 11/01/23 22:15 11/01/23 22:30 11/01/23 22:33 Temperature Pulse Rate 44 L 48 L 51 L Pulse Rate [Pulse Oximeter] Respiratory Rate Blood Pressure 176/91 H Blood Pressure [Ri ght Arm] Blood Pressure [Ri ght Upper Arm] Pulse Oximetry 99 98 95 Oxygen Delivery Me thod 11/01/23 22:45 11/01/23 23:00 11/01/23 23:03 Temperature Pulse Rate 45 L 45 L 45 L Pulse Rate [Pulse Oximeter] Respiratory Rate Blood Pressure 172/98 H Blood Pressure [Ri ght Arm] Blood Pressure [Ri ght Upper Arm] Pulse Oximetry 93 93 94 Oxygen Delivery Me thod 11/01/23 23:26 11/01/23 23:30 11/01/23 23:36 Temperature Pulse Rate 44 L 44 L 45 L Pulse Rate [Pulse Oximeter] Respiratory Rate Blood Pressure Blood Pressure [Ri ght Arm] Blood Pressure [Ri ght Upper Arm] Pulse Oximetry 98 98 97 Oxygen Delivery [place]v thod 11/01/23 23:45 11/02/23 00:00 11/02/23 00:05 Temperature Pulse Rate 46 L 48 L 49 L Pulse Rate [Pulse Oximeter] Respiratory Rate Blood Pressure Blood Pressure [Ri ght Arm] Blood Pressure [Ri ght Upper Arm] Pulse Oximetry 98 94 98 Oxygen Delivery Me thod 11/02/23 00:15 11/02/23 00:30 11/02/23 00:35 Temperature Pulse Rate 47 L 55 L 48 L Pulse Rate [Pulse Oximeter] Respiratory Rate Blood Pressure Blood Pressure [Ri ght Arm] Blood Pressure [Ri ght Upper Arm] Pulse Oximetry 94 94 94 Oxygen Delivery Me thod 11/02/23 00:35 11/02/23 00:35 11/02/23 00:35 Temperature Pulse Rate 48 L 48 L 48 L Pulse Rate [Pulse Oximeter] Respiratory Rate Blood Pressure Blood Pressure [Ri ght Arm] Blood Pressure [Ri ght Upper Arm] Pulse Oximetry 94 94 94 Oxygen Delivery Me thod 11/02/23 00:45 11/02/23 01:30 11/02/23 01:37 Temperature 97.5 F L Pulse Rate 60 Pulse Rate [Pulse Oximeter] Respiratory Rate 18 18 Blood Pressure Blood Pressure [Ri ght Arm] 201/115 H Blood Pressure [Ri ght Upper Arm] Pulse Oximetry 98 98 Oxygen Delivery Me thod Room Air Room Air 11/02/23 07:56 11/02/23 07:56 11/02/23 11:00 Temperature 98 F 97.8 F Pulse Rate Pulse Rate [Pulse Oximeter] 61 61 59 L Respiratory Rate 14 14 16 Blood Pressure Blood Pressure [Ri ght Arm] 136/87 148/93 H Blood Pressure [Ri ght Upper Arm] Pulse Oximetry 97 96 Oxygen Delivery Me thod Room Air Room Air Labs Labs: Laboratory Results - last 24 hr 11/01/23 11/01/23 11/01/23 21:36 21:36 21:36 WBC 10.88 RBC 4.53 Hgb 13.7 Hct 40.0 MCV 88 MCH 30 MCHC 34 RDW Coeff of Amber 12.2 Plt Count 172 Neut % (Auto) 87.1 H Lymph % (Auto) 6.8 L [place] % (Auto) 5.4 Eos % (Auto) 0.4 Baso % (Auto) 0.1 Neut # (Auto) 9.50 H Lymph # (Auto) 0.70 L [place] # (Auto) 0.60 Eos # (Auto) 0.04 Baso # (Auto) 0.01 Abs Immat Gran (auto) 0.02 Imm/Tot Granulo (auto) 0.2 Sodium 136 Potassium 4.6 Chloride 102 Carbon Dioxide 26 Anion Gap 8 BUN 13 Creatinine 0.7 Estimated Creat Clear 126.99 Estimated GFR 109 Glucose 151 H Calcium 9.1 Total Bilirubin 0.8 Cancelled Direct Bilirubin 0.2 Cancelled AST 34 ALT Alkaline Phosphatase Total Protein Albumin Lipase 11/01/23 11/01/23 11/01/23 21:36 21:36 21:36 WBC RBC Hgb Hct MCV MCH MCHC RDW Coeff of Amber Plt Count Neut % (Auto) Lymph % (Auto) [place] % (Auto) Eos % (Auto) Baso % (Auto) Neut # (Auto) Lymph # (Auto) [place] # (Auto) Eos # (Auto) Baso # (Auto) Abs Immat Gran (auto) Imm/Tot Granulo (auto) Sodium Potassium Chloride Carbon Dioxide Anion Gap BUN Creatinine Estimated Creat Clear Estimated GFR Glucose Calcium Total Bilirubin Direct Bilirubin AST Cancelled ALT 32 Cancelled Alkaline Phosphatase 91 Cancelled Total Protein 7.6 Albumin Lipase 11/01/23 11/01/23 21:36 21:36 WBC RBC Hgb Hct MCV MCH MCHC RDW Coeff of Amber Plt Count Neut % (Auto) Lymph % (Auto) [place] % (Auto) Eos % (Auto) Baso % (Auto) Neut # (Auto) Lymph # (Auto) [place] # (Auto) Eos # (Auto) Baso # (Auto) Abs Immat Gran (auto) Imm/Tot Granulo (auto) Sodium Potassium Chloride Carbon Dioxide Anion Gap BUN Creatinine Estimated Creat Clear Estimated GFR Glucose Calcium Total Bilirubin Direct Bilirubin AST ALT Alkaline Phosphatase Total Protein Cancelled Albumin 4.5 Cancelled Lipase 670 H
--- NOTE | 2023-11-02 18:08 | PC.NURSE ---
End of Shift: Patient pleasant and cooperative. Patient vitally stable, lungs clear, BS WNL, IV running LR at 200. Patient independent in room. Patient has rated abdominal pain as high as 8/10
--- NOTE | 2023-11-02 18:10 | PC.NURSE ---
End of Shift: Patient pleasant and cooperative. Patient vitally stable, lungs clear, BS WNL, IV running LR at 200. Patient independent in room. Patient has rated abdominal pain as high as 8/10, dilauded given x4. Patient tolerating clear liquids but mostly consuming ice chips. Patient requested zophran before eating jello. Patient urinating well.
[2023-11-02] MEDS: ENOXAPARIN 40 MG/0.4 ML INJ SUBCUT (20:37)
[2023-11-03] MEDS: LACTATED RINGERS 1000 ML 1,000 ML 200 ML IV ×5 (01:38→23:00)
[2023-11-03] MEDS: PANTOPRAZOLE SODIUM 40 MG INJ IVP (01:38)
[2023-11-03] MEDS: HYDROmorphone 0.5 mg/0.5 ml inj IVP ×8 (01:39→23:00)
[2023-11-03] MEDS: ONDANSETRON 2 MG/ML inj 4 MG IVP ×3 (01:46→15:27)
[2023-11-03] MEDS: SENNOSIDES/DOCUSATE TABLET 1 TAB PO (01:46)
[2023-11-03 03:00] VITALS: BP 137/79; PULSE 64; RESP 16; TEMP 36.6; O2SAT 97
[2023-11-03] MEDS: SODIUM CHLORIDE 0.9 % (FLUSH) 10 ML SYRINGE 5 ML IVF ×5 (04:34→23:00)
--- NOTE | 2023-11-03 06:23 | PC.NURSE ---
End of shift report [id number]: Alert and oriented x 4. Pain to epigastric region radiating laterally both directions, pain well managed with current regimen. Nausea reported x 1, managed with PRN zofran. Tolerating clear liquids, patient able to drink small amount of fluids and ice chips and eating jello. Patient requested PRN senna for constipation. Bowel sounds active. Ambulates independently. Continent of bladder and bowel.
[2023-11-03 06:29] LABS: Basophils Absolute Auto 0.01 K/uL (0.00-0.30); Basophils Percent Auto 0.2 % (0.0-3.0); Eosinophils Absolute Auto 0.23 K/uL (0.00-0.50); Eosinophils Percent Auto 4.1 % (0.0-7.0); Hematocrit 33.9 % (37.0-53.0); Hemoglobin* 11.7 gm/dL (13.5-17.5); Lymphocytes Percent Auto 15.7 % (20-44); Mean Corpuscular HGB Conc 35 gm/dL (32-36); Mean Corpuscular Hemoglobin 31 pg (26-34); Mean Corpuscular Volume 89 fL (80-100); Monocytes Percent Auto 8.5 % (0.0-11.0); Neutrophils Absolute Auto 3.97 K/uL (1.7-7.0); Neutrophils Percent Auto 71.5 % (42.0-72.0); Platelet Count* 137 K/uL (140-440); RDW Coefficient of Variation % 12.2 % (11.5-15.5); Red Blood Count 3.83 m/uL (4.30-5.90); White Blood Count* 5.55 K/uL (4.50-11.00)
[2023-11-03 06:34] LABS: Slide Review Reflex No
[2023-11-03 07:00] VITALS: BP 131/85; PULSE 58; RESP 14; TEMP 36.7; O2SAT 96
[2023-11-03 07:06] LABS: Albumin* 3.6 g/dL (3.3-5.0); Chloride* 103 mmol/L (96-114)
[2023-11-03 07:07] LABS: Potassium* 3.8 mmol/L (3.6-5.1); Sodium* 136 mmol/L (135-149)
[2023-11-03 07:09] LABS: Alkaline Phosphatase* 100 U/L (40-150); Anion Gap 6 mEq/L (7-15); Aspartate Amino Transferase* 127 U/L (12-35); Blood Urea Nitrogen* 6 mg/dL (7-30); Carbon Dioxide* 27 mmol/L (20-32); Creatinine* 0.7 mg/dL (0.5-1.5); Est. Creatinine Clearance* 126.99; Estimated Glomerular Filt Rate 109 ml/min; Glucose* 105 mg/dL (60-115); Lipase* 145 U/L (23-300); Total Protein* 6.5 g/dL (6.0-8.3)
[2023-11-03 07:10] LABS: Alanine Aminotransferase* 182 U/L (4-50); Calcium* 8.5 mg/dL (8.4-10.6)
[2023-11-03 11:18] VITALS: BP 146/73; PULSE 67; RESP 16; TEMP 36.8; O2SAT 96
[2023-11-03 15:00] VITALS: BP 120/77; PULSE 63; PULSE 67; RESP 16; TEMP 36.9; O2SAT 96
--- NOTE | 2023-11-03 16:10 | PM.IMPN1 ---
Progress Note: A&P Assessment and plan (1) Acute pancreatitis: Problem details: - likely 2nd to ERCP done 11/01/2023 at 11:00 a.m. at [facility] with biliary stent placement due to narrowing in increased frequent abdominal symptoms - ongoing symptoms with slight improvement overnight. Continue generous IV fluids, IV pain medication as needed, and advance to clears. Anticipate he will need at least another night possibly 2. 11/03: Will advance to full liquids today, understands to take this slow as intermittent pain and nausea have occurred in the past. Lipase has normalized. Mild bump in LFTs, will recheck in the morning. Status: Acute (2) Recurrent pancreatitis: Problem details: - started about 10 years ago, Idiopathic - followed by [facility] - status post cholecystectomy and biliary stents on 11/01/2023 Status: Chronic (3) Pancreatic mass: Problem details: - noted 07/2023; biopsies taken 08/17/2023 at [place] during EUS, recently determined to be benign. Status: Chronic Plan Continuing to advance diet as tolerated, possible discharge 1-2 days Time Spent With Patient Total time spent: Total time spent caring for the patient today was 45 minutes. This includes time spent for the visit reviewing the chart, time spent during the visit, time spent after the visit and documentation and planning in coordination of care. Subjective Date Seen: 11/03/23 Interval history: Patient reports feeling better today. Has been tolerating clears though admits pain does increase slightly. No vomiting though mild nausea is intermittent. This is common for him in previous episodes so he is well-versed in taking this slowly. He would like to attempt full liquids today. Exam Narrative: Exam Narrative: PHYSICAL EXAM General: Pleasant, conversant, NAD HEENT: Normocephalic, atraumatic, sclera white, EOMI, oral mucosa moist Cardiovascular: RRR, S1S2. No pitting edema Pulmonary: CTA bilaterally without rhonchi, rales, expiratory wheezes. No dyspnea Abdominal: Soft, nondistended, NTTP Neurological: Alert, answering questions appropriately, cranial nerves intact, no focal findings Extremities: No gross joint deformity or swelling. AROMI. Neurovascularly intact Skin: Warm, dry. Const: Vital Signs, click to edit/add: Vital Signs - 24 hr 11/02/23 19:00 11/02/23 23:00 11/02/23 23:00 Temperature 98.0 F 97.9 F Pulse Rate [Pulse Oximeter] 82 66 66 Respiratory Rate 16 20 20 Blood Pressure [Ri ght Arm] 149/84 H 134/82 Pulse Oximetry 94 93 Oxygen Delivery Me thod Room Air Room Air 11/03/23 03:00 11/03/23 07:00 11/03/23 11:18 Temperature 97.9 F 98.1 F 98.2 F Pulse Rate [Pulse Oximeter] 64 58 L 67 Respiratory Rate 16 14 16 Blood Pressure [Ri ght Arm] 137/79 131/85 146/73 H Pulse Oximetry 97 96 96 Oxygen Delivery Me thod Room Air Room Air Room Air Labs Labs: Laboratory Results - last 24 hr 11/03/23 11/03/23 11/03/23 05:45 05:45 05:45 WBC 5.55 RBC 3.83 L Hgb 11.7 L Hct 33.9 L MCV 89 MCH 31 MCHC 35 RDW Coeff of Amber 12.2 Plt Count 137 L Neut % (Auto) 71.5 Lymph % (Auto) 15.7 L [place] % (Auto) 8.5 Eos % (Auto) 4.1 Baso % (Auto) 0.2 Neut # (Auto) 3.97 Lymph # (Auto) 0.90 [place] # (Auto) 0.50 Eos # (Auto) 0.23 Baso # (Auto) 0.01 Abs Immat Gran (auto) 0.00 Imm/Tot Granulo (auto) 0.0 Sodium Cancelled 136 Potassium Cancelled 3.8 Chloride Cancelled Carbon Dioxide Anion Gap BUN Creatinine Estimated Creat Clear Estimated GFR Glucose Calcium Total Bilirubin AST ALT Alkaline Phosphatase Total Protein Albumin Lipase 11/03/23 11/03/23 11/03/23 05:45 05:45 05:45 WBC RBC Hgb Hct MCV MCH MCHC RDW Coeff of Amber Plt Count Neut % (Auto) Lymph % (Auto) [place] % (Auto) Eos % (Auto) Baso % (Auto) Neut # (Auto) Lymph # (Auto) [place] # (Auto) Eos # (Auto) Baso # (Auto) Abs Immat Gran (auto) Imm/Tot Granulo (auto) Sodium Potassium Chloride 103 Carbon Dioxide Cancelled 27 Anion Gap Cancelled 6 L BUN Cancelled Creatinine Estimated Creat Clear Estimated GFR Glucose Calcium Total Bilirubin AST ALT Alkaline Phosphatase Total Protein Albumin Lipase 11/03/23 11/03/23 11/03/23 05:45 05:45 05:45 WBC RBC Hgb Hct MCV MCH MCHC RDW Coeff of Amber Plt Count Neut % (Auto) Lymph % (Auto) [place] % (Auto) Eos % (Auto) Baso % (Auto) Neut # (Auto) Lymph # (Auto) [place] # (Auto) Eos # (Auto) Baso # (Auto) Abs Immat Gran (auto) Imm/Tot Granulo (auto) Sodium Potassium Chloride Carbon Dioxide Anion Gap BUN 6 L Creatinine Cancelled 0.7 Estimated Creat Clear Cancelled 126.99 Estimated GFR Cancelled Glucose Calcium Total Bilirubin AST ALT Alkaline Phosphatase Total Protein Albumin Lipase 11/03/23 11/03/23 11/03/23 05:45 05:45 05:45 WBC RBC Hgb Hct MCV MCH MCHC RDW Coeff of Amber Plt Count Neut % (Auto) Lymph % (Auto) [place] % (Auto) Eos % (Auto) Baso % (Auto) Neut # (Auto) Lymph # (Auto) [place] # (Auto) Eos # (Auto) Baso # (Auto) Abs Immat Gran (auto) Imm/Tot Granulo (auto) Sodium Potassium Chloride Carbon Dioxide Anion Gap BUN Creatinine Estimated Creat Clear Estimated GFR 109 Glucose Cancelled 105 Calcium Cancelled 8.5 Total Bilirubin 1.0 AST 127 H ALT 182 H Alkaline Phosphatase 100 Total Protein 6.5 Albumin 3.6 Lipase Cancelled 11/03/23 05:45 WBC RBC Hgb Hct MCV MCH MCHC RDW Coeff of Amber Plt Count Neut % (Auto) Lymph % (Auto) [place] % (Auto) Eos % (Auto) Baso % (Auto) Neut # (Auto) Lymph # (Auto) [place] # (Auto) Eos # (Auto) Baso # (Auto) Abs Immat Gran (auto) Imm/Tot Granulo (auto) Sodium Potassium Chloride Carbon Dioxide Anion Gap BUN Creatinine Estimated Creat Clear Estimated GFR Glucose Calcium Total Bilirubin AST ALT Alkaline Phosphatase Total Protein Albumin Lipase 145
[2023-11-03 19:00] VITALS: BP 134/78; PULSE 71; RESP 16; TEMP 36.8; O2SAT 97
--- NOTE | 2023-11-03 19:50 | PC.NURSE ---
Slightly elevated BP. Consistent epigastric pain of 6-7, short relief to 2-3 w/ 0.5 mg IV dilaudid. Requesting q2-3 hr. Occasional nausea- 4mg IV zofran given this AM and this afternoon per request. MD advanced to full liquid diet- tolerated lunch and dinner. Did not eat breakfast. Voided x5. Last BM Wednesday, 11/03- requesting more than just 1 senna per day. PIV x2- LR @ 200 cc/hr. Up independently in room. Walked halls x2. Will continue to monitor, follow POC, and keep pt and family updated. Eula Mackenzie RN
[2023-11-03] MEDS: ENOXAPARIN 40 MG/0.4 ML INJ SUBCUT (20:26)
[2023-11-03 23:00] VITALS: BP 136/85; PULSE 61; RESP 16; TEMP 36.8; O2SAT 96
[2023-11-04] MEDS: SODIUM CHLORIDE 0.9 % (FLUSH) 10 ML SYRINGE 5 ML IVF ×3 (02:16→09:08)
[2023-11-04] MEDS: PANTOPRAZOLE SODIUM 40 MG INJ IVP (02:16)
[2023-11-04] MEDS: HYDROmorphone 0.5 mg/0.5 ml inj IVP ×2 (02:16→06:17)
[2023-11-04 02:46] VITALS: BP 143/75; PULSE 62; RESP 16; TEMP 36.7; O2SAT 96
--- NOTE | 2023-11-04 06:40 | PC.NURSE ---
pleasant and cooperative. indep. rating pain 6-04/05, see eMAR. 1x BM. VSS.
[2023-11-04 06:56] LABS: Hematocrit 34.2 % (37.0-53.0); Hemoglobin* 11.7 gm/dL (13.5-17.5); Mean Corpuscular HGB Conc 34 gm/dL (32-36); Mean Corpuscular Hemoglobin 31 pg (26-34); Mean Corpuscular Volume 89 fL (80-100); Platelet Count* 131 K/uL (140-440); Red Blood Count 3.84 m/uL (4.30-5.90); White Blood Count* 6.15 K/uL (4.50-11.00)
[2023-11-04 07:00] VITALS: BP 140/87; PULSE 72; RESP 20; TEMP 36.7; O2SAT 98
[2023-11-04 07:25] LABS: Albumin* 3.6 g/dL (3.3-5.0); Chloride* 103 mmol/L (96-114); Potassium* 4.1 mmol/L (3.6-5.1); Sodium* 137 mmol/L (135-149)
[2023-11-04 07:27] LABS: Creatinine* 0.8 mg/dL (0.5-1.5); Est. Creatinine Clearance* 111.12; Estimated Glomerular Filt Rate 105 ml/min
[2023-11-04 07:28] LABS: Alanine Aminotransferase* 127 U/L (4-50); Alkaline Phosphatase* 99 U/L (40-150); Anion Gap 7 mEq/L (7-15); Aspartate Amino Transferase* 57 U/L (12-35); Bilirubin Total* 0.5 mg/dL (0.1-1.5); Blood Urea Nitrogen* 8 mg/dL (7-30); Calcium* 8.6 mg/dL (8.4-10.6); Carbon Dioxide* 27 mmol/L (20-32); Glucose* 106 mg/dL (60-115); Total Protein* 6.5 g/dL (6.0-8.3)
[2023-11-04 07:37] LABS: Slide Review Reflex No
[2023-11-04] MEDS: OXYCODONE 5 MG TABLET PO (09:08)
--- NOTE | 2023-11-04 13:53 | PM.DS1 ---
DS: Providers Provider Date Seen: 11/04/23 Date of admission: 11/02/23 02:05 Primary care physician: Salo Gomez MD Admitting Clinician: Kash Garibay MD Attending Physician on discharge: Melissa Pickens [facility] Date of Discharge: 11/04/23 DS: Diagnosis Discharge Diagnosis (1) Acute pancreatitis: Status: Acute Problem details: Likely 2nd to ERCP done 11/01/2023 at 11:00 a.m. at [facility] with biliary stent placement due to narrowing in increased frequent abdominal symptoms Acute on chronic recurrent pancreatitis Received IV fluids, IV pain medication and was able to advance diet. Nausea resolved. Minimal pain, managed with oxycodone. Has outpatient follow-up at [facility] today so would like to discharge for this follow-up and will continue with slow advancement in diet. (2) Recurrent pancreatitis: Status: Chronic Problem details: - started about 10 years ago, Idiopathic - followed by [facility] - status post cholecystectomy and biliary stents on 11/01/2023. Postprocedure follow-up today at [facility] (3) Pancreatic mass: Status: Chronic Problem details: - noted 07/2023; biopsies taken 08/17/2023 at [facility] during EUS, recently determined to be benign. DS: Summary Hospital Course Hospital Course: [age] year old male past medical history significant for recurrent pancreatitis, cervical spinal stenosis, GERD, diverticulosis was admitted to the medical floor for management acute pancreatitis status post ERCP with stent placement. Course of care and details as noted above. Nausea resolved, pain improved with IV fluids and slow advancement in diet. Patient is discharged to follow-up with [facility] today. Remainder of chronic medical comorbidities were monitored and managed with home medications. Status at Discharge Overall status at discharge: patient is back to baseline Time Spent with Patient Time attestation: Total time spent providing and/or coordinating discharge services: Time spent: Greater than 30 minutes Exam Narrative: Exam Narrative: PHYSICAL EXAM General: Pleasant, conversant, NAD Cardiovascular: RRR Pulmonary: No dyspnea Neurological: Alert, answering questions appropriately Skin: Warm, dry. Const: Vital Signs, click to edit/add: Vital Signs - 24 hr 11/03/23 15:00 11/03/23 15:00 11/03/23 19:00 Temperature 98.5 F 98.3 F Pulse Rate [Pulse Oximeter] 67 63 71 Respiratory Rate 16 16 16 Blood Pressure [Ri ght Arm] 120/77 134/78 Pulse Oximetry 96 97 Oxygen Delivery Me thod Room Air Room Air 11/03/23 23:00 11/03/23 23:00 11/04/23 02:46 Temperature 98.2 F 98.1 F Pulse Rate [Pulse Oximeter] 61 62 Respiratory Rate 16 16 16 Blood Pressure [Ri ght Arm] 136/85 143/75 H Pulse Oximetry 96 96 Oxygen Delivery Me thod Room Air Room Air 11/04/23 07:00 11/04/23 07:00 Temperature 98.0 F Pulse Rate [Pulse Oximeter] 72 72 Respiratory Rate 20 20 Blood Pressure [Ri ght Arm] 140/87 H Pulse Oximetry 98 Oxygen Delivery Me thod Room Air DS: Data Data Completed and Pending Completed studies during hospitalization: Procedures Assistance with Respiratory Ventilation, Less than 24 Consecutive Hours, Continuous Positive Airway Pressure (08/18/23) Introduction of Other Gas into Respiratory Tract, Via Natural or Artificial Opening (08/18/23) Labs on day of discharge: Labs from last 24 hours 11/04/23 06:40 WBC 6.15 RBC 3.84 L Hgb 11.7 L Hct 34.2 L MCV 89 MCH 31 MCHC 34 Plt Count 131 L Sodium 137 Potassium 4.1 Chloride 103 Carbon Dioxide 27 Anion Gap 7 BUN 8 Creatinine 0.8 Estimated Creat Clear 111.12 Estimated GFR 105 Glucose 106 Calcium 8.6 Total Bilirubin 0.5 AST 57 H ALT 127 H Alkaline Phosphatase 99 Total Protein 6.5 Albumin 3.6 Discharge Plan Discharge Disposition: Home, Self-Care Date of Admission: 11/02/23 02:05 Attending Provider on Discharge: Melissa Pickens Primary Care Provider: Salo Gomez Condition: Improved Anticipated Discharge Date/Time: 11/04/23 10:06 Discharge Medications: New oxycodone 5 mg Tablet 5 mg PO Q4H PRNQty: 12 0RF Continued acetaminophen 325 mg Tablet 650 mg PO Q6H PRNQty: 20 0RF omeprazole 20 mg capsule,delayed release(DR/EC) 20 mg PO BID Qty: 120 5RF ondansetron 4 mg tablet,disintegrating 4 mg PO Q6-8H PRN (Reason: nausea and vomiting) Qty: 30 0RF oxycodone 5 mg tablet 5 - 10 mg PO Q4H PRN (Reason: Pain) Qty: 30 0RF Discharge Orders: Discharge Order (Routine); Ordered 11/04/23 Ordered By: Melissa Pickens Patient Education: Oxycodone, Rapid Release (By mouth), Pancreatitis (GEN) Activity Level: No Restrictions Discharge Diet: Other Diet Detail: Slowly advance diet as tolerated Follow Up Appointments: Salo Gomez MD [Primary Care Provider] - Forms: MyHealth Info Instructions Discharge Comments: Has follow up with [facility] today at 2:15
== END 2023-11-04 10:45 | disposition home or self-care (01) | DRG 282 ==
LOC: ED 23:46 → MEDSURG 11-02 01:15
PROVIDERS: Physician Assistant; Admitting Provider Emergency Medicine; Emergency Provider Emergency Medicine Emergency Medical Services; PCP Family Medicine; Visit Provider Family Medicine
DX: K85.00 Idiopathic acute pancreatitis without necrosis or infection (principal); K76.0 Fatty (change of) liver, not elsewhere classified; K21.9 Gastro-esophageal reflux disease without esophagitis; Z90.49 Acquired absence of other specified parts of digestive tract; Z96.89 Presence of other specified functional implants; K86.9 Disease of pancreas, unspecified
CPT/HCPCS: 36415; 80048; 80053; 80076; 83690; 85025; 85027; 93005; 99285; A9270; C9113; J1170; J1650; J2405; J7030; J7120

== ENCOUNTER 2024-03-28 10:54 | Outpatient (CLI) | payer OTHER, SELFPAY ==
--- OUTSIDE RECORDS SUMMARY | 2024-03-28 11:14 | XMS_ITS | Continuity of Care Document ---
Author Organization [facility] Address [address] [address] [place] [address] Phone Care Team Providers Care Software Team Leader Name Role Phone No Information Unavailable Unavailable Advance Directives Directive Yes / No Effective Date File Name No Information Encounters Encounter Description Practice Location Reason(s) For Visit Diagnoses Date Provider Providers Copied on Encounter [facility], [address] [address], [place], [place], [id number], [place] tel:[phone] No Information No Information Family History Family Member Type Diagnosis Age At Onset No Information Payers Payer name Insurance type Covered green party ID Authoriza tion(s) No Information Social History [...]
== END 2024-03-28 10:55 | disposition home or self-care (01) ==
PROVIDERS: PCP Family Medicine; Visit Provider Family Medicine
DX: K63.5 Polyp of colon (principal); Z13.1 Encounter for screening for diabetes mellitus; Z13.6 Encounter for screening for cardiovascular disorders; Z12.5 Encounter for screening for malignant neoplasm of prostate
CPT/HCPCS: 80048; 80061; G0103

== ENCOUNTER 2024-05-17 17:30 | Observation (INO) | payer OTHER, SELFPAY ==
[2024-05-17] VITALS (14 sets, daily range): BP systolic 151–200; BP diastolic 91–133; PULSE 49–97; RESP 18; TEMP 36.4–36.7; O2SAT 92–99; BMI 33.5; BMI 34.6
--- NOTE | 2024-05-17 17:41 | ED.GENADULT ---
HPI - General Adult General Time Seen by Provider: 17:42 Date Seen: 05/17/24 Chief complaint: Abdominal Pain Stated complaint: ercp procedure-pancreatis flare up Time Seen by Provider: 05/17/24 17:36 Source: patient and RN notes reviewed Mode of arrival: ambulatory Limitations: no limitations History of Present Illness HPI narrative: This 54-year-old male is coming in with concern of recurrent pancreatitis after an ERCP today with removal of 2 pancreatic stents and dilation of a stricture in his pancreatic duct. He has had a history of recurrent pancreatitis, he has had pancreatic stents before as well as them removed. He has had recurrent pancreatitis after ERCP with procedural stent placement and removal per his recollection. He had this done at [facility] around noon today. By 4:00 a.m. his pain was increasing, try to 5 mg oxycodone. Pain has continued to increase, he feels the oxycodone has not helped but only made him nauseated. He has not thrown up. He is having epigastric pain. He had a wave of heat go over him at the beginning of this, similar to prior episodes of pancreatitis. He has not noted any chills, he has not noted any fever. He did pull up his procedural report, had 2 plastic stents removed in a dilation done. There were no complications immediately with the procedure. The plan was to try to observe him stent free for some time to see how he would do. Flare of pancreatitis was an expected potential complication per his report. He feels like he is having an episode of recurrent pancreatitis. Related Data Previous Rx's ?Medication ?Instructions ?Recorded acetaminophen 325 mg tablet 650 mg (2 x 325 mg) PO Q6H PRN #20 08/20/23 tabs omeprazole 20 mg capsule,delayed 20 mg PO BID #120 caps 09/10/23 release ondansetron 4 mg disintegrating 4 mg PO Q6-8H PRN nausea and 10/07/23 tablet vomiting #30 tabs oxycodone 5 mg tablet 5 - 10 mg (1 - 2 x 5 mg) PO Q4H 04/21/24 PRN Pain #30 tabs Allergies Allergy/AdvReac Type Severity Reaction Status Date / Time No Known Drug Allergies Allergy Verified 03/28/24 10:20 Review of Systems Status of ROS: Reports: 6 or more systems reviewed and unremarkable except as noted in History and below PFSH [facility] Medical History Pancreatic mass ?K86.89 - Other specified diseases of pancreas (ICD-10) Hepatic steatosis ?K76.0 - Fatty (change of) liver, not elsewhere classified (ICD-10) Onychomycosis ?B35.1 - Tinea unguium (ICD-10) Surgical History History of biliary duct stent placement ?Z98.890 - Other specified postprocedural states (ICD-10) S/P arthroscopy of right shoulder (12/28/22) ?Z98.890 - Other specified postprocedural states (ICD-10) Status post laparoscopic cholecystectomy (12/22/16) ?Z90.49 - Acquired absence of other specified parts of digestive tract (ICD-10) History of colonoscopy ?Z98.890 - Other specified postprocedural states (ICD-10) Family History Other Colitis Social History Narrative: Social History: He is and lives with his and children. 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 Habits: He denies tobacco use. Denies recreational drug use. EtOH occassional - [place]/New Years was last EtOH. Drinks non alcoholic beer, last one was also over the holidays. Family History: Paternal grandfather of an acute myocardial infarction at age 50. His brother also had an acute myocardial infarction in his early 50s. A different brother had strokes in his 50s and 60s. Father had lung cancer with brain metastases despite being a nonsmoker. What is your current living situation?: I presently have a place to live Problems where you live: no known problems Problems where you live details: N/A In the past 12 months, utilities in danger of being shut off: no In past 12 months, lack of transportation kept you from medical appts, meetings, work, or getting things needed for daily living: no In the past 12 mos, have been you worried that your food would run out before you had money to buy more?: never true In the past 12 mos, the food you bought just didn't last and you didn't have money to buy more?: never true Highest level of school completed/degree received: some college, no degree Smoking Status: Never smoker Do you use any of these nicotine containing products: None Second hand tobacco smoke exposure: No How often do you have a drink containing alcohol: never AUDIT-C Alcohol total score: 0 Non-prescribed substance use: denies use Caffeine: Yes How often does anyone, including family, friends and others, physically hurt you: never How often does anyone, including family, friends and others, insult or talk down to you: never How often does anyone, including family, friends and others, threaten you with harm: never How often does anyone, including family, friends and others, scream or curse at you: never Little interest or pleasure in doing things: not at all Feeling down, depressed, or hopeless: not at all service: No Exam Const: Vital Signs, click to edit/add: Vital Signs - 24 hr 05/17/24 17:39 05/17/24 18:29 05/17/24 18:29 Temperature 97.5 F L Pulse Rate 53 L Pulse Rate [Right Pulse Oximeter] 51 L Respiratory Rate 18 Blood Pressure Blood Pressure [Ri ght Upper Arm] 184/100 H Pulse Oximetry 99 98 97 Oxygen Delivery Me thod Room Air 05/17/24 18:30 05/17/24 18:54 05/17/24 19:00 Temperature Pulse Rate 54 L 51 L Pulse Rate [Right Pulse Oximeter] Respiratory Rate Blood Pressure Blood Pressure [Ri ght Upper Arm] Pulse Oximetry 98 95 92 Oxygen Delivery Me thod 05/17/24 19:30 05/17/24 19:38 Temperature Pulse Rate 82 97 Pulse Rate [Right Pulse Oximeter] Respiratory Rate Blood Pressure 180/133 H Blood Pressure [Ri ght Upper Arm] Pulse Oximetry 96 98 Oxygen Delivery Me thod Pratik is a 54-year-old male that is alert, interactive, no apparent distress but looks like he does not feel well. He has an emesis bag with him. Pupils are equal round reactive, sclera clear. Able speak in complete sentences, speech is normal. Neck is thick but supple. Lungs are clear, good air entry, no wheezing or crackles. CV regular rate and rhythm, no murmur, normal S1-S2, no S3-S4. Abdomen is obese but soft, bowel sounds are present. He has definite epigastric tenderness with some mild guarding but no rebound. Do not feel any underlying organomegaly. He is not tender elsewhere in his abdomen on palpation. Skin visualized out any jaundice or rash. Documenting provider has reviewed patient's vital signs: yes Course Course ED Course: Given patient had an ERCP with procedures done today, do think that we need to consider CT imaging. There can be other complications from these procedures that we should be aware of. He does understand, agrees to proceed with CT imaging. We will establish an IV, get a full complement of labs. Start some normal saline for IV fluids, given 0.5 mg IV Dilaudid and 4 mg IV Zofran. On discussion with him he states typically dilaudid is what they use for pain management when he has failed orals. Reevaluation(s) Time of Reevaluation #1: 18:36 Reevaluation #1: Repeating 0.5 mg IV Dilaudid as 1st dose reportedly had no affect. Time of Reevaluation #2: 19:45 Reevaluation #2: Patient is adamant about wanting to stay here locally. Did review that his CT is not showing anything other than pancreatitis, no complications. He actually is feeling a bit better now with IV fluids the 2 doses of Dilaudid. He really would like me to talk to the GI specialist on-call at [facility] in see if they would do anything different than supportive care. If this is what they will be doing there, he would prefer to stay here. He understands if there are complications that we do not have GI and he would need transfer. He has had such a history with his pancreatitis that he understands this, is hopeful that he is just going to need some time and supportive care. He would like to do his supportive cares here if possible. Consultations Consultation #1: Did call [facility], spoke with RN in the triage center. She will contact GI so that I can confer with them. 7:25 p.m.: Spoke with [facility] specialist Dr. Coelho. He is recommending the patient transfer back to [facility] and be admitted there, he states it is there complication and patient has post ERCP pancreatitis. We are still awaiting the CT to be read. Will have the images pushed to [facility]. He wanted the patient to have 2 L of IV fluid. Reviewed that patient had had 1 L, will have to see if he is ready for the 2 L but will make sure that this is ordered. 7:51 p.m.: Did speak with Mahnaz alaniz RN in the transfer center. She is going to reach back out to Dr. Coelho and see if he will give his consent for the patient staying here. 8:04 p.m.: Mahnaz the RN from the transfer center did speak with the GI specialist, states it is fine for the patient to stay here given the patient's request and current situation. Time: 19:11 Consultation #2: Have reviewed case with the hospitalist, Dr. Zuñiga agrees to accept him here. She remembers him from prior admissions for similar circumstances. Time: 20:07 Vital Signs Vital signs: Initial Vital Signs Temperature 97.5 F L 05/17/24 17:39 Temperature Source Temporal Artery Scan 05/17/24 17:39 Pulse Rate 51 L 05/17/24 17:39 Respiratory Rate 18 05/17/24 17:39 Blood Pressure 184/100 H 05/17/24 17:39 Blood Pressure Mean 128 H 05/17/24 17:39 Blood Pressure Position Sitting 05/17/24 17:39 Pulse Oximetry 99 05/17/24 17:39 Oxygen Delivery Method Room Air 05/17/24 17:39 Vital Signs Temperature 97.5 F L 05/17/24 17:39 Pulse Rate 51 L 05/17/24 17:39 Respiratory Rate 18 05/17/24 17:39 Blood Pressure 184/100 H 05/17/24 17:39 Pulse Oximetry 99 05/17/24 17:39 Oxygen Delivery Method Room Air 05/17/24 17:39 Temperature 97.5 F L 05/17/24 17:39 Pulse Rate 97 05/17/24 19:38 Respiratory Rate 18 05/17/24 17:39 Blood Pressure 180/133 H 05/17/24 19:38 Pulse Oximetry 98 05/17/24 19:38 Oxygen Delivery Method Room Air 05/17/24 17:39 Medications Administered Medications: Discontinued Medications Generic Name Dose Route Start Last Admin Trade Name Freq PRN Reason Stop Dose Admin Hydromorphone HCl 0.5 mg 05/17/24 17:49 05/17/24 18:24 Hydromorphone 0.5 Mg/0.5 Ml Inj IVP 05/17/24 17:50 0.5 mg ONCE ONE Administration Hydromorphone HCl 0.5 mg 05/17/24 18:36 05/17/24 18:38 Hydromorphone 0.5 Mg/0.5 Ml Inj IVP 05/17/24 18:37 0.5 mg ONCE ONE Administration Sodium Chloride 1,000 mls @ 1,000 mls/hr 05/17/24 17:51 05/17/24 19:31 0.9 % Sodium Chloride 1000 Ml IV 05/17/24 18:50 Infused .Q1H CRISTHIAN Infusion Ondansetron HCl 4 mg 05/17/24 17:49 05/17/24 18:22 Ondansetron 2 Mg/Ml Inj IVP 05/17/24 17:50 4 mg ONCE ONE Administration Medical Decision Making Lab Data Lab results reviewed: Yes I reviewed the patient's lab results Labs: Lab Results 05/17/24 Range/Units 18:20 WBC 15.54 H (4.50-11.00) K/uL RBC 4.74 (4.30-5.90) m/uL Hgb 15.0 (13.5-17.5) gm/dL Hct 42.7 (37.0-53.0) % MCV 90 (80-100) fL MCH 32 (26-34) pg MCHC 35 (32-36) gm/dL RDW Coeff of Amber 12.0 (11.5-15.5) % Plt Count 179 (140-440) K/uL Neut % (Auto) 91.1 H (42.0-72.0) % Lymph % (Auto) 2.9 L (20-44) % [place] % (Auto) 5.7 (0.0-11.0) % Eos % (Auto) 0.0 (0.0-7.0) % Baso % (Auto) 0.0 (0.0-3.0) % Neut # (Auto) 14.20 H (1.7-7.0) K/uL Lymph # (Auto) 0.50 L (0.90-2.90) K/uL [place] # (Auto) 0.90 (0.00-0.90) K/UL Eos # (Auto) 0.00 (0.00-0.50) K/uL Baso # (Auto) 0.00 (0.00-0.30) K/uL Abs Immat Gran (auto) 0.00 (0.00-0.30) K/uL Imm/Tot Granulo (auto) 0.3 % Sodium 137 (135-149) mmol/L Potassium 3.9 (3.6-5.1) mmol/L Chloride 103 (96-114) mmol/L Carbon Dioxide 25 (20-32) mmol/L Anion Gap 9 (7-15) mEq/L BUN 13 (7-30) mg/dL Creatinine 0.8 (0.5-1.5) mg/dL Estimated Creat Clear 109.81 Estimated GFR 104 ml/min Glucose 138 H (60-115) mg/dL Lactate 1.6 (0.5-1.9) mmol/L Calcium 9.5 (8.4-10.6) mg/dL Total Bilirubin 0.8 (0.1-1.5) mg/dL Direct Bilirubin 0.3 (0.0-0.5) mg/dL AST 53 H (12-35) U/L ALT 53 H (4-50) U/L Alkaline Phosphatase 89 (40-150) U/L C-Reactive Protein < 0.5 L (0.5-1.0) mg/dL Total Protein 8.2 (6.0-8.3) g/dL Albumin 4.8 (3.3-5.0) g/dL Lipase 1799 H (23-300) U/L Imaging Data CT scan - abdomen: Attestation: I have reviewed the pertinent imaging results. Radiologist's impression: Patient: PIETER BERNARDO Facility:?[facility] Patient ID:?[id number] Site Patient ID:?[id number]. Site :?[id number] Study:?CT-Abdomen/Pelvis W/118CC [id number]/21/2024 7:11:12 PM Ordering Physician:?Beata Krueger Final Report: INDICATION: Increasing abdomen pain after ERCP with stent removal and duct dilation TECHNIQUE: CT Abdomen and pelvis with i.v. contrast. Coronal and sagittal reformats were obtained. CONTRAST: 118 mL Isovue 370 COMPARISON: 08/17/2023 FINDINGS: Lower chest: Unremarkable. Liver: Mild fatty infiltration of the liver is present. Spleen: Unremarkable. Pancreas: The pancreatic duct is mildly enlarged within the pancreatic head measuring 5 mm but decreased in size from prior examination. Gallbladder: Previous cholecystectomy noted with no significant intra- or extrahepatic biliary ductal dilatation seen. Patient is status post cholecystectomy with a trace amount of gas present in the common duct which may be due to recent ERCP. Kidney: Unremarkable. No kidney or ureteral stones or obstruction seen. Adrenal: Unremarkable. Bowel: Unremarkable. The appendix is normal in appearance and size. Vascular: Unremarkable. Lymph: Unremarkable. Peritoneum: Unremarkable. No pneumoperitoneum is seen. No significant ascites is noted. Pelvis: Unremarkable. Soft tissue: Unremarkable. Bone: Unremarkable for age. Miscellaneous: Peripancreatic retroperitoneal edema is noted and increased from prior examination. IMPRESSION: 1. Peripancreatic retroperitoneal edema is noted and increased from prior examination. Findings are likely due to acute pancreatitis. Dictated by Tate Tracy MD @ 05/17/2024 7:44:58 PM Please note that all CT scans at this facility use dose modulation, iterative reconstruction, and/or weight-based dosing when appropriate to reduce radiation dose to as low as reasonably achievable. Dictated by: Tate Tracy MD @ 05/17/2024 19:45:03 (Electronic Signature) Discharge Plan Discharge Clinical Impression: Pancreatitis Qualifiers: Chronicity: acute Pancreatitis type: other Patient Disposition: Admitted As Observation Prescriptions: No Action acetaminophen 325 mg Tablet 650 mg PO Q6H PRNQty: 20 0RF omeprazole 20 mg capsule,delayed release(DR/EC) 20 mg PO BID Qty: 120 5RF ondansetron 4 mg tablet,disintegrating 4 mg PO Q6-8H PRN (Reason: nausea and vomiting) Qty: 30 0RF oxycodone 5 mg tablet 5 - 10 mg PO Q4H PRN (Reason: Pain) Qty: 30 0RF Follow Up/Referrals: Salo Gomez MD [Primary Care Provider] -
--- NOTE | 2024-05-17 17:49 | CRLHL7_ITS ---
For Patients: As a result of the Century Cures Act, medical imaging exams and procedure reports are released immediately into your electronic medical record. You may view this report before your referring provider. If you have questions, please contact your health care provider. INDICATION: Increasing abdomen pain after ERCP with stent removal and duct dilation TECHNIQUE: CT Abdomen and pelvis with i.v. contrast. Coronal and sagittal reformats were obtained. CONTRAST: 118 mL Isovue 370 COMPARISON: 08/17/2023 FINDINGS: Lower chest: Unremarkable. Liver: Mild fatty infiltration of the liver is present. Spleen: Unremarkable. Pancreas: The pancreatic duct is mildly enlarged within the pancreatic head measuring 5 mm but decreased in size from prior examination. Gallbladder: Previous cholecystectomy noted with no significant intra- or extrahepatic biliary ductal dilatation seen. Patient is status post cholecystectomy with a trace amount of gas present in the common duct which may be due to recent ERCP. Kidney: Unremarkable. No kidney or ureteral stones or obstruction seen. Adrenal: Unremarkable. Bowel: Unremarkable. The appendix is normal in appearance and size. Vascular: Unremarkable. Lymph: Unremarkable. Peritoneum: Unremarkable. No pneumoperitoneum is seen. No significant ascites is noted. Pelvis: Unremarkable. Soft tissue: Unremarkable. Bone: Unremarkable for age. Miscellaneous: Peripancreatic retroperitoneal edema is noted and increased from prior examination. IMPRESSION: 1. Peripancreatic retroperitoneal edema is noted and increased from prior examination. Findings are likely due to acute pancreatitis. Dictated by Tate Tracy MD @ 05/17/2024 7:44:58 PM Please note that all CT scans at this facility use dose modulation, iterative reconstruction, and/or weight-based dosing when appropriate to reduce radiation dose to as low as reasonably achievable. Dictated by: Tate Tracy MD @ 05/17/2024 19:45:03 (Electronically Signed)
[2024-05-17] MEDS: 0.9 % SODIUM CHLORIDE 1000 ml 1,000 ML IV ×2 (18:20→20:00)
[2024-05-17] MEDS: ONDANSETRON 2 MG/ML inj 4 MG IVP ×2 (18:22→23:13)
[2024-05-17] MEDS: HYDROmorphone 0.5 mg/0.5 ml inj IVP ×6 (18:24→23:38)
[2024-05-17 18:26] LABS: Lactate* 1.6 mmol/L (0.5-1.9)
[2024-05-17 18:28] LABS: Hematocrit 42.7 % (37.0-53.0); Immature Granulocytes Pct Auto 0.3 %; Lymphocytes Percent Auto 2.9 % (20-44); Mean Corpuscular HGB Conc 35 gm/dL (32-36); Mean Corpuscular Hemoglobin 32 pg (26-34); Mean Corpuscular Volume 90 fL (80-100); Monocytes Percent Auto 5.7 % (0.0-11.0); Neutrophils Percent Auto 91.1 % (42.0-72.0); Platelet Count* 179 K/uL (140-440); Red Blood Count 4.74 m/uL (4.30-5.90); White Blood Count* 15.54 K/uL (4.50-11.00)
[2024-05-17 18:32] LABS: Slide Review Reflex No
--- OUTSIDE RECORDS SUMMARY | 2024-05-17 18:34 | XMS_ITS | Referral Summary ---
Author Organization [facility] Address [address] [place] [address] Care Team Providers Care Metal Burrer Name Role Phone Elsewhere, Pcp Primary Care Provider Unavailabl e Source Comments Patient records contain information from all sites at [facility]. For routine questions regarding patient records, call [phone] during business hours, M-F 8:00 AM - 5:00 PM Central Time. Record requests for emergency care only can be directed to [phone] at any time.[facility] Encounters Date Type Department Care Team Description 05/17/2024 11:45 AM CDT Ancillary Procedure Department of Gastroenterology Arrived 05/17/2024 10:36 AM CDT Hospital Encounter Department of Radiology, [facility], in [place], [place] [address] [place] [address] Aimee Johnson M.D. Pancreatitis Chronic (HCC) 05/17/2024 9:18 AM CDT Hospital Encounter Division of Gastroenterology in [place], [place] [address] [place] [address] Aimee Johnson M.D. Law, Ryan J, D.OKinjal Pancreatitis Chronic (HCC) 05/17/2024 12:04 PM CDT Anesthesia Event Division of Gastroenterology in [place], [place] [address] [place] [address] Jose Leiva APRN, CRNA Vasdev, Gurinder M, M.D. from Last 3 Months Allergies No known active allergies Medications Medication Sig Dispensed Refills Start Date End Date Status sennosides-docusate sodium (SENOKOT-S) 8.6-50 mg per tablet Take 2 tablets by mouth 2 (two) times a day. As needed 12/26/2014 Active oxyCODONE (ROXICODONE) 5 mg immediate release tablet Take 1 tablet by mouth every 4 (four) hours as needed. 12/26/2014 Active omeprazole (PriLOSEC) [address] capsule Take 20 mg by mouth 2 (two) times a day. 03/19/2022 Active Active Problems Problem Noted Date Diagnosed Date [...] Never true 03/04/2023 Nutrition Answer Date Recorded On average, how many serving s of [...] Sign Reading Time Taken Comments Blood Pressure 176/98 05/17/2024 2:06 PM CDT Pulse 50 05/17/2024 2:06 PM CDT Temperature 36.5 ??C (97.7 ??F) 05/17/2024 2:06 PM CD T Respiratory Rate 18 05/17/2024 2:06 PM CDT Oxygen Saturation 98% 05/17/2024 2:06 PM CDT Inhaled Oxygen Concentration - - Weight 113 kg (249 lb 5.4 oz) 05/17/2024 10:41 A M CDT Height 180.3 cm (5' 10.98) 05/17/2024 10:41 AM CDT Body Mass Index 34.79 05/17/2024 10:41 AM CDT Plan of Treatment Upcoming Encounters Date Type Department Care Team (Latest Contact Info) Description 05/19/2024 4:15 PM CDT Clinical Communication Virtual Review in [place], [place] [address] [place] [address] 05/23/2024 3:00 PM CDT Office Visit Division of Gastroenterology in [place], [place] [address] [place] [address] Skye Kunz M.D., M.P.H. [address] [place] [address] Medical Devices Implanted Type Area Protection Consultant Device Identifier Shelf Expiration Date Model / Serial / Lot Stent Intro Fusion [place] 10 Fr - [id number] [id number] Implanted:Qty: 1 on 12/25/2014 Biliary Stent [employer] Description:Device Manufactu rer - Adiana. Device Status Text - [id number]. Explanted Type Area Protection Consultant Device Identifier Shelf Expiration Date Model / Serial / Lot Stent Biliary 10 X 5 Cotton-Pineda - Valentin [id number] Implanted:Qty: 1 on 12/25/2014 Explanted:Qty: 1 on 06/08/2022 by Jimbo Vásquez M.D. at [facility] Biliary Stent [employer] Description:Device Manufactu [employer] - Adiana. Device Status Text - [id number]. [facility] Wdg 8.5fx22 - [id number] Implanted:Qty: 1 on 04/09/2022 by Cristopher Angelo D.O. at [facility] Explanted:Qty: 1 on 06/08/2022 by Jimbo Vásquez M.D. at [facility] Biliary Stent [employer] 12/31/2024 [id number] / / [id number] [facility] Wdg 8.5fx22 - [id number] Explanted:Qty: 1 on 06/08/2022 by Jimbo [facility] M.D. at [facility] Biliary Stent [employer] 04/22/2025 [id number] / / [id number] Description:8.5x13.5 [facility] Wdg 8.5fx22 - [id number] Explanted:Qty: 1 on 06/08/2022 at [facility] Biliary Stent [employer] 04/22/2025 [id number] / / [id number] Description:8.5x10.5 [facility] Wdg 10fx22 - [id number] Implanted:Qty: 1 on 06/08/2022 by Jimbo Vásquez M.D. at [facility] Explanted:Qty: 1 on 08/10/2022 by Mallory Champion M.D., M.P.H. at [facility] Biliary Stent [employer] 04/29/2025 [id number] / / [id number] Description:10x13.5 Stent Pancreatic 5 X 5 Single Gpsos - [id number] Implanted:Qty: 1 on 12/25/2014 Explanted:Qty: 1 on 06/08/2022 by [facility] Pancreat[facility] Stent [employer] Description:Device Manufactu [facility]. Device Status Text - [id number]. [facility] Wdg 10fx22 - [id number] Implanted:Qty: 1 on 11/01/2023 by Cristopher Angelo D.O. at [facility] Explanted:Qty: 1 on 02/01/2024 by Crist[facility] D.O. [facility] Pancreatic Stent [employer] 09/06/2026 [id number] / / [id number] Description:10x12 [facility] Wdg 10fx22 - [id number] Implanted:Qty: 1 on 02/01/2024 by Cristopher Angelo D.O. at [facility] Explanted:Qty: 1 on 05/17/2024 by Freda Espinosa M.B.B.S. at [facility] Pancreatic Stent [employer] 12/21/2026 [id number] / / [id number] Description:10x13 [facility] - [id number] Implanted:Qty: 1 on 02/01/2024 by Cristopher Angelo D.O. at [facility] Explanted:Qty: 1 on 05/17/2024 by [facility] Stent [employer] [id number] 03/25/2026 [id number] / / [id number] Description:7x9 Procedures Procedure Name Priority Date/Time Associated Diagnosis Comments FL FLUORO LESS THAN 1 HOUR RAD - Routine (most inpatients and all outpatients) 05/17/2024 12:43 PM CDT Pancreatitis Chronic (HCC) LDA ANE ENDOTRACHEAL AIRWAY Routine 05/17/2024 12:12 PM CDT GASTROENTEROLOGY IMAGE EXAM Routine 05/17/2024 11:45 AM CDT ERCP Routine 05/17/2024 11:44 AM CDT Pancreatitis Chronic (HCC) ERCP Routine 05/17/2024 11:44 AM CDT Pancreatitis Chronic (HCC) COMPREHENSIVE METABOLIC PANEL, S/P Routine 02/10/2022 11:07 AM CDT Pancreatitis Chronic (HCC) LIPID PANEL, S Routine 02/10/2022 11:07 AM CDT Pancreatitis Chronic (HCC) HIV-1/-2 AG AND AB SCREEN Routine 12/25/2014 4:26 AM CDT from Last 3 Months or Most Recently Relevant to Health Maintenance Results * FL Fluoro Less Than 1 Hour (05/17/2024 12:43 PM CDT) Narrative ERCP LOS RST - 05/17/2024 12:44 PM CDT This exam does not require a radiologist review or interpretation. Please refer to the patient's medical record on this date for clinical details. Aimee GUERRERO FLUOROSCOPY PRO CEDURES ERCP LOS RST * LDA ANE ENDOTRACHEAL AIRWAY (05/17/2024 12:12 PM CDT) Narrative Isiah Krishna APRN, CAMILO, DNAP - 05/17/2024 12:12 PM CDT Isiah Krishna APRN, CRNA, DNAP ? 05/17/2024 12:15 PM Airway Date/Time: 05/17/2024 12:12 PM Performed by: Isiah Krishna APRN, CRNA, DNAP Authorized by: Isiah Krishna APRN, CRNA, DNAP ?? Patient location during procedure: OR / Procedure Area PROCEDURE DETAILS: Mask difficulty assessment: easy mask Final airway type: video laryngoscope Laryngeal Manipulation: no ?? Final best view of glottic structures - Cormack/Lehane Score: grade 2A ETT location: oral VL device: glide scope [place] scope blade size: 4 Tube size: 7 ETT distance at teeth/gum: 23 Oral tube type: standard ETT Cuffed: yes Number of attempt to successful placement: 1 [...] outcome: successful ?? Notable Events: no complications Isiah Krishna APRN, CRNA, DNAP ANESTHES IA ORDERABLES * ERCP-Gastroenterology Image Exam (05/17/2024 11:45 AM CDT) Narrative [facility] - 05/17/2024 4:31 PM CDT This order has been created and auto-finalized to support the import of images acquired without order. The clinical documentation to support these images can be found on the encounter that produced images. Provider Not In System IMG NON RAD IMAGI NG PROCEDURES IINV NA * ERCP (05/17/2024 11:44 AM CDT) 05/17/2024 11:4 4 AM CDT Impressions [facility] - 05/17/2024 4:27 PM CDT Post-op Diagnoses: ? - Diffuse irregularity of the main pancreatic duct with a mild, ? pdh-hxud-zyqdctot stricture at the distal body/tail, likely at the ? distal edge of the previously placed stents. Improved from previous ? pancreatograms, with prompt drainage of contrast. Hence, previously ? placed pancreatic duct stents removed, and not replaced. ? - Area of stricture dilated to 4 mm. ? - Stone fragments and debris completely removed via balloon extraction. ? - Prior biliary and pancreatic sphincterotomy appeared open. ? - Rectal diclofenac and 2l IV Lactated Ringers given to decrease risk of ? post-ERCP pancreatitis. Narrative [facility] - 05/17/2024 4:27 PM CDT [facility] 2 GI Patient Name: Arturo Lockwood Date of : 1970 Age: 54 Procedure Date: 05/17/2024 Procedure: ? ERCP Providers: ? Cristopher Angelo DO, CAR Simon (Fellow) Referring Provider: ?Aimee Johnson MD Pre-op Diagnoses: ?Pancreatic duct stone, Pancreatic duct stricture Recommendation: ? - The patient will be observed post-procedure, until all discharge ? criteria are met. ? - Resume previous diet. ? - Observe patient's clinical course for this stent-free trial. If he has ? recurrence of pancreas-type symptoms, perform MRCP and depending on its ? findings, possibly repeat ERCP. Findings: ? Two plastic pancreatic stents were visible on the test design engineer film. The ? esophagus was successfully intubated under direct vision. The ? duodenoscope was advanced from the mouth to the duodenum. The pharynx, ? larynx and associated structures, as well as the upper GI tract, were ? normal. Inspection of the major papilla revealed that biliary and ? pancreatic sphincterotomies had been performed previously, both of which ? appeared open. Two plastic stents originating in the pancreatic duct ? were emerging from the major papilla. Both were removed using a ? rat-toothed forceps and snare. The ventral pancreatic duct alone was ? deeply cannulated with the 8.5 mm balloon. Contrast was injected ? incrementally to avoid overfilling of the duct. I personally interpreted ? the pancreatic duct images. There was brisk flow of contrast through the ? ducts. Image quality was excellent. Contrast extended to the pancreatic ? duct. Opacification of the ventral pancreatic duct was successful. ? Diffuse irregularity of the pancreatic duct was seen in the main ? pancreatic duct. A mild, awv-gcly-biarxdzc stricture was noted in the ? pancreatic duct at the distal body/tail, likely at the distal edge of ? the previously placed stents. There was no dilation of the duct beyond ? this. Overall improved from previous pancreatograms. The area of the ? stricture of the main pancreatic duct was successfully dilated with a 4 ? mm balloon dilator. The pancreatic duct was swept multiple times with an ? 8.5 mm balloon starting at the tail of the pancreas. Stone fragments and ? debris were removed. There was prompt drainage of contrast and ? pancreatic juice, hence decision was made to not replace the pancreatic ? duct stent. Diclofenac 100 mg (suppository), and IV Lactated Ringers ? solution 2l were given to decrease the risk of post-ERCP pancreatitis ? (PEP). Procedural Details: ? The patient was seen, [...] used to inject contrast into the ? ventral pancreatic duct. The ERCP was accomplished without difficulty. ? The patient tolerated the procedure well. Complications: ? None. Estimated Blood Loss: ?None. Attending Participation: I was present and participated during the entire ? procedure, including non-wei portions. Cristopher Angelo DO 05/17/2024 4:27:42 PM This report has been signed electronically. Number of Addenda: 0 Note Initiated On: 05/17/2024 11:44 AM Aimee Johnson M.D. GI PROCEDURE ORDERA BLES [place] [facility] NA * Lipid Panel (02/10/2022 11:07 AM CDT) [facility] Cholesterol, Total 187 mg/dL 2021 12:02 PM CDT DTL Comment: ----REFERENCE VALUE---- Desirable: < 200 Borderline high: 200 - 239 High: > or = 240 Triglycerides 143 mg/dL 02/10/2022 12:02 PM CDT DTL Comment: ----REFERENCE VALUE---- Normal: <150 Borderline high: 150-199 High: 200-499 Very high: > or =500 Cholesterol, HDL, S 41 >=40 mg/dL 02/10/2022 12:02 PM CDT DTL Calculated LDL 117 mg/dL 02/10/2022 12:02 PM CDT DTL Comment: ----REFERENCE VALUE---- Desirable: <100 mg/dL Above Desirable: 100-129 mg/dL Borderline High: 130-159 mg/dL High: 160-189 mg/dL Very High: >=190 mg/dL Cholesterol, Non-HDL, Calculated 146 mg/dL 02/10/2022 12:02 PM CDT DTL Comment: ----REFERENCE VALUE---- Desirable: <130 Above Desirable: 130-159 Borderline high: 160-189 High: 190-219 Very high: > or =220 Blood (Blood, Venous) 02/10/2022 11:07 AM CDT 02/10/2022 11:46 AM CDT Aimee Johnson M.D. LAB BLOOD ADD-ON [facility] [address] [place] [address], [facility] DTL [facility] [address] [place] [address] * Comprehensive Metabolic Panel (02/10/2022 11:07 AM CDT) Potassium, S 4.9 3.6 - 5.2 mmol/L 02/10/2022 12:04 PM CDT DTL Sodium, S 140 135 - 145 mmol/L 02/10/2022 12:04 PM CDT DTL Chloride, S 103 98 - 107 mmol/L 02/10/2022 12:04 PM CDT DTL Bicarbonate, S 29 22 - 29 mmol/L 02/10/2022 12:04 PM CDT DTL Anion Gap 8 7 - 15 02/10/2022 12:04 PM CDT DTL BUN (Blood Urea Nitrogen), S 15 8 - 24 mg/dL 02/10/2022 12:04 PM CDT DTL Creatinine 0.97 0.74 - 1.35 mg/dL 02/10/2022 12:04 PM CDT DTL eGFR-Non Black/ 89 >=60 mL/min/BS A 02/10/2022 12:04 PM CDT DTL Comment: ----ADDITIONAL INFORMATION---- Estimated GFR calculated using the 2009 CKD_EPI creatinine equation. eGFR-Black/ >90 >=60 mL/min/BS A 02/10/2022 12:04 PM CDT DTL Comment: ----ADDITIONAL INFORMATION---- Estimated GFR calculated using the 2009 CKD_EPI creatinine equation. Calcium, Total, S 9.5 8.6 - 10.0 mg/dL 02/10/2022 12:04 PM CDT DTL Glucose, S 101 70 - 140 mg/dL 02/10/2022 12:04 PM CDT DTL Protein, Total, S 7.3 6.3 - 7.9 g/dL 02/10/2022 12:04 PM CDT DTL Albumin, S 4.5 3.5 - 5.0 g/dL 02/10/2022 12:04 PM CDT DTL Aspartate Aminotransferase (AST), S 20 8 - 48 U/L 02/10/2022 12:04 PM CDT DTL Alkaline Phosphatase, S 94 40 - 129 U/L 02/10/2022 12:04 PM CDT DTL Alanine Aminotransferase (ALT), S 23 7 - 55 U/L 02/10/2022 12:04 PM CDT DTL Bilirubin, Total, S 0.5 <=1.2 mg/dL 02/10/2022 12:04 PM CDT DTL Blood (Blood, Venous) 02/10/2022 11:07 AM CDT 02/10/2022 11:47 AM CDT Sheba Arambula LAB BLOOD ADD-ON [facility] [address] [place] [address], [place] [facility] [place] [address] [place] [address] * HIV-1/-2 Ag and Ab Screen (12/25/2014 4:26 AM CDT) Pathologist [facility] HIV-1/-2 Ag and Ab Screen, S Negative Negative [facility] Comment: Negative result does not rule out HIV infection. If ? acute HIV infection is suspected in a high-risk ? individual, submit plasma specimen for HIV-1 RNA ? quantification test (HIVQU) and/or HIV-2 DNA/RNA ? test (FHV2Q). ? 12/25/2014 4:26 AM CDT 12/25/2014 4:26 AM CDT Babatunde Parker M.D. LAB MICROBIOLOGY - BLOOD ORDERABLES [facility] [address] [place] [address], [facility] from Last 3 Months or Most Recently Relevant to Health Maintenance Care Teams Metal Burrer Relationship Specialty Start Date End Date Elsewhere, Pcp PCP - General Internal Medicine 03/05/23
--- OUTSIDE RECORDS SUMMARY | 2024-05-17 18:34 | XMS_ITS | Encounter Summary ---
Author Organization [facility] Address [address] [place] [address] Care Team Providers Care Clean Rice Grader And Reel Tender Name Role Phone Elsewhere, Pcp Primary Care Provider Unavailabl e Reason for Referral * Outpatient (Routine) - Closed Specialty Diagnoses / Procedures Referred By Lionel bartlett Referred To Contact Diagnoses Pancreatitis Chronic (HCC) Procedures Aimee Arriaga M.D. [address] [place] [address] [facility] Referral ID Status Reason Start Date Expiration Date Visits Re quested Visits Authorized [id number] Closed 02/02/2024 02/01/2025 1 1 Reason for Visit * Outpatient (Routine) - Closed Specialty Diagnoses / Procedures Referred By Lionel bartlett Referred To Contact Diagnoses Pancreatitis Chronic (HCC) Procedures Aimee Arriaga M.D. [address] [place] [address] [facility] Referral ID Status Reason Start Date Expiration Date Visits Re quested Visits Authorized [id number] Closed 02/02/2024 02/01/2025 1 1 Encounter Details Date Type Department Care Team (Latest Contact Info) Description 05/17/2024 9:18 AM CDT Hospital Encounter Division of Gastroenterology in [place], [place] [address] [place] [address] Aimee Johnson M.D. 200 [place] [address] Cristopher Angelo D.O. 200 [place] [address] Pancreatitis Chronic (HCC) Social History Tobacco Use [...] Mass Index 34.79 05/17/2024 10:41 AM CDT documented in this encounter Plan of Treatment Upcoming Encounters Date Type Department Care Team (Latest Contact Info) Description 05/19/2024 4:15 PM CDT Clinical Communication Virtual Review in [place], [place] [address] [place] [address] 05/23/2024 3:00 PM CDT Office Visit Division of Gastroenterology in [address] [address] Skye Kunz M.D., M.P.H. [address] [place] [phone] documented as of this encounter Procedures Procedure Name Priority Date/Time Associated Diagnosis Comments ERCP Routine 05/17/2024 11:44 AM CDT Pancreatitis Chronic (HCC) ERCP Routine 05/17/2024 11:44 AM CDT Pancreatitis Chronic (HCC) documented in this encounter Results * ERCP (05/17/2024 11:44 AM CDT) 05/17/2024 11:4 4 AM CDT [facility]ressions [facility] - 05/17/2024 4:27 PM CDT Post-op Diagnoses: ? - Diffuse irregularity of the main pancreatic duct with a mild, ? jdr-ylpg-jienqulo stricture at the distal body/tail, likely at [...] decrease risk of ? post-ERCP pancreatitis. Narrative [facility] - 05/17/2024 4:27 PM CDT G[facility] 2 [...] plastic pancreatic stents were visible on the coffee taster film. The ? esophagus was successfully intubated [...] the main ? pancreatic duct. A mild, lld-qwte-kyfotzcv stricture was noted in the ? pancreatic [...] 11:44 AM Aimee Johnson M.D. GI PROCEDURE ORDERNaima KAUR Performing Organization Address City/State/ZIP Co ne Phone Number [facility] [place] documented in this encounter Visit Diagnoses Diagnosis Pancreatitis Chronic (HCC) documented in this encounter Administered Medications Inactive Administered Medications - up to 3 most recent administrations Medication Order MAR Action Action Date Dose Rate Site diclofenac suppository As needed, Starting on Wed05/17/24 at 1221, Intra-Op Given 05/17/2024 12:21 PM CDT 100 mg Rectum documented in this encounter Care Teams Clean Rice Grader And Reel Tender Relationship Specialty Start Date End Date Elsewhere, Pcp PCP - General Internal Medicine 03/05/23 documented as of this encounter
--- OUTSIDE RECORDS SUMMARY | 2024-05-17 18:34 | XMS_ITS | Encounter Summary ---
Author Organization [facility] Address [address] [place] [address] Care Team Providers Care Printer'S Devil Name Role Phone Elsewhere, Pcp Primary Care Provider Unavailabl e Reason for Referral * Outpatient (Routine) - Closed Specialty Diagnoses / Procedures Referred By Lionel bartlett Referred To Contact Diagnoses Pancreatitis Chronic (HCC) Procedures FL Fluoro Less Than 1 Hour Aimee Johnson M.D. [address] [place] [address] [facility] Referral ID Status Reason Start Date Expiration Date Visits Re quested Visits Authorized [id number] Closed 05/17/2024 05/17/2025 1 1 Reason for Visit * Outpatient (Routine) - Closed Specialty Diagnoses / Procedures Referred By Lionel bartlett Referred To Contact Diagnoses Pancreatitis Chronic (HCC) Procedures FL Fluoro Less Than 1 Hour Aimee Jonhson M.D. [address] [place] [address] [facility] Referral ID Status Reason Start Date Expiration Date Visits Re quested Visits Authorized [id number] Closed 05/17/2024 05/17/2025 1 1 Encounter Details Date Type Department Care Team (Latest Contact Info) Description 05/17/2024 10:36 AM CDT Hospital Encounter Department of Radiology, [facility], in [place], [place] [address] [place] [address] Aimee Johnson M.D. [address] [place] [address] Pancreatitis Chronic (HCC) Social History Tobacco Use [...] PM CDT Clinical Communication Virtual Review in [place], [place] [address] [place] [address] 05/23/2024 3:00 PM CDT Office Visit Division of Gastroenterology in [address] [address] Skye Kunz M.D., M.P.H. [address] [place] [phone] documented as of this encounter Procedures Procedure Name Priority Date/Time Associated Diagnosis Comments FL FLUORO LESS THAN 1 HOUR RAD - Routine (most inpatients and all outpatients) 05/17/2024 12:43 PM CDT Pancreatitis Chronic (HCC) documented in this encounter Results * FL Fluoro Less Than 1 Hour (05/17/2024 12:43 PM CDT) Narrative ERCP LOS RST - 05/17/2024 12:44 PM CDT This exam does not require a radiologist review or interpretation. Please refer to the patient's medical record on this date for clinical details. Aimee AVILAG FLUOROSCOPY PRO CEDURES ERCP LOS RST documented in this encounter Visit Diagnoses Diagnosis Pancreatitis Chronic (HCC) documented in this encounter Care Teams Printer'S Devil Relationship Specialty Start Date End Date Elsewhere, Pcp PCP - General Internal Medicine 03/05/23 documented as of this encounter
--- OUTSIDE RECORDS SUMMARY | 2024-05-17 18:34 | XMS_ITS ---
Author Organization [facility] Address [address] [place] [address] Care Team Providers Care Communication Center Operator Name Role Phone Unavailable Unavailable Unavailable Surgery Details Not on file Complications Check Surgery Details section. Procedure Estimated Blood Loss Check Surgery Details section. Procedure Findings Check Surgery Details section. Procedure Specimens Taken Check Surgery Details section.
--- OUTSIDE RECORDS SUMMARY | 2024-05-17 18:34 | XMS_ITS | Clinical Summary ---
Author Organization [facility] Address [address] [place] [address] Care Team Providers Care Funnel Coater Name Role Phone Elsewhere, Pcp Primary Care Provider Unavailabl e Source Comments Patient records contain information from all sites at [facility]. For routine questions regarding patient records, call [phone] during business hours, M-F 8:00 AM - 5:00 PM Central Time. Record requests for emergency care only can be directed to [phone] at any time.[facility] Allergies No known active allergies Medications [...] Date Type Department Care Team Description 05/17/2024 12:04 PM CDT Anesthesia Event Division of Gastroenterology in [place], [place] [address] [place] [address] Jose Leiva APRN, CRNA Vasdev, Gurinder M, M.D. 05/17/2024 11:45 AM CDT Ancillary Procedure Department of Gastroenterology Arrived 05/17/2024 10:36 AM CDT Hospital Encounter Department of Radiology, [facility], in [place], [place] [address] [place] [address] Aimee Johnson M.D. Pancreatitis Chronic (HCC) 05/17/2024 9:18 AM CDT Hospital Encounter Division of Gastroenterology in [place], [place] [address] [place] [address] Aimee Johnson M.D. Law, Ryan J, D.O. Pancreatitis Chronic (HCC) from Last 3 Months Family History Medical History Relation Name Comments Skin cancer Brother 1 michael Coronary artery disease Brother 2 Faizan Transient ischemic attack Brother 3 [place] Relation Name Status Comments Brother 1 michael Brother 2 Faizan Brother 3 [place] Social History Tobacco Use Types Packs/Day Years [...] PM CDT Clinical Communication Virtual Review in [place], [place] [address] [place] [address] 05/23/2024 3:00 PM CDT Office Visit Division of Gastroenterology in [place], [place] [address] [place] [address] Skye Kunz M.D., M.P.H. [address] [place] [address] Health Maintenance Due Date Last Done Comments CT Colonography 1970 Cologuard 1970 Colonoscopy 1970 Colorectal Cancer Screening 1970 FIT 1968 Hepatitis B Vaccines (1 of 3 - 19+ 3-dose series) 1987 Zoster Vaccines (1 of 2) 2018 Depression Screening (Annual PHQ-2) 09/27/2023 Influenza Vaccine (#1) 2024 , 07/03/2022, 09/05/2021, Additional history exists Fasting Glucose for Diabetes Screening 02/10/2025 02/10/2022, 02/10/2022, 12/26/2014, Additional history exists Lipid (Cholesterol) Screening 02/10/2027 02/10/2022, 12/25/2014 DTaP,Tdap,and Td Vaccines (3 - Td or Tdap) 03/24/2031 03/24/2021, 04/21/2011 HIV Screening Completed 12/25/2014 COVID-19 Vaccine Completed 06/29/2023, , 09/05/2021, Additional history exists Pneumococcal vaccine (0-64 years) Aged Out No longer eligible based on patient's age to complete this topic Medical Devices Implanted Type Area Refrigeration Houseman Device Identifier Shelf Expiration Date Model / Serial / Lot Stent Intro Fusion Lakin 10 Fr - [id number] Implanted:Qty: 1 on 12/25/2014 Biliary Stent [employer] Description:Device Manufactu rer - [employer]. Device Status Text - [id number]. Explanted Type Area Refrigeration Houseman Device Identifier Shelf Expiration Date Model / Serial / Lot Stent Biliary 10 X 5 Cotton-Pineda - Valentin [id number] Implanted:Qty: 1 on 12/25/2014 Explanted:Qty: 1 on 06/08/2022 by Jimbo Vásquez M.D. at [facility] Biliary Stent [employer] Description:Device Manufactu [facility] - [employer]. Device Status Text - [id number]. [facility] Pncr Wdg 8.5fx22 - [id number] Implanted:Qty: 1 on 04/09/2022 by Cristopher Angelo D.O. at [facility] Explanted:Qty: 1 on 06/08/2022 by Jimbo Vásquez M.D. at [facility] Biliary Stent [employer] 12/31/2024 [id number] / / [id number] [facility] Pn Wdg 8.5fx22 - [id number] Explanted:Qty: 1 on 06/08/2022 by Jimbo Vásquez M.D. at [facility] Biliary Stent [employer] 04/22/2025 [id number] / / [id number] Description:8.5x13.5 [facility] Wdg 8.5fx22 - [id number] Explanted:Qty: 1 on 06/08/2022 at [facility] Biliary Stent [employer] 04/22/2025 [id number] / / [id number] Description:8.5x10.5 [facility] Wdg 10fx22 - [id number] Implanted:Qty: 1 on 06/08/2022 by Jimbo Vásquez M.D. at [facility] Explanted:Qty: 1 on 08/10/2022 by Mallory Champion M.D., M.P.H. at [facility] Biliary Stent [employer] 04/29/2025 [id number] / / [id number] Description:10x13.5 Stent Pancreatic 5 X 5 Single Gpsos - [id number] Implanted:Qty: 1 on 12/25/2014 Explanted:Qty: 1 on 06/08/2022 by Jimbo Vásquez M.D. at [facility] Pancreatic Stent [employer] Description:Device Manufactu [facility] - [employer]. Device Status Text - [id number]. [facility] Pn Wdg 10fx22 - [id number] Implanted:Qty: 1 on 11/01/2023 by Cristopher Angelo D.O. at [facility] [employer]let[employer]Gonda Explanted:Qty: 1 on 02/01/2024 by Cristopher Angelo D.O. at [facility] [employer] Pancreatic Stent [employer] 09/06/2026 [id number] / / [id number] Description:10x12 [facility] Wdg 10fx22 - [id number] Implanted:Qty: 1 on 02/01/2024 by Cristopher Angelo D.O. at [facility] [employer]Gonda Explanted:Qty: 1 on 05/17/2024 by Freda Espinosa M.BKinjalBKinjalSKinjal at [facility] [employer] Pancreatic Stent [employer] 12/21/2026 [id number] / / [id number] Description:10x13 [facility] Gnn Rx 9 - [id number] Implanted:Qty: 1 on 02/01/2024 by Cristopher Angelo D.O. at [facility] [employer]onda Explanted:Qty: 1 on 05/17/2024 by Freda Espinosa M.B.B.S. at [facility] [employer] Pancreatic Stent [employer] [id number] 03/25/2026 [id number] / / [id number] Description:7x9 Procedures Procedure Name Priority Date/Time Associated [...] 12:12 PM CDT) Narrative Isiah Krishna APRN, CRNA, DNAP - 05/17/2024 12:12 PM CDT Isiah [...] ETT location: oral VL device: glide scope [place] scope blade size: 4 Tube size: 7 [...] ?? Notable Events: no complications Isiah Krishna REMELT PAN TANK OPERATOR, GRINDER SETUP OPERATOR, DNAP ANESTHES IA ORDERABLES * ERCP-Gastroenterology Image Exam (05/17/2024 11:45 AM CDT) Narrative [facility] - 05/17/2024 4:31 PM CDT This order has been created and auto-finalized to support the import of images acquired without order. The clinical documentation to support these images can be found on the encounter that produced images. Provider Not In System IMG NON RAD IMAGI NG PROCEDURES IIAZ NA * ERCP (05/17/2024 11:44 AM CDT) 05/17/2024 11:4 4 AM CDT Impressions [facility] - 05/17/2024 4:27 PM CDT Post-op Diagnoses: ? - Diffuse irregularity of the main pancreatic duct with a mild, ? cua-cism-fsywqucy stricture at the distal body/tail, likely at [...] decrease risk of ? post-ERCP pancreatitis. Narrative [facility] - 05/17/2024 4:27 PM CDT Gonda 2 GI Patient Name: Arturo Lockwood Date of : 1970 Age: 54 Procedure Date: 05/17/2024 Procedure: ? ERCP Providers: ? Cristopher Angelo, Freda GALLEGOS MBBS (Fellow) Referring Provider: ?Aimee Johnson MD Pre-op [...] plastic pancreatic stents were visible on the cigar wrapper tender automatic film. The ? esophagus was successfully intubated [...] the main ? pancreatic duct. A mild, ijg-fnji-dojpujzk stricture was noted in the ? pancreatic [...] 11:44 AM Aimee Johnson M.D. GI PROCEDURE MARLENA KAUR PELLETIER PROVERICA NA * Lipid Panel (02/10/2022 11:07 AM CDT) Cholesterol, Total 187 mg/dL 2021 12:02 PM [...] CDT Aimee Johnson M.D. LAB BLOOD ADD-ON [facility] [address] [place] [address], [facility] [address] [place] [address] * Comprehensive Metabolic Panel (02/10/2022 11:07 AM CDT) Pathologist [facility] Potassium, S 4.9 3.6 - 5.2 mmol/L [...] AM CDT Sheba Arambula LAB BLOOD ADD-ON [address] [address] DTL [facility] [address] [place] [address] * HIV-1/-2 Ag and Ab Screen (12/25/2014 4:26 AM CDT) HIV-1/-2 Ag and Ab Screen, S Negative Negative [facility] Comment: Negative result does not rule out HIV infection. If ? acute HIV infection is suspected in a high-risk ? individual, submit plasma specimen for HIV-1 RNA ? quantification test (HIVQU) and/or HIV-2 DNA/RNA ? test (FHV2Q). ? 12/25/2014 4:26 AM CDT 12/25/2014 4:26 AM CDT Babatunde Parker M.D. LAB MICROBIOLOGY - BLOOD ORDERABLES [facility] [address] [place] [address], [facility] from Last 3 Months or Most Recently Relevant to Health Maintenance Care Teams Funnel Coater Relationship Specialty Start Date End Date Elsewhere, Pcp PCP - General Internal Medicine 03/05/23
--- OUTSIDE RECORDS SUMMARY | 2024-05-17 18:34 | XMS_ITS | Encounter Summary ---
Author Organization [facility] Address [address] [place] [address] Care Team Providers Care Corporate Executive Chef Name Role Phone Elsewhere, Pcp Primary Care Provider Unavailabl e Encounter Details Date Type Department Care Team (Latest Contact Info) Description 05/17/2024 11:45 AM CDT Ancillary Procedure Department of Gastroenterology Arrived Social [...] PM CDT Clinical Communication Virtual Review in [place], [place] [address] [place] [address] 05/23/2024 3:00 PM CDT Office Visit Division of Gastroenterology in [place], [place] [address] [place] [phone] Skye Kunz M.D., M.P.H. [address] [place] [phone] documented as of this encounter Procedures Procedure Name Priority Date/Time Associated Diagnosis Comments GASTROENTEROLOGY IMAGE EXAM Routine 05/17/2024 11:45 AM CDT documented in this encounter Results * ERCP-Gastroenterology Image Exam (05/17/2024 11:45 AM [...] on filedocumented in this encounter Care Teams Corporate Executive Chef Relationship Specialty Start Date End Date Elsewhere, Pcp PCP - General Internal Medicine 03/05/23 documented as of this encounter
--- OUTSIDE RECORDS SUMMARY | 2024-05-17 18:35 | XMS_ITS | Encounter Summary ---
Author Organization [facility] Address [address] [place] [address] Care Team Providers Care Productivity Engineer Name Role Phone Elsewhere, Pcp Primary Care Provider Unavailabl e Encounter Details Date Type Department Care Team (Late st Contact Info) Description 05/17/2024 12:04 PM CDT Anesthesia Event Division of Gastroenterology in [place], [place] [address] [place] [phone] Jose Leiva APRN, INCUBATOR OPERATOR [address] [place] [phone] Rashad Gamble M.D. [address] [place] [phone] Anesthesia Record Procedure Summary Procedure Name Responsible Anesthesiologist Anesthesia Start Time Anesthesia Stop Time ERCP Jose Leiva APRN, CAMILO 05/17/24 1204 05/17/24 1247 Events Date Time Event Comment 05/17/2024 1107 1204 An Start Machine/Equipme nt Checked Infection Precautions Followed Procedure/Site Verified NPO Status Verified Supine Standard ASA Monitors Applied 1208 An Induction 1210 An Intubation 1211 Turnover to Proceduralist 1217 Proc Start 1218 Anes CS Handoff I, Isiah renteria APRN, CAMILO, DNAP, attest that I have reconciled the controlled substances and that I have reviewed all the significant information with the next anesthesia provider assuming care of this patient. 1238 Proc Fin 1247 Turnover to ANE Staff 1247 Airway Removal Criteria Met 1247 Extubation/Airway Removed 1247 An End I completed my handoff to [...] mcg/mL 100 mcg lidocaine 2% (mg) injection 100 mg succinylcholine 20 mg/mL injection 140 m g ondansetron 4 mg/2 mL injection 4 mg propofol 10 mg/mL infusion 661.64 mg propofol 10 mg/mL injection 200 mg dexAMETHasone (Decadron) injection 4 mg/ mL 4 mg Lactated Ringers Free Drip 800 mL * Agents No agents on file. * Blood No blood administrations on file. Lines, Drains, and Airways Type Details Placement Removal Peripheral IV Placement Date: 04/28 10/20; Placement Time: 1055; Catheter Size: 20 G; Orientation: Posterior, Right; Location: Hand; Site Prep: Chlorhexidine (Preferred); Insertion Attempts: 2; Removal Date: 05/17/24; Removal Time: 1411; Removal Reason: Patient discharged 05/17/24 1055 by Shadi Williamson, R.N. 05/17/24 1411 by Shadi Williamson, R.N. ETT Placement Date: 04/28 10/20; Placement Time: 1212 (created via procedure documentation); Mask Ventilation: Easy mask; Technique: Video laryngoscopy; Type: Standard ETT; Single Lumen Tube Size: 7 mm; Cuffed: Yes; Location: Oral; Grade View: Grade 2A; Insertion Attempts: 1; Placement Verification: Bilateral breath sounds, Positive ETCO2, Symmetrical chest wall movement; Removal Date: 05/17/24; Removal Time: 1247 05/17/24 1212 by Isiah Krishna APRNCAMILO, DNAP 05/17/24 1247 by Jose Leiva APRN, CRNA documented in this encounter Social History Tobacco [...] OR Notes * Anesthesia Postprocedure Evaluation - Jose Leiva APRN, CRNA - 05/17/2024 12:47 PM CDT Patient: Arturo Lockwood Procedure Summary Date: 05/17/24 Room / Location: Division of Gastroenterology in [place], [place] Anesthesia Start: 1204 Anesthesia Stop: 1247 Procedure: ERCP Diagnosis: Pancreatitis Chronic (HCC) Scheduled Providers: Cristopher Angelo D.O. Responsible Provider: Jose Leiva APRN, CRNA Anesthesia Type: general ASA Status: 2 Anesthesia Type: general Last vitals Vitals Value Taken Time BP Temp Pulse Resp SpO2 Please reference Vitals flowsheet for most recent vital signs. Anesthesia Post Evaluation Cardiovascular status: hemodynamics (HR & BP) acceptable Respiratory status: patent airway with spontaneous effort Temperature: normothermic Oxygen requirements: nasal cannula Level of consciousness: awake Pain score: pain adequately controlled and/or at baseline Post Op nausea/vomiting: none Hydration status: euvolemic Notable Events No notable events documented. * Anesthesia Procedure Notes - Isiah Krishna APRN, CRNA, DNAP - 05/17/2024 12:15 PM CDTAssociated Order(s): Airway Airway Date/Time: 05/17/2024 12:12 PM Performed by: Isiah Krishna APRN, CRNA, DNAP Authorized by: Isiah Krishna APRN, CRNA, DNAP Patient location during procedure: OR / Procedure Area PROCEDURE DETAILS: Mask difficulty assessment: easy mask Final airway type: video laryngoscope Laryngeal Manipulation: no Final best view of glottic structures - Cormack/Lehane Score: grade 2A ETT location: oral VL device: glide scope Parkman scope blade size: 4 Tube size: 7 [...] Procedure outcome: successful Notable Events: no complications * Anesthesia Preprocedure Evaluation - Rashad Gamble M.D. - 05/17/2024 11:00 AM CDT Preprocedure Anesthesia & H&P Assessment Procedure Summary Date/Time: 05/17/24 1130 Scheduled providers: Cristopher Angelo D.O. Procedure: ERCP Diagnosis: Pancreatitis Chronic (HCC) [K86.1] Location: Division of Gastroenterology in [place], [place] Pertinent components of the patient's history including current problem list, medical history, surgical history, family history, social history, medications and allergies were reviewed. Present illness and pre-op diagnosis were confirmed. The planned surgery / procedure was verified with the patient / legal guardian. The patient's general health condition remains unchanged RELEVANT COMORBID CONDITIONS MSK/RHEUM Cervical stenosis with radiculopathy GI Recurrent acute on chronic pancreatitis (+) Gastroesophageal Reflux Disease NOS Other Chronic pain with chronic opioid use OBJECTIVE PHYSICAL EXAMINATION Airway (HEENT) Mallampati: I TM Distance: >3 FB Neck ROM: Full Mouth Opening: >3 cm Upper Lip Bite Test Class: I Cardiovascular Rhythm: Regular Rate: Normal Cardiovascular Assessment: cardiovascular normal Functional Capacity: >4 METS Pulmonary Pulmonary Assessment: Clear and non labored General / Constitutional Constitutional Assessment: Overweight General State of Health:: calm and healthy appearing Neurological Neurologic Assessment: alert and alert and oriented x 3 Dental Dental Assessment: dentition intact ASSESSMENT / PLAN ANESTHESIA PLAN ASA: 2 Anesthesia Plan: general Patient seen and allergies reviewed, anesthesia plan and risks discussed directly with patient /legal guardian or through an mold carpenter. Risks/Benefits/Alternatives of Blood transfusion discussed with patient / legal guardian, includingan opportunity to ask questions and/or decline some or all transfusion therapies. The patient / legal guardian consented to the use of all blood products, as deemed medically necessary Approval to Proceed: approved for anesthesia Appropriately NPO. No reported history of personal problems with anesthesia or family history of problems with anesthesia. Denies allergies. No medications taken today. He took omeprazole last night;denies GERD symptoms today. Rarely takes oxycodone 5 mg few times per week. Denies chest pain, ALPA,tobacco use. Has history of acute on chronic pancreatitis; he does not feel any symptoms of this now. He has history of cervical stenosis with radiculopathy that he reports does not limit his neck range of motion, is not worsened by neck movement, but it is worsened with lifting heavy items and causes neck pain that radiates down right arm. I discussed risks of anesthesia including but not limited to PONV, damage to teeth/lips/gums, heartattack, stroke, allergic reaction. documented in this encounter Plan of Treatment Upcoming Encounters Date Type Department Care Team (Latest Contact Info) Description 05/19/2024 4:15 PM CDT Clinical Communication Virtual Review in [address] [phone] 05/23/2024 3:00 PM CDT Office Visit Division of Gastroenterology in [address] [phone] Skye Kunz M.D., M.P.H. [address] [place] [phone] documented as of this encounter Procedures Procedure Name Priority Date/Time Associated Diagnosis Comments LDA ANE ENDOTRACHEAL AIRWAY Routine 05/17/2024 12:12 PM CDT documented in this encounter Results * LDA ANE ENDOTRACHEAL AIRWAY (05/17/2024 12:12 [...] ETT location: oral VL device: glide scope Parkman scope blade size: 4 Tube size: 7 [...] Krishna APRN, CRNA, DNAP ANESTHES IA ORDERABLES documented in this encounter Visit Diagnoses Not on filedocumented in this encounter Administered Medications Inactive Administered Medications - up to 3 most recent administrations Medication Order MAR Action Action Date Dose Rate Site dexAMETHasone injection (Decadron) intravenous, As needed, Starting on Wed05/17/24 at 1208, Anesthesia Intra-op Given 05/17/2024 12:08 PM CDT 4 mg fentaNYL injection (Sublimaze) intravenous, As needed, Starting on Wed05/17/24 at 1208, Anesthesia Intra-op Given 05/17/2024 12:08 PM CDT 100 mcg Lactated Ringer's intravenous, Continuous Infusion: Per Instructions PRN, Starting on Wed05/17/24 at 1204, Anesthesia Intra-op New Bag 05/17/2024 12:04 PM CDT lidocaine (PF) (cardiac) injection intravenous, As needed, Starting on Wed05/17/24 at 1208, Anesthesia Intra-op Given 05/17/2024 12:08 PM CDT 100 mg ondansetron (PF) injection (Zofran) intravenous, As needed, Starting on Wed05/17/24 at 1233, Anesthesia Intra-op Given 05/17/2024 12:33 PM CDT 4 mg propofol 10 mg/mL infusion (Diprivan) intravenous, Continuous Infusion: Per Instructions PRN, Starting on Wed05/17/24 at 1208, Anesthesia Intra-op New Bag 05/17/2024 12:08 PM CDT 150 mcg/kg/min 101.79 mL/hr propofoL injection (Diprivan) intravenous, As needed, Starting on Wed05/17/24 at 1208, Anesthesia Intra-op Given 05/17/2024 12:08 PM CDT 200 mg succinylcholine (PF) injection (Anectine) intravenous, As needed, Starting on Wed05/17/24 at 1208, Anesthesia Intra-op Given 05/17/2024 12:08 PM CDT 140 mg documented in this encounter Care Teams Productivity Engineer Relationship Specialty Start Date End Date Elsewhere, Pcp PCP - General Internal Medicine 03/05/23 documented as of this encounter
--- OUTSIDE RECORDS SUMMARY | 2024-05-17 18:35 | XMS_ITS | Encounter Summary ---
Author Organization [facility] Address [address] [place] [address] Care Team Providers Care V Belt Coverer Name Role Phone Elsewhere, Pcp Primary Care Provider Unavailabl e Reason for Visit * Reason Onset Date Comments Scheduling 02/10/2024 Encounter Details Date Type Department Care Team (Latest Contact Info) Description 02/10/2024 Clinical Communication Division of Gastroenterology in [place], [place] [address] [place] [phone] Aimee Johnson M.D. [address] [place] [phone] Scheduling Social History Tobacco Use Types Packs/Day Years [...] PM CDT Clinical Communication Virtual Review in [place], [place] [address] [place] [address] 05/23/2024 3:00 PM CDT Office Visit Division of Gastroenterology in [place], [place] [address] [place] [address] Skye Kunz M.D., M.P.H. [address] [place] [address] documented as of this encounter Visit Diagnoses Not on filedocumented in this encounter Care Teams V Belt Coverer Relationship Specialty Start Date End Date Elsewhere, Pcp PCP - General Internal Medicine 03/05/23 documented as of this encounter
--- OUTSIDE RECORDS SUMMARY | 2024-05-17 18:35 | XMS_ITS | Encounter Summary ---
Author Organization [facility] Address [address] [place] [address] Care Team Providers Care Cnc Laser Operator Name Role Phone Elsewhere, Pcp Primary [...] PM CDT Clinical Communication Virtual Review in [place], [place] 200 [place] [address] 05/23/2024 3:00 PM CDT Office Visit Division of Gastroenterology in [place], [place] [address] [place] [phone] Skye Kunz M.D., M.P.H. [address] [place] [phone] documented as of this encounter Visit Diagnoses Not on filedocumented in this encounter Care Teams Cnc Laser Operator Relationship Specialty Start Date End Date Elsewhere, Pcp PCP - General Internal Medicine 03/05/23 documented as of this encounter
[2024-05-17 18:42] LABS: Albumin* 4.8 g/dL (3.3-5.0); Chloride* 103 mmol/L (96-114); Sodium* 137 mmol/L (135-149)
[2024-05-17 18:43] LABS: Potassium* 3.9 mmol/L (3.6-5.1)
[2024-05-17 18:45] LABS: Creatinine* 0.8 mg/dL (0.5-1.5); Est. Creatinine Clearance* 109.81; Estimated Glomerular Filt Rate 104 ml/min
[2024-05-17 18:46] LABS: Alanine Aminotransferase* 53 U/L (4-50); Alkaline Phosphatase* 89 U/L (40-150); Anion Gap 9 mEq/L (7-15); Aspartate Amino Transferase* 53 U/L (12-35); Bilirubin Direct* 0.3 mg/dL (0.0-0.5); Bilirubin Total* 0.8 mg/dL (0.1-1.5); Blood Urea Nitrogen* 13 mg/dL (7-30); Calcium* 9.5 mg/dL (8.4-10.6); Carbon Dioxide* 25 mmol/L (20-32); Glucose* 138 mg/dL (60-115); Lipase* 1799 U/L (23-300); Total Protein* 8.2 g/dL (6.0-8.3)
[2024-05-17 19:00] LABS: C Reactive Protein* < 0.5 mg/dL (0.5-1.0)
--- NOTE | 2024-05-17 21:19 | P.IMHP_ITS ---
Hospitalist- H&P: HPI History of Present Illness Time Seen by Provider: 20:45 Date Seen: 05/17/24 Chief complaint: ercp procedure-pancreatis flare up Narrative: Arturo Lockwood is a 54 year old male with a history of recurrent pancreatitis who presents with post ERCP nausea and epigastric pain. Pratik has been doctoring through the [facility] service and they placed biliary stents in October after which he had post ERCP pancreatitis. He tells me that over the summer he had really good pain relief and only had to take oxycodone for his chronic neck pain. Unfortunately the stents have to come out at some point and he had an ERCP at noon today at [place] to remove them. By 4:00 p.m. he noted the pain medicine from the procedure started to wear off and he felt nauseous and painful in the epigastrium. He came in immediately. He has not had anything to eat or drink since last night. He denies any fevers or chills, chest pain, or shortness of breath. He has not had any emesis. Review of Systems Status of ROS: Reports: 10 or more systems reviewed and unremarkable except as noted in History and below [facility] Medical History (Updated 05/17/24 @ 21:35 by Crystal Zuñiga MD) Internal hemorrhoid ?K64.8 - Other hemorrhoids (ICD-10) Diverticulosis ?K57.90 - Diverticulosis of intestine, part unspecified, without perforation or abscess without bleeding (ICD-10) Radiculopathy affecting upper extremity (10/28/10) ?M54.10 - Radiculopathy, site unspecified (ICD-10) Cervical spinal stenosis ?M48.02 - Spinal stenosis, cervical region (ICD-10) Adenomatous colon polyp ?D12.6 - Benign neoplasm of colon, unspecified (ICD-10) GERD (gastroesophageal reflux disease) ?K21.9 - Gastro-esophageal reflux disease without esophagitis (ICD-10) Recurrent pancreatitis ?K85.90 - Acute pancreatitis without necrosis or infection, unspecified (ICD- 10) Pancreatic mass ?K86.89 - Other specified diseases of pancreas (ICD-10) Hepatic steatosis ?K76.0 - Fatty (change of) liver, not elsewhere classified (ICD-10) Onychomycosis ?B35.1 - Tinea unguium (ICD-10) Surgical History History of biliary duct stent placement ?Z98.890 - Other specified postprocedural states (ICD-10) S/P arthroscopy of right shoulder (12/28/22) ?Z98.890 - Other specified postprocedural states (ICD-10) Status post laparoscopic cholecystectomy (12/22/16) ?Z90.49 - Acquired absence of other specified parts of digestive tract (ICD- 10) History of colonoscopy ?Z98.890 - Other specified postprocedural states (ICD-10) Family History Other Colitis Social History (Updated 05/17/24 @ 21:36 by Crystal Zuñiga MD) Narrative: Social History: He is and lives with his and children. 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 Habits: He denies tobacco use. Denies recreational drug use. EtOH occassional - Jerman/New Years was last EtOH. Drinks non alcoholic beer, last one was also over the holidays. Family History: Paternal grandfather of an acute myocardial infarction at age 50. His brother also had an acute myocardial infarction in his early 50s. A different brother had strokes in his 50s and 60s. Father had lung cancer with brain metastases despite being a nonsmoker. Wishes to be a full code. What is your current living situation?: I presently have a place to live Problems where you live: no known problems Problems where you live details: N/A In the past 12 months, utilities in danger of being shut off: no In past 12 months, lack of transportation kept you from medical appts, meetings, work, or getting things needed for daily living: no In the past 12 mos, have been you worried that your food would run out before you had money to buy more?: never true In the past 12 mos, the food you bought just didn't last and you didn't have money to buy more?: never true Highest level of school completed/degree received: some college, no degree Smoking Status: Never smoker Do you use any of these nicotine containing products: None Second hand tobacco smoke exposure: No How often do you have a drink containing alcohol: never AUDIT-C Alcohol total score: 0 Non-prescribed substance use: denies use Caffeine: Yes How often does anyone, including family, friends and others, physically hurt you : never How often does anyone, including family, friends and others, insult or talk down to you: never How often does anyone, including family, friends and others, threaten you with harm: never How often does anyone, including family, friends and others, scream or curse at you: never Little interest or pleasure in doing things: not at all Feeling down, depressed, or hopeless: not at all service: No Meds Home Medications and Allergies Allergies Allergy/AdvReac Type Severity Reaction Status Date / Time No Known Drug Allergies Allergy Verified 03/28/24 10:20 Exam Narrative: Exam Narrative: General: No acute distress. Awake alert oriented x3. HEENT: Normocephalic atraumatic, pupils equally round and reactive to light and accommodation. Oropharynx clear. Mucous membranes are moist. No cervical lymph adenopathy, thyromegaly or carotid bruits. No JVD. Cardiovascular: Regular rate and rhythm. No murmurs, gallops, or rubs. Chest: No increased work of breathing. Clear to auscultation bilaterally. No crackles or wheezes. Abdomen: Bowel sounds present. Soft, nondistended, very mild tenderness to palpation in the epigastrium, otherwise nontender. No hepatosplenomegaly or masses. Extremities: No edema, no cyanosis or clubbing. Skin: No jaundice, no pallor, no rashes. Const: Vital Signs, click to edit/add: Vital Signs - 24 hr 05/17/24 17:39 05/17/24 18:29 05/17/24 18:29 Temperature 97.5 F L Pulse Rate 53 L Pulse Rate [Left P ulse Oximeter] Pulse Rate [Right Pulse Oximeter] 51 L Respiratory Rate 18 Blood Pressure Blood Pressure [Le ft Arm] Blood Pressure [Ri ght Upper Arm] 184/100 H Pulse Oximetry 99 98 97 Oxygen Delivery Me thod Room Air 05/17/24 18:30 05/17/24 18:54 05/17/24 19:00 Temperature Pulse Rate 54 L 51 L Pulse Rate [Left P ulse Oximeter] Pulse Rate [Right Pulse Oximeter] Respiratory Rate Blood Pressure Blood Pressure [Le ft Arm] Blood Pressure [Ri ght Upper Arm] Pulse Oximetry 98 95 92 Oxygen Delivery Me thod 05/17/24 19:30 05/17/24 19:38 05/17/24 19:39 Temperature Pulse Rate 82 97 61 Pulse Rate [Left P ulse Oximeter] Pulse Rate [Right Pulse Oximeter] Respiratory Rate Blood Pressure 180/133 H Blood Pressure [Le ft Arm] Blood Pressure [Ri ght Upper Arm] Pulse Oximetry 96 98 98 Oxygen Delivery Me thod 05/17/24 20:00 05/17/24 20:02 05/17/24 20:32 Temperature 98.1 F Pulse Rate 50 L 49 L Pulse Rate [Left P ulse Oximeter] 58 L Pulse Rate [Right Pulse Oximeter] Respiratory Rate 18 Blood Pressure 200/106 H Blood Pressure [Le ft Arm] 172/102 H Blood Pressure [Ri ght Upper Arm] Pulse Oximetry 98 98 98 Oxygen Delivery Me thod Room Air Hospitalist - H&P: Result Labs Labs: Short CBC 05/17/24 Range/Units 18:20 WBC 15.54 H (4.50-11.00) K/uL Hgb 15.0 (13.5-17.5) gm/dL Hct 42.7 (37.0-53.0) % Plt Count 179 (140-440) K/uL BMP 05/17/24 18:20 Sodium 137 Potassium 3.9 Chloride 103 Carbon Dioxide 25 BUN 13 Creatinine 0.8 Glucose 138 H Calcium 9.5 Liver Function 05/17/24 Range/Units 18:20 Total Bilirubin 0.8 (0.1-1.5) mg/dL Direct Bilirubin 0.3 (0.0-0.5) mg/dL AST 53 H (12-35) U/L ALT 53 H (4-50) U/L Alkaline Phosphatase 89 (40-150) U/L Albumin 4.8 (3.3-5.0) g/dL Ordering Physician: Pati Cota M.D. Date of Service: 05/17/24 Procedure(s): CT abdomen pelvis w con Accession Number(s): [id number] cc: Salo Gomez M.D.; Pati Cota M.D.~ For Patients: As a result of the Century Cures Act, medical imaging exams and procedure reports are released immediately into your electronic medical record. You may view this report before your referring provider. If you have questions, please contact your health care provider. INDICATION: Increasing abdomen pain after ERCP with stent removal and duct dilation TECHNIQUE: CT Abdomen and pelvis with i.v. contrast. Coronal and sagittal reformats were obtained. CONTRAST: 118 mL Isovue 370 COMPARISON: 08/17/2023 FINDINGS: Lower chest: Unremarkable. Liver: Mild fatty infiltration of the liver is present. Spleen: Unremarkable. Pancreas: The pancreatic duct is mildly enlarged within the pancreatic head measuring 5 mm but decreased in size from prior examination. Gallbladder: Previous cholecystectomy noted with no significant intra- or extrahepatic biliary ductal dilatation seen. Patient is status post cholecystectomy with a trace amount of gas present in the common duct which may be due to recent ERCP. Kidney: Unremarkable. No kidney or ureteral stones or obstruction seen. Adrenal: Unremarkable. Bowel: Unremarkable. The appendix is normal in appearance and size. Vascular: Unremarkable. Lymph: Unremarkable. Peritoneum: Unremarkable. No pneumoperitoneum is seen. No significant ascites is noted. Pelvis: Unremarkable. Soft tissue: Unremarkable. Bone: Unremarkable for age. Miscellaneous: Peripancreatic retroperitoneal edema is noted and increased from prior examination. IMPRESSION: 1. Peripancreatic retroperitoneal edema is noted and increased from prior examination. Findings are likely due to acute pancreatitis. Dictated by Tate Tracy MD @ 05/17/2024 7:44:58 PM Please note that all CT scans at this facility use dose modulation, iterative reconstruction, and/or weight-based dosing when appropriate to reduce radiation dose to as low as reasonably achievable. Dictated by: Tate Tracy MD @ 05/17/2024 19:45:03 (Electronically Signed) Assessment and Plan Assessment and plan (1) Pancreatitis: Problem comment: - post ERCP pancreatitis - Admit for obs, IVF, clear liquid diet, IV ondansetron prn, po oxycodone prn, IV breakthrough hydromorphone prn, repeat CBC, CMP in am Status: Acute (2) Chronic neck pain: Problem comment: Known cervical spinal stenosis with right arm radicular pain. Has use chronic narcotics for this - uses 2-10 five mg tabs oxycodone weekly; has likely built up some tolerance to opioids Status: Chronic (3) GERD (gastroesophageal reflux disease): Problem comment: - continue PPI Status: Chronic (4) Elevated LFTs: Problem comment: - similar levels to previous admissions. Unclear if these have stayed at that level or if they are newly elevated. Recheck in am. Consider RUQ US if worsening. Status: Chronic
[2024-05-17] MEDS: 0.9 % SODIUM CHLORIDE 1000 ml 1,000 ML 150 ML IV (21:44)
[2024-05-17] MEDS: OMEPRAZOLE 20 MG CAPSULE DR PO (21:49)
[2024-05-17] MEDS: SENNOSIDES/DOCUSATE TABLET 1 TAB PO (21:49)
[2024-05-17] MEDS: SODIUM CHLORIDE 0.9 % (FLUSH) 10 ML SYRINGE 5 ML IVF (23:08)
[2024-05-18] VITALS (9 sets, daily range): BP systolic 119–152; BP diastolic 77–93; PULSE 65–93; RESP 16–18; TEMP 36.5–36.8; O2SAT 90–97
[2024-05-18] MEDS: 0.9 % SODIUM CHLORIDE 1000 ml 1,000 ML 150 ML IV ×4 (01:44→22:29)
[2024-05-18] MEDS: SODIUM CHLORIDE 0.9 % (FLUSH) 10 ML SYRINGE 5 ML IVF ×7 (01:45→21:08)
[2024-05-18] MEDS: HYDROmorphone 0.5 mg/0.5 ml inj IVP ×11 (01:45→22:44)
[2024-05-18] MEDS: ONDANSETRON 2 MG/ML inj 4 MG IVP ×3 (04:03→21:11)
--- NOTE | 2024-05-18 04:46 | PC.NURSE ---
Shift note: Pt brought to the unit from ED on wheelchair at 2024. Pt was conscious, alert and oriented, arrived with IV N/S 1L bolus infusing. Pt confirmed epigastric pain and tenderness, nausea and ill feeling after pancreatic stent removal at [facility]. Pt rated pain level of 6 on arrival. Admitted and reviewed by Dr Zuñiga. Vital signs were stable on arrival except low HR of 58. IV Deluded 1mg given for pain and IV N/S 1L given at 150ml/hr per order. O2>90% on room air. Oriented to room and made comfortable in bed. Pain has been at 8-10. Deluded 1mg given 3x and Zofran given 2x for nausea. SCD applied, pt refused TEDs application.
[2024-05-18 06:28] LABS: Eosinophils Absolute Auto 0.01 K/uL (0.00-0.50); Eosinophils Percent Auto 0.1 % (0.0-7.0); Hematocrit 37.8 % (37.0-53.0); Hemoglobin* 13.2 gm/dL (13.5-17.5); Immature Granulocytes Abs Auto 0.02 K/uL (0.00-0.30); Immature Granulocytes Pct Auto 0.2 %; Lymphocytes Percent Auto 6.6 % (20-44); Mean Corpuscular HGB Conc 35 gm/dL (32-36); Mean Corpuscular Hemoglobin 32 pg (26-34); Mean Corpuscular Volume 90 fL (80-100); Monocytes Percent Auto 7.9 % (0.0-11.0); Neutrophils Percent Auto 85.2 % (42.0-72.0); Platelet Count* 146 K/uL (140-440); RDW Coefficient of Variation % 12.2 % (11.5-15.5); Red Blood Count 4.18 m/uL (4.30-5.90); White Blood Count* 10.88 K/uL (4.50-11.00)
[2024-05-18 06:33] LABS: Slide Review Reflex No
[2024-05-18 06:53] LABS: Albumin* 3.8 g/dL (3.3-5.0); Chloride* 104 mmol/L (96-114)
[2024-05-18 06:54] LABS: Potassium* 3.7 mmol/L (3.6-5.1); Sodium* 135 mmol/L (135-149)
[2024-05-18 06:56] LABS: Alkaline Phosphatase* 67 U/L (40-150); Anion Gap 5 mEq/L (7-15); Aspartate Amino Transferase* 38 U/L (12-35); Bilirubin Total* 0.8 mg/dL (0.1-1.5); Carbon Dioxide* 26 mmol/L (20-32); Creatinine* 0.7 mg/dL (0.5-1.5); Estimated Glomerular Filt Rate 108 ml/min; Total Protein* 6.6 g/dL (6.0-8.3)
[2024-05-18 06:57] LABS: Alanine Aminotransferase* 39 U/L (4-50); Blood Urea Nitrogen* 9 mg/dL (7-30); Calcium* 8.3 mg/dL (8.4-10.6); Glucose* 122 mg/dL (60-115)
[2024-05-18] MEDS: SENNOSIDES/DOCUSATE TABLET 1 TAB PO ×2 (08:34→21:11)
[2024-05-18] MEDS: OMEPRAZOLE 20 MG CAPSULE DR PO ×2 (08:34→21:08)
[2024-05-18 09:24] LABS: Lipase* 1107 U/L (23-300)
[2024-05-18 09:27] LABS: C Reactive Protein* 3.8 mg/dL (0.5-1.0)
--- NOTE | 2024-05-18 11:31 | PM.IMPN1 ---
Progress Note: A&P Assessment and plan (1) Post-ERCP acute pancreatitis: Problem details: -date of procedure 05/17/2024, [facility] -labs, vitals reassuring -advance diet as tolerated, IV fluids, pain and nausea management Status: Acute (2) Elevated LFTs: Problem details: - similar levels to previous admissions - down trended Status: Chronic (3) Chronic neck pain: Problem details: - Known cervical spinal stenosis with right arm radicular pain. Has use chronic narcotics for this - uses 2-10 five mg tabs oxycodone weekly; has likely built up some tolerance to opioids Status: Chronic (4) GERD (gastroesophageal reflux disease): Problem details: - continue PPI Status: Chronic Subjective Date Seen: 05/18/24 Interval history: Daily Progress Note - Hospital Medicine #: 2 CC: Postprocedural pancreatitis 24 HOUR UPDATE: Pain is about the same, mildly reduced. Patient is drinking water and chewing ice chips. Still requiring IV Dilaudid. Notable Labs, Micro, Rads, Interventions: Vital stable Elevated white count has resolved Chemistries are reassuring, electrolytes and renal function are normal Blood glucose only mildly elevated LFTs are down trending CRP is up a little 0.5-3.8 Lipase is down trending 1800 down to [address] reviewed Objective: Alert, no acute distress Vitals: see above Lungs: Clear. Cardiac: S1S2. Abdomen: Obese, globally tender in the upper quadrants. No rebound. Disposition/Potential discharge - Home 24-48 hour Today I spent 50minutes seeing the patient, reviewing Expanse and EPIC notes/diagnostics, discussing the care plan with our care time that includes social work, PT/OT, pharmacy, RT, shelter and documenting my impressions and plan in the medical record. Exam Const: Vital Signs, click to edit/add: Vital Signs - 24 hr 05/17/24 17:39 05/17/24 18:29 05/17/24 18:29 Temperature 97.5 F L Pulse Rate 53 L Pulse Rate [Left P ulse Oximeter] Pulse Rate [Right Pulse Oximeter] 51 L Respiratory Rate 18 Blood Pressure Blood Pressure [Le ft Arm] Blood Pressure [Ri ght Upper Arm] 184/100 H Pulse Oximetry 99 98 97 Oxygen Delivery Me thod Room Air 05/17/24 18:30 05/17/24 18:54 05/17/24 19:00 Temperature Pulse Rate 54 L 51 L Pulse Rate [Left P ulse Oximeter] Pulse Rate [Right Pulse Oximeter] Respiratory Rate Blood Pressure Blood Pressure [Le ft Arm] Blood Pressure [Ri ght Upper Arm] Pulse Oximetry 98 95 92 Oxygen Delivery Me thod 05/17/24 19:30 05/17/24 19:38 05/17/24 19:39 Temperature Pulse Rate 82 97 61 Pulse Rate [Left P ulse Oximeter] Pulse Rate [Right Pulse Oximeter] Respiratory Rate Blood Pressure 180/133 H Blood Pressure [Le ft Arm] Blood Pressure [Ri ght Upper Arm] Pulse Oximetry 96 98 98 Oxygen Delivery Me thod 05/17/24 20:00 05/17/24 20:02 05/17/24 20:32 Temperature 98.1 F Pulse Rate 50 L 49 L Pulse Rate [Left P ulse Oximeter] 58 L Pulse Rate [Right Pulse Oximeter] Respiratory Rate 18 Blood Pressure 200/106 H Blood Pressure [Le ft Arm] 172/102 H Blood Pressure [Ri ght Upper Arm] Pulse Oximetry 98 98 98 [facility] 05/17/24 20:32 05/17/24 21:04 05/17/24 22:39 Temperature Pulse Rate Pulse Rate [Left P ulse Oximeter] 53 L Pulse Rate [Right Pulse Oximeter] Respiratory Rate 18 18 Blood Pressure Blood Pressure [Le ft Arm] Blood Pressure [Ri ght Upper Arm] Pulse Oximetry 98 98 [facility] 05/17/24 22:39 05/17/24 22:42 05/18/24 01:50 Temperature 98.1 F 97.8 F Pulse Rate Pulse Rate [Left P ulse Oximeter] 53 L 93 Pulse Rate [Right Pulse Oximeter] Respiratory Rate 18 18 18 Blood Pressure Blood Pressure [Le ft Arm] 151/91 H 152/93 H Blood Pressure [Ri ght Upper Arm] Pulse Oximetry 96 96 91 Oxygen Delivery Me thod Room Air Room Air Room Air 05/18/24 07:22 05/18/24 07:32 05/18/24 11:00 Temperature 98.2 F 97.7 F Pulse Rate Pulse Rate [Left P ulse Oximeter] 82 67 Pulse Rate [Right Pulse Oximeter] Respiratory Rate 18 18 16 Blood Pressure Blood Pressure [Le ft Arm] 129/82 121/77 Blood Pressure [Ri ght Upper Arm] Pulse Oximetry 97 97 95 Oxygen Delivery Me thod Room Air Room Air Room Air Labs Labs: Laboratory Results - last 24 hr 05/17/24 05/18/24 05/18/24 18:20 06:08 09:05 WBC 15.54 H 10.88 RBC 4.74 4.18 L Hgb 15.0 13.2 L Hct 42.7 37.8 MCV 90 90 MCH 32 32 MCHC 35 35 RDW Coeff of Amber 12.0 12.2 Plt Count 179 146 Neut % (Auto) 91.1 H 85.2 H Lymph % (Auto) 2.9 L 6.6 L Pender % (Auto) 5.7 7.9 Eos % (Auto) 0.0 0.1 Baso % (Auto) 0.0 0.0 Neut # (Auto) 14.20 H 9.30 H Lymph # (Auto) 0.50 L 0.70 L Pender # (Auto) 0.90 0.90 Eos # (Auto) 0.00 0.01 Baso # (Auto) 0.00 0.00 Abs Immat Gran (auto) 0.00 0.02 Imm/Tot Granulo (auto) 0.3 0.2 Sodium 137 135 Potassium 3.9 3.7 Chloride 103 104 Carbon Dioxide 25 26 Anion Gap 9 5 L BUN 13 9 Creatinine 0.8 0.7 Estimated Creat Clear 109.81 125.50 Estimated GFR 104 108 Glucose 138 H 122 H Lactate 1.6 Calcium 9.5 8.3 L Total Bilirubin 0.8 0.8 Direct Bilirubin 0.3 AST 53 H 38 H ALT 53 H 39 Alkaline Phosphatase 89 67 C-Reactive Protein < 0.5 L 3.8 H Total Protein 8.2 6.6 Albumin 4.8 3.8 Lipase 1799 H 1107 H Lab Acknowledgement Test Added
[2024-05-18] MEDS: OXYCODONE 5 MG TABLET PO (13:34)
--- NOTE | 2024-05-18 18:43 | PC.NURSE ---
Pt alert and oriented. Pt had complaints of pain ranging from 3-5; see EMAR for intervention. Pt up independently and walking the hallways x 3. Pt on a clear liquid diet and tolerating well.?
[2024-05-19 02:09] VITALS: BP 132/89; PULSE 70; RESP 18; TEMP 37; O2SAT 93
[2024-05-19] MEDS: HYDROmorphone 0.5 mg/0.5 ml inj IVP ×2 (02:11→04:37)
--- NOTE | 2024-05-19 06:25 | PC.NURSE ---
Shift note: Pt is alert and oriented. Reduced pain intensity from 8-10 yesterday to 6. Pt has been asking for Deluded 0.5mg as against 1mg last night. Ambulated independently in room and hallway. No nausea and fever recorded.
[2024-05-19] MEDS: 0.9 % SODIUM CHLORIDE 1000 ml 1,000 ML 150 ML IV (06:39)
[2024-05-19 07:16] LABS: Albumin* 3.7 g/dL (3.3-5.0); Chloride* 103 mmol/L (96-114)
[2024-05-19 07:17] LABS: Potassium* 3.8 mmol/L (3.6-5.1); Sodium* 134 mmol/L (135-149)
[2024-05-19 07:19] LABS: Alkaline Phosphatase* 66 U/L (40-150); Anion Gap 3 mEq/L (7-15); Aspartate Amino Transferase* 32 U/L (12-35); Carbon Dioxide* 28 mmol/L (20-32); Creatinine* 0.8 mg/dL (0.5-1.5); Est. Creatinine Clearance* 109.81; Estimated Glomerular Filt Rate 104 ml/min; Total Protein* 6.5 g/dL (6.0-8.3)
[2024-05-19 07:20] LABS: Alanine Aminotransferase* 33 U/L (4-50); Blood Urea Nitrogen* 7 mg/dL (7-30); Calcium* 8.3 mg/dL (8.4-10.6); Glucose* 105 mg/dL (60-115); Lipase* 318 U/L (23-300)
[2024-05-19 07:22] LABS: C Reactive Protein* 6.3 mg/dL (0.5-1.0)
[2024-05-19 08:00] VITALS: RESP 18; O2SAT 97
[2024-05-19] MEDS: ONDANSETRON 2 MG/ML inj 4 MG IVP (08:03)
[2024-05-19] MEDS: OXYCODONE 5 MG TABLET PO (08:03)
[2024-05-19] MEDS: OMEPRAZOLE 20 MG CAPSULE DR PO (08:04)
[2024-05-19] MEDS: SODIUM CHLORIDE 0.9 % (FLUSH) 10 ML SYRINGE 5 ML IVF (08:05)
[2024-05-19 08:11] VITALS: BP 139/84; PULSE 75; RESP 18; TEMP 36.9
--- NOTE | 2024-05-19 10:08 | NUTR.NU ---
RDN with diet education related to pancreatitis. Patient admitted for pancreatitis post ERCP. Current weight 251 lb 7 oz; Height 5ft 11in; BMI 35.1 kg/m2. Current diet is low fat/low cholesterol. RDN visited with patient whom reports having diet education in the past related to pancreatitis. He declined diet education at this time, however accepted educational materials. Plan is for patient to discharge home today. RDN encouraged patient to let staff know if he has any concerns or questions at discharge.
--- NOTE | 2024-05-19 12:54 | P.DS_ITS ---
DS: Providers Provider Date Seen: 05/19/24 Date of admission: 05/17/24 20:25 Primary care physician: Salo Gomez MD Admitting Clinician: Crystal Zuñiga MD Attending Physician on discharge: Tai Garibay MD Date of Discharge: 05/19/24 DS: Diagnosis Discharge Diagnosis (1) Post-ERCP acute pancreatitis: Status: Acute Problem details: -date of procedure 05/17/2024, [facility], removal of pancreatic stent Patient has history of chronic recurrent pancreatitis with recurrent ERCP and other procedures which commonly cause postprocedure pancreatitis. Treated with IV fluids and IV pain medications. Today switch to oral pain medications and oral food and fluid which he tolerated well. DS: Summary Hospital Course Hospital Course: Arturo Lockowod is a 54 year old male with a history of recurrent pancreatitis who presents with post ERCP nausea and epigastric pain. Pratik has been doctoring through the [facility] service and they placed biliary stents in October after which he had post ERCP pancreatitis. He tells me that over the summer he had really good pain relief and only had to take oxycodone for his chronic neck pain. Unfortunately the stents have to come out at some point and he had an ERCP at noon today at [place] to remove them. By 4:00 p.m. he noted the pain medicine from the procedure started to wear off and he felt nauseous and painful in the epigastrium. He came in immediately. He has not had anything to eat or drink since last night. He denies any fevers or chills, chest pain, or shortness of breath. He has not had any emesis. During his hospital stay he was given IV fluids and IV opioids. This morning IV fluids and IV opioids were discontinued. He has tolerated p.o. food and fluid well. Pain is well managed on oxycodone. He is anxious to go home. He has outpatient follow-up with Gastroenterology at [facility] by telephone this afternoon and in a appointment next week Status at Discharge Functional status at discharge: independent ambulation Overall status at discharge: patient is progressing back to baseline Time Spent with Patient Time attestation: Total time spent providing and/or coordinating discharge services: Time spent: Greater than 30 minutes Exam Narrative: Exam Narrative: He is dressed in his street clothes alert and appears in no distress. Mood and affect are bright. Breathing is unlabored. Abdomen is soft with minimal epigastric tenderness. Const: Vital Signs, click to edit/add: Vital Signs - 24 hr 05/18/24 14:15 05/18/24 14:20 05/18/24 19:00 Temperature 97.9 F 97.8 F Pulse Rate [Left P ulse Oximeter] 69 67 Respiratory Rate 18 18 18 Blood Pressure [Le ft Arm] 119/85 137/85 Pulse Oximetry 93 93 90 Oxygen Delivery Me thod Room Air Room Air Room Air 05/18/24 21:04 05/18/24 22:41 05/18/24 22:41 Temperature Pulse Rate [Left P ulse Oximeter] 65 Respiratory Rate 18 18 Blood Pressure [Le ft Arm] Pulse Oximetry 95 95 Oxygen Delivery Me thod Room Air 05/18/24 22:41 05/19/24 02:09 05/19/24 08:00 Temperature 98 F 98.6 F Pulse Rate [Left P ulse Oximeter] 65 70 Respiratory Rate 18 18 18 Blood Pressure [Le ft Arm] 134/88 132/89 Pulse Oximetry 95 93 97 Oxygen Delivery Me thod Room Air Room Air Room Air 05/19/24 08:11 Temperature 98.5 F Pulse Rate [Left P ulse Oximeter] 75 Respiratory Rate 18 Blood Pressure [Le ft Arm] 139/84 Pulse Oximetry Oxygen Delivery Me thod Documenting provider has reviewed patient's vital signs: yes DS: Data Data Completed and Pending Completed studies during hospitalization: Procedures Assistance with Respiratory Ventilation, Less than 24 Consecutive Hours, Continuous Positive Airway Pressure (08/18/23) Introduction of Other Gas into Respiratory Tract, Via Natural or Artificial Opening (08/18/23) Labs on day of discharge: Labs from last 24 hours 05/19/24 06:16 Sodium 134 L Potassium 3.8 Chloride 103 Carbon Dioxide 28 Anion Gap 3 L BUN 7 Creatinine 0.8 Estimated Creat Clear 109.81 Estimated GFR 104 Glucose 105 Calcium 8.3 L Total Bilirubin 1.0 AST 32 ALT 33 Alkaline Phosphatase 66 C-Reactive Protein 6.3 H Total Protein 6.5 Albumin 3.7 [address] scan - abdomen: Radiologist's impression: NDICATION: Increasing abdomen pain after ERCP with stent removal and duct dilation TECHNIQUE: CT Abdomen and pelvis with i.v. contrast. Coronal and sagittal reformats were obtained. CONTRAST: 118 mL Isovue 370 COMPARISON: 08/17/2023 FINDINGS: Lower chest: Unremarkable. Liver: Mild fatty infiltration of the liver is present. Spleen: Unremarkable. Pancreas: The pancreatic duct is mildly enlarged within the pancreatic head measuring 5 mm but decreased in size from prior examination. Gallbladder: Previous cholecystectomy noted with no significant intra- or extrahepatic biliary ductal dilatation seen. Patient is status post cholecystectomy with a trace amount of gas present in the common duct which may be due to recent ERCP. Kidney: Unremarkable. No kidney or ureteral stones or obstruction seen. Adrenal: Unremarkable. Bowel: Unremarkable. The appendix is normal in appearance and size. Vascular: Unremarkable. Lymph: Unremarkable. Peritoneum: Unremarkable. No pneumoperitoneum is seen. No significant ascites is noted. Pelvis: Unremarkable. Soft tissue: Unremarkable. Bone: Unremarkable for age. Miscellaneous: Peripancreatic retroperitoneal edema is noted and increased from prior examination. IMPRESSION: 1. Peripancreatic retroperitoneal edema is noted and increased from prior examination. Findings are likely due to acute pancreatitis. Discharge Plan Discharge Disposition: Home, Self-Care Date of Admission: 05/17/24 20:25 Attending Provider on Discharge: Kash Garibay Primary Care Provider: Salo Gomez Condition: Improved Anticipated Discharge Date/Time: 05/19/24 11:36 Discharge Medications: New ondansetron 4 mg Tablet,Disintegrating 4 mg PO Q4H PRNQty: 20 0RF oxycodone 5 mg Tablet 5 - 10 mg PO Q4H PRN (Reason: Pain) Qty: 20 0RF Continued acetaminophen 325 mg Tablet 650 mg PO Q6H PRNQty: 20 0RF ondansetron 4 mg tablet,disintegrating 4 mg PO Q6-8H PRN (Reason: nausea and vomiting) Qty: 20 0RF oxycodone 5 mg tablet 5 - 10 mg PO Q4H PRN (Reason: Pain) Qty: 20 0RF omeprazole 20 mg capsule,delayed release(DR/EC) 20 mg PO BID Qty: 120 5RF Discharge Orders: Discharge Order (Routine); Ordered 05/19/24 Ordered By: Kash Garibay Patient Education: Pancreatitis (DC) Additional Instructions: Follow-up as previously scheduled with Gastroenterology at [place] Activity Level: Activity as Tolerated Discharge Diet: Low Fat/Low Cholesterol Diet Detail: Avoid fried and fatty foods for the next few days Follow Up Appointments: Salo Gomez MD [Primary Care Provider] - Forms: [employer] Info Instructions
--- NOTE | 2024-05-19 14:53 | PC.NURSE ---
Discharge: The patient ambulated off the unit after discharge paperwork was reviewed with the patient. The patient is to follow up with [facility] post ercp. To follow up with primary PRN. Educated on a low cholesterol/low fat diet. Maribel STEELE BSN
== END 2024-05-19 12:50 | disposition home or self-care (01) ==
LOC: ED 20:08 → MEDSURG 20:26
PROVIDERS: Family Medicine; Admitting Provider Family Medicine; Emergency Provider Family Medicine; PCP Family Medicine; Visit Provider Family Medicine
DX: K91.89 Other postprocedural complications and disorders of digestive system (principal); K85.90 Acute pancreatitis without necrosis or infection, unspecified; R94.5 Abnormal results of liver function studies; R79.89 Other specified abnormal findings of blood chemistry; R11.0 Nausea; R10.13 Epigastric pain; K76.0 Fatty (change of) liver, not elsewhere classified; K86.89 Other specified diseases of pancreas; D12.6 Benign neoplasm of colon, unspecified; M54.2 Cervicalgia; G89.29 Other chronic pain; M54.10 Radiculopathy, site unspecified; M48.02 Spinal stenosis, cervical region; M79.601 Pain in right arm; K21.9 Gastro-esophageal reflux disease without esophagitis; Z90.49 Acquired absence of other specified parts of digestive tract; Z87.19 Personal history of other diseases of the digestive system; Z84.89 Family history of other specified conditions; Z82.49 Family history of ischemic heart disease and other diseases of the circulatory system; Z98.890 Other specified postprocedural states
CPT/HCPCS: 36415; 74177; 80053; 82248; 83605; 83690; 85025; 86140; 94761; 96361; 96375; 96376; 99284; 99285; A9270; G0378; J1170; J2405; J7030; Q9967

== ENCOUNTER 2024-09-20 08:52 | Inpatient (IN) | payer OTHER, SELFPAY ==
[2024-09-20] VITALS (27 sets, daily range): BP systolic 143–181; BP diastolic 84–107; PULSE 58–101; RESP 18; TEMP 36.4–37.6; O2SAT 92–100; BMI 34.2; BMI 19.3
--- NOTE | 2024-09-20 09:49 | ED_ITS ---
HPI - General Adult General Date Seen: 09/20/24 <Jai Early MD - Last Filed: 09/20/24 15:57> Chief complaint: Abdominal Pain <Pati Sellers MD - Last Filed: 09/20/24 15:47> Stated complaint: Abdominal Pain/Pancreas <Pati Slelers MD - Last Filed: 09/20/24 15:47> Time Seen by Provider: 09/20/24 09:34 <Pati Sellers MD - Last Filed: 09/20/24 15:47> Source: patient <Pati Sellers MD - Last Filed: 09/20/24 15:47> Mode of arrival: ambulatory <Pati Sellers MD - Last Filed: 09/20/24 15:47> Limitations: no limitations <Pati Sellers MD - Last Filed: 09/20/24 15:47> History of Present Illness HPI narrative: 54-year-old male presenting with abdominal pain. Patient has a history of chronic neck pain. He has recurrent pancreatitis. He was recently hospitalized at [facility] on September 14 through the for pancreatitis post endoscopic retrograde cholangiopancreatography. Patient states that he had a very difficult time getting his pain control while he was in the hospital and his pain was never better and a 5/10. He states that he tried to tolerate being home yesterday and thought he was doing okay, however by midnight he was in so much pain he did know what to do. He states that he took 20 mg of oxycodone as he was prescribed but this made him feel very ill and he did not take any more of the 20 mg tablets. He continues to take the 5 mg tablets that he takes for his neck which he states helps a little bit but he feels that his pain is still too much for him to handle. He denies fevers. He has not been vomiting. He had not had a bowel movements for several days so he did an enema last night and had some stool output which did make him feel better. Please that he is drinking lots of fluids but has not had any solid foods. He is requesting admission today for pain control. <Pati Sellers MD - Last Filed: 09/20/24 15:47> Related Data Home medications: Previous Rx's ?Medication ?Instructions ?Recorded acetaminophen 325 mg tablet 650 mg (2 x 325 mg) PO Q6H PRN #20 08/20/23 tabs omeprazole 20 mg capsule,delayed 20 mg PO BID #120 caps 09/10/23 release ondansetron 4 mg disintegrating 4 mg PO Q6-8H PRN nausea and 05/19/24 tablet vomiting #20 tabs celecoxib 200 mg capsule 200 mg PO BID #60 caps 08/21/24 tadalafil 5 mg tablet 5 mg PO QDAY sexual activity #30 08/21/24 tabs oxycodone 5 mg tablet 5 - 10 mg (1 - 2 x 5 mg) PO Q4H 09/15/24 PRN Pain #30 tabs <Pati Sellers MD - Last Filed: 09/20/24 15:47> Allergies/adverse reactions: Allergies Allergy/AdvReac Type Severity Reaction Status Date / Time No Known Drug Allergies Allergy Verified 09/20/24 11:35 <Pati Sellers MD - Last Filed: 09/20/24 15:47> Review of Systems Status of ROS: Reports: 10 or more systems reviewed and unremarkable except as noted in History and below <Pati Sellers MD - Last Filed: 09/20/24 15:47> [facility] Medical History: Medical History Post-ERCP acute pancreatitis ?K91.89 - Other postprocedural complications and disorders of digestive system (ICD-10) ?K85.90 - Acute pancreatitis without necrosis or infection, unspecified (ICD- 10) Internal hemorrhoid ?K64.8 - Other hemorrhoids (ICD-10) Pancreatic mass ?K86.89 - Other specified diseases of pancreas (ICD-10) Hepatic steatosis ?K76.0 - Fatty (change of) liver, not elsewhere classified (ICD-10) Onychomycosis ?B35.1 - Tinea unguium (ICD-10) <Pati Sellers MD - Last Filed: 09/20/24 15:47> Surgical History: Surgical History History of biliary duct stent placement ?Z98.890 - Other specified postprocedural states (ICD-10) S/P arthroscopy of right shoulder (12/28/22) ?Z98.890 - Other specified postprocedural states (ICD-10) Status post laparoscopic cholecystectomy (12/22/16) ?Z90.49 - Acquired absence of other specified parts of digestive tract (ICD- 10) History of colonoscopy ?Z98.890 - Other specified postprocedural states (ICD-10) <Pati Sellers MD - Last Filed: 09/20/24 15:47> Family History: Family History Other Colitis <Pati Sellers MD - Last Filed: 09/20/24 15:47> Social History: Social History Narrative: Social History: He is and lives with his and children. 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 Habits: He denies tobacco use. Denies recreational drug use. EtOH occassional - Jerman/New Years was last EtOH. Drinks non alcoholic beer, last one was also over the holidays. Family History: Paternal grandfather of an acute myocardial infarction at age 50. His brother also had an acute myocardial infarction in his early 50s. A different brother had strokes in his 50s and 60s. Father had lung cancer with brain metastases despite being a nonsmoker. Wishes to be a full code. What is your current living situation?: I presently have a place to live Problems where you live: no known problems Problems where you live details: N/A In the past 12 months, utilities in danger of being shut off: no In past 12 months, lack of transportation kept you from medical appts, meetings, work, or getting things needed for daily living: no In the past 12 mos, have been you worried that your food would run out before you had money to buy more?: never true In the past 12 mos, the food you bought just didn't last and you didn't have money to buy more?: never true Highest level of school completed/degree received: some college, no degree Smoking Status: Never smoker Do you use any of these nicotine containing products: None Second hand tobacco smoke exposure: No How often do you have a drink containing alcohol: never AUDIT-C Alcohol total score: 0 Non-prescribed substance use: denies use Caffeine: Yes How often does anyone, including family, friends and others, physically hurt you : never How often does anyone, including family, friends and others, insult or talk down to you: never How often does anyone, including family, friends and others, threaten you with harm: never How often does anyone, including family, friends and others, scream or curse at you: never service: No <Pati Sellers MD - Last Filed: 09/20/24 15:47> Exam Narrative: Exam Narrative: Overweight, well-developed patient in no acute distress. Alert and oriented. Answers questions appropriately. Mood and affect are appropriate. Thoughts are goal oriented and rational. No tangential or magical thinking noted. Patient speaks in full sentences without needing to catch his breath. The patient does appear to be slightly sleepy. Speech is not slurred. HEENT: Normocephalic atraumatic. Pupils are equally round reactive to light. Extraocular muscles are intact. Conjunctivae are moist without any icterus noted. Moist mucous membranes. Posterior pharynx is normal. Neck is soft without any lymphadenopathy or thyromegaly. No masses are appreciated. Cardiovascular: Heart is regular rate and rhythm S1 and S2 are present without any murmurs. Lungs: Clear to auscultation bilaterally no wheezes rhonchi or rales are appreciated. Patient takes deep breaths without any discomfort. Abdomen: Soft and nondistended with normal bowel sounds. He does have some epigastric discomfort. Extremities: Bilateral lower extremities are without edema. Skin: Well perfused without any obvious rashes. Does have bruising of the anterior abdominal wall secondary to what I assume to be Lovenox injections wh ile he was in the hospital. <Pati Sellers MD - Last Filed: 09/20/24 15:47> Const: Vital Signs, click to edit/add: Vital Signs - 24 hr 09/20/24 09:08 09/20/24 10:21 09/20/24 10:30 Temperature 99 F Pulse Rate 69 69 Pulse Rate [Pulse Oximeter] 101 H Respiratory Rate 18 Blood Pressure Blood Pressure [Ri ght Upper Arm] 165/97 H Pulse Oximetry 96 96 97 Oxygen Delivery Me thod Room Air 09/20/24 10:45 09/20/24 11:00 09/20/24 11:15 Temperature Pulse Rate 58 L 63 63 Pulse Rate [Pulse Oximeter] Respiratory Rate 18 Blood Pressure Blood Pressure [Ri ght Upper Arm] Pulse Oximetry 95 99 97 Oxygen Delivery Me thod 09/20/24 11:30 09/20/24 12:25 09/20/24 12:30 Temperature Pulse Rate 58 L 77 59 L Pulse Rate [Pulse Oximeter] Respiratory Rate Blood Pressure Blood Pressure [Ri ght Upper Arm] Pulse Oximetry 92 100 93 Oxygen Delivery Me thod 09/20/24 12:45 09/20/24 13:00 09/20/24 13:04 Temperature Pulse Rate 87 77 62 Pulse Rate [Pulse Oximeter] Respiratory Rate 18 Blood Pressure 170/107 H Blood Pressure [Ri ght Upper Arm] Pulse Oximetry 92 99 98 Oxygen Delivery Me thod 09/20/24 13:05 09/20/24 13:15 09/20/24 13:30 Temperature Pulse Rate 76 84 79 Pulse Rate [Pulse Oximeter] Respiratory Rate Blood Pressure Blood Pressure [Ri ght Upper Arm] Pulse Oximetry 98 92 99 Oxygen Delivery Me thod 09/20/24 13:45 09/20/24 14:04 09/20/24 14:15 Temperature Pulse Rate 59 L 89 86 Pulse Rate [Pulse Oximeter] Respiratory Rate Blood Pressure Blood Pressure [Ri ght Upper Arm] Pulse Oximetry 100 96 98 Oxygen Delivery Me thod 09/20/24 14:30 09/20/24 14:45 09/20/24 15:00 Temperature Pulse Rate 89 82 82 Pulse Rate [Pulse Oximeter] Respiratory Rate 18 Blood Pressure Blood Pressure [Ri ght Upper Arm] Pulse Oximetry 98 99 99 Oxygen Delivery Me thod 09/20/24 15:15 09/20/24 15:32 Temperature Pulse Rate 82 75 Pulse Rate [Pulse Oximeter] Respiratory Rate Blood Pressure Blood Pressure [Ri ght Upper Arm] Pulse Oximetry 95 99 Oxygen Delivery Me thod <Pati Sellers MD - Last Filed: 09/20/24 15:47> Vital Signs, click to edit/add: Vital Signs - 24 hr 09/20/24 09:08 09/20/24 10:21 09/20/24 10:30 Temperature 99 F Pulse Rate 69 69 Pulse Rate [Pulse Oximeter] 101 H Respiratory Rate 18 Blood Pressure Blood Pressure [Ri ght Upper Arm] 165/97 H Pulse Oximetry 96 96 97 Oxygen Delivery Me thod Room Air 09/20/24 10:45 09/20/24 11:00 09/20/24 11:15 Temperature Pulse Rate 58 L 63 63 Pulse Rate [Pulse Oximeter] Respiratory Rate 18 Blood Pressure Blood Pressure [Ri ght Upper Arm] Pulse Oximetry 95 99 97 Oxygen Delivery Me thod 09/20/24 11:30 09/20/24 12:25 09/20/24 12:30 Temperature Pulse Rate 58 L 77 59 L Pulse Rate [Pulse Oximeter] Respiratory Rate Blood Pressure Blood Pressure [Ri ght Upper Arm] Pulse Oximetry 92 100 93 Oxygen Delivery Me thod 09/20/24 12:45 09/20/24 13:00 09/20/24 13:04 Temperature Pulse Rate 87 77 62 Pulse Rate [Pulse Oximeter] Respiratory Rate 18 Blood Pressure 170/107 H Blood Pressure [Ri ght Upper Arm] Pulse Oximetry 92 99 98 Oxygen Delivery Me thod 09/20/24 13:05 09/20/24 13:15 09/20/24 13:30 Temperature Pulse Rate 76 84 79 Pulse Rate [Pulse Oximeter] Respiratory Rate Blood Pressure Blood Pressure [Ri ght Upper Arm] Pulse Oximetry 98 92 99 Oxygen Delivery Me thod 09/20/24 13:45 09/20/24 14:04 09/20/24 14:15 Temperature Pulse Rate 59 L 89 86 Pulse Rate [Pulse Oximeter] Respiratory Rate Blood Pressure Blood Pressure [Ri ght Upper Arm] Pulse Oximetry 100 96 98 Oxygen Delivery Me thod 09/20/24 14:30 09/20/24 14:45 09/20/24 15:00 Temperature Pulse Rate 89 82 82 Pulse Rate [Pulse Oximeter] Respiratory Rate 18 Blood Pressure Blood Pressure [Ri ght Upper Arm] Pulse Oximetry 98 99 99 Oxygen Delivery Me thod 09/20/24 15:15 09/20/24 15:32 Temperature Pulse Rate 82 75 Pulse Rate [Pulse Oximeter] Respiratory Rate Blood Pressure Blood Pressure [Ri ght Upper Arm] Pulse Oximetry 95 99 Oxygen Delivery Me thod <Jai Early MD - Last Filed: 09/20/24 15:57> Course Course ED Course: IV established patient received 0.5 mg of IV Dilaudid. This helped with his pain for approximately an hour. We attempted an oral dose of Dilaudid time which did not seem to help at all. 0.5 mg IV Dilaudid was repeated. In the meantime we did draw blood work which included a CBC which was unremarkable. Chemistries show hyponatremia with a sodium of 131, otherwise unremarkable. ALT slightly elevated at 57, LFTs otherwise normal. CRP elevated at 16.9. Lipase normal at 77. Urinalysis showing 4+ ketones. Flat and upright abdominal x-ray was unremarkable. Patient continues to experience significant amount of pain. Did give 1 mg of IV Dilaudid at this time. Because of the amount of pain he was in we did proceed with an abdominal CT scan which showed a questionable partial thrombus of the SMV. It also showed evidence of pancreatitis. I discussed these findings with , [facility]. She stated the pancreatitis seen on the CT is expected after manipulation in the procedure he had done. With a normal lipase she is not convinced that this is actual pancreatitis. She was concerned about the partial thrombus of the SMV and recommended and venous ultrasound which we are unable to do here at [place]. Because of this we consulted with , for vascular surgeon at [facility] who did not recommend further imaging but instead recommended anticoagulation treatment for a provoked thrombus. First dose of Eliquis given in the ED. Given the amount of pain that the patient was experiencing was decided to admit him for observation, anticoagulation and pain treatment. <Pati Sellers MD - Last Filed: 09/20/24 15:47> Vital Signs Vital signs: Initial Vital Signs Temperature 99 F 09/20/24 09:08 Temperature Source Temporal Artery Scan 09/20/24 09:08 Pulse Rate 101 H 09/20/24 09:08 Respiratory Rate 18 09/20/24 09:08 Blood Pressure 165/97 H 09/20/24 09:08 Blood Pressure Mean 119 H 09/20/24 09:08 Pulse Oximetry 96 09/20/24 09:08 Oxygen Delivery Method Room Air 09/20/24 09:08 Vital Signs Temperature 99 F 09/20/24 09:08 Pulse Rate 101 H 09/20/24 09:08 Respiratory Rate 18 09/20/24 09:08 Blood Pressure 165/97 H 09/20/24 09:08 Pulse Oximetry 96 09/20/24 09:08 Oxygen Delivery Method Room Air 09/20/24 09:08 Temperature 99 F 09/20/24 09:08 Pulse Rate 75 09/20/24 15:32 Respiratory Rate 18 09/20/24 14:30 Blood Pressure 170/107 H 09/20/24 13:04 Pulse Oximetry 99 09/20/24 15:32 Oxygen Delivery Method Room Air 09/20/24 09:08 <Pati Sellers MD - Last Filed: 09/20/24 15:47> Initial Vital Signs Temperature 99 F 09/20/24 09:08 Temperature Source Temporal Artery Scan 09/20/24 09:08 Pulse Rate 101 H 09/20/24 09:08 Respiratory Rate 18 09/20/24 09:08 Blood Pressure 165/97 H 09/20/24 09:08 Blood Pressure Mean 119 H 09/20/24 09:08 Pulse Oximetry 96 09/20/24 09:08 Oxygen Delivery Method Room Air 09/20/24 09:08 Vital Signs Temperature 99 F 09/20/24 09:08 Pulse Rate 101 H 09/20/24 09:08 Respiratory Rate 18 09/20/24 09:08 Blood Pressure 165/97 H 09/20/24 09:08 Pulse Oximetry 96 09/20/24 09:08 Oxygen Delivery Method Room Air 09/20/24 09:08 Temperature 99 F 09/20/24 09:08 Pulse Rate 75 09/20/24 15:32 Respiratory Rate 18 09/20/24 14:30 Blood Pressure 170/107 H 09/20/24 13:04 Pulse Oximetry 99 09/20/24 15:32 Oxygen Delivery Method Room Air 09/20/24 09:08 <Jai Early MD - Last Filed: 09/20/24 15:57> Medications Administered Medications: Discontinued Medications Generic Name Dose Route Start Last Admin Trade Name Freq PRN Reason Stop Dose Admin Apixaban 10 mg 09/20/24 15:06 09/20/24 15:49 Apixaban 5 Mg Tablet PO 09/20/24 15:07 10 mg ONCE ONE Administration Hydromorphone HCl 0.5 mg 09/20/24 09:47 09/20/24 10:17 Hydromorphone 0.5 Mg/0.5 Ml Inj IVP 09/20/24 09:48 0.5 mg ONCE ONE Administration Hydromorphone HCl 2 mg 09/20/24 11:09 09/20/24 11:18 Hydromorphone 2 Mg Tablet PO 09/20/24 11:10 2 mg ONCE ONE Administration Hydromorphone HCl 0.5 mg 09/20/24 12:49 09/20/24 13:04 Hydromorphone 0.5 Mg/0.5 Ml Inj IVP 09/20/24 12:50 0.5 mg ONCE ONE Administration Hydromorphone HCl 1 mg 09/20/24 14:53 09/20/24 15:05 Hydromorphone 0.5 Mg/0.5 Ml Inj IVP 09/20/24 14:54 1 mg ONCE ONE Administration Sodium Chloride 1,000 mls @ 500 mls/hr 09/20/24 12:48 09/20/24 15:04 0.9 % Sodium Chloride 1000 Ml IV 09/20/24 14:47 Infused .Q2H CRISTHIAN Infusion Ondansetron HCl 4 mg 09/20/24 10:53 09/20/24 10:59 Ondansetron 2 Mg/Ml Inj IVP 09/20/24 10:54 4 mg ONCE ONE Administration <Pati Sellers MD - Last Filed: 09/20/24 15:47> Discontinued Medications Generic Name Dose Route Start Last Admin Trade Name Freq PRN Reason Stop Dose Admin Apixaban 10 mg 09/20/24 15:06 09/20/24 15:49 Apixaban 5 Mg Tablet PO 09/20/24 15:07 10 mg ONCE ONE Administration Hydromorphone HCl 0.5 mg 09/20/24 09:47 09/20/24 10:17 Hydromorphone 0.5 Mg/0.5 Ml Inj IVP 09/20/24 09:48 0.5 mg ONCE ONE Administration Hydromorphone HCl 2 mg 09/20/24 11:09 09/20/24 11:18 Hydromorphone 2 Mg Tablet PO 09/20/24 11:10 2 mg ONCE ONE Administration Hydromorphone HCl 0.5 mg 09/20/24 12:49 09/20/24 13:04 Hydromorphone 0.5 Mg/0.5 Ml Inj IVP 09/20/24 12:50 0.5 mg ONCE ONE Administration Hydromorphone HCl 1 mg 09/20/24 14:53 09/20/24 15:05 Hydromorphone 0.5 Mg/0.5 Ml Inj IVP 09/20/24 14:54 1 mg ONCE ONE Administration Sodium Chloride 1,000 mls @ 500 mls/hr 09/20/24 12:48 09/20/24 15:04 0.9 % Sodium Chloride 1000 Ml IV 09/20/24 14:47 Infused .Q2H CRISTHIAN Infusion Ondansetron HCl 4 mg 09/20/24 10:53 09/20/24 10:59 Ondansetron 2 Mg/Ml Inj IVP 09/20/24 10:54 4 mg ONCE ONE Administration <Jai Early MD - Last Filed: 09/20/24 15:57> Medical Decision Making MDM Narrative Medical decision making narrative: 54-year-old male with recurrent chronic pancreatitis and a new partial thrombus of the SMV. Patient will be admitted for further management. <Pati Sellers MD - Last Filed: 09/20/24 15:47> Lab Data Lab results reviewed: Yes I reviewed the patient's lab results <Pati Sellers MD - Last Filed: 09/20/24 15:47> Labs: Lab Results 09/20/24 09/20/24 Range/Units 09:55 10:00 WBC 7.47 (4.50-11.00) K/uL RBC 4.24 L (4.30-5.90) m/uL Hgb 13.3 L (13.5-17.5) gm/dL Hct 37.9 (37.0-53.0) % MCV 89 (80-100) fL MCH 31 (26-34) pg MCHC 35 (32-36) gm/dL RDW Coeff of Amber 11.8 (11.5-15.5) % Plt Count 177 (140-440) K/uL Neut % (Auto) 76.4 H (42.0-72.0) % Lymph % (Auto) 7.5 L (20-44) % Brooks % (Auto) 15.0 H (0.0-11.0) % Eos % (Auto) 0.7 (0.0-7.0) % Baso % (Auto) 0.1 (0.0-3.0) % Neut # (Auto) 5.70 (1.7-7.0) K/uL Lymph # (Auto) 0.60 L (0.90-2.90) K/uL Brooks # (Auto) 1.10 H (0.00-0.90) K/UL Eos # (Auto) 0.05 (0.00-0.50) K/uL Baso # (Auto) 0.01 (0.00-0.30) K/uL Abs Immat Gran (auto) 0.02 (0.00-0.30) K/uL Imm/Tot Granulo (auto) 0.3 % Sodium 131 L (135-149) mmol/L Potassium 3.6 (3.6-5.1) mmol/L Chloride 99 (96-114) mmol/L Carbon Dioxide 27 (20-32) mmol/L Anion Gap 5 L (7-15) mEq/L BUN 11 (7-30) mg/dL Creatinine 0.7 (0.5-1.5) mg/dL Estimated Creat Clear 109.62 Estimated GFR 108 ml/min Glucose 134 H (60-115) mg/dL Lactate 0.7 (0.5-1.9) mmol/L Calcium 8.7 (8.4-10.6) mg/dL Total Bilirubin 0.8 (0.1-1.5) mg/dL Direct Bilirubin 0.5 (0.0-0.5) mg/dL AST 29 (12-35) U/L ALT 57 H (4-50) U/L Alkaline Phosphatase 107 (40-150) U/L C-Reactive Protein 16.9 H (0.5-1.0) mg/dL Total Protein 7.3 (6.0-8.3) g/dL Albumin 3.8 (3.3-5.0) g/dL Lipase 77 (23-300) U/L Urine Color Yellow (Yellow) Urine Appearance Clear (Clear) Urine pH 7.0 (5.0-8.5) Ur Specific [place] 1.015 (1.000-1.030) Urine Protein 1+ A (Negative) Urine Glucose (UA) Negative (Negative) Urine Ketones 4+ A (Negative) Urine Blood Negative (Negative) Urine Nitrite Negative (Negative) Urine Bilirubin 1+ A (Negative) Urine Urobilinogen 4.0 A (0.2-1.0) Ur Leukocyte Esterase Negative (Negative) Urine RBC 0-2 (0-2) Urine WBC 0-2 (0-5) Ur Squamous Epith Cells None (None-Few) Urine Bacteria None (None) Urine Mucus Few A (None) <Pati Sellers MD - Last Filed: 09/20/24 15:47> Lab Results 09/20/24 09/20/24 Range/Units 09:55 10:00 WBC 7.47 (4.50-11.00) K/uL RBC 4.24 L (4.30-5.90) m/uL Hgb 13.3 L (13.5-17.5) gm/dL Hct 37.9 (37.0-53.0) % MCV 89 (80-100) fL MCH 31 (26-34) pg MCHC 35 (32-36) gm/dL RDW Coeff of Amber 11.8 (11.5-15.5) % Plt Count 177 (140-440) K/uL Neut % (Auto) 76.4 H (42.0-72.0) % Lymph % (Auto) 7.5 L (20-44) % Brooks % (Auto) 15.0 H (0.0-11.0) % Eos % (Auto) 0.7 (0.0-7.0) % Baso % (Auto) 0.1 (0.0-3.0) % Neut # (Auto) 5.70 (1.7-7.0) K/uL Lymph # (Auto) 0.60 L (0.90-2.90) K/uL Brooks # (Auto) 1.10 H (0.00-0.90) K/UL Eos # (Auto) 0.05 (0.00-0.50) K/uL Baso # (Auto) 0.01 (0.00-0.30) K/uL Abs Immat Gran (auto) 0.02 (0.00-0.30) K/uL Imm/Tot Granulo (auto) 0.3 % Sodium 131 L (135-149) mmol/L Potassium 3.6 (3.6-5.1) mmol/L Chloride 99 (96-114) mmol/L Carbon Dioxide 27 (20-32) mmol/L Anion Gap 5 L (7-15) mEq/L BUN 11 (7-30) mg/dL Creatinine 0.7 (0.5-1.5) mg/dL Estimated Creat Clear 109.62 Estimated GFR 108 ml/min Glucose 134 H (60-115) mg/dL Lactate 0.7 (0.5-1.9) mmol/L Calcium 8.7 (8.4-10.6) mg/dL Total Bilirubin 0.8 (0.1-1.5) mg/dL Direct Bilirubin 0.5 (0.0-0.5) mg/dL AST 29 (12-35) U/L ALT 57 H (4-50) U/L Alkaline Phosphatase 107 (40-150) U/L C-Reactive Protein 16.9 H (0.5-1.0) mg/dL Total Protein 7.3 (6.0-8.3) g/dL Albumin 3.8 (3.3-5.0) g/dL Lipase 77 (23-300) U/L Urine Color Yellow (Yellow) Urine Appearance Clear (Clear) Urine pH 7.0 (5.0-8.5) Ur Specific [place] 1.015 (1.000-1.030) Urine Protein 1+ A (Negative) Urine Glucose (UA) Negative (Negative) Urine Ketones 4+ A (Negative) Urine Blood Negative (Negative) Urine Nitrite Negative (Negative) Urine Bilirubin 1+ A (Negative) Urine Urobilinogen 4.0 A (0.2-1.0) Ur Leukocyte Esterase Negative (Negative) Urine RBC 0-2 (0-2) Urine WBC 0-2 (0-5) Ur Squamous Epith Cells None (None-Few) Urine Bacteria None (None) Urine Mucus Few A (None) <Jai Early MD - Last Filed: 09/20/24 15:57> Imaging Data CT scan - abdomen: Attestation: I have reviewed the pertinent imaging results. <Pati Sellers MD - Last Filed: 09/20/24 15:47> Radiologist's impression: TECHNIQUE: CT abdomen and pelvis acquired with 79 cc Omnipaque 370 IV contrast. COMPARISON: CT abdomen and pelvis April 2024 a. FINDINGS: Lower chest: Unremarkable. Liver: Normal in size and attenuation. Small hypoattenuating lesion in the right hepatic lobe with discontinuous peripheral enhancement measuring 2.3 centimeter, unchanged in comparison to previous exam likely a hemangioma. Gallbladder and bile ducts: Status post cholecystectomy without biliary duct dilatation. Pancreas: Pancreatic stent is in place. There is abnormal hypoattenuation involving the head and uncinate process with mild adjacent fat stranding. No localized fluid collection. Trace amount of air is present within the pancreatic duct, anterior to stent. Splenic vein is patent. Partial thrombosis within the SMV as seen on series number 2/66. Spleen: Normal in size. No masses. Adrenal glands: No suspicious mass. Kidneys: Bilateral kidneys are normal in size with symmetric enhancement. No nephrolithiasis or hydronephrosis. Few small hypoattenuating lesion in the left kidney, too small to characterize and unchanged in comparison to previous exam. GI tract: No findings of bowel obstruction. Minimal edematous wall thickening and periduodenal fat stranding, likely reactive. Few colonic diverticulosis without diverticulitis. Vasculature: Abdominal aorta is of normal caliber. Partial thrombosis of the SMV. Lymph nodes: No lymphadenopathy. Peritoneum/Abdominal Wall: No free air or significant free fluid. Small fat containing umbilical hernia. Pelvis: Prostatomegaly. Fat containing left inguinal hernia. Bones: Mild degenerative changes of the lumbar spine. IMPRESSION: Acute pancreatitis predominantly involving head and uncinate process with pancreatic stent in place. Suggestion of partial thrombosis involving SMV. Stable liver hemangioma. 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
--- NOTE | 2024-09-20 09:58 | CRLHL7_ITS ---
For Patients: As a result of the Century Cures Act, medical imaging exams and procedure reports are released immediately into your electronic medical record. You may view this report before your referring provider. If you have questions, please contact your health care provider. Indication: Abdomen pain. Technique: Abdomen 3 view. Comparison: CT abdomen and pelvis April 2024 Findings: No concerning air-fluid levels or free intraperitoneal air on the upright film. Surgical clips in the right upper quadrant. Stent is identified within the central abdomen, likely a pancreatic stent. No acute osseous abnormality. Included lung bases are clear. Impression: Nonobstructed bowel gas pattern. No evidence of pneumoperitoneum on the upright film. Dictated by Candis Novak MD @ 09/20/2024 10:33:09 AM (Electronically Signed)
[2024-09-20 10:05] LABS: Appearance Urine Clear (Clear); Bilirubin Urine 1+ (Negative); Blood Urine Negative (Negative); Color Urine Yellow (Yellow); Glucose Urine Negative (Negative); Ketones Urine 4+ (Negative); Leukocyte Esterase Urine Negative (Negative); Nitrite Urine Negative (Negative); Protein Urine 1+ (Negative); Specific Gravity Urine 1.015 (1.000-1.030)
[2024-09-20 10:08] LABS: Lactate* 0.7 mmol/L (0.5-1.9)
[2024-09-20 10:13] LABS: Mucus Urine Few; RBC Urine 0-2 (0-2); WBC Urine 0-2 (0-5)
[2024-09-20 10:15] LABS: Basophils Absolute Auto 0.01 K/uL (0.00-0.30); Basophils Percent Auto 0.1 % (0.0-3.0); Eosinophils Absolute Auto 0.05 K/uL (0.00-0.50); Eosinophils Percent Auto 0.7 % (0.0-7.0); Hematocrit 37.9 % (37.0-53.0); Hemoglobin* 13.3 gm/dL (13.5-17.5); Immature Granulocytes Abs Auto 0.02 K/uL (0.00-0.30); Immature Granulocytes Pct Auto 0.3 %; Lymphocytes Percent Auto 7.5 % (20-44); Mean Corpuscular HGB Conc 35 gm/dL (32-36); Mean Corpuscular Hemoglobin 31 pg (26-34); Mean Corpuscular Volume 89 fL (80-100); Neutrophils Percent Auto 76.4 % (42.0-72.0); Platelet Count* 177 K/uL (140-440); RDW Coefficient of Variation % 11.8 % (11.5-15.5); Red Blood Count 4.24 m/uL (4.30-5.90); White Blood Count* 7.47 K/uL (4.50-11.00)
[2024-09-20] MEDS: HYDROmorphone 0.5 mg/0.5 ml inj IVP ×2 (10:17→13:04)
[2024-09-20 10:18] LABS: Slide Review Reflex No
[2024-09-20 10:35] LABS: Albumin* 3.8 g/dL (3.3-5.0); Chloride* 99 mmol/L (96-114)
[2024-09-20 10:36] LABS: Potassium* 3.6 mmol/L (3.6-5.1); Sodium* 131 mmol/L (135-149)
[2024-09-20 10:38] LABS: Anion Gap 5 mEq/L (7-15); Carbon Dioxide* 27 mmol/L (20-32); Creatinine* 0.7 mg/dL (0.5-1.5); Est. Creatinine Clearance* 109.62; Estimated Glomerular Filt Rate 108 ml/min
[2024-09-20 10:39] LABS: Alanine Aminotransferase* 57 U/L (4-50); Alkaline Phosphatase* 107 U/L (40-150); Aspartate Amino Transferase* 29 U/L (12-35); Bilirubin Direct* 0.5 mg/dL (0.0-0.5); Bilirubin Total* 0.8 mg/dL (0.1-1.5); Blood Urea Nitrogen* 11 mg/dL (7-30); Calcium* 8.7 mg/dL (8.4-10.6); Glucose* 134 mg/dL (60-115); Lipase* 77 U/L (23-300); Total Protein* 7.3 g/dL (6.0-8.3)
[2024-09-20] MEDS: ONDANSETRON 2 MG/ML inj 4 MG IVP (10:59)
[2024-09-20 11:03] LABS: C Reactive Protein* 16.9 mg/dL (0.5-1.0)
--- NOTE | 2024-09-20 11:09 | CRLHL7_ITS ---
For Patients: As a result of the Century Cures Act, medical imaging exams and procedure reports are released immediately into your electronic medical record. You may view this report before your referring provider. If you have questions, please contact your health care provider. INDICATION: Postop pain, ERCP on 09/14. TECHNIQUE: CT abdomen and pelvis acquired with 79 cc Omnipaque 370 IV contrast. COMPARISON: CT abdomen and pelvis April 2024 a. FINDINGS: Lower chest: Unremarkable. Liver: Normal in size and attenuation. Small hypoattenuating lesion in the right hepatic lobe with discontinuous peripheral enhancement measuring 2.3 centimeter, unchanged in comparison to previous exam likely a hemangioma. Gallbladder and bile ducts: Status post cholecystectomy without biliary duct dilatation. Pancreas: Pancreatic stent is in place. There is abnormal hypoattenuation involving the head and uncinate process with mild adjacent fat stranding. No localized fluid collection. Trace amount of air is present within the pancreatic duct, anterior to stent. Splenic vein is patent. Partial thrombosis within the SMV as seen on series number 2/66. Spleen: Normal in size. No masses. Adrenal glands: No suspicious mass. Kidneys: Bilateral kidneys are normal in size with symmetric enhancement. No nephrolithiasis or hydronephrosis. Few small hypoattenuating lesion in the left kidney, too small to characterize and unchanged in comparison to previous exam. GI tract: No findings of bowel obstruction. Minimal edematous wall thickening and periduodenal fat stranding, likely reactive. Few colonic diverticulosis without diverticulitis. Vasculature: Abdominal aorta is of normal caliber. Partial thrombosis of the SMV. Lymph nodes: No lymphadenopathy. Peritoneum/Abdominal Wall: No free air or significant free fluid. Small fat containing umbilical hernia. Pelvis: Prostatomegaly. Fat containing left inguinal hernia. Bones: Mild degenerative changes of the lumbar spine. IMPRESSION: Acute pancreatitis predominantly involving head and uncinate process with pancreatic stent in place. Suggestion of partial thrombosis involving SMV. Stable liver hemangioma. Please note that all CT scans at this facility use dose modulation, iterative reconstruction, and/or weight-based dosing when appropriate to reduce radiation dose to as low as reasonably achievable. Dictated by Candis Novak MD @ 09/20/2024 12:37:53 PM (Electronically Signed)
[2024-09-20] MEDS: HYDROmorphone 2 MG TABLET PO (11:18)
[2024-09-20] MEDS: 0.9 % SODIUM CHLORIDE 1000 ml 1,000 ML 500 ML IV (13:05)
[2024-09-20] MEDS: HYDROmorphone 0.5 mg/0.5 ml inj 1 MG IVP ×4 (15:05→23:01)
[2024-09-20] MEDS: APIXABAN 5 MG TABLET 10 MG PO ×2 (15:49→20:47)
--- NOTE | 2024-09-20 15:57 | PM.IMPN1 ---
Subjective Date Seen: 09/20/24 Exam Const: Vital Signs, click to edit/add: Vital Signs - 24 hr 09/20/24 09:08 09/20/24 10:21 09/20/24 10:30 Temperature 99 F Pulse Rate 69 69 Pulse Rate [Pulse Oximeter] 101 H Respiratory Rate 18 Blood Pressure Blood Pressure [Ri ght Upper Arm] 165/97 H Pulse Oximetry 96 96 97 Oxygen Delivery Me thod Room Air 09/20/24 10:45 09/20/24 11:00 09/20/24 11:15 Temperature Pulse Rate 58 L 63 63 Pulse Rate [Pulse Oximeter] Respiratory Rate 18 Blood Pressure Blood Pressure [Ri ght Upper Arm] Pulse Oximetry 95 99 97 Oxygen Delivery Me thod 09/20/24 11:30 09/20/24 12:25 09/20/24 12:30 Temperature Pulse Rate 58 L 77 59 L Pulse Rate [Pulse Oximeter] Respiratory Rate Blood Pressure Blood Pressure [Ri ght Upper Arm] Pulse Oximetry 92 100 93 Oxygen Delivery Me thod 09/20/24 12:45 09/20/24 13:00 09/20/24 13:04 Temperature Pulse Rate 87 77 62 Pulse Rate [Pulse Oximeter] Respiratory Rate 18 Blood Pressure 170/107 H Blood Pressure [Ri ght Upper Arm] Pulse Oximetry 92 99 98 Oxygen Delivery Me thod 09/20/24 13:05 09/20/24 13:15 09/20/24 13:30 Temperature Pulse Rate 76 84 79 Pulse Rate [Pulse Oximeter] Respiratory Rate Blood Pressure Blood Pressure [Ri ght Upper Arm] Pulse Oximetry 98 92 99 Oxygen Delivery Me thod 09/20/24 13:45 09/20/24 14:04 09/20/24 14:15 Temperature Pulse Rate 59 L 89 86 Pulse Rate [Pulse Oximeter] Respiratory Rate Blood Pressure Blood Pressure [Ri ght Upper Arm] Pulse Oximetry 100 96 98 Oxygen Delivery Me thod 09/20/24 14:30 09/20/24 14:45 09/20/24 15:00 Temperature Pulse Rate 89 82 82 Pulse Rate [Pulse Oximeter] Respiratory Rate 18 Blood Pressure Blood Pressure [Ri ght Upper Arm] Pulse Oximetry 98 99 99 Oxygen Delivery Me thod 09/20/24 15:15 09/20/24 15:32 Temperature Pulse Rate 82 75 Pulse Rate [Pulse Oximeter] Respiratory Rate Blood Pressure Blood Pressure [Ri ght Upper Arm] Pulse Oximetry 95 99 Oxygen Delivery Me thod Labs Labs: Laboratory Results - last 24 hr 09/20/24 09/20/24 09:55 10:00 WBC 7.47 RBC 4.24 L Hgb 13.3 L Hct 37.9 MCV 89 MCH 31 MCHC 35 RDW Coeff of Amber 11.8 Plt Count 177 Neut % (Auto) 76.4 H Lymph % (Auto) 7.5 L [place] % (Auto) 15.0 H Eos % (Auto) 0.7 Baso % (Auto) 0.1 Neut # (Auto) 5.70 Lymph # (Auto) 0.60 L [place] # (Auto) 1.10 H Eos # (Auto) 0.05 Baso # (Auto) 0.01 Abs Immat Gran (auto) 0.02 Imm/Tot Granulo (auto) 0.3 Sodium 131 L Potassium 3.6 Chloride 99 Carbon Dioxide 27 Anion Gap 5 L BUN 11 Creatinine 0.7 Estimated Creat Clear 109.62 Estimated GFR 108 Glucose 134 H Lactate 0.7 Calcium 8.7 Total Bilirubin 0.8 Direct Bilirubin 0.5 AST 29 ALT 57 H Alkaline Phosphatase 107 C-Reactive Protein 16.9 H Total Protein 7.3 Albumin 3.8 Lipase 77 Urine Color Yellow Urine Appearance Clear Urine pH 7.0 Ur Specific [place] 1.015 Urine Protein 1+ A Urine Glucose (UA) Negative Urine Ketones 4+ A Urine Blood Negative Urine Nitrite Negative Urine Bilirubin 1+ A Urine Urobilinogen 4.0 A Ur Leukocyte Esterase Negative Urine RBC 0-2 Urine WBC 0-2 Ur Squamous Epith Cells None Urine Bacteria None Urine Mucus Few A
--- NOTE | 2024-09-20 15:57 | PM.IMHP1 ---
Hospitalist- H&P: HPI History of Present Illness Date Seen: 09/20/24 Chief complaint: Abdominal Pain/Pancreas Narrative: Arturo Lockwood is a 54 year old man with history of chronic recurrent pancreatitis for which he has a ERCPs and stent placements periodically. Reportedly has pancreatic duct obstruction requiring stent placements every 2-3 months, stent removal, stent free period of time, and then beginning the process over again. Underwent stent replacement on 09/14/2024 by [facility] specialists. Discharge from the hospital on 09/18/2024 after getting pain under better control. Since discharge has had persistent pain with little flatus and bowel movement. Has been trying oral oxycodone 5-20 mg doses. Unable to tolerate larger doses due to nausea and upset stomach. Lower doses are tolerable but do not keep the pain under control. He determined to come into the hospital today dizzy of IV hydromorphone, which has worked in the past, might be helpful. Has had some relief with IV hydromorphone being administered in the emergency department but is not lasting relief. In the process of assessing him the emergency department he was also found to have an acute superior mesenteric vein thrombosis. Discussion undertaken with [facility] specialists who recommended anticoagulation with apixaban and ongoing pain management efforts. They will need to follow-up with patient in the outpatient setting as well unless his condition worsens while in our hospital in which case discussion would need to be taking about possibly transferring. Patient agreeable with above stated plans and recommendations. Review of Systems Status of ROS: Reports: 10 or more systems reviewed and unremarkable except as noted in History and below Narrative: Does not use tobacco products. Rarely consumes alcoholic beverages anymore. Denies use of street or recreational drugs. 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 Lives with and 2 children. The oldest child is his 19-year-old daughter, and the youngest child is is 16-year-old son. Requests full resuscitation in the event of cardiopulmonary demise. Requests that his , Maria Eugenia, speak on his behalf if he is unable to voice his desires regarding his healthcare. Takes his medications as prescribed. Denies use of any other street or recreational drugs. No recent travel, trauma, or injury. Very little oral intake over the last several days. Has been striving to be hydrated with water. No solid intake for the last 3-4 days. Has been taking stool softeners as well as laxatives because of not having a bowel movement over the last several days and finally this past evening he had 3-4 small bowel movements and none since. No blood loss of any sort. Review of systems otherwise negative. [facility] Medical History Post-ERCP acute pancreatitis ?K91.89 - Other postprocedural complications and disorders of digestive system (ICD-10) ?K85.90 - Acute pancreatitis without necrosis or infection, unspecified (ICD-10) Internal hemorrhoid ?K64.8 - Other hemorrhoids (ICD-10) Pancreatic mass ?K86.89 - Other specified diseases of pancreas (ICD-10) Hepatic steatosis ?K76.0 - Fatty (change of) liver, not elsewhere classified (ICD-10) Onychomycosis ?B35.1 - Tinea unguium (ICD-10) Surgical History History of biliary duct stent placement ?Z98.890 - Other specified postprocedural states (ICD-10) S/P arthroscopy of right shoulder (12/28/22) ?Z98.890 - Other specified postprocedural states (ICD-10) Status post laparoscopic cholecystectomy (12/22/16) ?Z90.49 - Acquired absence of other specified parts of digestive tract (ICD-10) History of colonoscopy ?Z98.890 - Other specified postprocedural states (ICD-10) Family History Other Colitis Social History Narrative: Social History: He is and lives with his and children. 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 Habits: He denies tobacco use. Denies recreational drug use. EtOH occassional - Jerman/New Years was last EtOH. Drinks non alcoholic beer, last one was also over the holidays. Family History: Paternal grandfather of an acute myocardial infarction at age 50. His brother also had an acute myocardial infarction in his early 50s. A different brother had strokes in his 50s and 60s. Father had lung cancer with brain metastases despite being a nonsmoker. Wishes to be a full code. What is your current living situation?: I presently have a place to live Problems where you live: no known problems Problems where you live details: N/A In the past 12 months, utilities in danger of being shut off: no In past 12 months, lack of transportation kept you from medical appts, meetings, work, or getting things needed for daily living: no In the past 12 mos, have been you worried that your food would run out before you had money to buy more?: never true In the past 12 mos, the food you bought just didn't last and you didn't have money to buy more?: never true Highest level of school completed/degree received: some college, no degree Smoking Status: Never smoker Do you use any of these nicotine containing products: None Second hand tobacco smoke exposure: No How often do you have a drink containing alcohol: never AUDIT-C Alcohol total score: 0 Non-prescribed substance use: denies use Caffeine: Yes How often does anyone, including family, friends and others, physically hurt you: never How often does anyone, including family, friends and others, insult or talk down to you: never How often does anyone, including family, friends and others, threaten you with harm: never How often does anyone, including family, friends and others, scream or curse at you: never service: No Meds Home Medications and Allergies Allergies Allergy/AdvReac Type Severity Reaction Status Date / Time No Known Drug Allergies Allergy Verified 09/20/24 11:35 Exam Narrative: Exam Narrative: I examined him in the emergency department. By the time I see him he appears comfortable. He has already received about 5 mg of hydromorphone altogether. States the pain level is finally down to 5/10 or as previously was much higher. Vision and hearing are adequate. Friendly, articulate, cooperative. Alert and oriented x4. External auditory canals and tympanic membranes are normal. Midline nasal septum. Dry buccal mucosa. Dentition in fair repair. No icterus. Conjugate gaze. No jaundice, petechiae, rashes, or cyanosis. Neck is supple. Midline trachea. No head neck lymphadenopathy. Lungs are clear to auscultation without wheezing, rhonchi, or rales. Heart tones with regular rhythm, normal S1-S2, without murmur, gallop, or rub. Abdomen with active bowel sounds. No rebound or guarding. Subjective discomfort to palpation over epigastrium. Extremities with only trace edema lower extremities. Palpable pulses upper and lower extremities. Capillary refill less than 3 seconds in upper and lower extremities. No focal motor neurologic deficits. Const: Vital Signs, click to edit/add: Vital Signs - 24 hr 09/20/24 09:08 09/20/24 10:21 09/20/24 10:30 Temperature 99 F Pulse Rate 69 69 Pulse Rate [Pulse Oximeter] 101 H Respiratory Rate 18 Blood Pressure Blood Pressure [Ri ght Upper Arm] 165/97 H Pulse Oximetry 96 96 97 Oxygen Delivery Me thod Room Air 09/20/24 10:45 09/20/24 11:00 09/20/24 11:15 Temperature Pulse Rate 58 L 63 63 Pulse Rate [Pulse Oximeter] Respiratory Rate 18 Blood Pressure Blood Pressure [Ri ght Upper Arm] Pulse Oximetry 95 99 97 Oxygen Delivery Me thod 09/20/24 11:30 09/20/24 12:25 09/20/24 12:30 Temperature Pulse Rate 58 L 77 59 L Pulse Rate [Pulse Oximeter] Respiratory Rate Blood Pressure Blood Pressure [Ri ght Upper Arm] Pulse Oximetry 92 100 93 Oxygen Delivery Me thod 09/20/24 12:45 09/20/24 13:00 09/20/24 13:04 Temperature Pulse Rate 87 77 62 Pulse Rate [Pulse Oximeter] Respiratory Rate 18 Blood Pressure 170/107 H Blood Pressure [Ri ght Upper Arm] Pulse Oximetry 92 99 98 Oxygen Delivery Me thod 09/20/24 13:05 09/20/24 13:15 09/20/24 13:30 Temperature Pulse Rate 76 84 79 Pulse Rate [Pulse Oximeter] Respiratory Rate Blood Pressure Blood Pressure [Ri ght Upper Arm] Pulse Oximetry 98 92 99 Oxygen Delivery Me thod 09/20/24 13:45 09/20/24 14:04 09/20/24 14:15 Temperature Pulse Rate 59 L 89 86 Pulse Rate [Pulse Oximeter] Respiratory Rate Blood Pressure Blood Pressure [Ri ght Upper Arm] Pulse Oximetry 100 96 98 Oxygen Delivery Me thod 09/20/24 14:30 09/20/24 14:45 09/20/24 15:00 Temperature Pulse Rate 89 82 82 Pulse Rate [Pulse Oximeter] Respiratory Rate 18 Blood Pressure Blood Pressure [Ri ght Upper Arm] Pulse Oximetry 98 99 [address] [facility] 15:15 09/20/24 15:32 Temperature Pulse Rate 82 75 Pulse Rate [Pulse Oximeter] Respiratory Rate Blood Pressure Blood Pressure [Ri ght Upper Arm] Pulse Oximetry 95 99 Oxygen Delivery [facility] Hospitalist - H&P: Result Labs Labs: Short CBC 09/20/24 Range/Units 10:00 WBC 7.47 (4.50-11.00) K/uL Hgb 13.3 L (13.5-17.5) gm/dL Hct 37.9 (37.0-53.0) % Plt Count 177 (140-440) K/uL BMP 09/20/24 10:00 Sodium 131 L Potassium 3.6 Chloride 99 Carbon Dioxide 27 BUN 11 Creatinine 0.7 Glucose 134 H Calcium 8.7 Liver Function 09/20/24 Range/Units 10:00 Total Bilirubin 0.8 (0.1-1.5) mg/dL Direct Bilirubin 0.5 (0.0-0.5) mg/dL AST 29 (12-35) U/L ALT 57 H (4-50) U/L Alkaline Phosphatase 107 (40-150) U/L Albumin 3.8 (3.3-5.0) g/dL Urine 09/20/24 Range/Units 09:55 Urine Color Yellow (Yellow) Urine Appearance Clear (Clear) Urine pH 7.0 (5.0-8.5) Ur Specific [place] 1.015 (1.000-1.030) Urine Protein 1+ A (Negative) Urine Glucose (UA) Negative (Negative) ECG ECG interpretation date: 09/20/24 Interpretation: Normal sinus rhythm. Imaging CT scan - abdomen and pelvis: Radiologist's impression: Acute pancreatitis predominantly involving head and uncinate process with pancreatic stent in place. Suggestion of partial thrombosis involving SMV. Stable liver hemangioma. 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 After discussion with [facility] specialist whom he follows with, patient is started on apixaban 10 mg p.o. b.i.d. for 7 days then 5 mg p.o. b.i.d. thereafter. Work toward pain control Status: Acute (2) Intractable abdominal pain: Problem comment: - status post ERCP stent placement 09/14/2024. CT scan of abdomen and pelvis on 09/20/2024 demonstrates SMV thrombosis. Anticoagulation and pain control initiated in hospital on 09/20/2024. Status: Acute (3) Recurrent pancreatitis: Problem comment: - started about 10 years ago, Idiopathic - followed by [facility] - status post cholecystectomy and biliary stents on 11/01/2023 - status post biliary stent placement since then, most recently 09/14/2024 Status: Inactive (4) Chronic neck pain: Problem comment: - Known cervical spinal stenosis with right arm radicular pain. Has use chronic narcotics for this - uses 2-10 five mg tabs oxycodone weekly; has likely built up some tolerance to opioids Status: Acute (5) Cervical spinal stenosis: Problem comment: Right arm Radicular pain Status: Acute Plan 1. Reviewed impression, plans, recommendations with the patient. 2. Answered patient's questions to satisfaction. 3. Patient agreeable with above stated plans and recommendations. Total Time Spent Total Time Spent: 65 minutes
[2024-09-20] MEDS: ACETAMINOPHEN 325 MG TABLET 650 MG PO ×2 (17:18→20:47)
[2024-09-20] MEDS: ONDANSETRON ODT 4 MG TAB PO (18:40)
--- NOTE | 2024-09-20 19:00 | PC.NURSE ---
End of shift: Patient pleasant and cooperative, A&O. VSS, afebrile. SpO2 maintained above 90% on RA. Patient reports pain in his abdomen this shift, managed with PRN medication, see MAR. Patient also reported feeling nauseous, managed with PRN medication, see MAR. Independent in room. Tolerating clear liquid diet.
[2024-09-20] MEDS: OMEPRAZOLE 20 MG CAPSULE DR PO (20:46)
[2024-09-20] MEDS: CELECOXIB 200 MG CAPSULE PO (20:46)
[2024-09-20] MEDS: OXYCODONE 5 MG TABLET PO (20:47)
[2024-09-20] MEDS: SENNOSIDES/DOCUSATE TABLET 1 TAB PO (20:47)
[2024-09-20] MEDS: SODIUM CHLORIDE 0.9 % (FLUSH) 10 ML SYRINGE 5 ML IVF ×2 (20:49→23:01)
[2024-09-21 03:00] VITALS: BP 133/77; PULSE 73; TEMP 36.8; O2SAT 98
[2024-09-21] MEDS: OXYCODONE 5 MG TABLET PO (03:40)
[2024-09-21] MEDS: ONDANSETRON ODT 4 MG TAB PO ×2 (03:56→13:59)
--- NOTE | 2024-09-21 06:58 | PC.NURSE ---
Pt up I walking the halls. Pain controlled with oxycodone and did get 1 dose of IV Dilaudid. He is talking in clear liquids but attempts to get more food out of staff then is allowed. VSS.
[2024-09-21 07:21] LABS: Basophils Absolute Auto 0.02 K/uL (0.00-0.30); Basophils Percent Auto 0.3 % (0.0-3.0); Eosinophils Absolute Auto 0.19 K/uL (0.00-0.50); Eosinophils Percent Auto 2.6 % (0.0-7.0); Hematocrit 36.4 % (37.0-53.0); Hemoglobin* 12.3 gm/dL (13.5-17.5); Immature Granulocytes Abs Auto 0.03 K/uL (0.00-0.30); Immature Granulocytes Pct Auto 0.4 %; Lymphocytes Percent Auto 9.8 % (20-44); Mean Corpuscular HGB Conc 34 gm/dL (32-36); Mean Corpuscular Hemoglobin 31 pg (26-34); Mean Corpuscular Volume 91 fL (80-100); Monocytes Percent Auto 14.9 % (0.0-11.0); Neutrophils Absolute Auto 5.27 K/uL (1.7-7.0); Platelet Count* 197 K/uL (140-440); RDW Coefficient of Variation % 11.8 % (11.5-15.5); Red Blood Count 4.01 m/uL (4.30-5.90); White Blood Count* 7.32 K/uL (4.50-11.00)
[2024-09-21 07:22] LABS: Lactate* 0.8 mmol/L (0.5-1.9)
[2024-09-21] MEDS: HYDROmorphone 0.5 mg/0.5 ml inj 1 MG IVP (07:29)
[2024-09-21 07:30] VITALS: BP 137/88; PULSE 81; RESP 16; TEMP 36.7; O2SAT 98
[2024-09-21] MEDS: SODIUM CHLORIDE 0.9 % (FLUSH) 10 ML SYRINGE 5 ML IVF ×4 (07:30→22:20)
[2024-09-21 07:36] LABS: Slide Review Reflex No
[2024-09-21 08:26] LABS: Chloride* 97 mmol/L (96-114)
[2024-09-21 08:27] LABS: Albumin* 3.6 g/dL (3.3-5.0); Sodium* 132 mmol/L (135-149)
[2024-09-21 08:28] LABS: Potassium* 3.6 mmol/L (3.6-5.1)
[2024-09-21 08:29] LABS: Anion Gap 8 mEq/L (7-15); Carbon Dioxide* 27 mmol/L (20-32); Creatinine* 0.7 mg/dL (0.5-1.5); Estimated Glomerular Filt Rate 108 ml/min
[2024-09-21 08:30] LABS: Alanine Aminotransferase* 45 U/L (4-50); Alkaline Phosphatase* 109 U/L (40-150); Aspartate Amino Transferase* 23 U/L (12-35); Bilirubin Direct* 0.5 mg/dL (0.0-0.5); Bilirubin Total* 0.8 mg/dL (0.1-1.5); Blood Urea Nitrogen* 11 mg/dL (7-30); Glucose* 131 mg/dL (60-115); Lipase* 111 U/L (23-300); Phosphorus* 3.2 mg/dL (2.5-4.5); Total Protein* 6.9 g/dL (6.0-8.3)
[2024-09-21 08:31] LABS: Calcium* 8.6 mg/dL (8.4-10.6)
--- NOTE | 2024-09-21 09:28 | PM.IMPN1 ---
Progress Note: A&P Assessment and plan (1) Superior mesenteric vein thrombosis: Problem details: - new diagnosis per CT on 09/20/2024 - reviewed with [facility] GI: patient is started on apixaban 10 mg BID x7 days, then 5mg BID - no history of blood clots, outpatient f/u with PCP to discuss hypercoagulable workup Status: Acute (2) Intractable abdominal pain: Problem details: - status post ERCP stent placement 09/14/2024 - CT scan of abdomen and pelvis on 09/20/2024 demonstrates pancreatitis + SMV thrombosis - oral pain medication ineffective and causing nausea - 09/21: slowly advancing diet, IV pain medication, transition to po as able Status: Acute (3) Recurrent pancreatitis: Problem details: - started about 10 years ago, Idiopathic - followed by [facility] - status post cholecystectomy and biliary stents on 11/01/2023 - status post biliary stent placement since then, most recently 09/14/2024 Status: Inactive (4) Chronic neck pain: Problem details: - Known cervical spinal stenosis with right arm radicular pain. Has use chronic narcotics for this - uses 2-10 five mg tabs oxycodone weekly; has likely built up some tolerance to opioids Status: Acute (5) Cervical spinal stenosis: Problem details: Right arm Radicular pain Status: Acute Plan - per above - continue anticoagulation - transition to p.o. pain medications as tolerated Subjective Date Seen: 09/21/24 Interval history: Pratik was admitted to the hospital last night for abdominal pain in the setting of acute on chronic pancreatitis. Had a biliary stent placed at [facility] last week, hospitalized for approximately 4 days post-procedure with reported inadequate pain control. After discharging home, he continued to have pain and nausea, in addition to bloating and a decrease in flatus. Feels a little better today and tolerating clear Ensure this morning Ambulating. He thinks he can slowly advance his diet today; utilizing IV pain management and working on transition to po pain medications. Exam Narrative: Exam Narrative: GEN: Alert and oriented, nontoxic HEENT: EOMIs bilaterally, no scleral icterus CV: RRR, No concerning murmurs R: LCTA bilaterally without concerning wheezing, air movement adequate Ab: Mild distension, hypoactive bowel sounds, + ttp Ext: wwp, no concerning edema Skin: No concerning skin lesions or rashes on exposed skin Neuro: Nonfocal Psych: Appropriate Const: Vital Signs, click to edit/add: Vital Signs - 24 hr 09/20/24 10:21 09/20/24 10:30 09/20/24 10:45 Temperature Pulse Rate 69 69 58 L Pulse Rate [Pulse Oximeter] Respiratory Rate Blood Pressure Blood Pressure [Le ft Arm] Pulse Oximetry 96 97 95 Oxygen Delivery Me thod 09/20/24 11:00 09/20/24 11:15 09/20/24 11:30 Temperature Pulse Rate 63 63 58 L Pulse Rate [Pulse Oximeter] Respiratory Rate 18 Blood Pressure Blood Pressure [Le ft Arm] Pulse Oximetry 99 97 92 Oxygen Delivery Me thod 09/20/24 12:25 09/20/24 12:30 09/20/24 12:45 Temperature Pulse Rate 77 59 L 87 Pulse Rate [Pulse Oximeter] Respiratory Rate Blood Pressure Blood Pressure [Le ft Arm] Pulse Oximetry 100 93 92 Oxygen Delivery Me thod 09/20/24 13:00 09/20/24 13:04 09/20/24 13:05 Temperature Pulse Rate 77 62 76 Pulse Rate [Pulse Oximeter] Respiratory Rate 18 Blood Pressure 170/107 H Blood Pressure [Le ft Arm] Pulse Oximetry 99 98 98 Oxygen Delivery Me thod 09/20/24 13:15 09/20/24 13:30 09/20/24 13:45 Temperature Pulse Rate 84 79 59 L Pulse Rate [Pulse Oximeter] Respiratory Rate Blood Pressure Blood Pressure [Le ft Arm] Pulse Oximetry 92 99 100 Oxygen Delivery Me thod 09/20/24 14:04 09/20/24 14:15 09/20/24 14:30 Temperature Pulse Rate 89 86 89 Pulse Rate [Pulse Oximeter] Respiratory Rate 18 Blood Pressure Blood Pressure [Le ft Arm] Pulse Oximetry 96 98 98 Oxygen Delivery Me thod 09/20/24 14:45 09/20/24 15:00 09/20/24 15:15 Temperature Pulse Rate 82 82 82 Pulse Rate [Pulse Oximeter] Respiratory Rate Blood Pressure Blood Pressure [Le ft Arm] Pulse Oximetry 99 99 95 Oxygen Delivery Me thod 09/20/24 15:32 09/20/24 16:36 09/20/24 16:47 Temperature 97.6 F Pulse Rate 75 Pulse Rate [Pulse Oximeter] 83 Respiratory Rate 18 18 Blood Pressure Blood Pressure [Le ft Arm] 181/106 H Pulse Oximetry 99 98 98 Oxygen Delivery Me thod Room Air Room Air 09/20/24 20:30 09/20/24 23:12 09/20/24 23:12 Temperature 97.6 F 99.6 F Pulse Rate Pulse Rate [Pulse Oximeter] 72 78 Respiratory Rate 18 18 Blood Pressure Blood Pressure [Le ft Arm] 159/88 H 143/84 H Pulse Oximetry 96 98 98 Oxygen Delivery Me thod Room Air Room Air Room Air 09/21/24 03:00 09/21/24 07:30 09/21/24 07:30 Temperature 98.2 F Pulse Rate Pulse Rate [Pulse Oximeter] 73 81 Respiratory Rate 16 16 Blood Pressure Blood Pressure [Le ft Arm] 133/77 Pulse Oximetry 98 98 Oxygen Delivery Me thod Room Air Room Air 09/21/24 07:30 Temperature 98.1 F Pulse Rate Pulse Rate [Pulse Oximeter] 81 Respiratory Rate 16 Blood Pressure Blood Pressure [Le ft Arm] 137/88 Pulse Oximetry 98 Oxygen Delivery Mn thod Room Air Labs Labs: Laboratory Results - last 24 hr 09/20/24 09/20/24 09/21/24 09:55 10:00 07:05 WBC 7.47 7.32 RBC 4.24 L 4.01 L Hgb 13.3 L 12.3 L Hct 37.9 36.4 L MCV 89 91 MCH 31 31 MCHC 35 34 RDW Coeff of Amber 11.8 11.8 Plt Count 177 197 Neut % (Auto) 76.4 H 72.0 Lymph % (Auto) 7.5 L 9.8 L [place] % (Auto) 15.0 H 14.9 H Eos % (Auto) 0.7 2.6 Baso % (Auto) 0.1 0.3 Neut # (Auto) 5.70 5.27 Lymph # (Auto) 0.60 L 0.70 L [place] # (Auto) 1.10 H 1.10 H Eos # (Auto) 0.05 0.19 Baso # (Auto) 0.01 0.02 Abs Immat Gran (auto) 0.02 0.03 Imm/Tot Granulo (auto) 0.3 0.4 Sodium 131 L 132 L Potassium 3.6 3.6 Chloride 99 97 Carbon Dioxide 27 27 Anion Gap 5 L 8 BUN 11 11 Creatinine 0.7 0.7 Estimated Creat Clear 109.62 125.50 Estimated GFR 108 108 Glucose 134 H 131 H Lactate 0.7 0.8 Calcium 8.7 8.6 Phosphorus 3.2 Magnesium 2.0 Total Bilirubin 0.8 0.8 Direct Bilirubin 0.5 0.5 AST 29 23 ALT 57 H 45 Alkaline Phosphatase 107 109 C-Reactive Protein 16.9 H 15.0 H Total Protein 7.3 6.9 Albumin 3.8 3.6 Lipase 77 111 Urine Color Yellow Urine Appearance Clear Urine pH 7.0 Ur Specific [place] 1.015 Urine Protein 1+ A Urine Glucose (UA) Negative Urine Ketones 4+ A Urine Blood Negative Urine Nitrite Negative Urine Bilirubin 1+ A Urine Urobilinogen 4.0 A Ur Leukocyte Esterase Negative Urine RBC 0-2 Urine WBC 0-2 Ur Squamous Epith Cells None Urine Bacteria None Urine Mucus Few A
[2024-09-21] MEDS: HYDROmorphone 0.5 mg/0.5 ml inj IVP ×7 (09:36→23:54)
[2024-09-21] MEDS: polyethylene glycoL 3350 17 GM PACK PO (09:39)
[2024-09-21] MEDS: CELECOXIB 200 MG CAPSULE PO ×2 (10:35→22:20)
[2024-09-21] MEDS: APIXABAN 5 MG TABLET 10 MG PO ×2 (10:35→22:20)
[2024-09-21] MEDS: OMEPRAZOLE 20 MG CAPSULE DR PO ×2 (10:35→22:20)
[2024-09-21] MEDS: SENNOSIDES/DOCUSATE TABLET 1 TAB PO ×2 (10:36→22:20)
[2024-09-21] MEDS: ACETAMINOPHEN 325 MG TABLET 650 MG PO ×4 (10:36→22:19)
[2024-09-21 11:10] VITALS: BP 130/84; PULSE 90; RESP 18; TEMP 36.8; O2SAT 96
--- NOTE | 2024-09-21 11:29 | NUTR.NU ---
RDN with diet education related to pancreatitis. Patient admitted for pancreatitis and new diagnosis of superior mesenteric vein thrombosis. Patient is s/p ERCP stent placement 09/14/24. Current weight 234 lb; Height 5ft 11in; BMI 32.6 kg/m2. Current diet is Regular. Patient ate 75% of breakfast this morning. RDN attempted to visit with patient, but patient requested that RDN come back at a later time. Patient has received diet education in the past related to pancreatitis. RDN will plan to visit patient at a later time as requested by patient. RDN will continue to follow.
[2024-09-21 15:00] VITALS: BP 123/79; PULSE 76; RESP 16; TEMP 36.8; O2SAT 97
[2024-09-21 19:00] VITALS: BP 118/71; PULSE 69; RESP 18; TEMP 36.7; O2SAT 97
--- NOTE | 2024-09-21 19:10 | PC.NURSE ---
End of shift summary: Pt has been A&O, afebrile and VSS all day. He is up ad yanely and frequently walking the halls. He?s requested IV Dilaudid roughly every 1-2 hours for pain management rating it at 7-8/10 this ?morning; order was changed to 0.5mg IV q1H as needed. Pt has not had a BM yet but his bowels are active. He was advanced to a regular diet per c/o stomach pain d/t nausea & hunger. He?s tolerated the diet advancement well with no c/o nausea. Stomach pain is more tolerable, rating it at 5-6/10 but still ?wants to continue with the Dillaudid for now, maybe try the oxycodone later tonight?. Education provided on IV pain meds vs PO pain meds and pt verbalized understanding, still wanting to follow his regimen. PIV in right hand is SL and C/D/I.?
[2024-09-21 23:00] VITALS: BP 136/85; PULSE 65; PULSE 69; RESP 18; TEMP 36.7; O2SAT 95; O2SAT 97
[2024-09-22] MEDS: OXYCODONE 5 MG TABLET PO ×5 (01:18→13:40)
[2024-09-22] MEDS: ONDANSETRON ODT 4 MG TAB PO (01:58)
[2024-09-22 03:00] VITALS: BP 126/78; PULSE 62; RESP 16; TEMP 36.6; O2SAT 97
[2024-09-22] MEDS: HYDROmorphone 0.5 mg/0.5 ml inj IVP ×4 (04:52→13:40)
[2024-09-22 07:00] VITALS: BP 138/96; PULSE 92; RESP 16; RESP 18; TEMP 36.6; O2SAT 97
[2024-09-22 07:08] LABS: Basophils Absolute Auto 0.02 K/uL (0.00-0.30); Basophils Percent Auto 0.2 % (0.0-3.0); Eosinophils Absolute Auto 0.26 K/uL (0.00-0.50); Hematocrit 36.1 % (37.0-53.0); Hemoglobin* 12.3 gm/dL (13.5-17.5); Immature Granulocytes Abs Auto 0.05 K/uL (0.00-0.30); Immature Granulocytes Pct Auto 0.6 %; Lymphocytes Percent Auto 9.7 % (20-44); Mean Corpuscular HGB Conc 34 gm/dL (32-36); Mean Corpuscular Hemoglobin 31 pg (26-34); Mean Corpuscular Volume 91 fL (80-100); Monocytes Percent Auto 11.2 % (0.0-11.0); Neutrophils Percent Auto 75.3 % (42.0-72.0); Platelet Count* 242 K/uL (140-440); RDW Coefficient of Variation % 11.9 % (11.5-15.5); Red Blood Count 3.99 m/uL (4.30-5.90); White Blood Count* 8.75 K/uL (4.50-11.00)
[2024-09-22 07:11] LABS: Chloride* 100 mmol/L (96-114); Potassium* 3.3 mmol/L (3.6-5.1); Slide Review Reflex No; Sodium* 134 mmol/L (135-149)
[2024-09-22 07:14] LABS: Anion Gap 7 mEq/L (7-15); Blood Urea Nitrogen* 15 mg/dL (7-30); Carbon Dioxide* 27 mmol/L (20-32); Creatinine* 0.7 mg/dL (0.5-1.5); Estimated Glomerular Filt Rate 108 ml/min
[2024-09-22 07:15] LABS: Calcium* 8.9 mg/dL (8.4-10.6); Glucose* 153 mg/dL (60-115)
--- NOTE | 2024-09-22 07:36 | PC.NURSE ---
Pt alert, oriented and vitally stable. Pain rated 6-8/10, prn dilaudid given 3 times and prn oxy given once. Pt educated on use of oral narcotics instead of IV, though pt still requested IV. Pt up independently and on regular diet, tolerates well. Pt appears to be resting, call light within reach. ?
[2024-09-22 07:46] LABS: C Reactive Protein* 13.5 mg/dL (0.5-1.0)
[2024-09-22] MEDS: ACETAMINOPHEN 325 MG TABLET 650 MG PO ×2 (08:25→12:52)
[2024-09-22] MEDS: CELECOXIB 200 MG CAPSULE PO (08:26)
[2024-09-22] MEDS: APIXABAN 5 MG TABLET 10 MG PO (08:26)
[2024-09-22] MEDS: polyethylene glycoL 3350 17 GM PACK PO (08:27)
[2024-09-22] MEDS: SENNOSIDES/DOCUSATE TABLET 1 TAB PO (08:27)
[2024-09-22] MEDS: OMEPRAZOLE 20 MG CAPSULE DR PO (08:27)
--- NOTE | 2024-09-22 09:10 | NUTR.NU ---
Nutrition Follow-up Note: Patient admitted for new diagnosis of superior mesenteric vein thrombosis. He has a history of recurrent pancreatitis s/p ERCP stent placement 09/14/24. Per H&P, patient's pancreatitis is inactive at this time. Patient has had multiple offers of diet educations related to pancreatitis in the past, the most recent being April 2024. RDN will not attempt to offer diet education at this time due to patient's pancreatitis not active at this time. RDN will continue to monitor.
[2024-09-22] MEDS: SODIUM CHLORIDE 0.9 % (FLUSH) 10 ML SYRINGE 5 ML IVF (09:44)
[2024-09-22 11:00] VITALS: BP 142/88; PULSE 77; RESP 16; TEMP 36.8; O2SAT 96
--- NOTE | 2024-09-22 12:40 | P.DS_ITS ---
DS: Providers Provider Date Seen: 09/22/24 Date of admission: 09/21/24 08:10 Primary care physician: Salo Gomez MD Admitting Clinician: Jai Early MD Attending Physician on discharge: Deanna Orta MD Date of Discharge: 09/22/24 DS: Diagnosis Discharge Diagnosis (1) Superior mesenteric vein thrombosis: Status: Acute Problem details: - new diagnosis per CT on 09/20/2024 - reviewed with [facility]: initiated on apixaban 10 mg BID x7 days, then 5mg BID - no history of blood clots, outpatient f/u with PCP to discuss hypercoagulable workup (2) Intractable abdominal pain: Status: Acute Problem details: - status post ERCP stent placement 09/14/2024 - CT scan of abdomen and pelvis on 09/20/2024 demonstrates pancreatitis + SMV thrombosis - oral pain medication ineffective and causing nausea - 09/21: slowly advancing diet, IV pain medication, transition to po as able - 09/22: patient tolerating po medications and diet, appropriate for d/c home (3) Recurrent pancreatitis: Status: Inactive Problem details: - started about 10 years ago, Idiopathic - followed by [facility] - status post cholecystectomy and biliary stents on 11/01/2023 - status post biliary stent placement since then, most recently 09/14/2024 (4) Chronic neck pain: Status: Acute Problem details: - Known cervical spinal stenosis with right arm radicular pain. Has use chronic narcotics for this - uses 2-10 five mg tabs oxycodone weekly; has likely built up some tolerance to opioids DS: Summary Hospital Course Hospital Course: Pratik was admitted to the hospital on 09/20 for abdominal pain in the setting of acute on chronic pancreatitis, in addition to a new diagnosis of SMV thrombus. Had a biliary stent placed at [facility] on 09/14, hospitalized for approximately 4 days post-procedure with reported inadequate pain control. After discharging home, he continued to have pain and nausea, in addition to bloating and a decrease in flatus. In the ER, imaging revealed concern for pancreatitis in addition to partial thrombosis of the superior mesenteric vein. IV narcotics initiated, slowly advanced diet and transitioned to po medications. Passing flatus on hospital day 2 and feeling ready for d/c home. Will see PCP in f/u to discuss new blood clot. Encourage f/u with [facility] prior to next biliary stent placement. Status at Discharge Functional status at discharge: independent ambulation Overall status at discharge: patient is progressing back to baseline Time Spent with Patient Time attestation: Total time spent providing and/or coordinating discharge services: Time spent: Greater than 30 minutes Exam Narrative: Exam Narrative: GEN: Alert and oriented, answering questions appropriately HEENT: EOMIs bilaterally, no scleral icterus CV: RRR, No concerning murmurs R: LCTA bilaterally Ab: mild distention, + bowel sounds Ext: wwp, no concerning edema Skin: No concerning skin lesions or rashes on exposed skin Neuro: Nonfocal Psych: Appropriate Const: Vital Signs, click to edit/add: Vital Signs - 24 hr 09/21/24 15:00 09/21/24 15:00 09/21/24 15:00 Temperature 98.3 F Pulse Rate [Pulse Oximeter] 76 76 Respiratory Rate 16 16 16 Blood Pressure [Le ft Arm] 123/79 Blood Pressure [Ri ght Arm] Pulse Oximetry 97 97 Oxygen Delivery Me thod Room Air Room Air 09/21/24 19:00 09/21/24 23:00 09/21/24 23:00 Temperature 98.1 F Pulse Rate [Pulse Oximeter] 69 69 Respiratory Rate 18 18 18 Blood Pressure [Le ft Arm] Blood Pressure [Ri ght Arm] 118/71 Pulse Oximetry 97 97 Oxygen Delivery Me thod Room Air Room Air 09/21/24 23:00 09/22/24 03:00 09/22/24 07:00 Temperature 98.1 F 97.8 F 97.8 F Pulse Rate [Pulse Oximeter] 65 62 92 Respiratory Rate 18 16 18 Blood Pressure [Le ft Arm] 138/96 H Blood Pressure [Ri ght Arm] 136/85 126/78 Pulse Oximetry 95 97 97 Oxygen Delivery Me thod Room Air Room Air Room Air 09/22/24 07:00 09/22/24 11:00 Temperature 98.3 F Pulse Rate [Pulse Oximeter] 77 Respiratory Rate 16 16 Blood Pressure [Le ft Arm] Blood Pressure [Ri ght Arm] 142/88 H Pulse Oximetry 97 96 Oxygen Delivery Me thod Room Air Room Air DS: Data Data Completed and Pending Completed studies during hospitalization: Procedures Assistance with Respiratory Ventilation, Less than 24 Consecutive Hours, Continuous Positive Airway Pressure (08/18/23) Introduction of Other Gas into Respiratory Tract, Via Natural or Artificial Opening (08/18/23) Labs on day of discharge: Labs from last 24 hours 09/22/24 06:25 WBC 8.75 RBC 3.99 L Hgb 12.3 L Hct 36.1 L MCV 91 MCH 31 MCHC 34 RDW Coeff of Amber 11.9 Plt Count 242 Neut % (Auto) 75.3 H Lymph % (Auto) 9.7 L [place] % (Auto) 11.2 H Eos % (Auto) 3.0 Baso % (Auto) 0.2 Neut # (Auto) 6.60 Lymph # (Auto) 0.80 L [place] # (Auto) 1.00 H Eos # (Auto) 0.26 Baso # (Auto) 0.02 Abs Immat Gran (auto) 0.05 Imm/Tot Granulo (auto) 0.6 Sodium 134 L Potassium 3.3 L Chloride 100 Carbon Dioxide 27 Anion Gap 7 BUN 15 Creatinine 0.7 Estimated Creat Clear 125.50 Estimated GFR 108 Glucose 153 H Calcium 8.9 C-Reactive Protein 13.5 H Discharge Plan Discharge Disposition: Home, Self-Care Date of Admission: 09/21/24 08:10 Attending Provider on Discharge: Deanna Orta Primary Care Provider: Salo Gomez Condition: Stable Anticipated Discharge Date/Time: 09/22/24 09:47 Discharge Medications: New ondansetron 4 mg Tablet,Disintegrating 4 mg PO Q6H PRN (Reason: nausea and vomiting) Qty: 20 0RF oxycodone 5 mg Tablet 5 - 10 mg PO Q4H PRN (Reason: Pain) Qty: 1 0RF Eliquis 5 mg Tablet 10 mg PO BID 5 Days Qty: 60 0RF Rx Instructions: TWO tabs po BID for 5 more days. On September 28, start ONE tablet po BID hydromorphone [Dilaudid] 2 mg tablet 2 mg PO Q6H PRN (Reason: pain) Qty: 8 0RF Rx Instructions: please cancel all Oxycodone Rx and fill this Rx please Continued tadalafil 5 mg tablet 5 mg PO DAILY PRN (Reason: sexual activity) sennosides [senna] 8.6 mg tablet 17.2 mg PO BID polyethylene glycol 3350 17 gram powder in packet 34 g PO BID acetaminophen 325 mg Tablet 650 mg PO Q6H PRNQty: 20 0RF omeprazole 20 mg capsule,delayed release(DR/EC) 20 mg PO BID Qty: 120 5RF Held celecoxib 200 mg capsule 200 mg PO BID Qty: 60 0RF Hold Instructions: HOLD Celebrex until you discuss again with Dr. Gomez (increased bleeding/ulcer risk with this + your new blood thinner) Discontinued oxycodone 20 mg tablet 20 mg PO Q4H PRN (Reason: moderate pain) ondansetron 4 mg tablet,disintegrating 4 mg PO Q8H PRN (Reason: nausea and vomiting) Discharge Orders: Discharge Order (Routine); Ordered 09/22/24 Ordered By: Deanna Orta Additional Instructions: [facility] diet, slowly advance. New blood thinner (Eliquis) at [facility]: take TWO tablets twice per day for 5 more days, then start ONE tablet twice per day on September 28 Short term: can try oral Dilaudid to see if this is less nauseating. [facility] Followup: Good idea to see pain management to discuss postoperative cares, also see their Hematology team to discuss blood clot workup and continuous churn buttermaker management. Activity Level: Activity as Tolerated Diet Detail: [facility], slowly advance Follow Up Appointments: Salo Gomez MD [Primary Care Provider] - 10/04/24 8:45 am ([facility] for follow up with PCP) [facility]
[2024-09-22] MEDS: DOCUSATE SODIUM 100 MG CAPSULE PO (12:53)
--- NOTE | 2024-09-22 15:07 | PC.NURSE ---
Discharge: The patient discharged home with his abdominal pain rated at a manageable 4/10 per the patient. Recommendations regarding pain management were given, prescriptions are to be picked up from [facility]. All belongings were sent home with the patient. Follow up appointment time was reviewed. Maribel STEELE BSN
== END 2024-09-22 15:00 | disposition home or self-care (01) | DRG 246 ==
LOC: ED 15:47 → MEDSURG 15:55
PROVIDERS: Family Medicine; Admitting Provider Internal Medicine; Emergency Provider Family Medicine; PCP Family Medicine; Visit Provider Internal Medicine
DX: K55.059 Acute (reversible) ischemia of intestine, part and extent unspecified (principal); K85.90 Acute pancreatitis without necrosis or infection, unspecified; K86.1 Other chronic pancreatitis; M48.02 Spinal stenosis, cervical region; G89.29 Other chronic pain; M54.12 Radiculopathy, cervical region; R10.9 Unspecified abdominal pain; Z96.89 Presence of other specified functional implants
CPT/HCPCS: 36415; 74019; 74177; 80048; 80076; 81001; 83605; 83690; 83735; 84100; 85025; 86140; 87086; 94761; 99284; 99285; A9270; G0378; J1171; J2405; J7030; Q9967

== ENCOUNTER 2024-09-25 07:15 | Emergency (ER) | payer OTHER, SELFPAY ==
[2024-09-25] VITALS (23 sets, daily range): BP systolic 75–138; BP diastolic 44–93; PULSE 60–105; RESP 13–32; TEMP 36.1–36.4; O2SAT 93–100
--- NOTE | 2024-09-25 07:23 | CRLHL7_ITS ---
For Patients: As a result of the Century Cures Act, medical imaging exams and procedure reports are released immediately into your electronic medical record. You may view this report before your referring provider. If you have questions, please contact your health care provider. INDICATION: Injury COMPARISON: None TECHNIQUE: CT examination of the cervical spine is performed without contrast using spiral technique. Thin axial, sagittal and coronal reconstructions were made. Please note that all CT scans at this facility use dose modulation, iterative reconstruction, and/or weight-based dosing when appropriate to reduce radiation dose to as low as reasonably achievable. FINDINGS: : There is straightening of the spine which is probably due to muscle spasm, positioning or an immobilization device. There is no divina traumatic malalignment. Moderate degenerative changes are noted diffusely but most affecting the mid and lower cervical spine. There is no lytic or blastic lesion there is no finding of acute fracture, dislocation or destructive process. There is a left thyroid nodule measuring 1.7 centimeters. This would best be evaluated by sonography IMPRESSION: Straightening. Degenerative changes. No visible acute fracture, dislocation or destructive process. There is a 1.7 centimeter left thyroid nodule. Consider follow-up evaluation by sonography in the nonacute setting. Please note that all CT scans at this facility use dose modulation, iterative reconstruction, and/or weight-based dosing when appropriate to reduce radiation dose to as low as reasonably achievable. Dictated by Jose Hernandez MD @ 09/25/2024 8:03:22 AM (Electronically Signed)
--- NOTE | 2024-09-25 07:23 | CRLHL7_ITS ---
For Patients: As a result of the Century Cures Act, medical imaging exams and procedure reports are released immediately into your electronic medical record. You may view this report before your referring provider. If you have questions, please contact your health care provider. INDICATION: Syncope. Hit head. GI bleeding. COMPARISON: September 20, 2024 TECHNIQUE: CT examination of the abdomen and pelvis was performed before and after the uneventful intravenous administration of 118 cc of Isovue 370. Thin section axial images were obtained from the lung bases through the pubic symphysis. Oral contrast was not administered. A noncontrast study was performed. Then contrast was administered and imaging was obtained in arterial phase imaging and delayed phase imaging. Please note that all CT scans at this facility use dose modulation, iterative reconstruction, and/or weight-based dosing when appropriate to reduce radiation dose to as low as reasonably achievable. FINDINGS: LUNG BASES: Minimal atelectasis at the lung bases. Small hiatal hernia.The heart size is normal at the lung bases. LIVER/BILIARY SYSTEM:The liver is normal in size and configuration. There is no focal mass and there is no intra- or extra hepatic biliary ductal dilatation.Hepatic steatosis. Surgically absent gallbladder. ADRENALS: Normal KIDNEYS, URETERS and BLADDER:Low-density left renal lesion probably a cyst. Indeterminate 1.4 centimeter right adrenal lesion. This may be inflammatory as it did not appear to be present September 20, 2024. Follow-up imaging to complete resolution is advised. The bladder appears normal. SPLEEN:Normal appearance. PANCREAS: Again noted are findings of pancreatitis. This is moderate primarily involving the pancreatic head. A pancreatic duct stent is in place. This has somewhat improved since September 20, 2024. No collection. RETROPERITONEUM and MESENTERY: There is no mass, adenopathy or aortic aneurysm. GASTROINTESTINAL SYSTEM: There is evidence of breast GI bleeding from the 3rd portion of the duodenum. On delayed imaging, a significant amount of blood extends into the jejunum. The area of bleeding is immediately subjacent to the pancreatic head inflammatory process. PELVIS: No mass, adenopathy or free fluid. OSSEOUS STRUCTURES and ABDOMINAL WALL: There is an age-appropriate appearance of the osseous structures.No significant abdominal wall defect. OTHER: No free fluid or free air. I discussed the findings with Dr. Patten at 8:10 a.m. on September 25, 2024 IMPRESSION: 1. Relatively brisk/active GI bleeding from the 3rd portion of the duodenum. 2. Ongoing findings of pancreatitis primarily at the pancreatic head, adjacent to the 3rd portion of the duodenum. A pancreatic stent is in place. No collection. The findings of pancreatitis have improved. 3. Indeterminate right renal lesion which did not appear to be present on recent studies. This might be inflammatory. Recommend follow-up to complete resolution. 4. Other incidental and nonacute appearing findings as above. 5. No acute posttraumatic finding Please note that all CT scans at this facility use dose modulation, iterative reconstruction, and/or weight-based dosing when appropriate to reduce radiation dose to as low as reasonably achievable. Dictated by Jose Hernandez MD @ 09/25/2024 8:18:21 AM (Electronically Signed)
--- NOTE | 2024-09-25 07:23 | CRLHL7_ITS ---
For Patients: As a result of the Century Cures Act, medical imaging exams and procedure reports are released immediately into your electronic medical record. You may view this report before your referring provider. If you have questions, please contact your health care provider. INDICATION: Trauma COMPARISON: None TECHNIQUE: CT examination of the head was performed as axial sections without intravenous contrast. Images were obtained from the vertex of the skull through the skull base. Please note that all CT scans at this facility use dose modulation, iterative reconstruction, and/or weight-based dosing when appropriate to reduce radiation dose to as low as reasonably achievable. FINDINGS: The brain shows no sign of mass lesion, mass effect, hemorrhage, or edema. The ventricles and sulci are normal in appearance for the patient`s age. The visualized portions of the orbits are normal in appearance. The osseous structures are normal in their appearance with no sign of abnormality in the skull base or calvarium. Right sided subcutaneous hematoma. IMPRESSION: No acute intracranial posttraumatic findings. Subcutaneous hematoma on the right. No calvarial fracture. Please note that all CT scans at this facility use dose modulation, iterative reconstruction, and/or weight-based dosing when appropriate to reduce radiation dose to as low as reasonably achievable. Dictated by Jose Hernandez MD @ 09/25/2024 8:00:25 AM (Electronically Signed)
[2024-09-25 07:37] LABS: Basophils Percent Auto 0.2 % (0.0-3.0); Eosinophils Percent Auto 1.4 % (0.0-7.0); Hematocrit 36.6 % (37.0-53.0); Hemoglobin* 12.3 gm/dL (13.5-17.5); Lymphocytes Percent Auto 7.6 % (20-44); Mean Corpuscular HGB Conc 34 gm/dL (32-36); Mean Corpuscular Hemoglobin 31 pg (26-34); Mean Corpuscular Volume 91 fL (80-100); Monocytes Percent Auto 4.4 % (0.0-11.0); Neutrophils Percent Auto 85.4 % (42.0-72.0); Platelet Count* 543 K/uL (140-440); RDW Coefficient of Variation % 11.7 % (11.5-15.5); Red Blood Count 4.01 m/uL (4.30-5.90)
[2024-09-25 07:56] LABS: INR 1.17 (0.91-1.10); Prothrombin Time 15.6 Seconds
[2024-09-25 07:58] LABS: Slide Review Reflex Yes; White Blood Count* 25.03 K/uL (4.50-11.00)
[2024-09-25 08:00] LABS: Chloride* 103 mmol/L (96-114); Sodium* 136 mmol/L (135-149)
--- NOTE | 2024-09-25 08:00 | ED_ITS ---
HPI - General Adult General Date Seen: 09/25/24 Chief complaint: Fall/Minor Trauma Stated complaint: fall - head laceration Time Seen by Provider: 09/25/24 07:22 Source: patient Mode of arrival: wheelchair Limitations: no limitations History of Present Illness HPI narrative: Patient is a 54-year-old male presenting to the emergency department after a syncopal episode. He states he had a bloody bowel movement this morning and then after he had a 2nd 1 he became very lightheaded and then passed out. States next thing he knew he was on the ground. Do not feel like he was straining at all during his bowel movement. Is not feeling lightheaded at this time but does have a large hematoma to his forehead. Has never had issues with bloody stools before. 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 Was started on Eliquis for that. Was admitted to the hospital for pain control. Is not currently having any abdominal pain. Denies fevers, chills, chest pain, shortness of breath, neck pain, diarrhea, constipation. States the tolerable appear to have a large amount of blood in it. No other concerns noted at this time. Related Data Home Medications ?Medication ?Instructions ?Recorded ?Confirmed polyethylene glycol 3350 17 gram 34 g PO BID 09/21/24 09/21/24 oral powder packet sennosides 8.6 mg tablet (senna) 17.2 mg PO BID 09/21/24 09/21/24 tadalafil 5 mg tablet 5 mg PO DAILY PRN sexual activity 09/21/24 09/21/24 Previous Rx's ?Medication ?Instructions ?Recorded acetaminophen 325 mg tablet 650 mg (2 x 325 mg) PO Q6H PRN #20 08/20/23 tabs omeprazole 20 mg capsule,delayed 20 mg PO BID #120 caps 09/10/23 release celecoxib 200 mg capsule 200 mg PO BID #60 caps 08/21/24 apixaban 5 mg tablet (Eliquis) 10 mg (2 x 5 mg) PO BID 5 days #60 09/22/24 tabs hydromorphone 2 mg tablet 2 mg PO Q6H PRN pain #8 tabs 09/22/24 (Dilaudid) ondansetron 4 mg disintegrating 4 mg PO Q6H PRN nausea and 09/22/24 tablet vomiting #20 tabs oxycodone 5 mg tablet 5 - 10 mg (1 - 2 x 5 mg) PO Q4H 09/22/24 PRN Pain #1 tab Allergies Allergy/AdvReac Type Severity Reaction Status Date / Time No Known Drug Allergies Allergy Verified 09/25/24 07:57 Review of Systems Status of ROS: Reports: 10 or more systems reviewed and unremarkable except as noted in History and below PFSH PFSH Medical History Post-ERCP acute pancreatitis ?K91.89 - Other postprocedural complications and disorders of digestive system (ICD-10) ?K85.90 - Acute pancreatitis without necrosis or infection, unspecified (ICD- 10) Internal hemorrhoid ?K64.8 - Other hemorrhoids (ICD-10) Pancreatic mass ?K86.89 - Other specified diseases of pancreas (ICD-10) Hepatic steatosis ?K76.0 - Fatty (change of) liver, not elsewhere classified (ICD-10) Onychomycosis ?B35.1 - Tinea unguium (ICD-10) Surgical History History of biliary duct stent placement ?Z98.890 - Other specified postprocedural states (ICD-10) S/P arthroscopy of right shoulder (12/28/22) ?Z98.890 - Other specified postprocedural states (ICD-10) Status post laparoscopic cholecystectomy (12/22/16) ?Z90.49 - Acquired absence of other specified parts of digestive tract (ICD- 10) History of colonoscopy ?Z98.890 - Other specified postprocedural states (ICD-10) Family History Other Colitis Social History Narrative: Social History: He is and lives with his and children. 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 Habits: He denies tobacco use. Denies recreational drug use. EtOH occassional - Jerman/New Years was last EtOH. Drinks non alcoholic beer, last one was also over the holidays. Family History: Paternal grandfather of an acute myocardial infarction at age 50. His brother also had an acute myocardial infarction in his early 50s. A different brother had strokes in his 50s and 60s. Father had lung cancer with brain metastases despite being a nonsmoker. Wishes to be a full code. What is your current living situation?: I presently have a place to live Problems where you live: no known problems Problems where you live details: none In the past 12 months, utilities in danger of being shut off: no In past 12 months, lack of transportation kept you from medical appts, meetings, work, or getting things needed for daily living: no In the past 12 mos, have been you worried that your food would run out before you had money to buy more?: never true In the past 12 mos, the food you bought just didn't last and you didn't have money to buy more?: never true Highest level of school completed/degree received: high school graduate Smoking Status: Never smoker Do you use any of these nicotine containing products: None Second hand tobacco smoke exposure: No How often do you have a drink containing alcohol: 2-3 times a week How many standard drinks containing alcohol do you have on a typical day: 1 or 2 How often do you have six or more drinks on one occasion: Never AUDIT-C Alcohol total score: 3 Non-prescribed substance use: denies use Caffeine: Yes How often does anyone, including family, friends and others, physically hurt you : never How often does anyone, including family, friends and others, insult or talk down to you: never How often does anyone, including family, friends and others, threaten you with harm: never How often does anyone, including family, friends and others, scream or curse at you: never service: No Exam Narrative: Exam Narrative: Const: Well-nourished, Well-developed, in mild distress Eyes: PERRL, no conjunctival injection, and symmetrical lids HENT: Atraumatic external nose and ears. Moist mucous membranes. Hematoma to right forehead Neck: Symmetric, trachea midline, No thyromegaly. CVS: RRR, No murmurs or gallops. Peripheral pulses 2+ and equal in all extremities RESP: Unlabored respiratory effort. Clear to auscultation bilaterally. GI: Nontender/Nondistended, No rebound or guarding. MSK:Extremities w/o deformity, Normal Active ROM, no midline spinal tenderness Skin: Warm, Dry. No rashes or lesions. Neuro: Normal Muscle tone, No focal neurological deficits. GCS 15 Psych: Awake, Alert, & Oriented x3. Appropriate mood and affect. Const: Vital Signs, click to edit/add: Vital Signs - 24 hr 09/25/24 07:32 09/25/24 07:51 09/25/24 08:02 Temperature 97.0 F L Pulse Rate 79 78 Pulse Rate [Pulse Oximeter] 84 Pulse Rate [orthos tatic lying] Pulse Rate [orthos tatic sitting] Pulse Rate [orthos tatic standing] Respiratory Rate 16 24 19 Blood Pressure 138/91 H 136/93 H Blood Pressure [Ri ght Upper Arm] 111/71 Blood Pressure [or thostatic lying] Blood Pressure [or thostatic sitting] Blood Pressure [or thostatic standing ] Pulse Oximetry 99 100 [facility] 09/25/24 08:12 09/25/24 08:21 09/25/24 08:32 Temperature Pulse Rate 88 81 85 Pulse Rate [Pulse Oximeter] Pulse Rate [orthos tatic lying] Pulse Rate [orthos tatic sitting] Pulse Rate [orthos tatic standing] Respiratory Rate 16 18 13 Blood Pressure 121/89 128/81 123/74 Blood Pressure [Ri ght Upper Arm] Blood Pressure [or thostatic lying] Blood Pressure [or thostatic sitting] Blood Pressure [or thostatic standing ] Pulse Oximetry 100 96 98 Oxygen Delivery Fl thod 09/25/24 08:42 09/25/24 08:52 09/25/24 09:01 Temperature Pulse Rate 75 78 86 Pulse Rate [Pulse Oximeter] Pulse Rate [orthos tatic lying] Pulse Rate [orthos tatic sitting] Pulse Rate [orthos tatic standing] Respiratory Rate 15 26 H 18 Blood Pressure 120/77 119/78 120/79 Blood Pressure [Ri ght Upper Arm] Blood Pressure [or thostatic lying] Blood Pressure [or thostatic sitting] Blood Pressure [or thostatic standing ] Pulse Oximetry 98 96 99 Oxygen Delivery Me thod 09/25/24 09:17 09/25/24 09:22 09/25/24 09:31 Temperature Pulse Rate 78 81 83 Pulse Rate [Pulse Oximeter] Pulse Rate [orthos tatic lying] Pulse Rate [orthos tatic sitting] Pulse Rate [orthos tatic standing] Respiratory Rate 14 17 23 Blood Pressure 130/81 118/76 125/88 Blood Pressure [Ri ght Upper Arm] Blood Pressure [or thostatic lying] Blood Pressure [or thostatic sitting] Blood Pressure [or thostatic standing ] Pulse Oximetry 100 100 95 Oxygen Delivery Me thod 09/25/24 09:41 09/25/24 09:52 09/25/24 09:59 Temperature Pulse Rate 80 80 87 Pulse Rate [Pulse Oximeter] Pulse Rate [orthos tatic lying] Pulse Rate [orthos tatic sitting] Pulse Rate [orthos tatic standing] Respiratory Rate 28 H 28 H 30 H Blood Pressure 125/83 121/73 121/72 Blood Pressure [Ri ght Upper Arm] Blood Pressure [or thostatic lying] Blood Pressure [or thostatic sitting] Blood Pressure [or thostatic standing ] Pulse Oximetry 95 93 93 Oxygen Delivery Me thod 09/25/24 10:01 09/25/24 10:02 09/25/24 10:04 Temperature Pulse Rate 93 60 Pulse Rate [Pulse Oximeter] Pulse Rate [orthos tatic lying] 82 Pulse Rate [orthos tatic sitting] 102 H Pulse Rate [orthos tatic standing] 105 H Respiratory Rate 23 32 H Blood Pressure 104/72 75/44 L Blood Pressure [Ri ght Upper Arm] Blood Pressure [or thostatic lying] 121/72 Blood Pressure [or thostatic sitting] 104/72 Blood Pressure [or thostatic standing ] 75/44 L Pulse Oximetry 99 99 Oxygen Delivery Me thod 09/25/24 10:07 09/25/24 10:26 Temperature Pulse Rate 66 73 Pulse Rate [Pulse Oximeter] Pulse Rate [orthos tatic lying] Pulse Rate [orthos tatic sitting] Pulse Rate [orthos tatic standing] Respiratory Rate 23 22 Blood Pressure 121/85 109/74 Blood Pressure [Ri ght Upper Arm] Blood Pressure [or thostatic lying] Blood Pressure [or thostatic sitting] Blood Pressure [or thostatic standing ] Pulse Oximetry 100 99 Oxygen Delivery Me thod Course Vital Signs Vital signs: Initial Vital Signs Temperature 97.0 F L 09/25/24 07:32 Temperature Source Temporal Artery Scan 09/25/24 07:32 Pulse Rate 84 09/25/24 07:32 Respiratory Rate 16 09/25/24 07:32 Blood Pressure 111/71 09/25/24 07:32 Blood Pressure Mean 84 09/25/24 07:32 Blood Pressure Position Sitting 09/25/24 07:32 Pulse Oximetry 99 09/25/24 07:32 Oxygen Delivery Method Room Air 09/25/24 07:32 Vital Signs Temperature 97.0 F L 09/25/24 07:32 Pulse Rate 84 09/25/24 07:32 Respiratory Rate 16 09/25/24 07:32 Blood Pressure 111/71 09/25/24 07:32 Pulse Oximetry 99 09/25/24 07:32 Oxygen Delivery Method Room Air 09/25/24 07:32 Temperature 97.0 F L 09/25/24 07:32 Pulse Rate 73 09/25/24 10:26 Respiratory Rate 22 09/25/24 10:26 Blood Pressure 109/74 09/25/24 10:26 Pulse Oximetry 99 09/25/24 10:26 Oxygen Delivery Method Room Air 09/25/24 07:32 Medical Decision Making [facility] Narrative Medical decision making narrative: Patient is a 54-year-old male presenting to emergency department after syncopal episode and fall. TT a was called by nursing staff and I went to the room immediately. Vital signs were stable. Sounds like this was a true syncopal episode. Will do an EKG, troponin, CBC, BMP, type and screen, INR. Will also do a CT scan of his head and cervical spine along with a CT angio abdomen pelvis GI bleed protocol. Differential at this time includes vasovagal syncope, bloodloss anemia, infection, CT scan head and cervical spine showed no acute concerning abnormalities. Although they did it is notice a thyroid nodule that can be followed up in the outpatient setting. His white count came back at 25.03 it was 8.75 just 3 days ago. Hemoglobin is stable. Platelet count is elevated at 242 to 543. CTA of his abdomen shows a brisk GI bleed. I spoke to the radiologist directly about this. Patient will likely need to be transferred to [facility]. Considering how much the white count and platelet count jumped I am wondering if he is hemoconcentrated and the hemoglobin is actually lower. Patient got up to go to the bathroom. He used the bedside commode. When he got up he got very lightheaded and diaphoretic according nursing staff. Patient passed a large amount of clots. At this point I am concerned about this patient acutely decompensating and called [facility] transfer line again and ask to speak to an ED provider for more immediate transfer. I was able to get hold of both to ED provider and GI provider. We are all are in agreement that this patient will likely need ICU placement. We did then order orthostatic vital signs. When he was standing his blood pressure dropped to 75/40 for the became increasingly tachycardic. He was unable to stand for the entire time due to symptoms. At this point I am more convinced that his hemoglobin was not accurate. Repeat CBC is pending but I am going to order a unit of packed red blood cells now. Patient is accepted to [place] [facility] Lab Data Labs: Lab Results 09/25/24 09/25/24 Range/Units 07:21 08:11 WBC 25.03 H* (4.50-11.00) K/uL RBC 4.01 L (4.30-5.90) m/uL Hgb 12.3 L (13.5-17.5) gm/dL Hct 36.6 L (37.0-53.0) % MCV 91 (80-100) fL MCH 31 (26-34) pg MCHC 34 (32-36) gm/dL RDW Coeff of Amber 11.7 (11.5-15.5) % Plt Count 543 H (140-440) K/uL Neut % (Auto) 85.4 H (42.0-72.0) % Lymph % (Auto) 7.6 L (20-44) % [place] % (Auto) 4.4 (0.0-11.0) % Eos % (Auto) 1.4 (0.0-7.0) % Baso % (Auto) 0.2 (0.0-3.0) % Neut # (Auto) 21.40 H (1.7-7.0) K/uL Lymph # (Auto) 1.90 (0.90-2.90) K/uL [place] # (Auto) 1.10 H (0.00-0.90) K/UL Eos # (Auto) 0.40 (0.00-0.50) K/uL Baso # (Auto) 0.10 (0.00-0.30) K/uL Abs Immat Gran (auto) 0.30 (0.00-0.30) K/uL Imm/Tot Granulo (auto) 1.0 % Diff Slide Review Acceptable Review (Acceptable) INR 1.17 H (0.91-1.10) Sodium 136 (135-149) mmol/L Potassium 4.6 (3.6-5.1) mmol/L Chloride 103 (96-114) mmol/L Carbon Dioxide 24 (20-32) mmol/L Anion Gap 9 (7-15) mEq/L BUN 20 (7-30) mg/dL Creatinine 0.8 (0.5-1.5) mg/dL Estimated GFR 104 ml/min Glucose 236 H (60-115) mg/dL Lactate 2.3 H (0.5-1.9) mmol/L Calcium 9.4 (8.4-10.6) mg/dL Total Bilirubin 0.4 (0.1-1.5) mg/dL Direct Bilirubin 0.3 (0.0-0.5) mg/dL AST 22 (12-35) U/L ALT 28 (4-50) U/L Alkaline Phosphatase 118 (40-150) U/L Troponin I < 0.01 L (0.01-0.04) ng/mL Total Protein 7.3 (6.0-8.3) g/dL Albumin 3.8 (3.3-5.0) g/dL Blood Type A Positive Antibody Screen NEGATIVE Imaging Data CT scan head : Attestation: I have reviewed the pertinent imaging results. Radiologist's impression: No acute intracranial posttraumatic findings. Subcutaneous hematoma on the right. No calvarial fracture. Please note that all CT scans at this facility use dose modulation, iterative reconstruction, and/or weight-based dosing when appropriate to reduce radiation dose to as low as reasonably achievable. Dictated by Jose Hernandez MD @ 09/25/2024 8:00:[address] scan cervical spine: Attestation: I have reviewed the pertinent imaging results. Radiologist's impression: Straightening. Degenerative changes. No visible acute fracture, dislocation or destructive process. There is a 1.7 centimeter left thyroid nodule. Consider follow-up evaluation by sonography in the nonacute setting. Please note that all CT scans at this facility use dose modulation, iterative reconstruction, and/or weight-based dosing when appropriate to reduce radiation dose to as low as reasonably achievable. Dictated by Jose Hernandez MD @ 09/25/2024 8:03:22 AM CTA abdomen and pelvis GI bleed protocol: Attestation: I have reviewed the pertinent imaging results. Radiologist's impression: 1. Relatively brisk/active GI bleeding from the 3rd portion of the duodenum. 2. Ongoing findings of pancreatitis primarily at the pancreatic head, adjacent to the 3rd portion of the duodenum. A pancreatic stent is in place. No collection. The findings of pancreatitis have improved. 3. Indeterminate right renal lesion which did not appear to be present on recent studies. This might be inflammatory. Recommend follow-up to complete resolution. 4. Other incidental and nonacute appearing findings as above. 5. No acute posttraumatic finding Please note that all CT scans at this facility use dose modulation, iterative reconstruction, and/or weight-based dosing when appropriate to reduce radiation dose to as low as reasonably achievable. Dictated by Jose Hernandez MD @ 09/25/2024 8:18:21 AM ECG Data Attestation: I personally reviewed and interpreted this ECG as follows: Interpretation: Normal sinus rhythm with a rate of 80 beats per minute, left anterior fascicular block and parent left ventricular hypertrophy. Normal intervals, left axis, no ST or T-wave abnormalities. Appears similar to previous EKG on file Critical Care Time Critical Care Time Critical Care Time: Yes Attestation: The patient required my highest level preparedness to intervene emergently and I personally spent this critical care time directly and personally managing the patient. This critical care time included: Obtaining a history; Examining the patient; Pulse oximetry; Ordering and reviewing of studies; Arranging urgent treatment with development of a management plan; Evaluation of patients response to treatment; Frequent reassessment discussions with other providers. This critical care time was performed to assess and manage the high probability of imminent life-threatening deterioration that could result in multiorgan failure. It was exclusive of separate billable procedures and treating other patients and teaching time. Total Critical Care Time in Minutes: 63 Discharge Plan Discharge Clinical Impression: Acute GI bleeding Patient Disposition: [facility] Condition: Critical Prescriptions: No Action celecoxib 200 mg capsule 200 mg PO BID Qty: 60 0RF tadalafil 5 mg tablet 5 mg PO DAILY PRN (Reason: sexual activity) sennosides [senna] 8.6 mg tablet 17.2 mg PO BID polyethylene glycol 3350 17 gram powder in packet 34 g PO BID ondansetron 4 mg Tablet,Disintegrating 4 mg PO Q6H PRN (Reason: nausea and vomiting) Qty: 20 0RF oxycodone 5 mg Tablet 5 - 10 mg PO Q4H PRN (Reason: Pain) Qty: 1 0RF Eliquis 5 mg Tablet 10 mg PO BID 5 Days Qty: 60 0RF Rx Instructions: TWO tabs po BID for 5 more days. On September 28, start ONE tablet po BID hydromorphone [Dilaudid] 2 mg tablet 2 mg PO Q6H PRN (Reason: pain) Qty: 8 0RF Rx Instructions: please cancel all Oxycodone Rx and fill this Rx please acetaminophen 325 mg Tablet 650 mg PO Q6H PRNQty: 20 0RF omeprazole 20 mg capsule,delayed release(DR/EC) 20 mg PO BID Qty: 120 5RF Stand Alone Forms: [facility] Info Instructions
[2024-09-25 08:01] LABS: Albumin* 3.8 g/dL (3.3-5.0)
[2024-09-25 08:03] LABS: Anion Gap 9 mEq/L (7-15); Blood Urea Nitrogen* 20 mg/dL (7-30); Calcium* 9.4 mg/dL (8.4-10.6); Carbon Dioxide* 24 mmol/L (20-32); Creatinine* 0.8 mg/dL (0.5-1.5); Estimated Glomerular Filt Rate 104 ml/min; Glucose* 236 mg/dL (60-115); Potassium* 4.6 mmol/L (3.6-5.1)
[2024-09-25 08:04] LABS: Alanine Aminotransferase* 28 U/L (4-50); Alkaline Phosphatase* 118 U/L (40-150); Aspartate Amino Transferase* 22 U/L (12-35); Bilirubin Direct* 0.3 mg/dL (0.0-0.5); Bilirubin Total* 0.4 mg/dL (0.1-1.5); Total Protein* 7.3 g/dL (6.0-8.3)
[2024-09-25 08:17] LABS: Troponin I* < 0.01 ng/mL (0.01-0.04)
[2024-09-25 08:19] LABS: Lactate Sepsis w/Reflex* 2.3 mmol/L (0.5-1.9)
[2024-09-25 09:58] LABS: Slide Review Acceptable Review (Acceptable)
[2024-09-25 11:05] LABS: Basophils Percent Auto 0.1 % (0.0-3.0); Eosinophils Percent Auto 0.1 % (0.0-7.0); Hematocrit 33.2 % (37.0-53.0); Hemoglobin* 11.2 gm/dL (13.5-17.5); Immature Granulocytes Pct Auto 1.1 %; Lymphocytes Percent Auto 4.3 % (20-44); Mean Corpuscular HGB Conc 34 gm/dL (32-36); Mean Corpuscular Hemoglobin 31 pg (26-34); Mean Corpuscular Volume 91 fL (80-100); Monocytes Percent Auto 3.3 % (0.0-11.0); Neutrophils Percent Auto 91.1 % (42.0-72.0); Platelet Count* 474 K/uL (140-440); RDW Coefficient of Variation % 11.8 % (11.5-15.5); Red Blood Count 3.65 m/uL (4.30-5.90); White Blood Count* 17.77 K/uL (4.50-11.00)
[2024-09-25 11:06] LABS: Slide Review Reflex No
== END 2024-09-25 11:05 | disposition short-term general hospital (02) ==
PROVIDERS: Emergency Provider Student in an Organized Health Care Education/Training Program; PCP Family Medicine
DX: K92.2 Gastrointestinal hemorrhage, unspecified (principal)
CPT/HCPCS: 36415; 36430; 70450; 72125; 74174; 80048; 80076; 82565; 83605; 83615; 84484; 85025; 85610; 86850; 86900; 86901; 86922; 87040; 93005; 99285; 99291; P9016; Q9967

== ENCOUNTER 2024-09-25 10:44 | Outpatient (CLI) | payer OTHER, SELFPAY | END 2024-09-25 10:45 | disposition home or self-care (01) | LOC: AMB 09-27 02:56 | PROVIDERS: PCP Family Medicine; Visit Provider Emergency Medicine Emergency Medical Services | DX: K92.2 Gastrointestinal hemorrhage, unspecified (principal) | CPT/HCPCS: A0425; A0434 ==

== ENCOUNTER 2025-03-02 14:39 | Outpatient (CLI) | payer OTHER, SELFPAY | END 2025-03-02 14:40 | disposition home or self-care (01) | LOC: LKVREF 14:42 | PROVIDERS: PCP Family Medicine; Visit Provider Family Medicine | DX: Z12.5 Encounter for screening for malignant neoplasm of prostate (principal) | CPT/HCPCS: G0103 ==